=== PATIENT | female | born 1985 | race Caucasian/White ===

== ENCOUNTER 2017-09-14 11:35 | Emergency (ER) | payer MEDICAID ==
--- NOTE | 2017-09-14 12:44 | ER Document Report ---
ED GI/ - General Chief Complaint: Abdominal Pain Stated Complaint: ABDOMINAL PAIN Time Seen by Provider: 09/14/17 12:28 Mode of Arrival: Ambulatory Information source: Patient Notes: 32-year-old female presents to ED for complaint of right pelvic pain underneath of her scar for about the last 8 months. She states she had a C- section 16 months ago in the first 5 months and is still the time in the last 8 months it is hurt every time she had a period for the last 4 months it is hurt nonstop. She states she is also had diarrhea off and on since 2015 when she had her gallbladder out. She states she knows she has an ovarian cyst somewhere but she is not sure where but the pain is been much worse recently and now she could not sleep last night. TRAVEL OUTSIDE OF THE [place] IN LAST 30 DAYS: No - HPI Patient complains to provider of: Diarrhea, Pelvic pain - Right pelvic pain Onset: Other - Chronic Timing/Duration: Intermittent Quality of pain: Sharp Severity at maximum: Severe Severity in ED: Severe Pain Level: 5 Location: Pelvis - Right Vaginal bleeding (Compared to normal period): Similar - 100. Right now LMP: On her period now Associated symptoms: Diarrhea, Other - Right pelvic pain Exacerbated by: Movement Relieved by: Denies Similar symptoms previously: Yes Recently seen / treated by doctor: No - Related Data Allergies/Adverse Reactions: cephalexin monohydrate [From Keflex] Allergy (Severe, Verified 06/05/17 22:41) Anaphylaxis codeine [Codeine] Allergy (Severe, Verified 06/05/17 22:41) Anaphylaxis Penicillins Allergy (Severe, Verified 06/05/17 22:41) Anaphylaxis diphenhydramine HCl [From Benadryl] Adverse Reaction (Verified 06/05/17 22:41) prochlorperazine edisylate [From Compazine] Adverse Reaction (Verified 06/05/17 22:41) prochlorperazine maleate [From Compazine] Adverse Reaction (Verified 06/05/17 22 :41) Past Medical History - General Information source: Patient - Social History Smoking Status: Current Every Day Smoker Cigarette use (# per day): Yes - Pack per day Chew tobacco use (# tins/day): No Smoking Education Provided: Yes - 4 minutes Frequency of alcohol use: None Drug Abuse: None Occupation: None Lives with: Family Family History: DM, Hypertension. denies: Arthritis, CAD, COPD, CVA, Hyperlipidemia, Malignancy, Thyroid Disfunction Patient has suicidal ideation: No Patient has homicidal ideation: No - Past Medical History Cardiac Medical History: Reports: None Pulmonary Medical History: Reports: None EENT Medical History: Reports: None Neurological Medical History: Reports: None Endocrine Medical History: Reports: None Renal/ Medical History: Reports: Hx Ovarian Cysts Malignancy Medical History: Reports: None GI Medical History: Reports: Hx Irritable Bowel Musculoskeltal Medical History: Reports Hx Musculoskeletal Deformity Skin Medical History: Reports None Psychiatric Medical History: Reports: Hx Anxiety, Hx Bipolar Disorder, Hx Post Traumatic Stress Disorder Traumatic Medical History: Reports: None Past Surgical History: Reports: Hx Appendectomy, Hx Section, Hx Cholecystectomy, Hx Myringotomy - Immunizations Immunizations up to date: Yes Hx Diphtheria, Pertussis, Tetanus Vaccination: Yes Review of Systems - Review of Systems Constitutional: No symptoms reported EENT: No symptoms reported Cardiovascular: No symptoms reported Respiratory: No symptoms reported Gastrointestinal: Diarrhea - Chronic since 2016 Genitourinary: No symptoms reported Female Genitourinary: Other - Right pelvic pain Musculoskeletal: No symptoms reported Skin: No symptoms reported Hematologic/Lymphatic: No symptoms reported Neurological/Psychological: No symptoms reported -: Yes All other systems reviewed and negative Physical Exam - Vital signs Vitals: Temp Pulse Resp BP Pulse Ox 98.6 F 79 16 121/78 98 09/14/17 11:48 09/14/17 11:48 09/14/17 11:48 09/14/17 11:48 09/14/17 11:48 Interpretation: Normal - General General appearance: Appears well, Alert - HEENT Head: Normocephalic, Atraumatic Eyes: Normal Pupils: PERRL - Respiratory Respiratory status: No respiratory distress Chest status: Nontender Breath sounds: Normal Chest palpation: Normal - Cardiovascular Rhythm: Regular Heart sounds: Normal auscultation Murmur: No - Abdominal Inspection: Normal Distension: No distension Bowel sounds: Normal Tenderness: Tender - Right pelvic area right above her scar Organomegaly: No organomegaly - Back Back: Normal, Nontender - Extremities General upper extremity: Normal inspection, Nontender, Normal color, Normal ROM , Normal temperature General lower extremity: Normal inspection, Nontender, Normal color, Normal ROM , Normal temperature, Normal weight bearing. No: Geovanni's sign - Neurological Neuro grossly intact: Yes Cognition: Normal Orientation: AAOx4 [place] Coma Scale Eye Opening: Spontaneous Alec Coma Scale Verbal: Oriented Alec Coma Scale Motor: Obeys Commands Alec Coma Scale Total: 15 Speech: Normal Motor strength normal: LUE, RUE, LLE, RLE Sensory: Normal - Psychological Associated symptoms: Normal affect, Normal mood - Skin Skin Temperature: Warm Skin Moisture: Dry Skin Color: Normal Course - Re-evaluation Re-evalutation: 09/14/17 15:19 Discussed positive gonorrhea and ultrasound reports with patient. Radiologist had recommended CT of abdomen due to the questionable mass or loop of bowel. Patient stated she did a CT as long as she did not have to drink anything I spoke with radiology he said that if she was not going to drink the contrast there is no points doing the CT and that he actually had a low suspicion of a mass he really thought it was a loop of bowel. Patient states that then she did not want the CAT scan she would rather just use the doxycycline and follow- up with her primary doctor. Patient instructions were reviewed with patient. 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 - Vital Signs Vital signs: Temp Pulse Resp BP Pulse Ox 97.9 F 103 H 18 127/84 H 100 09/14/17 15:21 09/14/17 15:21 09/14/17 15:21 09/14/17 15:21 09/14/17 15:21 - Laboratory Laboratory results interpreted by me: 09/14/17 09/14/17 12:41 12:41 Urine Protein 30 H Urine Blood LARGE H Ur Leukocyte Esterase SMALL H N.gonorrhoeae DNA (PCR) DETECTED H - Diagnostic Test Radiology reviewed: Image reviewed, Reports reviewed Discharge - Discharge Clinical Impression: Gonorrhea, Pelvic pain, Right ovarian cyst Condition: Stable Disposition: HOME, SELF-CARE Instructions: Family Physicians / Practices, Gastroenterology, [facility]-Map And Chart Mounter Doctors Additional Instructions: Ovarian Cyst Your examination shows the presence of an ovarian cyst. This is a ball of fluid attached to the ovary. Ovarian cysts in women of child-bearing age are usually innocent. However, the cyst may cause pain when it grows or bursts. An innocent ovarian cyst will usually go away by itself. When the cyst becomes painful, you should rest. Pain medication may be required. Some women find a hot water bottle soothing. The pain usually resolves within one or two days. After menopause, an ovarian cyst may mean a tumor, and requires more aggressive evaluation -- usually surgery is recommended to remove or biopsy the cyst. A very large cyst requires evaluation at any age. Most cysts (even the innocent ones) require follow-up examination. Call the doctor or return at any time if the pain increases significantly, if you become faint, or if you experience vaginal bleeding. PELVIC PAIN: There are many causes of pain in the pelvic area. The cause could be the tubes, ovaries, uterus, intestines, appendix, pelvic muscles and connective tissue, or the urinary tract. The cause of your pelvic pain is not clear. However, it seems safe to treat you outside the hospital. If the pain sounds like a temporary problem, we sometimes wait to see if it goes away. Other patients may need additional tests, such as pelvic ultrasound or cultures. Conditions may change. Call us or come back for reexamination if any problems occur, such as: (1) Pain that becomes more severe, steady, or becomes concentrated in one specific area. Also, pain that is more severe with movement or coughing. (2) Vomiting that persists or becomes more frequent. (3) Blood in the vomitus, urine, or bowel movements. Blood in the stool may have a tarry or black appearance. (4) Shaking chills or fever greater than 100 degrees. (5) The abdomen becomes more distended or swollen. (6) Bowel movements cease. (7) Heavy vaginal bleeding. PELVIC INFLAMMATORY DISEASE: You have been diagnosed as having pelvic inflammatory disease (PID). This is an infection of the fallopian tubes and surrounding areas of the pelvis. Symptoms are usually pelvic pain and discharge. The infection can do permanent damage to the tubes and ovaries. It should be taken very seriously. Treatment is antibiotics, which may be given by vein or by injection if the infection seems serious. It's important that you receive all recommended medication. Condoms help prevent spread of this infection to others. Because this infection is spread sexually, it's important that your sexual partner be checked before resuming sexual relations. If a culture shows gonorrhea or chlamydia organisms, the law requires that this be reported to the health department. Call the doctor or return at once if you develop increasing fever, rash, severe pelvic pain, vaginal bleeding (other than your period), or problems with your bladder or bowels. Antinausea Medication You have been given a medication to suppress nausea and vomiting. This type of medication can be given as a shot, pill, or suppository. It will usually last for many hours. Pills and shots usually last six to eight hours, suppositories last about 12 hours. For the typical illness, only one or two doses of the medication may be necessary. Mild lightheadedness may occur. This type of medicine can cause drowsiness. Do not drive or operate dangerous machinery while under its influence. Do not mix with alcohol. See your doctor at once if you have muscle spasms or tightness, or uncontrollable motions (particularly of the neck, mouth, or jaw). Persistent vomiting or severe lightheadedness should also be evaluated by the physician. DOXYCYCLINE: Doxycycline (Vibramycin, Doryx) is an antibiotic of the tetracycline family. This type of drug is useful for infections of the respiratory tract and genital tract, and is sometimes used for intestinal infections. Unlike most tetracyclines, doxycycline can be taken with food. It is longer acting, and (usually) less prone to side effects than regular tetracycline. Tetracycline antibiotics can stain immature teeth and SHOULD NOT BE TAKEN BY CHILDREN, NURSING MOTHERS, OR WOMEN. Tetracyclines can make you more prone to sunburn. Abdominal cramping, nausea, and diarrhea are occasional side effects. Women may experience vaginal yeast infections. Call the doctor at once if you develop hives, itching, shortness of breath , or lightheadedness. FOLLOW-UP CARE: If you have been referred to a physician for follow-up care, call the physician s office for an appointment as you were instructed or within the next two days. If you experience worsening or a significant change in your symptoms, notify the physician immediately or return to the Emergency Department at any time for re-evaluation. Prescriptions: Doxycycline Hyclate 100 mg PO BID #14 tablet Ondansetron [Zofran Odt 4 mg Tablet] 1 tab PO Q6H #15 tab.rapdis Forms: Return to Work
[2017-09-14 13:20] LABS: APPEARANCE,URINE CLOUDY; BILIRUBIN,URINE NEGATIVE (NEGATIVE); COLOR,URINE YELLOW; GLUCOSE, URINE NEGATIVE (NEGATIVE); KETONES,URINE NEGATIVE (NEGATIVE); LEUKOCYTE ESTERASE,URINE SMALL (NEGATIVE); NITRITE,URINE NEGATIVE (NEGATIVE); PROTEIN,URINE 30 mg/dL (NEGATIVE); URINE SPECIFIC GRAVITY 1.024; UROBILINOGEN,URINE NEGATIVE mg/dL (<2.0)
[2017-09-14 14:36] LABS: CHLAM PCR NOT DETECTED (NOT DETECT); GON PCR DETECTED (NOT DETECT)
[2017-09-14] MEDS ORDERED: DOXYCYCLINE HYCLATE 100 MG TABLET PO ONE (14:57)
[2017-09-14] MEDS ORDERED: ONDANSETRON 4 MG TAB.RAPDIS PO ONE (14:58)
--- NOTE | 2017-09-14 14:58 | RADIOLOGY REPORT (SQ) ---
EXAM DESCRIPTION: U/S NON OB PEL TV W/DOPPLER COMPLETED DATE/TIME: 09/14/2017 2:08 pm REASON FOR STUDY: right pelvic pain COMPARISON: None. TECHNIQUE: Dynamic and static grayscale images acquired of the pelvis via transvaginal approach and recorded on PACS. Additional selected color Doppler and spectral images recorded. LIMITATIONS: None. FINDINGS: UTERUS: Contour normal. No mass. ENDOMETRIAL STRIPE: No focal or generalized thickening. No masses. CERVIX: No nabothian cysts. RIGHT OVARY: 1.6 cm simple appearing cyst. 2.6 cm adjacent hyperechoic nonvascular lesion. RIGHT OVARY DOPPLER: Normal arterial vascular flow without evidence for torsion. LEFT OVARY: No abnormal masses. LEFT OVARY DOPPLER: Normal arterial vascular flow without evidence for torsion. FREE FLUID: None noted. OTHER: No other significant finding. MEASUREMENTS: UTERUS: 8.4 x 4.9 x 4.0 cm ENDOMETRIAL STRIPE: 8 mm RIGHT OVARY: 3.3 x 3.0 x 2.4 cm LEFT OVARY: 2.3 x 3.0 x 1.8 cm IMPRESSION: Complex cyst right ovary versus simple cyst with adjacent loop of bowel or less likely s olid mass. Consider followup CT to exclude a mass. TECHNICAL DOCUMENTATION: JOB ID: [id number] [employer]- All Rights Reserved
[2017-09-14 15:24] VITALS: BP 127/84
== END 2017-09-14 15:24 | disposition home or self-care (01) ==
LOC: ER 11:35
DX: N83.201 Unspecified ovarian cyst, right side (principal); A54.9 Gonococcal infection, unspecified; R10.2 Pelvic and perineal pain; R19.7 Diarrhea, unspecified; F17.210 Nicotine dependence, cigarettes, uncomplicated; Z88.0 Allergy status to penicillin; Z88.6 Allergy status to analgesic agent; Z90.49 Acquired absence of other specified parts of digestive tract
CPT/HCPCS: 99406; 99284; 87086; 81025; 81001; 87491; 87591; 76830; 93976; J3490; S0119

== ENCOUNTER 2017-09-16 00:43 | Emergency (ER) | payer MEDICAID ==
--- NOTE | 2017-09-16 02:25 | ER Document Report ---
ED General - General Chief Complaint: Abdominal Pain Stated Complaint: ABDOMINAL PAIN Time Seen by Provider: 09/16/17 01:08 Mode of Arrival: Ambulatory Information source: Patient Notes: 32-year-old female presents with 16 month duration of right lower quadrant abdominal pain patient notes ever since her the area has tian and itches, patient has been seen multiple times for this and states no one can tell her why she itches. Patient is tearful stating that she is tired of no one giving her an answer. Patient denies any fevers or chills admits to nausea every single morning that she wakes up. Patient was seen here 2 days prior noted to have a cyst versus a mass of the right lower quadrant, she googled it and believes she has cancer and now is afraid to sleep at night because she may not wake up in the morning. Patient refused a CT when she was here 2 days prior was noted to have chlamydia which she states does not cause her pain and that her pain started before the chlamydia occurred TRAVEL OUTSIDE OF THE [place] IN LAST 30 DAYS: No - HPI Onset: Other Onset/Duration: Persistent Quality of pain: Burning Severity: Mild Pain Level: 1 Associated symptoms: Nausea, Vomiting Exacerbated by: Denies Relieved by: Denies Similar symptoms previously: Yes Recently seen / treated by doctor: Yes - Related Data Allergies/Adverse Reactions: cephalexin monohydrate [From Keflex] Allergy (Severe, Verified 06/05/17 22:41) Anaphylaxis codeine [Codeine] Allergy (Severe, Verified 06/05/17 22:41) Anaphylaxis Penicillins Allergy (Severe, Verified 06/05/17 22:41) Anaphylaxis diphenhydramine HCl [From Benadryl] Adverse Reaction (Verified 06/05/17 22:41) prochlorperazine edisylate [From Compazine] Adverse Reaction (Verified 06/05/17 22:41) prochlorperazine maleate [From Compazine] Adverse Reaction (Verified 06/05/17 22 :41) Past Medical History - Social History Smoking Status: Never Smoker Cigarette use (# per day): No Chew tobacco use (# tins/day): No Smoking Education Provided: No Family History: DM, Hypertension. denies: Arthritis, CAD, COPD, CVA, Hyperlipidemia, Malignancy, Thyroid Disfunction Renal/ Medical History: Reports: Hx Ovarian Cysts. Denies: Hx Peritoneal Dialysis GI Medical History: Reports: Hx Irritable Bowel Musculoskeltal Medical History: Reports Hx Musculoskeletal Deformity Psychiatric Medical History: Reports: Hx Anxiety, Hx Bipolar Disorder, Hx Post Traumatic Stress Disorder Past Surgical History: Reports: Hx Appendectomy, Hx Section, Hx Cholecystectomy, Hx Myringotomy - Immunizations Immunizations up to date: Yes Hx Diphtheria, Pertussis, Tetanus Vaccination: Yes Review of Systems - Review of Systems Notes: REVIEW OF SYSTEMS: CONSTITUTIONAL : Denies fever, chills, or sweats. Denies recent illness. EENT: Denies eye, ear, throat, or mouth pain or symptoms. Denies nasal or sinus congestion or discharge. Denies throat, tongue, or mouth swelling or difficulty swallowing. CARDIOVASCULAR: Denies chest pain. Denies palpitations or racing or irregular heart beat. Denies ankle edema. RESPIRATORY: Denies cough, cold, or chest congestion. Denies shortness of breath, difficulty breathing, or wheezing. GASTROINTESTINAL: Admits to abdominal pain itching burning GENITOURINARY: Denies difficulty urinating, painful urination, burning, frequency, blood in urine, or discharge. FEMALE GENITOURINARY: Denies vaginal bleeding, heavy or abnormal periods, irregular periods. Denies vaginal discharge or odor. MUSCULOSKELETAL: Denies back or neck pain or stiffness. Denies joint pain or swelling. SKIN: Denies rash, lesions or sores. HEMATOLOGIC : Denies easy bruising or bleeding. LYMPHATIC: Denies swollen, enlarged glands. NEUROLOGICAL: Denies confusion or altered mental status. Denies passing out or loss of consciousness. Denies dizziness or lightheadedness. Denies headache. Denies weakness or paralysis or loss of use of either side. Denies problems with gait or speech. Denies sensory loss, numbness, or tingling. Denies seizures. PSYCHIATRIC: Denies anxiety or stress. Denies depression, suicidal ideation, or homicidal ideation. ALL OTHER SYSTEMS REVIEWED AND NEGATIVE. PHYSICAL EXAMINATION: GENERAL: Well-appearing, well-nourished and in no acute distress. HEAD: Atraumatic, normocephalic. EYES: Pupils equal round and reactive to light, extraocular movements intact, conjunctiva are normal. ENT: Nares patent, oropharynx clear without exudates. Moist mucous membranes. NECK: Normal range of motion, supple without lymphadenopathy LUNGS: Breath sounds clear to auscultation bilaterally and equal. No wheezes rales or rhonchi. HEART: Regular rate and rhythm without murmurs ABDOMEN: Soft, nontender, nondistended abdomen. No guarding, no rebound. No masses appreciated. Female : deferred Musculoskeletal: Normal range of motion, no pitting or edema. No cyanosis. NEUROLOGICAL: Cranial nerves grossly intact. Normal speech, normal gait. Normal sensory, motor exams PSYCH: Tearful anxious SKIN: Warm, Dry, normal turgor, no rashes or lesions noted. Dictation was performed using [employer] recognition software Physical Exam - Vital signs Vitals: Temp Pulse Resp BP Pulse Ox 97.9 F 98 18 134/84 H 97 09/16/17 00:49 09/16/17 00:49 09/16/17 00:49 09/16/17 00:49 09/16/17 00:49 Course - Re-evaluation Re-evalutation: 09/16/17 02:24 Patient's presentation is consistent with nerve injury post , she notes it is numb in the area had burning and itching. Since there was a possible mass I will perform a CT to reassure the patient that it is just a cyst. Either way patient will need follow-up with LICENSED PSYCHOLOGIST MANAGER as I cannot cure this. Patient is very low suspicion for tubo-ovarian abscess as she does not have any fever chills 09/16/17 04:02 CT noted dermoid cyst, patient otherwise has no acute life-threatening issues she is quite anxious, patient will be placed on Vistaril After performing a Medical Screening Examination, I estimate there is LOW risk for ACUTE APPENDICITIS, BOWEL OBSTRUCTION, ACUTE CHOLECYSTITIS, PERFORATED DIVERTICULITIS, INCARCERATED HERNIA, PANCREATITIS, PELVIC INFLAMMATORY DISEASE, PERFORATED ULCER, ECTOPIC , or TUBO-OVARIAN ABSCESS, thus I consider the discharge disposition reasonable. Also, there is no evidence or peritonitis , sepsis, or toxicity. I have reevaluated this patient multiple times and no significant life threatening changes are noted. The patient and I have discussed the diagnosis and risks, and we agree with discharging home with close follow-up with the understanding that symptoms and presentations can change. We also discussed returning to the Emergency Department immediately if new or worsening symptoms occur. We have discussed the symptoms which are most concerning (e.g., bloody stool, fever, changing or worsening pain, vomiting) that necessitate immediate return. - Vital Signs Vital signs: Temp Pulse Resp BP Pulse Ox 97.9 F 98 18 134/84 H 97 09/16/17 00:49 09/16/17 00:49 09/16/17 00:49 09/16/17 00:49 09/16/17 00:49 - Laboratory Result Diagrams: 09/16/17 02:15 09/16/17 02:15 Laboratory results interpreted by me: 09/16/17 09/16/17 02:15 02:15 RDW 14.5 H BUN 6 L Calcium 10.5 H AST 13 L - Diagnostic Test Radiology reviewed: Image reviewed, Reports reviewed Discharge - Discharge Clinical Impression: Dermoid cyst, Anxiety Condition: Stable Disposition: HOME, SELF-CARE Prescriptions: Hydroxyzine Pamoate [Vistaril 50 mg Capsule] 50 mg PO DAILY #30 capsule Referrals: [facility] [Provider Group] - Follow up tomorrow
[2017-09-16 02:29] LABS: ABSOLUTE BASOPHILS # (AUTO) 0.1 10^3/uL (0.0-0.2); ABSOLUTE EOSINOPHILS # (AUTO) 0.2 10^3/uL (0.0-0.6); ABSOLUTE LYMPHOCYTES (AUTO) 2.8 10^3/uL (0.5-4.7); ABSOLUTE MONOCYTES (AUTO) 0.7 10^3/uL (0.1-1.4); ABSOLUTE NEUT (AUTO) 6.8 10^3/uL (1.7-8.2); BASOPHILS % (AUTO) 0.9 % (0-2); EOSINOPHILS % (AUTO) 1.4 % (0-6); HEMATOCRIT 42.2 % (36.0-47.0); HEMOGLOBIN 14.4 g/dL (12.0-15.5); LYMPHOCYTES % (AUTO) 26.5 % (13-45); MEAN CORPUSCULAR HEMOGLOBIN 31.3 pg (27.0-33.4); MEAN CORPUSCULAR HGB CONC 34.2 g/dL (32.0-36.0); MEAN CORPUSCULAR VOLUME 92 fl (80-97); MONOCYTES % (AUTO) 6.5 % (3-13); PLATELET COUNT 284 10^3/uL (150-450); RED BLOOD COUNT 4.61 10^6/uL (3.72-5.28); RED CELL DISTRIBUTION WIDTH 14.5 % (11.5-14.0); SEGMENTED NEUTROPHILS % (AUTO) 64.7 % (42-78); TOTAL CELLS COUNTED % (AUTO) 100 %; WHITE BLOOD COUNT 10.5 10^3/uL (4.0-10.5)
[2017-09-16 02:42] LABS: ALANINE AMINOTRANSFERASE 16 U/L (9-52); ALBUMIN 4.9 g/dL (3.5-5.0); ALKALINE PHOSPHATASE 68 U/L (38-126); ANION GAP 15 (5-19); ASPARTATE AMINO TRANSFERASE 13 U/L (14-36); BILIRUBIN,DIRECT 0.1 mg/dL (0.0-0.4); BILIRUBIN,TOTAL 0.9 mg/dL (0.2-1.3); BLOOD UREA NITROGEN 6 mg/dL (7-20); CALCIUM 10.5 mg/dL (8.4-10.2); CARBON DIOXIDE 24 mmol/L (22-30); CHLORIDE 105 mmol/L (98-107); GLUCOSE 102 mg/dL (75-110); POTASSIUM 3.9 mmol/L (3.6-5.0); SODIUM 143.8 mmol/L (137-145); TOTAL PROTEIN 7.7 g/dL (6.3-8.2)
[2017-09-16] MEDS ORDERED: ONDANSETRON HCL INJ/PF 4 MG/2 ML SDV IV ONE (03:24)
--- NOTE | 2017-09-16 03:44 | RADIOLOGY REPORT (SQ) ---
EXAM DESCRIPTION: CT ABD/PELVIS WITH IV ONLY CLINICAL HISTORY: 32 years Female, RLQ cyst vs mass COMPARISON: None. TECHNIQUE: 82 mL Isovue-370 IV contrast. Coronal and sagittal reformat. This exam was performed according to our departmental dose-optimization program, which includes automated exposure control, adjustment of the mA and/or kV according to patient size and/or use of iterative reconstruction technique. FINDINGS: 2.9 cm right ovarian dermoid with fat, cystic, and small calcific components. 0.4 cm right renal stone and 0.4 cm left renal stone without complication. Cholecystectomy clips. Appendectomy suture. Inferior thorax, liver, pancreas, spleen, adrenals, renal system, gastrointestinal tract, pelvic organs, lymphatics, vasculature, and musculoskeleton appear otherwise unremarkable. IMPRESSION: No acute findings. 2.9 cm right ovarian dermoid. Bilateral 0.4 cm nephrolithiasis.
[2017-09-16 04:28] VITALS: BP 131/96
== END 2017-09-16 04:20 | disposition home or self-care (01) ==
LOC: ER 00:43
DX: D27.0 Benign neoplasm of right ovary (principal); F41.9 Anxiety disorder, unspecified; A74.9 Chlamydial infection, unspecified; R10.31 Right lower quadrant pain; R11.2 Nausea with vomiting, unspecified
CPT/HCPCS: 99284; 96374; 36415; 85025; 80053; 74177; J2405

== ENCOUNTER 2017-12-03 10:40 | Emergency (ER) | payer MEDICAID ==
[2017-12-03] MEDS ORDERED: CLONAZEPAM 1 MG TABLET PO ONE (11:08)
--- NOTE | 2017-12-03 11:14 | ER Document Report ---
ED Psych Disorder / Suicide - General Chief Complaint: Anxiety Stated Complaint: ANXIETY Time Seen by Provider: 12/03/17 10:57 Mode of Arrival: Medic Information source: Patient, Emergency Med Personnel, [facility] Records Notes: This 32-year-old female patient comes emergency room this morning for anxiety/ panic attack problems. She has a long-standing history of bipolar disorder not requiring medication. She has had anxiety and panic attacks for the past 5 years. She recently returned to this area the first part of October. She had been taking clonazepam 0.5 mg and it was controlling her anxiety to the point that she would not need to call 911, but was not completely controlling her symptoms. On her last psych visit 3 days ago her provider changed her from clonazepam 0.5 mg to Valium 5 mg. The Valium has not been helping at all and she is having uncontrolled panic attacks, hyperventilating, sobbing, unable to sleep. TRAVEL OUTSIDE OF THE [place] IN LAST 30 DAYS: No - Related Data Allergies/Adverse Reactions: cephalexin monohydrate [From Keflex] Allergy (Severe, Verified 12/03/17 10:52) Anaphylaxis codeine [Codeine] Allergy (Severe, Verified 12/03/17 10:52) Anaphylaxis Penicillins Allergy (Severe, Verified 12/03/17 10:52) Anaphylaxis diphenhydramine HCl [From Benadryl] Adverse Reaction (Verified 12/03/17 10:52) prochlorperazine edisylate [From Compazine] Adverse Reaction (Verified 12/03/17 10:52) prochlorperazine maleate [From Compazine] Adverse Reaction (Verified 12/03/17 10 :52) Past Medical History - General Information source: Patient, Emergency Med Personnel, [facility] Records - Social History Smoking Status: Current Every Day Smoker Cigarette use (# per day): Yes - 1 PPD Chew tobacco use (# tins/day): No Smoking Education Provided: No Frequency of alcohol use: None Drug Abuse: None Occupation: Unemployed Lives with: Friend Family History: DM, Hypertension Patient has suicidal ideation: No Patient has homicidal ideation: No Renal/ Medical History: Reports: Hx Ovarian Cysts GI Medical History: Reports: Hx Irritable Bowel Musculoskeltal Medical History: Reports Hx Musculoskeletal Deformity Psychiatric Medical History: Reports: Hx Anxiety, Hx Bipolar Disorder, Hx Post Traumatic Stress Disorder, Other - Panic attacks Past Surgical History: Reports: Hx Appendectomy, Hx Section, Hx Cholecystectomy, Hx Myringotomy - Immunizations Immunizations up to date: Yes Hx Diphtheria, Pertussis, Tetanus Vaccination: Yes Review of Systems - Review of Systems Constitutional: No symptoms reported EENT: No symptoms reported Cardiovascular: No symptoms reported Respiratory: No symptoms reported Gastrointestinal: No symptoms reported Genitourinary: No symptoms reported Female Genitourinary: Last menstrual period - Patient has the Nuva Ring contraceptive device Musculoskeletal: No symptoms reported Skin: No symptoms reported Hematologic/Lymphatic: No symptoms reported Neurological/Psychological: Anxiety Physical Exam - Vital signs Vitals: Temp Pulse Resp BP Pulse Ox 98.9 F 115 H 20 137/96 H 97 12/03/17 10:45 12/03/17 10:45 12/03/17 10:45 12/03/17 10:45 12/03/17 10:45 Interpretation: Normal - General General appearance: Alert, Anxious - Extremely anxious, crying, pacing the floor , Other - Hyperventilating - HEENT Head: Normocephalic, Atraumatic Eyes: Normal Pupils: PERRL Neck: Normal - Respiratory Respiratory status: No respiratory distress, Other - Hyperventilating due to anxiety Breath sounds: Normal - Cardiovascular Rhythm: Tachycardia Heart sounds: Normal auscultation Murmur: No - Abdominal Inspection: Normal - Back Back: Normal - Extremities General upper extremity: Normal inspection General lower extremity: Normal inspection - Neurological Neuro grossly intact: Yes - Psychological Associated symptoms: Anxious - Skin Skin Temperature: Warm Skin Moisture: Dry Skin Color: Normal Course - Re-evaluation Re-evalutation: 12/03/17 11:14 At this time we will give the patient clonazepam 1.0 mg and see if that will control her anxiety and panic disorder enough to be discharged home. 12/03/17 12:24 Patient's anxiety is much improved at this time, she is very thankful for medication and being switched back to her Klonopin, she agrees to stop the diazepam and to take the un-used diazepam back to her doctor on Tuesday. - Vital Signs Vital signs: Temp Pulse Resp BP Pulse Ox 98.7 F 87 18 127/88 H 99 12/03/17 12:19 12/03/17 12:19 12/03/17 12:19 12/03/17 12:19 12/03/17 12:19 Discharge - Discharge Clinical Impression: Panic disorder Instructions: Anxiety ([facility]) Additional Instructions: Stop taking the diazepam that was prescribed. Take the clonazepam as prescribed today. Follow-up with your psychiatry provider in the next few days to start back on clonazepam. Take the unused diazepam with you to see your doctor so that another clonazepam prescription can be written. RETURN TO THE EMERGENCY ROOM IF ANY NEW OR WORSENING SYMPTOMS. Prescriptions: Clonazepam 0.5 mg PO Q8 PRN #10 tablet PRN Reason: Anxiety
[2017-12-03 12:21] VITALS: BP 127/88
== END 2017-12-03 12:26 | disposition home or self-care (01) ==
LOC: ER 10:40
DX: F41.0 Panic disorder [episodic paroxysmal anxiety] (principal); F41.9 Anxiety disorder, unspecified; F17.210 Nicotine dependence, cigarettes, uncomplicated; Z79.899 Other long term (current) drug therapy
CPT/HCPCS: 99283; J3490

== ENCOUNTER 2018-01-01 14:35 | Emergency (ER) | payer MEDICAID ==
--- NOTE | 2018-01-01 15:03 | ER Document Report ---
ED Medical Screen (RME) - General Chief Complaint: Anxiety Stated Complaint: ANXIETY Time Seen by Provider: 01/01/18 14:55 Mode of Arrival: Ambulatory Information source: Patient Notes: 32-year-old female history of anxiety panic attacks who is on clonazepam daily and was recently put on Latuda and Zyprexa by her psychiatrist which he refuses to take presents with complaints of panic attack. Patient notes symptoms have been ongoing now for a few days that she is been nauseous and that everything hurts. Patient notes this is similar to previous panic attacks I have greeted and performed a rapid initial assessment of this patient. A comprehensive ED assessment and evaluation of the patient, analysis of test results and completion of the medical decision making process will be conducted by additional ED providers. PHYSICAL EXAMINATION: GENERAL: Well-appearing, well-nourished and in no acute distress. HEAD: Atraumatic, normocephalic. EYES: Pupils equal round extraocular movements intact, conjunctiva are normal. ENT: Nares patent NECK: Normal range of motion LUNGS: No respiratory distress Musculoskeletal: Normal range of motion NEUROLOGICAL: Normal speech, normal gait. PSYCH: Tearful anxious SKIN: Warm, Dry, normal turgor, no rashes or lesions noted. TRAVEL OUTSIDE OF THE [place] IN LAST 30 DAYS: No - Related Data Allergies/Adverse Reactions: cephalexin monohydrate [From Keflex] Allergy (Severe, Verified 12/03/17 10:52) Anaphylaxis codeine [Codeine] Allergy (Severe, Verified 12/03/17 10:52) Anaphylaxis Penicillins Allergy (Severe, Verified 12/03/17 10:52) Anaphylaxis diphenhydramine HCl [From Benadryl] Adverse Reaction (Verified 12/03/17 10:52) prochlorperazine edisylate [From Compazine] Adverse Reaction (Verified 12/03/17 10:52) prochlorperazine maleate [From Compazine] Adverse Reaction (Verified 12/03/17 10 :52) Past Medical History - Social History Chew tobacco use (# tins/day): No Frequency of alcohol use: None Drug Abuse: Marijuana Renal/ Medical History: Reports: Hx Ovarian Cysts. Denies: Hx Peritoneal Dialysis GI Medical History: Reports: Hx Irritable Bowel Musculoskeltal Medical History: Reports Hx Musculoskeletal Deformity Psychiatric Medical History: Reports: Hx Anxiety, Hx Bipolar Disorder, Hx Post Traumatic Stress Disorder Past Surgical History: Reports: Hx Appendectomy, Hx Section, Hx Cholecystectomy, Hx Myringotomy - Immunizations Immunizations up to date: Yes Hx Diphtheria, Pertussis, Tetanus Vaccination: Yes Physical Exam - Vital signs Vitals: Temp Pulse Resp BP Pulse Ox 99.3 F 97 18 142/86 H 99 01/01/18 14:53 01/01/18 14:53 01/01/18 14:53 01/01/18 14:53 01/01/18 14:53 Course - Vital Signs Vital signs: Temp Pulse Resp BP Pulse Ox 99.3 F 97 18 142/86 H 99 01/01/18 14:53 01/01/18 14:53 01/01/18 14:53 01/01/18 14:53 01/01/18 14:53 Doctor's Discharge - Discharge Instructions: Anxiety (OM) Referrals: MADISON VILLAR MD [Primary Care Provider] - Follow up as needed
--- NOTE | 2018-01-01 15:48 | ER Document Report ---
ED Psych Disorder / Suicide - General Mode of Arrival: Ambulatory Information source: Patient TRAVEL OUTSIDE OF THE [place] IN LAST 30 DAYS: No - General Chief Complaint: Anxiety Stated Complaint: ANXIETY Time Seen by Provider: 01/01/18 14:55 Notes: Patient is a 32-year-old female who presents to the emergency department today with complaints of ongoing panic attack for the last 2 days. Patient states that she has been on Klonopin for several years for her panic attacks and she feels like it is slowly beginning to not work for her anymore. Patient states she has been unable to work for several years secondary to her anxiety. Patient states her psychiatrist added Latuda and Zyprexa but she states she "stopped taking it because she is not schizophrenic". Patient denies HI or SI. ( TELMA TONG) - Related Data Allergies/Adverse Reactions: cephalexin monohydrate [From Keflex] Allergy (Severe, Verified 12/03/17 10:52) Anaphylaxis codeine [Codeine] Allergy (Severe, Verified 12/03/17 10:52) Anaphylaxis Penicillins Allergy (Severe, Verified 12/03/17 10:52) Anaphylaxis diphenhydramine HCl [From Benadryl] Adverse Reaction (Verified 12/03/17 10:52) prochlorperazine edisylate [From Compazine] Adverse Reaction (Verified 12/03/17 10:52) prochlorperazine maleate [From Compazine] Adverse Reaction (Verified 12/03/17 10 :52) Past Medical History - General Information source: Patient - Social History Smoking Status: Current Every Day Smoker Cigarette use (# per day): Yes Chew tobacco use (# tins/day): No Frequency of alcohol use: None Drug Abuse: Marijuana Lives with: Family Family History: Reviewed & Not Pertinent, DM, Hypertension Patient has suicidal ideation: No Patient has homicidal ideation: No Renal/ Medical History: Reports: Hx Ovarian Cysts GI Medical History: Reports: Hx Irritable Bowel Musculoskeltal Medical History: Reports Hx Musculoskeletal Deformity Psychiatric Medical History: Reports: Hx Anxiety, Hx Bipolar Disorder, Hx Post Traumatic Stress Disorder Past Surgical History: Reports: Hx Appendectomy, Hx Section, Hx Cholecystectomy, Hx Myringotomy - Immunizations Immunizations up to date: Yes Hx Diphtheria, Pertussis, Tetanus Vaccination: Yes Review of Systems - Review of Systems Constitutional: No symptoms reported EENT: No symptoms reported Cardiovascular: No symptoms reported Respiratory: No symptoms reported Gastrointestinal: No symptoms reported Genitourinary: No symptoms reported Female Genitourinary: No symptoms reported Musculoskeletal: No symptoms reported Skin: No symptoms reported Hematologic/Lymphatic: No symptoms reported Neurological/Psychological: See HPI, Other - panic attacks -: Yes All other systems reviewed and negative Physical Exam - Vital signs Interpretation: Normal - General General appearance: Appears well, Alert - HEENT Head: Normocephalic, Atraumatic Eyes: Normal Pupils: PERRL - Respiratory Respiratory status: No respiratory distress Chest status: Nontender Breath sounds: Normal Chest palpation: Normal - Cardiovascular Rhythm: Regular Heart sounds: Normal auscultation Murmur: No - Abdominal Inspection: Normal Distension: No distension Bowel sounds: Normal Tenderness: Nontender Organomegaly: No organomegaly - Back Back: Normal, Nontender - Extremities General upper extremity: Normal inspection, Nontender. No: Edema General lower extremity: Normal inspection, Nontender. No: Edema - Neurological Neuro grossly intact: Yes Cognition: Normal Orientation: AAOx4 Alec Coma Scale Eye Opening: Spontaneous Franklin Coma Scale Verbal: Oriented Alec Coma Scale Motor: Obeys Commands Franklin Coma Scale Total: 15 Speech: Normal - Psychological Associated symptoms: Normal affect, Normal mood - Skin Skin Temperature: Warm Skin Moisture: Dry Skin Color: Normal - Vital signs Vitals: Temp Pulse Resp BP Pulse Ox 99.3 F 97 18 142/86 H 99 01/01/18 14:53 01/01/18 14:53 01/01/18 14:53 01/01/18 14:53 01/01/18 14:53 Course - Re-evaluation Re-evalutation: 01/01/18 16:52 The patient later reported that she was hypothyroid as a teenager and would like that checked along with a test. 01/01/18 18:37 Patient further reported that her psychiatrist told her on her with the most recent clonazepam TID prescription that she could take an extra dose daily for short while if needed. He did not tell her what to do when this would cause her to run out early. She reports at this time she has 6 pills left, and has 4 days left until she should receive her next monthly prescription. Her last prescription was filled on 12/06/2017 for a 30 day supply which would mean her next prescription should be filled on 01/05/2018. Psych workers spoke with the patient at length about the Latuda and Zyprexa prescription she received that are used for mood stabilizing and anxiety and panic disorders. They are not just for schizophrenia as she had seen when she looked them up online. I will give the patient a prescription for 10 clonazepam 0.5 mg tablets so she does not run out prior to seeing her psychiatrist again. I will again recommend that she does try the lower dose of Zyprexa that was prescribed and the Latuda to see if that along with her previous clonazepam dosing helps control her anxiety and panic disorder a little bit better. (BECKI DENNIS) - Vital Signs Vital signs: Temp Pulse Resp BP Pulse Ox 99.3 F 97 18 142/86 H 99 01/01/18 14:53 01/01/18 14:53 01/01/18 14:53 01/01/18 14:53 01/01/18 14:53 Discharge - Discharge Clinical Impression: Anxiety, Panic disorder Condition: Stable Disposition: HOME, SELF-CARE Instructions: Anxiety ([facility]) Additional Instructions: You should be receiving your next monthly Clonazepam prescription in 4-5 days. You will receive a prescription today for Clonazepam to ensure you do not run out prior to your next scheduled refill date. We do recommend that you take the Zyprexa and Latuda that was prescribed for you to help control your anxiety and panic disorder. Follow-up with your mental health providers to ensure that you get your next Clonazepam prescription on schedule so that you do not run out. RETURN TO THE EMERGENCY ROOM IF ANY NEW OR WORSENING SYMPTOMS. Prescriptions: Clonazepam 0.5 mg PO Q8 #10 tablet Scribe Attestation: 01/01/18 18:47 I personally performed the services described in the documentation, reviewed and edited the documentation which was dictated to the scribe in my presence, and it accurately records my words and actions. (BECKI DENNIS) Scribe Documentation - Scribe Written by Aranza:: Aranza Li, 01/01/2018 1737 acting as scribe for :: Delgado
[2018-01-01] MEDS ORDERED: CLONAZEPAM 1 MG TABLET PO ONE (15:53)
[2018-01-01] MEDS ORDERED: ONDANSETRON 4 MG TAB.RAPDIS PO ONE (17:02)
--- NOTE | 2018-01-01 17:13 | PSYCHOLOGICAL NOTE ---
Psych Note - Psych Note Psych Note: Reason for Consult: anxiety 32-year-old female history of anxiety panic attacks who is on clonazepam daily and was recently put on Latuda and Zyprexa by her psychiatrist which he refuses to take presents with complaints of panic attack. Patient notes symptoms have been ongoing now for a few days that she is been nauseous and that everything hurts. Patient notes this is similar to previous panic attacks Patient disclosed she has suffered from anxiety for the last 5 years. She disclosed that her medication that she takes is the only one that she has found that helps but still doesn't stop her panic attacks. She reports that she can be sitting somewhere with no issues and she can feel a hot wave overcome her and "that's it...it's over...there is not stopping it." She reports that it can happen with no triggers, it last for 2 days and effects her physically (ie vomiting, diarrhea ect.). Patient disclosed she is not happy with her outpatient mental health provider and has already requested a new referral from her primary care. She disclosed anger about her outpatient provider giving her prescriptions for antipsychotics when all she has is anxiety. Clinician attempted to psychoeducated the patient on medications given for multiple reasons and not only for the identified reason found on google. Patient denies having bipolar disclosing she had the diagnosis was a child "but they got rid of it becuase they told me I should never have been diagnosis as young as I was. " Patient was alert and orientated to person, place, time and circumstance. Mood is irritable with congruent affect. Patient denies suicidal and homicidal ideation. Delusions are absent and behaviour is congruent with an intact reality based presentation ie organized and linear thought processes. Eye contact was well maintained. conversational speech was overall within normal rate tone and prosody with noted times of irritability. Intellectual abilities appear to be average range. Attention and concentration are fair. Insight, judgment and impulse control are good. No medication recommendations at this time 296.80 (F31.9) Unspecified Bipolar Disorder 300.00 (F41.9) Unspecified Anxiety Disorder R/O bipolar disorder Impression/Plan: Patient is cleared from acute psychiatric services. Patient denies suicidal and homicidal ideation. Patient does not meet IVC criteria per [place] GS 122C. Patient openly engages with clinician discusses her concerns with her anxiety has increased. Patient states that she is suffered from anxiety for the last 5 years and feels that it is physically debilitating. Clinician conducted psychoeducation on medications however patient states she has refused to take prescriptions provided by her outpatient mental health provider. Patient is reports that she is unhappy with her provider has already requested a new referral from her PCM. Dr. Shah was consulted and the care management this patient; attending physician is in agreement with augmentations and disposition.
[2018-01-01 17:44] LABS: FREE T3 3.1 pg/mL (2.77-5.27); FREE T4 (FREE THYROXINE) 1.18 ng/dL (0.78-2.19)
[2018-01-01 17:57] LABS: THYROID STIMULATING HORMONE 1.28 uIU/mL (0.47-4.68)
[2018-01-01 19:11] VITALS: BP 123/80
== END 2018-01-01 19:12 | disposition home or self-care (01) ==
LOC: ER 14:35
DX: F41.0 Panic disorder [episodic paroxysmal anxiety] (principal); F17.210 Nicotine dependence, cigarettes, uncomplicated; Z88.3 Allergy status to other anti-infective agents; Z88.6 Allergy status to analgesic agent; Z88.0 Allergy status to penicillin; Z90.49 Acquired absence of other specified parts of digestive tract
CPT/HCPCS: 99284; 36415; 84439; 84443; 84703; 84481; J3490; S0119

== ENCOUNTER 2018-02-23 21:49 | Emergency (ER) | payer MEDICAID ==
[2018-02-23 23:28] LABS: ABSOLUTE BASOPHILS # (AUTO) 0.1 10^3/uL (0.0-0.2); ABSOLUTE EOSINOPHILS # (AUTO) 0.1 10^3/uL (0.0-0.6); ABSOLUTE LYMPHOCYTES (AUTO) 2.6 10^3/uL (0.5-4.7); ABSOLUTE MONOCYTES (AUTO) 0.6 10^3/uL (0.1-1.4); ABSOLUTE NEUT (AUTO) 5.4 10^3/uL (1.7-8.2); EOSINOPHILS % (AUTO) 1.3 % (0-6); HEMATOCRIT 44.8 % (36.0-47.0); HEMOGLOBIN 15.5 g/dL (12.0-15.5); LYMPHOCYTES % (AUTO) 29.5 % (13-45); MEAN CORPUSCULAR HEMOGLOBIN 32.1 pg (27.0-33.4); MEAN CORPUSCULAR HGB CONC 34.6 g/dL (32.0-36.0); MEAN CORPUSCULAR VOLUME 93 fl (80-97); MONOCYTES % (AUTO) 6.7 % (3-13); PLATELET COUNT 283 10^3/uL (150-450); RED BLOOD COUNT 4.84 10^6/uL (3.72-5.28); RED CELL DISTRIBUTION WIDTH 13.3 % (11.5-14.0); SEGMENTED NEUTROPHILS % (AUTO) 61.5 % (42-78); TOTAL CELLS COUNTED % (AUTO) 100 %; WHITE BLOOD COUNT 8.7 10^3/uL (4.0-10.5)
[2018-02-23 23:43] LABS: ALANINE AMINOTRANSFERASE 18 U/L (9-52); ALBUMIN 4.8 g/dL (3.5-5.0); ALKALINE PHOSPHATASE 63 U/L (38-126); ANION GAP 13 (5-19); ASPARTATE AMINO TRANSFERASE 27 U/L (14-36); BILIRUBIN,DIRECT 0.3 mg/dL (0.0-0.4); BILIRUBIN,TOTAL 0.9 mg/dL (0.2-1.3); BLOOD UREA NITROGEN 12 mg/dL (7-20); CARBON DIOXIDE 24 mmol/L (22-30); CHLORIDE 106 mmol/L (98-107); GLUCOSE 90 mg/dL (75-110); LIPASE 175.5 U/L (23-300); POTASSIUM 4.3 mmol/L (3.6-5.0); SODIUM 143.2 mmol/L (137-145); TOTAL PROTEIN 8.4 g/dL (6.3-8.2)
--- NOTE | 2018-02-24 00:40 | ER Document Report ---
ED General - General Chief Complaint: Abdominal Pain Stated Complaint: ABDOMINAL PAIN Time Seen by Provider: 02/23/18 23:54 Mode of Arrival: Ambulatory Information source: Patient Notes: Patient is a 32-year-old female who presents with right upper abdominal pain with nausea and vomiting for the last 2 days. Patient reports that the symptoms actually began in 2014 soon after she had her gallbladder removed. Patient reports that she has been seen by a GI specialist, Dr. Osorio 2 days ago who has ordered labs and ultrasound to further evaluate her complaints of chronic abdominal pain. Patient denies any fever, diarrhea or urinary symptoms. Patient describes the pain as a gnawing type of pain in the pit of her stomach. TRAVEL OUTSIDE OF THE [place] IN LAST 30 DAYS: No - Related Data Allergies/Adverse Reactions: cephalexin monohydrate [From Keflex] Allergy (Severe, Verified 02/23/18 21:52) Anaphylaxis codeine [Codeine] Allergy (Severe, Verified 02/23/18 21:52) Anaphylaxis Penicillins Allergy (Severe, Verified 02/23/18 21:52) Anaphylaxis diphenhydramine HCl [From Benadryl] Adverse Reaction (Verified 02/23/18 21:52) prochlorperazine edisylate [From Compazine] Adverse Reaction (Verified 02/23/18 21:52) prochlorperazine maleate [From Compazine] Adverse Reaction (Verified 02/23/18 21 :52) Past Medical History - General Information source: Patient - Social History Smoking Status: Current Every Day Smoker Chew tobacco use (# tins/day): No Frequency of alcohol use: None Drug Abuse: None Family History: Reviewed & Not Pertinent, DM, Hypertension Patient has suicidal ideation: No Patient has homicidal ideation: No Renal/ Medical History: Reports: Hx Ovarian Cysts. Denies: Hx Peritoneal Dialysis GI Medical History: Reports: Hx Irritable Bowel Musculoskeletal Medical History: Reports Hx Musculoskeletal Deformity Psychiatric Medical History: Reports: Hx Anxiety, Hx Bipolar Disorder, Hx Post Traumatic Stress Disorder Past Surgical History: Reports: Hx Appendectomy, Hx Section, Hx Cholecystectomy, Hx Myringotomy - Immunizations Immunizations up to date: Yes Hx Diphtheria, Pertussis, Tetanus Vaccination: Yes Review of Systems - Review of Systems Constitutional: No symptoms reported EENT: No symptoms reported Cardiovascular: No symptoms reported Respiratory: No symptoms reported Gastrointestinal: See HPI Genitourinary: No symptoms reported Female Genitourinary: No symptoms reported Musculoskeletal: No symptoms reported Skin: No symptoms reported Hematologic/Lymphatic: No symptoms reported Neurological/Psychological: No symptoms reported Physical Exam - Vital signs Vitals: Temp Pulse Resp BP Pulse Ox 99.4 F 95 17 119/73 98 02/23/18 21:53 02/23/18 21:53 02/23/18 21:53 02/23/18 21:53 02/23/18 21:53 - Notes Notes: PHYSICAL EXAMINATION: GENERAL: Well-appearing, well-nourished and in no acute distress. HEAD: Atraumatic, normocephalic. EYES: Pupils equal round and reactive to light, extraocular movements intact, conjunctiva are normal. ENT: Nares patent, oropharynx clear without exudates. Moist mucous membranes. NECK: Normal range of motion, supple without lymphadenopathy LUNGS: Breath sounds clear to auscultation bilaterally and equal. No wheezes rales or rhonchi. HEART: Regular rate and rhythm without murmurs ABDOMEN: Soft, nondistended abdomen. No guarding, no rebound. No masses appreciated. Tenderness to palpation to right upper quadrant and epigastric area. Female : deferred Musculoskeletal: Normal range of motion, no pitting or edema. No cyanosis. NEUROLOGICAL: Cranial nerves grossly intact. Normal speech, normal gait. Normal sensory, motor exams PSYCH: Normal mood, normal affect. SKIN: Warm, Dry, normal turgor, no rashes or lesions noted. Course - Re-evaluation Re-evalutation: Patient is an otherwise healthy 32-year-old female who presents today with right upper abdominal pain with nausea and vomiting for the last 2 days. Patient reports this pain has actually been intermittent over the last 3 years. Patient does have some tenderness to palpation to the right upper quadrant and epigastric area otherwise examination is benign, patient does not appear to be in any acute distress, patient sitting up texting on her phone as I entered the room. Initial workup includes a normal CBC, CMP, and lipase. HCG is negative. Patient given Zofran 8 mg ODT and Toradol 15 mg IV as patient reports she does not want any medications that will be sedating. Patient will also be given a 1 L normal saline bolus. Will send patient for right upper quadrant abdominal ultrasound to evaluate for any retained stones in the common bile duct. Right upper quadrant ultrasound is unremarkable. Went into speak with patient who did not seem to be happy with the results. Patient reports that she continues to have pain. Patient now crying continues to ask why she has had to do with this pain for 3 years. Extensive conversation had with patient regarding how important it is for her to continue with her GI follow-up. I did ask patient what works for her for her pain as she reports she has tried everything over the last 3 years. Patient reports that nothing works for her pain. I offered the patient and GI cocktail which patient declined because she reports that she does not want to take any new medications. Patient reports that the Zofran did not help for her nausea. I offered the patient Reglan or Phenergan which patient also declined. Explained discharge instructions to patient and patient had no further questions for me. Upon nurses entry to the room to discharge patient patient now asking to speak with a physician. Dr. Nicholas notified who went in to evaluate the patient. Patient discharged in stable condition, see Dr. Nicholas's note. - Vital Signs Vital signs: Temp Pulse Resp BP Pulse Ox 97.7 F 90 16 127/87 H 99 02/24/18 03:24 02/24/18 03:24 02/24/18 03:24 02/24/18 03:24 02/24/18 03:24 - Laboratory Result Diagrams: 02/23/18 23:02 02/23/18 23:02 Laboratory results interpreted by me: 02/23/18 23:02 Total Protein 8.4 H Discharge - Discharge Clinical Impression: Abdominal pain Qualifiers: Abdominal location: upper abdomen, unspecified Qualified Code(s): R10.10 - Upper abdominal pain, unspecified Condition: Stable Disposition: HOME, SELF-CARE Additional Instructions: Abdominal Pain There are many causes of abdominal pain. Pain can mean a serious problem requiring surgery (such as appendicitis). It can also be an innocent problem that goes away on its own (such as a viral infection). Often, time must pass to determine the cause of pain. The physician does not feel that hospitalization is necessary, at present. Things may change within the next 24 hours. Call the doctor or come back for re- examination if any problems occur, such as: (1) Pain that becomes more severe, steady, or becomes concentrated in one specific area. Also, pain that is more severe with movement or coughing. (2) Vomiting that persists or becomes more frequent. (3) Blood in the vomitus, urine, or bowel movements. Blood in the stool may have a tarry or black appearance. (4) Shaking chills or fever greater than 100 degrees F. (5) The abdomen becomes more distended or swollen. (6) Bowel movements cease. (7) Failure to improve as expected. Your workup today was normal. I have included a copy of your labs and ultrasound report so that you can take it to your patient services manager. Your offered multiple different medications to attempt to alleviate your nausea and pain you have declined these. Dr. Nicholas has come to the bedside to offer you IM Phenergan and IM Dilaudid which you have also declined. Please do not drive as these will sedate you. Referrals: EVELYN MI MD [Primary Care Provider] - Follow up as needed
[2018-02-24] MEDS ORDERED: NORMAL SALINE 1000 ML 1,000 ML IV ONE ×2 (00:43→03:13)
[2018-02-24] MEDS ORDERED: ONDANSETRON 4 MG TAB.RAPDIS PO ONE (00:43)
[2018-02-24] MEDS ORDERED: KETOROLAC TROMETHAMINE INJ/PF 30 MG/1 ML SDV IV ONE (00:44)
--- NOTE | 2018-02-24 02:59 | RADIOLOGY REPORT (SQ) ---
EXAM DESCRIPTION: US ABDOMEN LIMITED COMPLETED DATE/TME: 02/24/2018 00:20 CLINICAL HISTORY: eval ducts, hx of GB removal, RUQ pain COMPARISON: None. TECHNIQUE: Real-time sonographic images of the right upper abdomen were obtained using a curved multihertz transducer. FINDINGS: Pancreas: The visualized portions of the pancreas are unremarkable. Vascular: The visualized portions of the aorta and IVC are unremarkable. Liver: The liver has normal contour and increased echogenicity. Hepatopedal flow in the portal vein confirmed with color and spectral Doppler imaging. The common bile duct measures 0.3 cm. Gallbladder: Cholecystectomy. Right Kidney: The right kidney measures 10.5 cm in length. No hydronephrosis, solid renal mass, or shadowing calculi. IMPRESSION: 1. Normal caliber common bile duct and intrahepatic bile ducts. 2. Prior cholecystectomy. 3. Hepatic steatosis.
[2018-02-24] MEDS ORDERED: PROMETHAZINE HCL INJ 25 MG/1 ML VIAL IM ONE (03:39)
[2018-02-24] MEDS ORDERED: HYDROMORPHONE HCL INJ/PF 2 MG/ML AMPULE IM ONE (03:39)
[2018-02-24 04:15] VITALS: BP 127/87
== END 2018-02-24 04:00 | disposition home or self-care (01) ==
LOC: ER 21:49
DX: R10.10 Upper abdominal pain, unspecified (principal); R10.11 Right upper quadrant pain; R11.2 Nausea with vomiting, unspecified; F17.200 Nicotine dependence, unspecified, uncomplicated; Z88.6 Allergy status to analgesic agent; Z88.0 Allergy status to penicillin; Z90.49 Acquired absence of other specified parts of digestive tract
CPT/HCPCS: 99284; 96361; 96374; 36415; 83690; 84703; 85025; 80053; 76705; S0119; J1885; J7030

== ENCOUNTER 2018-03-30 10:05 | Emergency (ER) | payer MEDICAID ==
[2018-03-30 10:13] VITALS: BP 118/82
[2018-03-30] MEDS: ONDANSETRON 4 MG TAB.RAPDIS PO ONE ×2 (10:58→11:12)
[2018-03-30] MEDS: CLONAZEPAM 1 MG TABLET PO ONE ×2 (10:58→11:12)
--- NOTE | 2018-03-30 11:18 | ER Document Report ---
ED General - General Chief Complaint: Anxiety Stated Complaint: ANXIETY Time Seen by Provider: 03/30/18 10:29 Mode of Arrival: Ambulatory Information source: Patient Notes: 32-year-old female presented to ED for anxiety. She she is alert and oriented respirations regular and unlabored speaking in full sentences. She states that she became very anxious and had a panic attack last night. She was in no distress and was very calm when she first came in. She states that she has an appointment with Dr. Mi tomorrow related to adjust her Klonopin because she states that she several times a month will have a panic attack and has to use extra 1 of Klonopin. She states she runs out of her Klonopin because she uses it for her panic attacks at night. TRAVEL OUTSIDE OF THE [place] IN LAST 30 DAYS: No - HPI Onset: Yesterday Onset/Duration: Intermittent Quality of pain: No pain Severity: None Pain Level: Denies Associated symptoms: Other - Anxiety Exacerbated by: Other - Any agitation Relieved by: Denies Similar symptoms previously: Yes Recently seen / treated by doctor: Yes - Related Data Allergies/Adverse Reactions: cephalexin monohydrate [From Keflex] Allergy (Severe, Verified 02/23/18 21:52) Anaphylaxis codeine [Codeine] Allergy (Severe, Verified 02/23/18 21:52) Anaphylaxis Penicillins Allergy (Severe, Verified 02/23/18 21:52) Anaphylaxis diphenhydramine HCl [From Benadryl] Adverse Reaction (Verified 02/23/18 21:52) prochlorperazine edisylate [From Compazine] Adverse Reaction (Verified 02/23/18 21:52) prochlorperazine maleate [From Compazine] Adverse Reaction (Verified 02/23/18 21 :52) Past Medical History - General Information source: Patient - Social History Smoking Status: Current Every Day Smoker Cigarette use (# per day): Yes - One half pack per day Chew tobacco use (# tins/day): No Smoking Education Provided: Yes - 4 minutes Frequency of alcohol use: None Drug Abuse: None, Marijuana Lives with: Family Family History: Reviewed & Not Pertinent, DM, Hypertension Patient has suicidal ideation: No Patient has homicidal ideation: No - Past Medical History Cardiac Medical History: Reports: None Pulmonary Medical History: Reports: None EENT Medical History: Reports: None Neurological Medical History: Reports: None Endocrine Medical History: Reports: None Renal/ Medical History: Reports: Hx Ovarian Cysts Malignancy Medical History: Reports: None GI Medical History: Reports: Hx Irritable Bowel Musculoskeletal Medical History: Reports Hx Musculoskeletal Deformity Skin Medical History: Reports None Psychiatric Medical History: Reports: Hx Anxiety, Hx Bipolar Disorder, Hx Post Traumatic Stress Disorder Traumatic Medical History: Reports: None Infectious Medical History: Reports: None Past Surgical History: Reports: Hx Appendectomy, Hx Section, Hx Cholecystectomy, Hx Myringotomy - Immunizations Immunizations up to date: Yes Hx Diphtheria, Pertussis, Tetanus Vaccination: Yes Review of Systems - Review of Systems Constitutional: No symptoms reported EENT: No symptoms reported Cardiovascular: No symptoms reported Respiratory: No symptoms reported Gastrointestinal: No symptoms reported Genitourinary: No symptoms reported Female Genitourinary: No symptoms reported Musculoskeletal: No symptoms reported Skin: No symptoms reported Hematologic/Lymphatic: No symptoms reported Neurological/Psychological: Anxiety - She states she had a panic attack last night and the she does not have enough anxiety medicine to cover when she has a panic attack. -: Yes All other systems reviewed and negative Physical Exam - Vital signs Vitals: Temp Pulse Resp BP Pulse Ox 99.9 F 112 H 20 118/82 97 03/30/18 10:11 03/30/18 10:11 03/30/18 10:11 03/30/18 10:11 03/30/18 10:11 Interpretation: Normal - General General appearance: Appears well, Alert - HEENT Head: Normocephalic, Atraumatic Eyes: Normal Pupils: PERRL - Respiratory Respiratory status: No respiratory distress Chest status: Nontender Breath sounds: Normal Chest palpation: Normal - Cardiovascular Rhythm: Regular Heart sounds: Normal auscultation Murmur: No - Abdominal Inspection: Normal Distension: No distension Bowel sounds: Normal Tenderness: Nontender Organomegaly: No organomegaly - Back Back: Normal, Nontender - Extremities General upper extremity: Normal inspection, Nontender, Normal color, Normal ROM , Normal temperature General lower extremity: Normal inspection, Nontender, Normal color, Normal ROM , Normal temperature, Normal weight bearing. No: Geovanni's sign - Neurological Neuro grossly intact: Yes Cognition: Normal Orientation: AAOx4 Monroe Coma Scale Eye Opening: Spontaneous Alec Coma Scale Verbal: Oriented Alec Coma Scale Motor: Obeys Commands Monroe Coma Scale Total: 15 Speech: Normal Motor strength normal: LUE, RUE, LLE, RLE Sensory: Normal - Psychological Associated symptoms: Aggressive, Agitated, Angry, Anxious - Skin Skin Temperature: Warm Skin Moisture: Dry Skin Color: Normal Course - Re-evaluation Re-evalutation: 03/30/18 21:25 Patient became very agitated and angry yelling and cussing the nurse when she did not want to let her take part of her dose home. Patient was given a prescription for 2 mg mg of Klonopin in the emergency room and discharged home with a prescription for 1 mg 1 of Klonopin to use tonight if she has a panic attack. Patient was also given a prescription for Phenergan if she has any more nausea and vomiting. Patient was instructed she needed to follow-up with her primary doctor and get a mental health provider for her anxiety and panic attacks. She was instructed that she could not come to the emergency room and get more Klonopin if she used her doses inappropriately or more than she was prescribed. Patient was instructed that she needed to get a mental health worker she did not take her primary care doctor was treating her anxiety and panic attacks appropriately. - Vital Signs Vital signs: Temp Pulse Resp BP Pulse Ox 98.4 F 112 H 20 118/82 97 03/30/18 10:44 03/30/18 10:11 03/30/18 10:11 03/30/18 10:11 03/30/18 10:11 Discharge - Discharge Clinical Impression: Anxiety Condition: Stable Disposition: HOME, SELF-CARE Instructions: Anxiety ([facility]) Additional Instructions: Anxiety The physician feels that some of your health problems are being caused by anxiety. Anxiety affects your health in many ways. Anxiety alone can cause palpitations, sweats, chest pains, abdominal pains, shortness of breath, and headaches. It contributes to ulcer disease, high blood pressure, irritable bowel syndrome, and has been shown to cause flare-ups of many other diseases. Anxiety is not a simple disorder to treat. If the anxiety is due to recent life stresses, you may simply need time to "work through" the changes. If the anxiety is due to an underlying unhappiness with yourself or due to psychiatric disturbance, professional help will be needed. Your physician can refer you for further help if needed. Anti-anxiety medication is occasionally given if the stress is acute or if you are having trouble sleeping. Chronic or frequent use of these medications is not a good idea because the body becomes reliant on it, preventing you from dealing with life's normal stresses. VOMITING: Vomiting (or nausea without vomiting) can be caused by many other different problems. It can mean that something's wrong with the stomach, such as ulcers or inflammation or the intestinal tract, such as appendicitis. But it can also be a symptom of a problem that has nothing to do with the stomach or intestines. Vomiting is common with severe headaches, earaches, tonsillitis, and kidney infections, etc. We see it with pneumonia or heart attacks. Drugs can cause nausea and vomiting. Many abdominal problems cause vomiting; for example, gallstones, kidney stones, pancreatitis, and intestinal obstruction ( blocked bowels). In most cases, curing the vomiting depends on fixing the problem that caused it. For temporary relief, we may use an anti-nausea medicine. For home use, we can prescribe suppositories, chewable pills, pills that dissolve in the mouth, or liquid anti-nausea drugs. If the vomiting seems to be caused by a problem in the stomach, acid-suppressing drugs may be prescribed as well. It's important to avoid dehydration. Sip small amounts of clear liquids ( soft drinks, tea, broth, etc) . Try to take fluids frequently even if you are vomiting to prevent dehydration. Take increasing amounts of fluid and when liquids are being consumed successfully, advance to small amounts of bland food (toast, soups, mashed potatoes, etc.) until you are able to resume a regular diet. Avoid aspirin, tobacco, and alcohol. If the vomiting worsens, if the problem that's making you vomit worsens, or if there's evidence of bleeding in the stomach (such as black, tarry stool, or bloody or black vomit), you should return immediately. Also, return if abdominal pain worsens or becomes localized to one area or you develop high fever. Call your doctor if you aren't improved in 24 hours. ANTINAUSEA MEDICATION: You have been given a medication to suppress nausea and vomiting. This type of medication can be given as a shot, pill, or suppository. It will usually last for many hours. Pills and shots usually last six to eight hours. For the typical illness, only one or two doses of the medication may be necessary. Mild lightheadedness may occur. This type of medicine can cause drowsiness. Do not drive or operate dangerous machinery while under its influence. Do not mix with alcohol. See your doctor at once if you have muscle spasms or tightness, or uncontrollable motions (particularly of the neck, mouth, or jaw). Persistent vomiting or severe lightheadedness should also be evaluated by the physician. Benzodiazepines You have been given a benzodiazepine medication. Examples of this type of medicine include Valium, Xanax, Librium, Ativan, and Halcion. Benzodiazepines have many uses. Medications of this type are used for insomnia, anxiety, muscle spasms, seizures, and drug and alcohol withdrawal. You may become very drowsy when you first take the medication. You should not drive or operate machinery while under its effects. Do not combine the medication with alcohol, or with any other medication without talking to your doctor. Do not take if without specific instruction from your breaker hand. Some benzodiazepines may have harmful interactions with oral antifungal medicines such as ketoconazole, itraconazole, and nefazodone. If you are taking an antifungal medicine, discuss this with your doctor before taking benzodiazepines. FOLLOW-UP CARE: If you have been referred to a physician for follow-up care, call the physician s office for an appointment as you were instructed or within the next two days. If you experience worsening or a significant change in your symptoms, notify the physician immediately or return to the Emergency Department at any time for re-evaluation. Prescriptions: Clonazepam [Klonopin] 1 mg PO ONCE PRN #1 tablet PRN Reason: Promethazine HCl [Phenergan 25 mg Tablet] 25 mg PO Q6H PRN #7 tablet PRN Reason: Referrals: EVELYN MI MD [Primary Care Provider] - Follow up as needed
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
== END 2018-03-30 11:21 | disposition home or self-care (01) ==
LOC: ER 10:05
DX: F41.9 Anxiety disorder, unspecified (principal); F41.0 Panic disorder [episodic paroxysmal anxiety]; Z79.899 Other long term (current) drug therapy; Z91.14 Patient's other noncompliance with medication regimen; F17.210 Nicotine dependence, cigarettes, uncomplicated; Z71.6 Tobacco abuse counseling; Z87.892 Personal history of anaphylaxis; Z88.1 Allergy status to other antibiotic agents; Z88.0 Allergy status to penicillin; Z88.5 Allergy status to narcotic agent
CPT/HCPCS: 99406; 99283; J3490; S0119

== ENCOUNTER 2018-04-08 15:17 | Emergency (ER) | payer MEDICAID ==
--- NOTE | 2018-04-08 15:40 | ER Document Report ---
ED Medical Screen (RME) - General Chief Complaint: Nausea/Vomiting/Diarrhea Stated Complaint: DIARRHEA, VISION ISSUE Time Seen by Provider: 04/08/18 15:28 Notes: 32-year-old female with anxiety presents with complaint of nausea, diarrhea and intermittent abdominal cramping for 10 days. Initially patient states that she has been vomiting for 10 days and then states that she is just really "gagging on my phlegm". Patient reports 6-7 episodes of quarter size diarrhea that " flow to the top of the toilet. Patient is experiencing intermittent abdominal cramping before having a bowel movement. She denies recent fever, travel, antibiotic use. She has had prior similar symptoms with her anxiety but states that she is not anxious. I have greeted and performed a rapid initial assessment of this patient. A comprehensive ED assessment and evaluation of the patient, analysis of test results and completion of medical decision making process we will be contacted by additional ED providers. General; no acute distress Respiratory; clear to auscultation bilaterally Neuro; a note 4, normal speech TRAVEL OUTSIDE OF THE [place] IN LAST 30 DAYS: No - HPI Onset: Other Onset/Duration: Intermittent Quality of pain: Cramping Severity: Mild Associated Symptoms: Diarrhea, Nausea. denies: Fever Exacerbated by: Denies Relieved by: Denies Similar symptoms previously: Yes Recently seen / treated by doctor: No - Related Data Smoking: Cigarettes Frequency of alcohol use: None Drug Abuse: None Allergies/Adverse Reactions: cephalexin monohydrate [From Keflex] Allergy (Severe, Verified 04/08/18 15:24) Anaphylaxis codeine [Codeine] Allergy (Severe, Verified 04/08/18 15:24) Anaphylaxis Penicillins Allergy (Severe, Verified 04/08/18 15:24) Anaphylaxis diphenhydramine HCl [From Benadryl] Adverse Reaction (Verified 04/08/18 15:24) prochlorperazine edisylate [From Compazine] Adverse Reaction (Verified 04/08/18 15:24) prochlorperazine maleate [From Compazine] Adverse Reaction (Verified 04/08/18 15 :24) Past Medical History - Social History Chew tobacco use (# tins/day): No Frequency of alcohol use: None Drug Abuse: None Renal/ Medical History: Reports: Hx Ovarian Cysts. Denies: Hx Peritoneal Dialysis GI Medical History: Reports: Hx Irritable Bowel Musculoskeltal Medical History: Reports Hx Musculoskeletal Deformity Psychiatric Medical History: Reports: Hx Anxiety, Hx Bipolar Disorder, Hx Post Traumatic Stress Disorder Past Surgical History: Reports: Hx Appendectomy, Hx Section, Hx Cholecystectomy, Hx Myringotomy - Immunizations Immunizations up to date: Yes Hx Diphtheria, Pertussis, Tetanus Vaccination: Yes Doctor's Discharge - Discharge Referrals: EVELYN MI MD [Primary Care Provider] - Follow up as needed
[2018-04-08] MEDS ORDERED: NORMAL SALINE 1000 ML 1,000 ML IV ONE ×2 (16:13→17:36)
--- NOTE | 2018-04-08 16:13 | ER Document Report ---
ED General - General Chief Complaint: Nausea/Vomiting/Diarrhea Stated Complaint: DIARRHEA, VISION ISSUE Time Seen by Provider: 04/08/18 15:28 Notes: Patient is a 32-year-old female that presents to the emergency department for chief complaint of diarrhea, and decreased intake. Patient states that about 10 days ago she had a panic attack and was seen in the emergency department, and at that time was having nausea, and nervousness, but since that time she has been having watery diarrhea, small amounts 6-7 times a day, with decreased oral intake, she states she is really only drank about 3 cans of Pepsi, and denies any solid food intake over the last 10 days. She had mild nausea, but no vomiting, denies headaches, lightheadedness, chest pain, shortness of breath , fevers, chills or night sweats. She denies noting any blood in the stool, dysuria or hematuria. Past Medical History: Anxiety Past Surgical History: , cholecystectomy, appendectomy Social History: Admits to smoking cigarettes daily, denies alcohol or drug use. Family History: Reviewed and noncontributory for presenting illness Allergies: Reviewed, see documented allergy list. REVIEW OF SYSTEMS: Unless otherwise stated in this report the patient's positive and negative responses for review of systems for constitutional, eyes, ENT, cardiovascular, respiratory, gastrointestinal, neurological, genitourinary, musculoskeletal, and integumentary systems and related systems to the presenting problem are either as stated in the HPI or were not pertinent or were negative for the symptoms and/or complaints related to the presenting medical problem. PHYSICAL EXAMINATION: Vital signs reviewed, nursing noted reviewed. GENERAL: Well-appearing, well-nourished and in no acute distress. HEAD: Atraumatic, normocephalic. EYES: Eyes appear normal, extraocular movements intact, sclera anicteric, conjunctiva are normal. ENT: nares patent, oropharynx clear without exudates. Moist mucous membranes. NECK: Normal range of motion, supple without lymphadenopathy LUNGS: Breath sounds clear to auscultation bilaterally and equal. No wheezes rales or rhonchi. HEART: Regular rate and rhythm without murmurs ABDOMEN: Soft, obese, nontender, normoactive bowel sounds. No rebound, guarding , or rigidity. No masses appreciated. EXTREMITIES: Nontender, good range of motion, no pitting or edema. NEUROLOGICAL: No focal neurological deficits. Moves all extremities spontaneously Motor and sensory grossly intact on exam. PSYCH: Normal mood, flat affect SKIN: Warm, Dry, normal turgor, no rashes or lesions noted on exposed skin TRAVEL OUTSIDE OF THE [place] IN LAST 30 DAYS: No - Related Data Allergies/Adverse Reactions: cephalexin monohydrate [From Keflex] Allergy (Severe, Verified 04/08/18 15:24) Anaphylaxis codeine [Codeine] Allergy (Severe, Verified 04/08/18 15:24) Anaphylaxis Penicillins Allergy (Severe, Verified 04/08/18 15:24) Anaphylaxis diphenhydramine HCl [From Benadryl] Adverse Reaction (Verified 04/08/18 15:24) prochlorperazine edisylate [From Compazine] Adverse Reaction (Verified 04/08/18 15:24) prochlorperazine maleate [From Compazine] Adverse Reaction (Verified 04/08/18 15 :24) Past Medical History - Social History Smoking Status: Current Every Day Smoker Chew tobacco use (# tins/day): No Frequency of alcohol use: None Drug Abuse: None Family History: Reviewed & Not Pertinent, DM, Hypertension Patient has suicidal ideation: No Patient has homicidal ideation: No Renal/ Medical History: Reports: Hx Ovarian Cysts. Denies: Hx Peritoneal Dialysis GI Medical History: Reports: Hx Irritable Bowel Musculoskeletal Medical History: Reports Hx Musculoskeletal Deformity Psychiatric Medical History: Reports: Hx Anxiety, Hx Bipolar Disorder, Hx Post Traumatic Stress Disorder Past Surgical History: Reports: Hx Appendectomy, Hx Section, Hx Cholecystectomy, Hx Myringotomy - Immunizations Immunizations up to date: Yes Hx Diphtheria, Pertussis, Tetanus Vaccination: Yes Physical Exam - Vital signs Vitals: Temp Pulse BP Pulse Ox 98.0 F 99 149/81 H 98 04/08/18 15:21 04/08/18 15:21 04/08/18 15:21 04/08/18 15:21 Course - Re-evaluation Re-evalutation: Patient seen and examined vital signs reviewed. Laboratory data and imaging were ordered as appropriate for the patient's presenting symptoms and complaint, with consideration of any critical or life threatening conditions that may be associated with their obtained history and exam as noted above. 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 Results were discussed with the patient at this point, after careful consideration I feel that that patient can be discharged from the emergency department, the patient was educated treatments and reasons to return to the emergency department based on their presumed diagnosis as noted above, they were advised to followup with a primary care physician in 2-3 days. Patient was agreeable to plan of care. *Note is created using voice recognition software and may contain spelling, syntax or grammatical errors. Laboratory 04/08/18 04/08/18 15:58 15:58 Sodium 143.7 Potassium 3.5 L Chloride 107 Carbon Dioxide 22 Anion Gap 15 BUN 6 L Creatinine 0.69 Est GFR ( Amer) > 60 Est GFR (Non-Af Amer) > 60 Glucose 91 Calcium 10.3 H Urine Color YELLOW Urine Appearance CLOUDY Urine pH 6.0 Ur Specific [place] 1.029 Urine Protein 100 H Urine Glucose (UA) NEGATIVE Urine Ketones NEGATIVE Urine Blood NEGATIVE Urine Nitrite NEGATIVE Urine Bilirubin NEGATIVE Urine Urobilinogen 2.0 H Ur Leukocyte Esterase NEGATIVE Urine WBC (Auto) 2 Urine RBC (Auto) 4 Urine Bacteria (Auto) 1+ Squamous Epi Cells Auto 12 Urine Mucus (Auto) MANY Urine Ascorbic Acid NEGATIVE Urine HCG, Qual NEGATIVE - Vital Signs Vital signs: Temp Pulse Resp BP Pulse Ox 98.0 F 99 149/81 H 98 04/08/18 15:21 04/08/18 15:21 04/08/18 15:21 04/08/18 15:21 - Laboratory Result Diagrams: 04/08/18 15:58 Laboratory results interpreted by me: 04/08/18 04/08/18 15:58 15:58 Potassium 3.5 L BUN 6 L Calcium 10.3 H Urine Protein 100 H Urine Urobilinogen 2.0 H Discharge - Discharge Clinical Impression: Diarrhea Qualifiers: Diarrhea type: unspecified type Qualified Code(s): R19.7 - Diarrhea, unspecified Condition: Stable Disposition: HOME, SELF-CARE Instructions: Diarrhea, Nonspecific ([facility]) Additional Instructions: Please return to the emergency department if you have any worsening, or concern of your symptoms. Please return to the emergency department if you develop chest pain, difficulty breathing, severe abdominal pain, or ongoing vomiting. Please follow-up with your primary care physician in 2-3 days and any other recommended physicians. If prescribed, take all medications as directed. If you have any questions or concerns do not hesitate to return the emergency department for evaluation. Prescriptions: Diphenoxylate HCl/Atrop Sulf [Lomotil 2.5 mg Tablet] 1 tab PO Q6H PRN #20 tablet PRN Reason: Diarrhea Referrals: EVELYN MI MD [Primary Care Provider] - Follow up in 3-5 days IGNACIO BOWEN MD [ACTIVE STAFF] - Follow up as needed
[2018-04-08 16:30] LABS: APPEARANCE,URINE CLOUDY; BILIRUBIN,URINE NEGATIVE (NEGATIVE); GLUCOSE, URINE NEGATIVE (NEGATIVE); KETONES,URINE NEGATIVE (NEGATIVE); LEUKOCYTE ESTERASE,URINE NEGATIVE (NEGATIVE); NITRITE,URINE NEGATIVE (NEGATIVE); PROTEIN,URINE 100 mg/dL (NEGATIVE); URINE SPECIFIC GRAVITY 1.029
[2018-04-08 16:31] LABS: COLOR,URINE YELLOW
[2018-04-08 16:45] LABS: ANION GAP 15 (5-19); BLOOD UREA NITROGEN 6 mg/dL (7-20); CALCIUM 10.3 mg/dL (8.4-10.2); CARBON DIOXIDE 22 mmol/L (22-30); CHLORIDE 107 mmol/L (98-107); GLUCOSE 91 mg/dL (75-110); POTASSIUM 3.5 mmol/L (3.6-5.0); SODIUM 143.7 mmol/L (137-145)
[2018-04-08] MEDS ORDERED: POTASSIUM CHLORIDE 10 MEQ CAPSULE.ER PO ONE (16:52)
[2018-04-08 18:33] VITALS: BP 120/68
== END 2018-04-08 18:32 | disposition home or self-care (01) ==
LOC: ER 15:17
DX: R19.7 Diarrhea, unspecified (principal); R11.0 Nausea; E87.5 Hyperkalemia; E83.52 Hypercalcemia; F17.210 Nicotine dependence, cigarettes, uncomplicated; Z87.892 Personal history of anaphylaxis; Z88.1 Allergy status to other antibiotic agents; Z88.5 Allergy status to narcotic agent; Z88.0 Allergy status to penicillin
CPT/HCPCS: 99284; 96360; 96361; 36415; 81025; 80048; 81001; J7030

== ENCOUNTER 2018-04-23 00:59 | Emergency (ER) | payer MEDICAID, OTHER ==
[2018-04-23] MEDS ORDERED: HYDROCODONE/ACETAMINOPHEN 5-325 MG TABLET PO ONE (05:16)
[2018-04-23] MEDS ORDERED: DOXYCYCLINE HYCLATE 100 MG TABLET PO ONE (05:17)
[2018-04-23] MEDS ORDERED: BENZONATATE 100 MG CAPSULE PO ONE (05:17)
--- NOTE | 2018-04-23 05:23 | ER Document Report ---
ED General - General Chief Complaint: Cough Stated Complaint: COUGH Time Seen by Provider: 04/23/18 04:55 Mode of Arrival: Ambulatory Information source: Patient Notes: 32-year-old female with bipolar disorder, PTSD, anxiety presents with complaint of headache, cough, sore throat, ear pain, nasal congestion and chest discomfort. Patient has had a persistent productive cough for 3 days. She was seen by her primary care physician and started on azithromycin. She states that the cough and chest discomfort have progressively worsened and she recently lost her voice. TRAVEL OUTSIDE OF THE [place] IN LAST 30 DAYS: No - HPI Onset: Other Onset/Duration: Gradual, Persistent, Worse Quality of pain: Achy, Burning Severity: Moderate Associated symptoms: Body/muscle aches, Chest pain, Productive cough, Earache, Headache, Sore throat Exacerbated by: Denies Relieved by: Denies Similar symptoms previously: Yes Recently seen / treated by doctor: Yes - Related Data Allergies/Adverse Reactions: cephalexin monohydrate [From Keflex] Allergy (Severe, Verified 04/08/18 15:24) Anaphylaxis codeine [Codeine] Allergy (Severe, Verified 04/08/18 15:24) Anaphylaxis Penicillins Allergy (Severe, Verified 04/08/18 15:24) Anaphylaxis diphenhydramine HCl [From Benadryl] Adverse Reaction (Verified 04/08/18 15:24) prochlorperazine edisylate [From Compazine] Adverse Reaction (Verified 04/08/18 15:24) prochlorperazine maleate [From Compazine] Adverse Reaction (Verified 04/08/18 15 :24) Past Medical History - General Information source: Patient, [facility] Records - Social History Smoking Status: Current Every Day Smoker Frequency of alcohol use: None Drug Abuse: None Lives with: Family Family History: Reviewed & Not Pertinent, DM, Hypertension Patient has suicidal ideation: No Patient has homicidal ideation: No Renal/ Medical History: Reports: Hx Ovarian Cysts. Denies: Hx Peritoneal Dialysis GI Medical History: Reports: Hx Irritable Bowel Musculoskeletal Medical History: Reports Hx Musculoskeletal Deformity Psychiatric Medical History: Reports: Hx Anxiety, Hx Bipolar Disorder, Hx Post Traumatic Stress Disorder Past Surgical History: Reports: Hx Appendectomy, Hx Section, Hx Cholecystectomy, Hx Myringotomy - Immunizations Immunizations up to date: Yes Hx Diphtheria, Pertussis, Tetanus Vaccination: Yes Review of Systems - Review of Systems Notes: REVIEW OF SYSTEMS: CONSTITUTIONAL : Denies fever, chills, or sweats. Denies recent illness. Denies weight loss, recent hospitalizations. EENT: Denies visual changes, eye pain. Denies oral lesions, difficulty swallowing. CARDIOVASCULAR: Denies palpitations. Denies lower extremity edema. RESPIRATORY: Denies shortness of breath GASTROINTESTINAL: Denies abdominal pain or distention. Denies nausea, vomiting , or diarrhea. Denies blood in vomitus, stools, or per rectum. Denies black, tarry stools. Denies constipation. GENITOURINARY: Denies difficulty urinating, painful urination, frequency, blood in urine, or vaginal discharge. MUSCULOSKELETAL: Denies back or neck pain or stiffness. Denies joint pain or swelling. SKIN: Denies rash, lesions or sores. HEMATOLOGIC : Denies easy bruising or bleeding. LYMPHATIC: Denies swollen glands. NEUROLOGICAL: Denies confusion or altered mental status. Denies loss of consciousness. Denies dizziness or lightheadedness. Denies weakness or paralysis. Denies problems difficulty with ambulation, slurred speech. Denies sensory loss, numbness, or tingling. Denies seizures. PSYCHIATRIC: Denies anxiety or stress. Denies depression, suicidal ideation, or homicidal ideation. Denies visual or auditory hallucinations. Physical Exam - Vital signs Vitals: Temp Pulse Resp BP Pulse Ox 99.0 F 82 16 127/77 H 100 04/23/18 01:10 04/23/18 01:10 04/23/18 01:10 04/23/18 01:10 04/23/18 01:10 - Notes Notes: PHYSICAL EXAMINATION: GENERAL: Well-appearing, well-nourished and in no acute distress. HEAD: Atraumatic, normocephalic. EYES: Pupils equal round and reactive to light, extraocular movements intact, conjunctiva are normal. ENT: Nares patent, oropharynx clear without exudates. Moist mucous membranes. NECK: Normal range of motion, supple without lymphadenopathy LUNGS: Coarse breath sounds bilaterally. Diffuse wheezing bilaterally. Harsh persistent cough HEART: Regular rate and rhythm without murmurs ABDOMEN: Soft, nontender, nondistended abdomen. No guarding, no rebound. No masses appreciated. Female : deferred Musculoskeletal: Normal range of motion, no pitting or edema. No cyanosis. NEUROLOGICAL: Cranial nerves grossly intact. Normal speech, normal gait. Normal sensory, motor exams PSYCH: Normal mood, normal affect. SKIN: Warm, Dry, normal turgor, no rashes or lesions noted. Course - Re-evaluation Re-evalutation: 04/23/18 05:24 32-year-old female with bipolar disorder, PTSD, anxiety presents with complaint of headache, cough, sore throat, ear pain, nasal congestion and chest discomfort. Patient has had a persistent productive cough for 3 days. She was seen by her primary care physician and started on azithromycin. She states that the cough and chest discomfort have progressively worsened and she recently lost her voice. Upon arrival vital signs reviewed and within normal limits. Exam is significant for coarse breath sounds, wheezing, harsh cough. Patient was offered breathing treatments, pain medication, steroids, cough medicine the patient and has declined all of them stating that she is very sensitive to medications and that most of them make her very anxious. Patient received 2.5 mg of Vicodin, Tessalon Perles and we have switched her antibiotic to doxycycline. Presentation is most consistent with a viral upper respiratory infection. Patient is overall well appearance, vitals within normal limits, well-hydrated. Patient denies any neck pain, and has no evidence of meningismus on examination. No evidence of respiratory distress. Based on clinical exam and history, I do not suspect meningitis, strep pharyngitis, or an acute encephalitis. No laboratory or imaging testing is indicated at this time. Will discharge patient with return precautions and followup recommendations. They are in agreement this plan have verbalized understanding return precautions. 04/23/18 05:25 - Vital Signs Vital signs: Temp Pulse Resp BP Pulse Ox 99.0 F 82 16 127/77 H 100 04/23/18 01:10 04/23/18 01:10 04/23/18 01:10 04/23/18 01:10 04/23/18 01:10 Discharge - Discharge Clinical Impression: Bronchitis, Wheezing Upper respiratory infection Qualifiers: URI type: unspecified URI Qualified Code(s): J06.9 - Acute upper respiratory infection, unspecified Headache Qualifiers: Headache type: unspecified Headache chronicity pattern: unspecified pattern Intractability: not intractable Qualified Code(s): R51 - Headache Condition: Good Disposition: HOME, SELF-CARE Instructions: Upper Respiratory Illness ([facility]), Bronchitis With Bronchospasm ( Wheezing) ([facility]) Additional Instructions: Your symptoms are most likely due to a viral infection it should resolve over the next 7-14 days. You should take [id number] guanfacine per bottle instructions to help thin the mucus. For nasal congestion: I would recommend that you get [id number] oxymetazoline also known is afrin. Use only per bottle instructions and be sure to never use this for more than 3 days if you can develop severe rebound congestion. You may also use tylenol or ibuprofen as needed for aches and throat discomfort. Please be sure to drink plenty of fluids and get rest. Return to the emergency department he began having difficulty breathing, chest pain, persistent vomiting, or any other symptoms that are concerning to you. Prescriptions: Benzonatate [Tessalon Perles 100 mg Capsule] 100 mg PO Q8HP PRN #20 capsule PRN Reason: Doxycycline Hyclate 100 mg PO BID #14 capsule Hydrocodone/Acetaminophen [Vicodin 5-300 mg Tablet] 0.5 each PO Q6H #8 tablet Referrals: EVELYN MI MD [Primary Care Provider] - Follow up as needed
[2018-04-23 06:37] VITALS: BP 121/78
== END 2018-04-23 05:55 | disposition home or self-care (01) ==
LOC: ER 00:59
DX: J40 Bronchitis, not specified as acute or chronic (principal); J06.9 Acute upper respiratory infection, unspecified; R06.2 Wheezing; R05 Cough; R51 Headache; J02.9 Acute pharyngitis, unspecified; H92.09 Otalgia, unspecified ear; R09.81 Nasal congestion; R09.89 Other specified symptoms and signs involving the circulatory and respiratory systems; M79.1 Myalgia; Z87.892 Personal history of anaphylaxis; Z88.1 Allergy status to other antibiotic agents; Z88.5 Allergy status to narcotic agent; Z88.0 Allergy status to penicillin
CPT/HCPCS: 99283; J3490 ×2

== ENCOUNTER 2018-10-15 02:09 | Emergency (ER) | payer MEDICAID ==
[2018-10-15] MEDS ORDERED: LIDOCAINE 2% VISCOUS SOLN 20 ML UDCUP PO ONE (08:22)
[2018-10-15] MEDS ORDERED: AMOXICILLIN TRIHYDRATE 500 MG CAPSULE PO ONE (08:23)
[2018-10-15] MEDS ORDERED: HYDROCODONE/ACETAMINOPHEN 5-325 MG (6 TAB/ER DISP) PO PRN (08:29)
--- NOTE | 2018-10-15 08:31 | ER Document Report ---
Addendum entered and electronically signed by GEETHA ZHANG PA-C 10/15/18 08:42: Discharge - Discharge Clinical Impression: Broken tooth Qualifiers: Encounter type: initial encounter Fracture type: closed Qualified Code(s): S02.5XXA - Fracture of tooth (traumatic), initial encounter for closed fracture Condition: Good Disposition: HOME, SELF-CARE Instructions: Toothache ([facility]) Additional Instructions: You have been seen for dental pain. It is very important that you follow-up with a dentist for definitive care. Please return if you develop fever greater than 101, swelling in your face, vomiting, difficulty breathing or swallowing, or any other symptoms that are concerning to you. For pain you should take ibup rofen 600 mg every 6 hours as needed. Prescriptions: Benzonatate [Tessalon Perles 100 mg Capsule] 100 mg PO Q8HP PRN #40 capsule PRN Reason: Amoxicillin Trihydrate [Amoxil 500 mg Capsule] 500 mg PO BID 7 Days #14 cap Forms: Return to Work Referrals: [facility] [Provider Group] - Follow up as needed EVELYN MI MD [Primary Care Provider] - Follow up as needed Original Note: HPI - HPI Patient complains to provider of: broken tooth Time Seen by Provider: 10/15/18 08:00 Pain Level: 5 Context: 32 female presents after broken tooth yesterday. She said she was eating and she felt the tooth break. She states she feels something poking into the back of her tooth. She had a large amalgam filling she says that fell out. She complains of excruciating pain that covers the entire side of her right face. It is the #31 tooth. No fevers, chills, nausea, vomiting, occult he breathing, foreign body in the airway. No other complaints. - REPRODUCTIVE Reproductive: DENIES: : Past Medical History - Social History Smoking Status: Current Every Day Smoker Family History: Reviewed & Not Pertinent, DM, Hypertension Patient has suicidal ideation: No Patient has homicidal ideation: No Renal/ Medical History: Reports: Hx Ovarian Cysts. Denies: Hx Peritoneal Dialysis GI Medical History: Reports: Hx Irritable Bowel Musculoskeletal Medical History: Reports Hx Musculoskeletal Deformity Psychiatric Medical History: Reports: Hx Anxiety, Hx Bipolar Disorder, Hx Post Traumatic Stress Disorder Past Surgical History: Reports: Hx Appendectomy, Hx Section, Hx Cholecystectomy, Hx Myringotomy - Immunizations Immunizations up to date: Yes Hx Diphtheria, Pertussis, Tetanus Vaccination: Yes Vertical Provider Document - CONSTITUTIONAL Agree With Documented VS: Yes Exam Limitations: No Limitations General Appearance: Mild Distress - INFECTION CONTROL TRAVEL OUTSIDE OF THE [place] IN LAST 30 DAYS: No - HEENT HEENT: Atraumatic, Normocephalic Mouth Diagram: 1 - Broken amalgam filling, exposed dentin, inflammation around the tooth - NECK Neck: Normal Inspection, Supple Course - Re-evaluation Re-evalutation: 10/15/18 08:34 Generally well-appearing female with broken #31 tooth. Feeling as far as a large amalgam filling states she is in acute pain. There is mild inflammation around the gingiva. We will give patient viscous lidocaine, Tessalon Perles, amoxicillin since she states she cannot take penicillin, and [facility]. Patient is stable for discharge. Of also advised her to go buy some temporary filling [id number]. - Vital Signs Vital signs: Temp Pulse Resp BP Pulse Ox 98.6 F 85 16 123/76 100 10/15/18 06:04 10/15/18 07:48 10/15/18 07:48 10/15/18 07:48 10/15/18 07:48 Discharge - Discharge Clinical Impression: Broken tooth Qualifiers: Encounter type: initial encounter Fracture type: closed Qualified Code(s): S02.5XXA - Fracture of tooth (traumatic), initial encounter for closed fracture Condition: Good Disposition: HOME, SELF-CARE Instructions: Toothache ([facility]) Additional Instructions: You have been seen for dental pain. It is very important that you follow-up with a dentist for definitive care. Please return if you develop fever greater than 101, swelling in your face, vomiting, difficulty breathing or swallowing, or any other symptoms that are concerning to you. For pain you should take ibuprofen 600 mg every 6 hours as needed. Prescriptions: Benzonatate [Tessalon Perles 100 mg Capsule] 100 mg PO Q8HP PRN #40 capsule PRN Reason: Amoxicillin Trihydrate [Amoxil 500 mg Capsule] 500 mg PO BID 7 Days #14 cap Referrals: EVELYN MI MD [Primary Care Provider] - Follow up as needed [facility] [Provider Group] - Follow up as needed
[2018-10-15 08:58] VITALS: BP 110/66
== END 2018-10-15 08:58 | disposition home or self-care (01) ==
LOC: ER 02:09
DX: S02.5XXA Fracture of tooth (traumatic), initial encounter for closed fracture (principal); X58.XXXA Exposure to other specified factors, initial encounter; F17.200 Nicotine dependence, unspecified, uncomplicated
CPT/HCPCS: 99282; J3490

== ENCOUNTER 2018-11-11 04:07 | Emergency (ER) | payer MEDICAID ==
[2018-11-11 04:13] VITALS: BP 135/86
[2018-11-11] MEDS ORDERED: HYDROCODONE/ACETAMINOPHEN 5-325 MG (6 TAB/ER DISP) PO PRN (04:54)
[2018-11-11] MEDS ORDERED: AMOXICILLIN TRIHYDRATE 500 MG CAPSULE PO ONE (04:54)
--- NOTE | 2018-11-11 04:56 | ER Document Report ---
HPI - HPI Time Seen by Provider: 11/11/18 04:29 Pain Level: 5 Context: Patient is a 33-year-old female that comes to the emergency department for chief complaint of dental pain. She states that she has had intermittent trouble with the same tooth in the right lower jaw, she was supposed to get pulled but states she was afraid the lidocaine with epinephrine would cause her anxiety to trigger so they had to abort the extraction procedure at the dental office. - REPRODUCTIVE Reproductive: DENIES: : Past Medical History - General Information source: Patient - Social History Smoking Status: Never Smoker Frequency of alcohol use: None Drug Abuse: None Lives with: Family Family History: Reviewed & Not Pertinent, DM, Hypertension Renal/ Medical History: Reports: Hx Ovarian Cysts. Denies: Hx Peritoneal Dialysis GI Medical History: Reports: Hx Irritable Bowel Musculoskeletal Medical History: Reports Hx Musculoskeletal Deformity Psychiatric Medical History: Reports: Hx Anxiety, Hx Bipolar Disorder, Hx Post Traumatic Stress Disorder Past Surgical History: Reports: Hx Appendectomy, Hx Section, Hx Cholecystectomy, Hx Myringotomy - Immunizations Immunizations up to date: Yes Hx Diphtheria, Pertussis, Tetanus Vaccination: Yes Vertical Provider Document - CONSTITUTIONAL General Appearance: WD/WN, No Apparent Distress - INFECTION CONTROL TRAVEL OUTSIDE OF THE [place] IN LAST 30 DAYS: No - HEENT HEENT: Atraumatic, Normocephalic, PERRLA. negative: Conjuctival Injection, Pharyngeal Exudate, Pharyngeal Tenderness, Tympanic Membrane Red, Tympanic Membrane Bulging Mouth Diagram: 1 - Fractured tooth with some mild surrounding erythema, no noted swelling, no induration or fluctuance. Remaining oropharyngeal exam is unremarkable - NECK Neck: Normal Inspection - RESPIRATORY Respiratory: Breath Sounds Normal, No Respiratory Distress - CARDIOVASCULAR Cardiovascular: Regular Rate, Regular Rhythm - GI/ABDOMEN Gastrointestinal: Abdomen Soft, Abdomen Non-Tender - BACK Back: Normal Inspection - MUSCULOSKELETAL/EXTREMETIES Musculoskeletal/Extremeties: MAEW, FROM, Non-Tender - NEURO Level of Consciousness: Awake, Alert, Appropriate - DERM Integumentary: Warm, Dry, No Rash Course - Re-evaluation Re-evalutation: Patient completed previous antibiotic several weeks ago. Unfortunately did not succeed in getting the tooth extracted and now she has developed pain again over the past 2 3 days which is worse. She will be placed on antibiotics again, I did discuss sedation dentistry versus using the lidocaine with epinephrine that they recommended to, she states that after discussion she feels she would go back to her current dentist and have this performed, she states she is going to call them, she does not want referral. Discussed expectations, discussed return precautions. Patient states understanding and agreement. - Vital Signs Vital signs: Temp Pulse Resp BP Pulse Ox 97.7 F 89 22 H 135/86 H 97 11/11/18 04:11 11/11/18 04:11 11/11/18 04:11 11/11/18 04:11 11/11/18 04:11 Discharge - Discharge Clinical Impression: Pain, dental Condition: Stable Disposition: HOME, SELF-CARE Additional Instructions: You have a dental fracture and your examination is consistent with a dental infection. Take antibiotics as prescribed, take provided pain medication especially to sleep, otherwise take Tylenol and ibuprofen for pain. Follow-up with the dentist to have this extracted or this will continue to happen. Return if you worsen including swelling of the face. Prescriptions: Amoxicillin Trihydrate [Amoxil 500 mg Capsule] 500 mg PO BID #20 capsule Referrals: EVELYN MI MD [Primary Care Provider] - Follow up as needed
== END 2018-11-11 05:06 | disposition home or self-care (01) ==
LOC: ER 04:07
DX: K08.89 Other specified disorders of teeth and supporting structures (principal)
CPT/HCPCS: 99282

== ENCOUNTER 2018-12-26 00:18 | Emergency (ER) | payer MEDICAID ==
[2018-12-26] MEDS ORDERED: DICYCLOMINE HCL INJ 20 MG/2 ML AMPULE IM ONE (02:04)
[2018-12-26] MEDS ORDERED: ONDANSETRON HCL INJ/PF 4 MG/2 ML SDV IV ONE (02:04)
[2018-12-26] MEDS ORDERED: NORMAL SALINE 1000 ML 1,000 ML IV ONE (02:04)
--- NOTE | 2018-12-26 02:10 | ER Document Report ---
ED General - General Chief Complaint: Abdominal Pain Stated Complaint: STOMACH CRAMPS Time Seen by Provider: 12/26/18 01:58 Primary Care Provider: EVELYN MI MD [Primary Care Provider] - 12/27/18 Notes: Patient is a pleasant 33-year-old female presents with complaint of abdominal cramping and diarrhea and some nausea. Symptoms been ongoing for 1 day. No fevers. Some vomiting. No blood in her stool. No blood in her emesis. She did use antibiotics 2 weeks ago. She took penicillin for tooth. No other antibiotic use. She does have a cat at home but the cat has not been sick. She has not been outside the country. She does not drink untreated or unfiltered water. TRAVEL OUTSIDE OF THE [place] IN LAST 30 DAYS: No - Related Data Allergies/Adverse Reactions: cephalexin monohydrate [From Keflex] Allergy (Severe, Verified 11/11/18 05:05) Anaphylaxis codeine [Codeine] Allergy (Severe, Verified 11/11/18 05:05) Anaphylaxis Penicillins Allergy (Severe, Verified 11/11/18 05:05) Anaphylaxis diphenhydramine HCl [From Benadryl] Adverse Reaction (Verified 11/11/18 05:05) prochlorperazine edisylate [From Compazine] Adverse Reaction (Verified 11/11/18 05:05) prochlorperazine maleate [From Compazine] Adverse Reaction (Verified 11/11/18 05:05) Past Medical History - Social History Smoking Status: Unknown if Ever Smoked Frequency of alcohol use: None Drug Abuse: None Family History: Reviewed & Not Pertinent, DM, Hypertension Renal/ Medical History: Reports: Hx Ovarian Cysts. Denies: Hx Peritoneal Dialysis GI Medical History: Reports: Hx Irritable Bowel Musculoskeletal Medical History: Reports Hx Musculoskeletal Deformity Psychiatric Medical History: Reports: Hx Anxiety, Hx Bipolar Disorder, Hx Post Traumatic Stress Disorder Past Surgical History: Reports: Hx Appendectomy, Hx Section, Hx Cholecystectomy, Hx Myringotomy - Immunizations Immunizations up to date: Yes Hx Diphtheria, Pertussis, Tetanus Vaccination: Yes Review of Systems - Review of Systems Notes: My Normal Review Basic REVIEW OF SYSTEMS: CONSTITUTIONAL : Denies fever, chills, or sweats. Denies recent illness. EENT: Denies eye, ear, throat, or mouth pain or symptoms. Denies nasal or sinus congestion. RESPIRATORY: Denies cough, cold, or chest congestion. Denies shortness of breath, difficulty breathing, or wheezing. GASTROINTESTINAL: Diffuse crampy abdominal pain. Some vomiting. Diarrhea. GENITOURINARY: Denies difficulty urinating, painful urination, burning, frequency, or blood in urine. FEMALE GENITOURINARY: Denies vaginal bleeding, abnormal or irregular periods. LMP: MUSCULOSKELETAL: Denies neck or back pain or joint pain or swelling. SKIN: Denies rash or skin lesions. NEUROLOGICAL: Denies altered mental status or loss of consciousness. Denies headache. Denies weakness or paralysis or loss of use of either side. Denies problems with gait or speech. Denies sensory or motor loss. ALL OTHER SYSTEMS REVIEWED AND NEGATIVE. Physical Exam - Vital signs Vitals: Temp Pulse Resp BP Pulse Ox 98.6 F 113 H 16 128/84 H 96 12/26/18 00:35 12/26/18 00:35 12/26/18 00:35 12/26/18 00:35 12/26/18 00:35 - Notes Notes: General Appearance: Well nourished, alert, cooperative, no acute distress, mild obvious discomfort. Well-appearing. Vitals: reviewed, See vital signs table. Head: no swelling or tenderness to the head Eyes: PERRL, EOMI, Conjuctiva clear Mouth: No decreasd moisture Lungs: No wheezing, No rales, No rhonci, No accessory muscle use, good air exchange bilaterally. Heart: Normal rate, Regular rythm, No murmur, no rub Abdomen: Normal BS, soft, No rigidity, mild diffuse abdominal tenderness to palpation, No guarding, no rebound, no abdominal masses, no organomegaly Extremities: good pulses in all extremities, no edema. Skin: warm, dry, appropriate color, no rash Neuro: speech clear, oriented x 3, normal affect, responds appropriately to questions. Course - Re-evaluation Re-evalutation: 12/26/18 05:59 Patient's laboratory evaluation is unremarkable. I discussed with her during the x-ray. She did mention that her friend was concerned that she could have a bowel obstruction based on her recent vomiting diarrhea. I told her this is less likely based on her abdominal exam and her abdomen is not all distended notes very soft; work, she has not had a normal bowel movement for some time now and therefore I informed her that given abdominal x-ray would be appropriate. Patient initially agreed to this but then she told the nurse that she does not want x-ray and wants to be discharged home. I went back and spoke with patient again she is understanding that we cannot rule out any form of obstruction without x-ray and I informed her just to have a very low threshold to return to ER if she has worsening of her symptoms of any encouraged her return to ER immediately if she has fevers, severe abdominal pain, continued vomiting and diarrhea despite treatment, or if she has any further concerns. Patient still has been sent for culture. Dictation of this chart was performed using voice recognition software; therefore, there may be some unintended grammatical errors. - Vital Signs Vital signs: Temp Pulse Resp BP Pulse Ox 98.3 F 93 16 106/65 97 12/26/18 04:33 12/26/18 04:33 12/26/18 00:35 12/26/18 04:33 12/26/18 04:33 - Laboratory Result Diagrams: 12/26/18 02:40 12/26/18 02:40 Laboratory results interpreted by me: 12/26/18 12/26/18 02:40 02:40 Hgb 16.2 H Hct 47.5 H Lymphocytes % 12.4 L Carbon Dioxide 19 L Total Protein 8.8 H Discharge - Discharge Clinical Impression: Vomiting and diarrhea Abdominal pain Qualifiers: Abdominal location: generalized Qualified Code(s): R10.84 - Generalized abdominal pain Condition: Good Disposition: HOME, SELF-CARE Additional Instructions: Your blood work did not show any concerning findings. Your stool was negative for C. difficile. I understand you do not want the x-ray at this time. X-ray is to rule out any form of obstruction. I think obstruction is less likely at this time; however, you should still have a low threshold to return to ER if you have recurrent vomiting, fevers, worsening pain, or any blood in your stool. Prescriptions: Dicyclomine HCl [Bentyl 20 mg Tablet] 20 mg PO QID PRN #20 tablet PRN Reason: Ondansetron [Zofran Odt 4 mg Tablet] 1 tab PO Q4H PRN #15 tab.rapdis PRN Reason: For Nausea/Vomiting Referrals: EVELYN MI MD [Primary Care Provider] - 12/27/18
[2018-12-26] MEDS ORDERED: IBUPROFEN 600 MG TABLET PO ONE (02:52)
[2018-12-26 03:02] LABS: ABSOLUTE EOSINOPHILS # (AUTO) 0.1 10^3/uL (0.0-0.6); ABSOLUTE MONOCYTES (AUTO) 0.7 10^3/uL (0.1-1.4); ABSOLUTE NEUT (AUTO) 6.1 10^3/uL (1.7-8.2); BASOPHILS % (AUTO) 0.5 % (0-2); EOSINOPHILS % (AUTO) 1.1 % (0-6); HEMATOCRIT 47.5 % (36.0-47.0); HEMOGLOBIN 16.2 g/dL (12.0-15.5); LYMPHOCYTES % (AUTO) 12.4 % (13-45); MEAN CORPUSCULAR HEMOGLOBIN 31.8 pg (27.0-33.4); MEAN CORPUSCULAR HGB CONC 34.1 g/dL (32.0-36.0); MEAN CORPUSCULAR VOLUME 93 fl (80-97); MONOCYTES % (AUTO) 8.8 % (3-13); PLATELET COUNT 254 10^3/uL (150-450); RED CELL DISTRIBUTION WIDTH 12.8 % (11.5-14.0); SEGMENTED NEUTROPHILS % (AUTO) 77.2 % (42-78); TOTAL CELLS COUNTED % (AUTO) 100 %; WHITE BLOOD COUNT 7.9 10^3/uL (4.0-10.5)
[2018-12-26 03:08] LABS: ALANINE AMINOTRANSFERASE 25 U/L (9-52); ALKALINE PHOSPHATASE 89 U/L (38-126); ANION GAP 17 (5-19); ASPARTATE AMINO TRANSFERASE 25 U/L (14-36); BILIRUBIN,DIRECT 0.3 mg/dL (0.0-0.4); BILIRUBIN,TOTAL 0.8 mg/dL (0.2-1.3); BLOOD UREA NITROGEN 10 mg/dL (7-20); CARBON DIOXIDE 19 mmol/L (22-30); CHLORIDE 106 mmol/L (98-107); GLUCOSE 91 mg/dL (75-110); POTASSIUM 4.5 mmol/L (3.6-5.0); SODIUM 141.8 mmol/L (137-145); TOTAL PROTEIN 8.8 g/dL (6.3-8.2)
[2018-12-26] MEDS ORDERED: ONDANSETRON ODT 4 MG TAB (6 TAB/ER DISP) PO PRN (04:15)
[2018-12-26 04:38] VITALS: BP 106/65
== END 2018-12-26 04:45 | disposition home or self-care (01) ==
LOC: ER 00:18
DX: R11.2 Nausea with vomiting, unspecified (principal); R19.7 Diarrhea, unspecified; R10.84 Generalized abdominal pain; Z88.6 Allergy status to analgesic agent; Z88.0 Allergy status to penicillin; Z90.49 Acquired absence of other specified parts of digestive tract
CPT/HCPCS: 99284; 96361; 96374; 36415; 87045; 87205; 85025; 80053; 87493; J3490; J2405; J7030

== ENCOUNTER 2019-01-15 18:38 | Emergency (ER) | payer MEDICAID ==
[2019-01-15] MEDS ORDERED: ONDANSETRON 4 MG TAB.RAPDIS PO ONE (20:08)
[2019-01-15] MEDS ORDERED: OXYCODONE-ACETAMINOPHEN 5-325 MG TABLET PO ONE (20:08)
--- NOTE | 2019-01-15 20:10 | ER Document Report ---
ED Medical Screen (RME) - General Stated Complaint: VAGINAL PAIN Time Seen by Provider: 01/15/19 20:06 Primary Care Provider: EVELYN MI MD [Primary Care Provider] - Follow up as needed Mode of Arrival: Ambulatory Information source: Patient Notes: Patient presents emergency department with lower abdominal pain vaginal bleeding that started today. Patient is unable to tell me how heavy her bleeding is. She is moaning and groaning in pain wanting to lay on the floor. I have greeted and performed a rapid initial assessment of this patient. A comprehensive ED assessment and evaluation of the patient, analysis of test results and completion of the medical decision making process will be conducted by additional ED providers. Dictation of this chart was performed using voice recognition software; therefore, there may be some unintended grammatical errors. TRAVEL OUTSIDE OF THE [place] IN LAST 30 DAYS: No - Related Data Allergies/Adverse Reactions: cephalexin monohydrate [From Keflex] Allergy (Severe, Verified 11/11/18 05:05) Anaphylaxis codeine [Codeine] Allergy (Severe, Verified 11/11/18 05:05) Anaphylaxis Penicillins Allergy (Severe, Verified 11/11/18 05:05) Anaphylaxis diphenhydramine HCl [From Benadryl] Adverse Reaction (Verified 11/11/18 05:05) prochlorperazine edisylate [From Compazine] Adverse Reaction (Verified 11/11/18 05:05) prochlorperazine maleate [From Compazine] Adverse Reaction (Verified 11/11/18 05:05) Past Medical History Renal/ Medical History: Reports: Hx Ovarian Cysts. Denies: Hx Peritoneal Dialysis GI Medical History: Reports: Hx Irritable Bowel Musculoskeltal Medical History: Reports Hx Musculoskeletal Deformity Psychiatric Medical History: Reports: Hx Anxiety, Hx Bipolar Disorder, Hx Post Traumatic Stress Disorder Past Surgical History: Reports: Hx Appendectomy, Hx Section, Hx Cholecystectomy, Hx Myringotomy - Immunizations Immunizations up to date: Yes Hx Diphtheria, Pertussis, Tetanus Vaccination: Yes Physical Exam - Vital signs Vitals: Temp Pulse Resp BP Pulse Ox 98.2 F 90 20 135/113 H 99 01/15/19 20:05 01/15/19 20:05 01/15/19 20:05 01/15/19 20:05 01/15/19 20:05 Course - Vital Signs Vital signs: Temp Pulse Resp BP Pulse Ox 98.2 F 90 20 135/113 H 99 01/15/19 20:05 01/15/19 20:05 01/15/19 20:05 01/15/19 20:05 01/15/19 20:05 Doctor's Discharge - Discharge Referrals: EVELYN MI MD [Primary Care Provider] - Follow up as needed
[2019-01-16] MEDS ORDERED: MORPHINE SULFATE 10 MG/ML INJ IV ONE (02:24)
[2019-01-16] MEDS ORDERED: NORMAL SALINE 1000 ML 1,000 ML IV ONE (02:25)
[2019-01-16 02:39] LABS: APPEARANCE,URINE TURBID; BILIRUBIN,URINE NEGATIVE (NEGATIVE); COLOR,URINE RED; GLUCOSE, URINE NEGATIVE (NEGATIVE); KETONES,URINE NEGATIVE (NEGATIVE); LEUKOCYTE ESTERASE,URINE NEGATIVE (NEGATIVE); NITRITE,URINE NEGATIVE (NEGATIVE); PROTEIN,URINE 100 mg/dL (NEGATIVE); URINE SPECIFIC GRAVITY 1.026; UROBILINOGEN,URINE NEGATIVE mg/dL (<2.0)
[2019-01-16] MEDS ORDERED: FENTANYL CITRATE INJ/PF 100 MCG/2 ML AMPUL IV ONE (02:44)
[2019-01-16 02:55] LABS: ABSOLUTE BASOPHILS # (AUTO) 0.1 10^3/uL (0.0-0.2); ABSOLUTE LYMPHOCYTES (AUTO) 2.5 10^3/uL (0.5-4.7); ABSOLUTE MONOCYTES (AUTO) 0.8 10^3/uL (0.1-1.4); ABSOLUTE NEUT (AUTO) 8.2 10^3/uL (1.7-8.2); EOSINOPHILS % (AUTO) 0.2 % (0-6); HEMATOCRIT 39.4 % (36.0-47.0); HEMOGLOBIN 13.6 g/dL (12.0-15.5); LYMPHOCYTES % (AUTO) 21.4 % (13-45); MEAN CORPUSCULAR HEMOGLOBIN 31.6 pg (27.0-33.4); MEAN CORPUSCULAR HGB CONC 34.6 g/dL (32.0-36.0); MEAN CORPUSCULAR VOLUME 91 fl (80-97); MONOCYTES % (AUTO) 6.9 % (3-13); PLATELET COUNT 268 10^3/uL (150-450); RED BLOOD COUNT 4.32 10^6/uL (3.72-5.28); RED CELL DISTRIBUTION WIDTH 13.2 % (11.5-14.0); SEGMENTED NEUTROPHILS % (AUTO) 70.5 % (42-78); TOTAL CELLS COUNTED % (AUTO) 100 %; WHITE BLOOD COUNT 11.6 10^3/uL (4.0-10.5)
[2019-01-16 03:14] LABS: ALANINE AMINOTRANSFERASE 16 U/L (9-52); ALBUMIN 4.5 g/dL (3.5-5.0); ALKALINE PHOSPHATASE 60 U/L (38-126); ANION GAP 13 (5-19); ASPARTATE AMINO TRANSFERASE 22 U/L (14-36); BILIRUBIN,DIRECT 0.3 mg/dL (0.0-0.4); BILIRUBIN,TOTAL 0.6 mg/dL (0.2-1.3); BLOOD UREA NITROGEN 10 mg/dL (7-20); CALCIUM 10.3 mg/dL (8.4-10.2); CARBON DIOXIDE 20 mmol/L (22-30); CHLORIDE 106 mmol/L (98-107); GLUCOSE 94 mg/dL (75-110); POTASSIUM 4.6 mmol/L (3.6-5.0); SODIUM 138.7 mmol/L (137-145); TOTAL PROTEIN 7.8 g/dL (6.3-8.2)
--- NOTE | 2019-01-16 04:36 | RADIOLOGY REPORT (SQ) ---
EXAM DESCRIPTION: US PELVIS TRANSVAGINAL COMPLETED DATE/TME: 01/16/2019 03:35 CLINICAL HISTORY: 33 years, Female, pelvic pain; vaginal bleeding COMPARISON: None. TECHNIQUE: Transvaginal pelvic ultrasound with grayscale and color images. LIMITATIONS: None. FINDINGS: The uterus is anteverted and measures 8.8 x 5.4 x 3.8 cm. The endometrium is normal in thickness measuring up to 6 mm. Cervix measures 3 cm in length. Both ovaries are normal in size, shape and echotexture. Both ovaries demonstrate normal flow. No abnormal adnexal mass. The right ovary measures 2.9 x 2.0 x 2.5 cm. The left ovary measures 2.9 x 1.8 x 1.8 cm. No significant free fluid. IMPRESSION: Unremarkable pelvic ultrasound copyright 2010 [employer] All Rights Reserved
[2019-01-16] MEDS ORDERED: KETOROLAC TROMETHAMINE INJ/PF 30 MG/1 ML SDV IV ONE (04:47)
--- NOTE | 2019-01-16 06:01 | ER Document Report ---
ED General - General Chief Complaint: Pelvic Pain Stated Complaint: VAGINAL PAIN Time Seen by Provider: 01/15/19 20:06 Primary Care Provider: [facility] [Provider Group] - Follow up in 3-5 days EVELYN MI MD [Primary Care Provider] - Follow up in 1 week Mode of Arrival: Ambulatory Notes: Patient is a 33-year-old female presents the department with a chief complaint o f left lower abdominal pain. She states it started suddenly in the afternoon. Describes her pain like feeling like labor pains. She also states that she has had some vaginal bleeding and pain, but states that the vaginal bleeding is very minimal. She is also had some irregular bleeding. She is currently on the NuvaRing. She also does have long fingernails that are acrylic nails. States she reaches in her vagina to get the NuvaRing out. Denies any large amount of vaginal bleeding. She does state that she does have some hepatic area. Denies any fever. TRAVEL OUTSIDE OF THE [place] IN LAST 30 DAYS: No - Related Data Allergies/Adverse Reactions: cephalexin monohydrate [From Keflex] Allergy (Severe, Verified 11/11/18 05:05) Anaphylaxis codeine [Codeine] Allergy (Severe, Verified 11/11/18 05:05) Anaphylaxis Penicillins Allergy (Severe, Verified 11/11/18 05:05) Anaphylaxis diphenhydramine HCl [From Benadryl] Adverse Reaction (Verified 11/11/18 05:05) prochlorperazine edisylate [From Compazine] Adverse Reaction (Verified 11/11/18 05:05) prochlorperazine maleate [From Compazine] Adverse Reaction (Verified 11/11/18 05:05) Past Medical History - General Information source: Patient - Social History Smoking Status: Current Every Day Smoker Chew tobacco use (# tins/day): Yes Drug Abuse: None Family History: Reviewed & Not Pertinent, DM, Hypertension Patient has suicidal ideation: No Patient has homicidal ideation: No Renal/ Medical History: Reports: Hx Ovarian Cysts. Denies: Hx Peritoneal Dialysis GI Medical History: Reports: Hx Irritable Bowel Musculoskeletal Medical History: Reports Hx Musculoskeletal Deformity Psychiatric Medical History: Reports: Hx Anxiety, Hx Bipolar Disorder, Hx Post Traumatic Stress Disorder Past Surgical History: Reports: Hx Appendectomy, Hx Section, Hx Cholecystectomy, Hx Myringotomy - Immunizations Immunizations up to date: Yes Hx Diphtheria, Pertussis, Tetanus Vaccination: Yes Review of Systems - Review of Systems Notes: REVIEW OF SYSTEMS: CONSTITUTIONAL : Denies recent illness. Denies recent unintentional weight loss. Denies fever, chills, or sweats. EENT: Denies eye, ear, throat, or mouth pain, discharge, or symptoms. Denies nasal or sinus congestion. CARDIOVASCULAR: Denies chest pain. RESPIRATORY: Denies shortness of breath, cough, congestion, difficulty breathing, or wheezing. GASTROINTESTINAL: See HPI. Denies constipation. Last BM: Today GENITOURINARY: Denies difficulty urinating, burning, blood in urine, urgency or frequency. FEMALE GENITOURINARY: See HPI MUSCULOSKELETAL: Denies neck and back pain. Denies joint pain or swelling. SKIN: Denies rash, itchiness, or lesions HEMATOLOGIC : Denies easy bruising or bleeding. LYMPHATIC: Denies swollen, painful, enlarged glands. NEUROLOGICAL: Denies no numbness or tingling denies weakness. Denies headache. Denies altered mental status. Denies alteration in speech. PSYCHIATRIC: Denies stress, anxiety, alteration in sleep patterns, or depression. All other systems reviewed and negative. Physical Exam - Vital signs Vitals: Temp Pulse Resp BP Pulse Ox 98.2 F 90 20 135/113 H 99 01/15/19 20:05 01/15/19 20:05 01/15/19 20:05 01/15/19 20:05 01/15/19 20:05 - Notes Notes: PHYSICAL EXAMINATION: GENERAL: Appears well, healthy, well-nourished, no acute distress. HEAD: Normocephalic, atraumatic. EYES: PERRL, conjunctiva normal, all extraocular movements intact, sclera nonicteric ENT: Moist mucous membranes. NECK: Supple, no noticeable swelling, redness, rash. Normal range of motion. LUNGS: Equal breath sounds bilaterally and clear to auscultation. No wheezes rales or rhonchi. CARDIOVASCULAR: S1-S2, regular rate, regular rhythm. Radial pulses 2+, normal. ABDOMEN: Normoactive bowel sounds. Soft, tender left lower abdomen, no guarding, no rebound tenderness, and no masses palpated. EXTREMITIES: Normal strength and range of motion, no pitting or edema. No cyanosis. NEUROLOGICAL: Moves all extremities upon command. Strength 5/5 in all extremities. PSYCH: Normal mood, normal affect. SKIN: Warm, dry. No rash, lesions, ulcerations noted. Normal skin turgor. DELIVERY ARCHITECT: Very minimal discharge noted. No cervical motion tenderness noted. Course - Re-evaluation Re-evalutation: 01/16/19 02:35 Patient is standing up and unable to get comfortable. She states that her pain is in her left lower quadrant. I am uncertain as to whether or not the patient could be possibly having an ovarian torsion or ectopic , therefore she will be sent for a transvaginal ultrasound. She will receive a dose of fentanyl. She was refusing her morphine that I had ordered earlier and she stated she could only have Dilaudid. I told her I will not give her Dilaudid. 01/16/19 06:31 Transvaginal ultrasound was unremarkable. Patient's wet mount has 4+ bacteria and 3+ epithelial cells. She will be treated for gonorrhea, chlamydia, and bacterial vaginosis. She is refusing any shots at this time, therefore I will place her on doxycycline to treat for possible gonorrhea. She will also receive Flagyl for bacterial vaginosis. She will be given azithromycin to cover chlamydia. Her urine will be sent for culture. If she does have a urinary tract infection, the doxycycline will cover the infection. She does have a large amount of blood in her urine. I suspect due to her history being an abrupt onset and feeling like labor pains, she most likely has a kidney stone. She will be given Flomax and Toradol for home. She states that she had better relief with the Toradol, which further validates my suspicion for a kidney stone. I do not suspect infected kidney stone. I have instructed her to increase her fluid intake. She received a liter of fluids here in the emergency department. She does not have a lot of blood noted on pelvic exam done with PCT at bedside. There is no cervical motion noted. Have a very low suspicion for pelvic inflammatory disease. Her vital signs are stable. She will follow-up with her primary care provider. Follow-up precautions were given. Verbal discharge instructions were given to the patient. They verbalized understanding. They are stable for discharge. Documentation was completed using voice recognition software, therefore there may be some unintended grammatical or punctual errors. 01/16/19 19:53 I reviewed the patient's chart and noticed that she had budding yeast in her urine. I called her to let her know that I will call in a dose of fluconazole for her also. I will call the [facility] in [place] to have her medication filled. 01/17/19 08:21 A prescription was called in to [facility] in [place]. Message was sent. - Vital Signs Vital signs: Temp Pulse Resp BP Pulse Ox 97.2 F 68 16 146/78 H 99 01/16/19 06:57 01/16/19 06:57 01/16/19 06:57 01/16/19 06:57 01/15/19 20:05 - Laboratory Result Diagrams: 01/16/19 02:42 01/16/19 02:42 Laboratory results interpreted by me: 01/15/19 01/16/19 01/16/19 20:50 02:42 02:42 WBC 11.6 H Carbon Dioxide 20 L Calcium 10.3 H Urine Protein 100 H Urine Blood LARGE H Discharge - Discharge Clinical Impression: Kidney stone, Pelvic pain Condition: Stable Disposition: HOME, SELF-CARE Instructions: Azithromycin ([facility]), Doxycycline ([facility]), Pelvic Pain ([facility]) Additional Instructions: You were seen today in the emergency department for left-sided pelvic pain. You have a bacterial infection in your pelvic area. Please take your antibiotics as prescribed. He also have a kidney stone. You could take Toradol and Flomax for this. Please follow-up with urology in regards to this visit. Prescriptions: Ketorolac Tromethamine [Toradol 10 mg Tablet] 10 mg PO Q6HP PRN #20 tablet PRN Reason: Doxycycline Hyclate 100 mg PO BID #14 capsule Metronidazole [Flagyl 500 mg Tablet] 500 mg PO Q6H #28 tablet Tamsulosin HCl [Flomax 0.4 mg Cap.sr] 0.4 mg PO DAILY #7 cap.sr.24h Referrals: EVELYN MI MD [Primary Care Provider] - Follow up in 1 week [facility] [Provider Group] - Follow up in 3-5 days
[2019-01-16 06:13] LABS: BACTERIA (WET MOUNT) 4+ BACTERIA SEEN; EPITHELIALS (WET MOUNT) 3+ EPITHELIALS SEEN; RBCS (WET MOUNT) RARE RBCS SEEN; T.VAGINALIS (WET MOUNT) NO TRICHOMONAS SEEN; WBCS (WET MOUNT) 2+ WBCS SEEN; YEAST (WET MOUNT) NO YEAST SEEN
[2019-01-16] MEDS ORDERED: AZITHROMYCIN 1 GM SUSP PACKET PO ONE (06:28)
[2019-01-16] MEDS ORDERED: DOXYCYCLINE HYCLATE 100 MG TABLET PO ONE (06:28)
[2019-01-16] MEDS ORDERED: METRONIDAZOLE 500 MG TABLET PO ONE (06:29)
[2019-01-16] MEDS ORDERED: ONDANSETRON ODT 4 MG TAB (6 TAB/ER DISP) PO PRN (06:29)
[2019-01-16] MEDS ORDERED: HYDROCODONE/ACETAMINOPHEN 5-325 MG (6 TAB/ER DISP) PO PRN (06:29)
[2019-01-16] MEDS ORDERED: TAMSULOSIN HCL 0.4 MG CAP.SR.24H PO ONE (06:30)
[2019-01-16 06:58] VITALS: BP 146/78
[2019-01-16 08:34] LABS: CHLAM PCR NOT DETECTED (NOT DETECT)
== END 2019-01-16 06:56 | disposition home or self-care (01) ==
LOC: ER 18:38
DX: N20.0 Calculus of kidney (principal); N76.0 Acute vaginitis; B96.89 Other specified bacterial agents as the cause of diseases classified elsewhere; R31.9 Hematuria, unspecified; R10.2 Pelvic and perineal pain; R10.32 Left lower quadrant pain; N93.9 Abnormal uterine and vaginal bleeding, unspecified; F17.200 Nicotine dependence, unspecified, uncomplicated; Z87.892 Personal history of anaphylaxis; Z88.1 Allergy status to other antibiotic agents; Z88.5 Allergy status to narcotic agent; Z88.0 Allergy status to penicillin; Z87.42 Personal history of other diseases of the female genital tract; Z90.49 Acquired absence of other specified parts of digestive tract
CPT/HCPCS: 99284; 96361; 96374; 96375; 36415; 87086; 87210; 85025; 81025; 87088; 80053; 81001; 87491; 87591; 76830; 93976; S0119; J3010; J1885; J7030

== ENCOUNTER 2019-01-19 20:02 | Emergency (ER) | payer MEDICAID ==
[2019-01-19] MEDS ORDERED: KETOROLAC TROMETHAMINE INJ/PF 30 MG/1 ML SDV IV ONE (20:37)
[2019-01-19] MEDS ORDERED: ONDANSETRON HCL INJ/PF 4 MG/2 ML SDV IV ONE (20:37)
--- NOTE | 2019-01-19 20:40 | ER Document Report ---
ED Medical Screen (RME) - General Chief Complaint: Flank Pain Stated Complaint: ABDOMINAL PAIN Time Seen by Provider: 01/19/19 20:34 Primary Care Provider: EVELYN MI MD [Primary Care Provider] - Follow up as needed Mode of Arrival: Ambulatory Information source: Patient Notes: Patient presents complaining of left lower pelvic pain for the past 5 days. Pat ient states she has had increasing pain today despite taking pain medication. Patient also reports nausea and vomiting x2 episodes. Patient denies any diarrhea. Patient reports having vaginal bleeding that started today but attributes this to taking out her NuvaRing control. Patient reports urinary frequency. Patient denies any fever. I have greeted and performed a rapid initial assessment of this patient. A comprehensive ED assessment and evaluation of the patient, analysis of test results and completion of the medical decision making process will be conducted by additional ED providers. TRAVEL OUTSIDE OF THE [place] IN LAST 30 DAYS: No - Related Data Allergies/Adverse Reactions: cephalexin monohydrate [From Keflex] Allergy (Severe, Verified 11/11/18 05:05) Anaphylaxis codeine [Codeine] Allergy (Severe, Verified 11/11/18 05:05) Anaphylaxis Penicillins Allergy (Severe, Verified 11/11/18 05:05) Anaphylaxis diphenhydramine HCl [From Benadryl] Adverse Reaction (Verified 11/11/18 05:05) prochlorperazine edisylate [From Compazine] Adverse Reaction (Verified 11/11/18 05:05) prochlorperazine maleate [From Compazine] Adverse Reaction (Verified 11/11/18 05:05) Past Medical History - Social History Chew tobacco use (# tins/day): No Frequency of alcohol use: None Drug Abuse: None Renal/ Medical History: Reports: Hx Ovarian Cysts. Denies: Hx Peritoneal Dial ysis GI Medical History: Reports: Hx Irritable Bowel Musculoskeltal Medical History: Reports Hx Musculoskeletal Deformity Psychiatric Medical History: Reports: Hx Anxiety, Hx Bipolar Disorder, Hx Post Traumatic Stress Disorder Past Surgical History: Reports: Hx Appendectomy, Hx Section, Hx Cholecystectomy, Hx Myringotomy - Immunizations Immunizations up to date: Yes Hx Diphtheria, Pertussis, Tetanus Vaccination: Yes Physical Exam - Vital signs Vitals: Temp Pulse Resp BP Pulse Ox 98.2 F 95 22 H 121/81 97 01/19/19 20:25 01/19/19 20:25 01/19/19 20:25 01/19/19 20:25 01/19/19 20:25 - Abdominal Inspection: Normal Tenderness: Tender - Left lower pelvic Course - Vital Signs Vital signs: Temp Pulse Resp BP Pulse Ox 98.2 F 95 22 H 121/81 97 01/19/19 20:25 01/19/19 20:25 01/19/19 20:25 01/19/19 20:25 01/19/19 20:25 Doctor's Discharge - Discharge Referrals: EVELYN MI MD [Primary Care Provider] - Follow up as needed
[2019-01-19 20:59] LABS: APPEARANCE,URINE CLOUDY; BILIRUBIN,URINE NEGATIVE (NEGATIVE); COLOR,URINE YELLOW; GLUCOSE, URINE NEGATIVE (NEGATIVE); KETONES,URINE NEGATIVE (NEGATIVE); LEUKOCYTE ESTERASE,URINE SMALL (NEGATIVE); NITRITE,URINE NEGATIVE (NEGATIVE); PROTEIN,URINE NEGATIVE (NEGATIVE); UROBILINOGEN,URINE NEGATIVE mg/dL (<2.0)
[2019-01-19] MEDS ORDERED: ONDANSETRON 4 MG TAB.RAPDIS PO ONE (23:02)
[2019-01-19] MEDS ORDERED: OXYCODONE-ACETAMINOPHEN 5-325 MG TABLET PO ONE (23:02)
--- NOTE | 2019-01-20 00:05 | ER Document Report ---
ED General - General Chief Complaint: Flank Pain Stated Complaint: ABDOMINAL PAIN Time Seen by Provider: 01/19/19 20:34 Primary Care Provider: CONNOR VALLES MD [NO LOCAL MD] - 01/22/19 Mode of Arrival: Ambulatory Notes: Patient is a 33-year-old female presents with complaint of ongoing left sided abdominal pain pain is mostly noted left lower pelvic region. She says it is radiating a little bit into the left flank. Patient says she was seen here a few days ago. She was prescribed medications for possible PID as well as spectral vaginosis. She says she did not take antibiotics as her brother was got C. difficile after being antibiotics so she did not want to take them. Says pain went away for approximately day and then has come back. Pain is been continuous and therefore she is come to ER. Some nausea. No diarrhea. No abnormal vaginal discharge or bleeding. No fevers. No history of kidney stones. She recently had a NuvaRing but had it removed. Blood work from pre vious visit did not show any concerning findings and her test was negative. Patient's urine culture from that visit grew out Gardnerella vaginosis. patient denies any other complaints at this time. TRAVEL OUTSIDE OF THE [place] IN LAST 30 DAYS: No - Related Data Allergies/Adverse Reactions: cephalexin monohydrate [From Keflex] Allergy (Severe, Verified 11/11/18 05:05) Anaphylaxis codeine [Codeine] Allergy (Severe, Verified 11/11/18 05:05) Anaphylaxis Penicillins Allergy (Severe, Verified 11/11/18 05:05) Anaphylaxis diphenhydramine HCl [From Benadryl] Adverse Reaction (Verified 11/11/18 05:05) prochlorperazine edisylate [From Compazine] Adverse Reaction (Verified 11/11/18 05:05) prochlorperazine maleate [From Compazine] Adverse Reaction (Verified 11/11/18 05:05) Past Medical History - General Information source: Patient - Social History Smoking Status: Current Every Day Smoker Chew tobacco use (# tins/day): No Frequency of alcohol use: None Drug Abuse: None Family History: Reviewed & Not Pertinent, DM, Hypertension Patient has suicidal ideation: No Patient has homicidal ideation: No Renal/ Medical History: Reports: Hx Ovarian Cysts. Denies: Hx Peritoneal Dialysis GI Medical History: Reports: Hx Irritable Bowel Musculoskeletal Medical History: Reports Hx Musculoskeletal Deformity Psychiatric Medical History: Reports: Hx Anxiety, Hx Bipolar Disorder, Hx Post Traumatic Stress Disorder Past Surgical History: Reports: Hx Appendectomy, Hx Section, Hx Cholecystectomy, Hx Myringotomy - Immunizations Immunizations up to date: Yes Hx Diphtheria, Pertussis, Tetanus Vaccination: Yes Review of Systems - Review of Systems Notes: My Normal Review Basic REVIEW OF SYSTEMS: CONSTITUTIONAL : Denies fever, chills, or sweats. Denies recent illness. RESPIRATORY: Denies cough, cold, or chest congestion. Denies shortness of breath, difficulty breathing, or wheezing. GASTROINTESTINAL: Some left lower abdominal pain that seems to be more in the left pelvic region. Denies nausea, vomiting, or diarrhea. GENITOURINARY: Denies difficulty urinating, painful urination, burning, frequency, or blood in urine. MUSCULOSKELETAL: Denies neck or back pain or joint pain or swelling. SKIN: Denies rash or skin lesions. NEUROLOGICAL: Denies altered mental status or loss of consciousness. Denies headache. Denies weakness or paralysis or loss of use of either side. Denies problems with gait or speech. Denies sensory or motor loss. ALL OTHER SYSTEMS REVIEWED AND NEGATIVE. Physical Exam - Vital signs Vitals: Temp Pulse Resp BP Pulse Ox 98.2 F 95 22 H 121/81 97 01/19/19 20:25 01/19/19 20:25 01/19/19 20:25 01/19/19 20:25 01/19/19 20:25 - Notes Notes: General Appearance: Well nourished, alert, cooperative, no acute distress, moderate obvious discomfort. Vitals: reviewed, See vital signs table. Head: no swelling or tenderness to the head Eyes: PERRL, EOMI, Conjuctiva clear Lungs: No wheezing, No rales, No rhonci, No accessory muscle use, good air exchange bilaterally. Heart: Normal rate, Regular rythm, No murmur, no rub Abdomen: Normal BS, soft, No rigidity, palpation of the abdomen does not cause any increase in pain., No guarding, no rebound, no abdominal masses, no organomegaly Extremities: strength 5/5 in all extremities, good pulses in all extremities, no swelling or tenderness in the extremities, no edema. Skin: warm, dry, appropriate color, no rash Neuro: speech clear, oriented x 3, normal affect, responds appropriately to questions. Course - Re-evaluation Re-evalutation: 01/20/19 05:47 Patient's ultrasound does show hydronephrosis pain. That she is had the pain now for almost a week and did go for the CT scan she may likely need referral to urologist and I want a scan performed. CT scan does show a 4 mm stone at the distal left ureter. This coincides with her pain. Currently she has no signs of infection other than the bacterial vaginosis that grew out on her culture from her last visit. I encouraged her to take the metronidazole as prescribed. I will place her on Percocet for pain. I encouraged her follow-up closely with the urologist. I encouraged her return to ER if she has intractable pain, intractable vomiting, fevers, or any signs of infection. Patient agrees with plan will be discharged home. Dictation of this chart was performed using voice recognition software; therefore, there may be some unintended grammatical errors. - Vital Signs Vital signs: Temp Pulse Resp BP Pulse Ox 97.8 F 79 15 113/92 H 100 01/20/19 01:56 01/20/19 01:56 01/20/19 01:56 01/20/19 01:56 01/20/19 01:56 - Laboratory Laboratory results interpreted by me: 01/19/19 20:30 Urine Blood LARGE H Ur Leukocyte Esterase SMALL H - EKG Interpretation by Me Additional EKG results interpreted by me: 01/20/19 01:32 EKG shows sinus tachycardia with a rate of [address] segment elevation or depression. No ischemic T wave inversions. OH interval, QRS duration, QT intervals are within normal range. No old EKG available for comparison. Discharge - Discharge Clinical Impression: Kidney stone on left side, Bacterial vaginosis Condition: Good Disposition: HOME, SELF-CARE Additional Instructions: KIDNEY STONE: You are passing or have passed a kidney stone. These stones are usually due to increased calcium or uric acid concentrations in your urine. Stones within the kidney itself are not painful. The pain occurs as the stone leaves the kidney to pass down the long tube, called the ureter, leading to the bladder. If the stone is small, it will usually pass by itself. Most patients can pass the stone at home. You will usually receive medications for pain, nausea or vomiting, and sometimes a medication to assist in passing the kidney stone. However, if the pain is very severe or if vomiting prevents you from taking oral pain medications, you may need to return for further treatment. Drink three or four quarts of fluids per day. You will be given pain medication (if needed) and urine strainers. Strain all your urine to see if the stone passes. If your doctor has asked you to bring the stone in for analysis, return with the stone once it has passed. Return if pain or vomiting become severe, if you develop a high fever, if you are unable to pass your urine, or if other unusual symptoms occur. ANTINAUSEA MEDICATION: You have been given a medication to suppress nausea and vomiting. This type of medication can be given as a shot, pill, or suppository. It will usually last for many hours. Pills and shots usually last six to eight hours, suppositories last about 12 hours. For the typical illness, only one or two doses of the medication may be necessary. Mild lightheadedness may occur. This type of medicine can cause drowsiness. Do not drive or operate dangerous machinery while under its influence. Do not mix with alcohol. See your doctor at once if you have muscle spasms or tightness, or uncontrollable motions (particularly of the neck, mouth, or jaw). Persistent vomiting or severe lightheadedness should also be evaluated by the physician. ORAL NARCOTIC MEDICATION: You have been given a prescription for pain control. This medication is a narcotic. It's best taken with food, as nausea can result if taken on an empty stomach. Don't operate machinery or drive within six hours of taking this medication. Do not combine this medicine with alcohol, or with any medication which can cause sedation (such as cold tablets or sleeping pills) unless you get permission from the physician. Narcotics tend to cause constipation. If possible, drink plenty of fluids and eat a diet high in fiber and fruits. Please be aware that prescription narcotics also have the potential for abuse. People become addicted to these medications because of the general sense of wellbeing that they induce. This feeling along with a significant reduction in tension, anxiety, and aggression provides a stimulating seductive quality to these drugs. Once your pain is under control, we encourage you to discard your unused narcotics. FLOMAX (tamsulosin): Flomax is a medicine that shrinks the prostate gland. It helps relieve symptoms of benign prostatic hypertrophy, such as frequent urination, weak stream, and inadequate emptying. It has been shown to dilate the ureter (tube leading from the kidney to the bladder) and help in passing kidney stones Flomax usually causes no side effects. You may notice slight tiredness and dizziness for a few days. Some patients develop nasal congestion. Rarely, impotence can occur. If the symptoms are bothersome and don't improve with continued use, call your doctor. Contact your doctor or return if you have fainting spells, severe weakness or dizziness, shortness of breath, or rash. FOLLOW-UP CARE: If you have been referred to a physician for follow-up care, call the physicians office for an appointment as you were instructed or within the next two days. If you experience worsening or a significant change in your symptoms, notify the physician immediately or return to the Emergency Department at any time for re-evaluation. You do have a 4 mm kidney stone on the left side. This is why you are having the recurrent pain on your left side. Your culture the last time did show that you do have the bacterial vaginosis. Please take the Flagyl (Metronidazole) as it was prescribed to you. I have written a prescription for Percocet. Please take these for severe pain from a kidney stone. If you are still having pain on Tuesday then you should call the urologist, Dr. Valles, to make a follow-up appointment. He does have an office in [place]. When you call the number you can ask to be seen at his [place] office. Currently do not have signs of infection. Signs of infection would be worsening pain, intractable vomiting, fevers, or just feeling very weak. You must return to the ER immediately if you have any of these signs or symptoms. Prescriptions: Ondansetron [Zofran Odt 4 mg Tablet] 1 tab PO Q4H PRN #15 tab.rapdis PRN Reason: For Nausea/Vomiting Oxycodone HCl/Acetaminophen [Percocet 5-325 mg Tablet] 1 tab PO Q4H PRN #15 tablet PRN Reason: Referrals: CONNOR VALLES MD [NO LOCAL MD] - 01/22/19
--- NOTE | 2019-01-20 00:30 | RADIOLOGY REPORT (SQ) ---
EXAM DESCRIPTION: US RETROPERITONEUM COMPLETED DATE/TME: 01/19/2019 23:02 CLINICAL HISTORY: 33 years, Female, left flank pain COMPARISON: Prior CT from 09/16/2017 TECHNIQUE: 2-D grayscale images of the retroperitoneum were performed. Doppler was utilized. LIMITATIONS: None. FINDINGS: Visualized portions of the abdominal aorta appear normal with measurements as follows: Proximal abdominal aorta: 1.6 cm Mid abdominal aorta: 1.4 cm Distal abdominal aorta: 1.3 cm Right kidney measures 11.0 x 4.3 x 5.3 cm in size. Left kidney measures 12.2 x 6.0 x 5.3 cm in size. There is mild left hydronephrosis. Bilateral ureteral jets were identified. Post void bladder residual measures 1 mL. Additionally, left hydronephrosis persists after voiding. IMPRESSION: Mild left hydronephrosis which persists on the post void images. Normal sonographic appearance of the right kidney. copyright 2010 [employer]- All Rights Reserved
--- NOTE | 2019-01-20 01:18 | RADIOLOGY REPORT (SQ) ---
EXAM DESCRIPTION: [facility]Lex: CT ABDOMEN PELVIS WITHOUT IV CONTRAST CLINICAL HISTORY: 33 years Female; left flank pain with hydro on US TECHNIQUE: CT of the abdomen and pelvis without contrast. All CT scans at this facility use dose modulation, iterative reconstruction, and/or weight based dosing when appropriate to reduce radiation dose to as low as reasonably achievable. COMPARISON: None. FINDINGS: Abdomen: Liver:No focal lesions. No intrahepatic ductal distention. Gallbladder: Absent Pancreas:Within normal limits Spleen:Within normal limits Right kidney: No hydronephrosis. 7 mm lower pole calculus, similar to prior exam. Left kidney: Mild hydronephrosis. A calculus previously seen in the upper pole is no longer present. Left ureter is mildly distended. There is a 4 mm calculus in the distal left ureter less than 2 to 3 cm above the vesicoureteral junction. Adrenal glands:Within normal limits Vascular structures:Within normal limits (although limited evaluation on noncontrast exam). Pelvis: Small bowel:No significant distention. Appendix: Not identified. No regional edema. Colon:No distention or acute pericolonic edema. No free intraperitoneal fluid or air. Bones: No acute bone findings. Bladder: Nondistended. No calculi. No pelvic mass or adenopathy. Note that evaluation of the bowel and solid organs is somewhat limited due to lack of intravenous and oral contrast. IMPRESSION: 1. 4 mm distal left ureteral calculus with mild left hydronephrosis 2. Right renal calculus, without hydronephrosis
[2019-01-20 02:03] VITALS: BP 113/92
== END 2019-01-20 02:03 | disposition home or self-care (01) ==
LOC: ER 20:02
DX: N13.2 Hydronephrosis with renal and ureteral calculous obstruction (principal); N76.0 Acute vaginitis; B96.89 Other specified bacterial agents as the cause of diseases classified elsewhere; R10.2 Pelvic and perineal pain; R11.0 Nausea; R00.0 Tachycardia, unspecified; F17.200 Nicotine dependence, unspecified, uncomplicated; Z98.890 Other specified postprocedural states; Z87.892 Personal history of anaphylaxis; Z88.0 Allergy status to penicillin; Z88.5 Allergy status to narcotic agent; Z88.1 Allergy status to other antibiotic agents; Z87.42 Personal history of other diseases of the female genital tract; Z90.49 Acquired absence of other specified parts of digestive tract
CPT/HCPCS: 99284; 36415; 81001; 76770; 74176; S0119

== ENCOUNTER 2019-01-21 00:48 | Emergency (ER) | payer MEDICAID ==
[2019-01-21] MEDS ORDERED: HYDROMORPHONE HCL INJ/PF 2 MG/ML AMPULE IV ONE (00:50)
[2019-01-21] MEDS ORDERED: NORMAL SALINE 1000 ML 1,000 ML IV ONE (00:50)
--- NOTE | 2019-01-21 00:54 | ER Document Report ---
ED Medical Screen (RME) - General Chief Complaint: Possible Kidney Stone Stated Complaint: POSS KIDNEY STONES Time Seen by Provider: 01/21/19 00:49 Primary Care Provider: EVELYN MI MD [Primary Care Provider] - Follow up as needed Notes: Patient is a 33-year-old female presents to the emergency department with generalized back pain. Patient states she was seen at this facility 24 hours ago diagnosed with 4 mm kidney stone. States she was given Toradol and Percocet. States she is been taking them as prescribed and has bottles with her in the emergency room. Patient states the pain is severe which is why she presents to the emergency room ABDOMEN: Soft, non-tender. Non-distended. Bowel sounds present in all 4 quadrants. I have greeted and performed a rapid initial assessment of this patient. A comprehensive ED assessment and evaluation of the patient, analysis of test results and completion of the medical decision making process will be conducted by additional ED providers. I have specifically instructed the patient or family members with the patient to immediately return to any nursing staff should anything change in the patient's condition or with their chief complaint. This medical record was dictated with voice recognizing software. There may be grammatical, syntax errors that are unintended. TRAVEL OUTSIDE OF THE [place] IN LAST 30 DAYS: No - Related Data Allergies/Adverse Reactions: cephalexin monohydrate [From Keflex] Allergy (Severe, Verified 11/11/18 05:05) Anaphylaxis codeine [Codeine] Allergy (Severe, Verified 11/11/18 05:05) Anaphylaxis Penicillins Allergy (Severe, Verified 11/11/18 05:05) Anaphylaxis diphenhydramine HCl [From Benadryl] Adverse Reaction (Verified 11/11/18 05:05) prochlorperazine edisylate [From Compazine] Adverse Reaction (Verified 11/11/18 05:05) prochlorperazine maleate [From Compazine] Adverse Reaction (Verified 11/11/18 05:05) Past Medical History Renal/ Medical History: Reports: Hx Ovarian Cysts. Denies: Hx Peritoneal Dialysis GI Medical History: Reports: Hx Irritable Bowel Musculoskeltal Medical History: Reports Hx Musculoskeletal Deformity Psychiatric Medical History: Reports: Hx Anxiety, Hx Bipolar Disorder, Hx Post Traumatic Stress Disorder Past Surgical History: Reports: Hx Appendectomy, Hx Section, Hx Cholecystectomy, Hx Myringotomy - Immunizations Immunizations up to date: Yes Hx Diphtheria, Pertussis, Tetanus Vaccination: Yes Doctor's Discharge - Discharge Referrals: EVELYN MI MD [Primary Care Provider] - Follow up as needed
[2019-01-21 01:47] LABS: APPEARANCE,URINE SLIGHTLY-CLOUDY; BILIRUBIN,URINE NEGATIVE (NEGATIVE); COLOR,URINE YELLOW; GLUCOSE, URINE NEGATIVE (NEGATIVE); KETONES,URINE NEGATIVE (NEGATIVE); LEUKOCYTE ESTERASE,URINE MODERATE (NEGATIVE); NITRITE,URINE NEGATIVE (NEGATIVE); PROTEIN,URINE NEGATIVE (NEGATIVE); URINE SPECIFIC GRAVITY 1.026; UROBILINOGEN,URINE NEGATIVE mg/dL (<2.0)
[2019-01-21 01:55] LABS: ABSOLUTE BASOPHILS # (AUTO) 0.1 10^3/uL (0.0-0.2); ABSOLUTE EOSINOPHILS # (AUTO) 0.2 10^3/uL (0.0-0.6); ABSOLUTE LYMPHOCYTES (AUTO) 2.5 10^3/uL (0.5-4.7); ABSOLUTE MONOCYTES (AUTO) 0.7 10^3/uL (0.1-1.4); ABSOLUTE NEUT (AUTO) 5.9 10^3/uL (1.7-8.2); BASOPHILS % (AUTO) 0.8 % (0-2); EOSINOPHILS % (AUTO) 2.6 % (0-6); HEMATOCRIT 41.2 % (36.0-47.0); HEMOGLOBIN 14.1 g/dL (12.0-15.5); LYMPHOCYTES % (AUTO) 26.3 % (13-45); MEAN CORPUSCULAR HEMOGLOBIN 31.7 pg (27.0-33.4); MEAN CORPUSCULAR HGB CONC 34.4 g/dL (32.0-36.0); MEAN CORPUSCULAR VOLUME 92 fl (80-97); MONOCYTES % (AUTO) 7.3 % (3-13); PLATELET COUNT 263 10^3/uL (150-450); RED BLOOD COUNT 4.46 10^6/uL (3.72-5.28); RED CELL DISTRIBUTION WIDTH 12.8 % (11.5-14.0); TOTAL CELLS COUNTED % (AUTO) 100 %; WHITE BLOOD COUNT 9.4 10^3/uL (4.0-10.5)
[2019-01-21] MEDS ORDERED: KETOROLAC TROMETHAMINE INJ/PF 30 MG/1 ML SDV IV ONE (02:08)
[2019-01-21] MEDS ORDERED: MORPHINE SULFATE 10 MG/ML INJ IV PRN (02:09)
[2019-01-21 02:14] LABS: ANION GAP 10 (5-19); BLOOD UREA NITROGEN 17 mg/dL (7-20); CALCIUM 9.9 mg/dL (8.4-10.2); CARBON DIOXIDE 27 mmol/L (22-30); CHLORIDE 106 mmol/L (98-107); GLUCOSE 82 mg/dL (75-110); POTASSIUM 4.4 mmol/L (3.6-5.0); SODIUM 143.2 mmol/L (137-145)
[2019-01-21] MEDS ORDERED: ONDANSETRON HCL INJ/PF 4 MG/2 ML SDV IV ONE (02:22)
[2019-01-21] MEDS ORDERED: HYDROMORPHONE HCL INJ/PF 2 MG/ML AMPULE IV PRN (03:13)
--- NOTE | 2019-01-21 03:27 | ER Document Report ---
ED General - General Chief Complaint: Possible Kidney Stone Stated Complaint: POSS KIDNEY STONES Time Seen by Provider: 01/21/19 00:49 Primary Care Provider: EVELYN MI MD [Primary Care Provider] - Follow up as needed Notes: Patient is a 33-year-old female presents to the emergency department with left flank pain. Pain is described as being a severe, throbbing, constant pain to the left flank pain that intimately worsens. Pain radiates from the left flank down into the lower abdomen. Patient states she was seen at this facility 24 hours ago diagnosed with 4 mm kidney stone. States she was given Toradol and Percocet. States she is been taking them as prescribed and has bottles with her in the emergency room. She states initially the pain was controlled by his medications but has not been tonight which is what prompted her to come to the emergency department. She has been nauseated but has not been vomiting. No fever or constitutional symptoms. TRAVEL OUTSIDE OF THE [place] IN LAST 30 DAYS: No - Related Data Allergies/Adverse Reactions: cephalexin monohydrate [From Keflex] Allergy (Severe, Verified 11/11/18 05:05) Anaphylaxis codeine [Codeine] Allergy (Severe, Verified 11/11/18 05:05) Anaphylaxis Penicillins Allergy (Severe, Verified 11/11/18 05:05) Anaphylaxis diphenhydramine HCl [From Benadryl] Adverse Reaction (Verified 11/11/18 05:05) prochlorperazine edisylate [From Compazine] Adverse Reaction (Verified 11/11/18 05:05) prochlorperazine maleate [From Compazine] Adverse Reaction (Verified 11/11/18 05:05) Past Medical History - General Information source: Patient - Social History Smoking Status: Never Smoker Frequency of alcohol use: None Drug Abuse: None Lives with: Family Family History: Reviewed & Not Pertinent, DM, Hypertension Renal/ Medical History: Reports: Hx Ovarian Cysts. Denies: Hx Peritoneal Dialysis GI Medical History: Reports: Hx Irritable Bowel Musculoskeletal Medical History: Reports Hx Musculoskeletal Deformity Psychiatric Medical History: Reports: Hx Anxiety, Hx Bipolar Disorder, Hx Post Traumatic Stress Disorder Past Surgical History: Reports: Hx Appendectomy, Hx Section, Hx Cholecystectomy, Hx Myringotomy - Immunizations Immunizations up to date: Yes Hx Diphtheria, Pertussis, Tetanus Vaccination: Yes Review of Systems - Review of Systems Notes: Constitutional: Negative for fever. HENT: Negative for sore throat. Eyes: Negative for visual changes. Cardiovascular: Negative for chest pain. Respiratory: Negative for shortness of breath. Gastrointestinal: Positive for left flank pain, nausea Genitourinary: Negative for dysuria. Musculoskeletal: Negative for back pain. Skin: Negative for rash. Neurological: Negative for headaches, weakness or numbness. 10 point ROS negative except as marked above and in HPI. Physical Exam - Vital signs Vitals: Temp Pulse Resp BP Pulse Ox 98.2 F 91 18 129/90 H 99 01/21/19 01:29 01/21/19 01:29 01/21/19 01:29 01/21/19 01:01/21/19 01:29 Interpretation: Normal Notes: PHYSICAL EXAMINATION: GENERAL: Appears moderately uncomfortable but in no acute distress HEAD: Atraumatic, normocephalic. EYES: Pupils equal round and reactive to light, extraocular movements intact, sclera anicteric, conjunctiva are normal. ENT: nares patent, oropharynx clear without exudates. Moist mucous membranes. NECK: Normal range of motion, supple without lymphadenopathy LUNGS: Breath sounds clear to auscultation bilaterally and equal. No wheezes rales or rhonchi. HEART: Regular rate and rhythm without murmurs ABDOMEN: Soft, right CVA tenderness, abdomen is otherwise nontender, normoactive bowel sounds. No guarding, no rebound. No masses appreciated. EXTREMITIES: Normal range of motion, no pitting or edema. No cyanosis. NEUROLOGICAL: No focal neurological deficits. Moves all extremities spontaneously and on command. PSYCH: Normal mood, normal affect. SKIN: Warm, Dry, normal turgor, no rashes or lesions noted. Course - Re-evaluation Re-evalutation: 01/21/19 03:28 Presents with findings consistent with acute nephrolithiasis. Was diagnosed with a 4 mm stone on the left yesterday with associated hydronephrosis. Laboratory otherwise unremarkable. Pain was able to be controlled here in the emergency department. Patient is tolerating oral intake. Clinical history is not consistent with an acute abdominal aneurysm or dissection, MD, or pulmonary embolus. Urinalysis does not show findings consistent with an infected stone. Vitals have remained within normal limits. At this time will discharge with return precautions and follow-up recommendations. Verbal discharge instructions given a the bedside and opportunity for questions given. Medication warnings reviewed. Patient is in agreement with this plan and has verbalized understanding of return precautions and the need for primary care follow-up in the next 24-72 hours. - Vital Signs Vital signs: Temp Pulse Resp BP Pulse Ox 98.2 F 91 18 129/90 H 99 01/21/19 01:29 01/21/19 01:29 01/21/19 01:29 01/21/19 01:29 01/21/19 01:29 - Laboratory Result Diagrams: 01/21/19 01:35 01/21/19 01:35 Laboratory results interpreted by me: 01/21/19 01:28 Urine Blood MODERATE H Ur Leukocyte Esterase MODERATE H Discharge - Discharge Clinical Impression: Left flank pain, Kidney stone on left side Condition: Good Disposition: HOME, SELF-CARE Additional Instructions: Your symptoms should improve over the course of the next one week. If you continue to have pain for greater than one week or your pain is not controlled with the pain medications that you have been sent home with you need to return to the emergency department. Please also return if you develop fever, persistent vomiting, or any other symptoms that are concerning to you. Continue taking the pain medications as prescribed by Dr. Lei yesterday. You are also been sent home with a medication called Flomax to help pass the stone. Please follow-up with urology in the next 2-3 days. Prescriptions: Tamsulosin HCl [Flomax 0.4 mg Cap.sr] 0.4 mg PO DAILY #7 cap.sr.24h Referrals: EVELYN MI MD [Primary Care Provider] - Follow up as needed
[2019-01-21] MEDS ORDERED: TAMSULOSIN HCL 0.4 MG CAP.SR.24H PO ONE (03:41)
[2019-01-21 05:23] VITALS: BP 108/58
== END 2019-01-21 05:22 | disposition home or self-care (01) ==
LOC: ER 00:48
DX: N20.0 Calculus of kidney (principal); R10.9 Unspecified abdominal pain; R10.30 Lower abdominal pain, unspecified; R11.0 Nausea; Z88.6 Allergy status to analgesic agent; Z88.0 Allergy status to penicillin; Z90.49 Acquired absence of other specified parts of digestive tract
CPT/HCPCS: 99284; 96361; 96374; 96375; 36415; 85025; 80048; 81001; J1885; J1170; J3490; J2405; J7030

== ENCOUNTER 2019-06-20 09:07 | Emergency (ER) | payer MEDICAID ==
[2019-06-20] MEDS ORDERED: NORMAL SALINE 1000 ML 1,000 ML IV ONE (09:20)
[2019-06-20] MEDS ORDERED: KETOROLAC TROMETHAMINE INJ/PF 30 MG/1 ML SDV IV ONE (09:20)
--- NOTE | 2019-06-20 09:22 | ER Document Report ---
ED Medical Screen (RME) - General Chief Complaint: Vaginal Bleeding Stated Complaint: VAGINAL BLEEDING/RECTAL BLEEDING Time Seen by Provider: 06/20/19 09:12 Primary Care Provider: EVELYN MI MD [Primary Care Provider] - Follow up as needed Notes: Patient is a 34-year-old female who presents to the emergency department with a chief complaint of bilateral flank pain and dysuria. Patient states that she also had some blood in the toilet this morning. Patient is currently on the NuvaRing. She thought maybe it was vaginal bleeding, but there is no blood noted when she took her NuvaRing out. Patient has history of infected kidney stones in the past. Exam: Bilateral flank tenderness. I have greeted and performed a rapid initial assessment of this patient. A comprehensive ED assessment and evaluation of the patient, analysis of test results and completion of medical decision making process will be conducted by an additional ED providers. TRAVEL OUTSIDE OF THE [place] IN LAST 30 DAYS: No - Related Data Allergies/Adverse Reactions: cephalexin monohydrate [From Keflex] Allergy (Severe, Verified 11/11/18 05:05) Anaphylaxis codeine [Codeine] Allergy (Severe, Verified 11/11/18 05:05) Anaphylaxis Penicillins Allergy (Severe, Verified 11/11/18 05:05) Anaphylaxis diphenhydramine HCl [From Benadryl] Adverse Reaction (Verified 11/11/18 05:05) morphine Adverse Reaction (Verified 01/21/19 04:05) prochlorperazine edisylate [From Compazine] Adverse Reaction (Verified 11/11/18 05:05) prochlorperazine maleate [From Compazine] Adverse Reaction (Verified 11/11/18 05:05) Past Medical History Renal/ Medical History: Reports: Hx Ovarian Cysts. Denies: Hx Peritoneal Dialysis GI Medical History: Reports: Hx Irritable Bowel Musculoskeltal Medical History: Reports Hx Musculoskeletal Deformity Psychiatric Medical History: Reports: Hx Anxiety, Hx Bipolar Disorder, Hx Depression - ANXIETY, Hx Post Traumatic Stress Disorder Past Surgical History: Reports: Hx Appendectomy, Hx Section, Hx Cholecystectomy, Hx Myringotomy - Immunizations Immunizations up to date: Yes Hx Diphtheria, Pertussis, Tetanus Vaccination: Yes Physical Exam - Vital signs Vitals: Temp Pulse Resp BP Pulse Ox 97.6 F 91 18 128/64 H 98 06/20/19 09:12 06/20/19 09:12 06/20/19 09:12 06/20/19 09:12 06/20/19 09:12 Course - Vital Signs Vital signs: Temp Pulse Resp BP Pulse Ox 97.6 F 91 18 128/64 H 98 06/20/19 09:12 06/20/19 09:12 06/20/19 09:12 06/20/19 09:12 06/20/19 09:12 Doctor's Discharge - Discharge Referrals: EVELYN MI MD [Primary Care Provider] - Follow up as needed
[2019-06-20] MEDS ORDERED: KETOROLAC TROMETHAMINE 60 MG/2 ML SDV IM ONE (09:39)
[2019-06-20 09:46] LABS: APPEARANCE,URINE CLEAR; BILIRUBIN,URINE NEGATIVE (NEGATIVE); COLOR,URINE YELLOW; GLUCOSE, URINE NEGATIVE (NEGATIVE); KETONES,URINE NEGATIVE (NEGATIVE); PROTEIN,URINE NEGATIVE (NEGATIVE); URINE SPECIFIC GRAVITY 1.023; UROBILINOGEN,URINE NEGATIVE mg/dL (<2.0)
--- NOTE | 2019-06-20 09:52 | ER Document Report ---
ED General - General Chief Complaint: Urinary Problem Stated Complaint: VAGINAL BLEEDING/RECTAL BLEEDING Time Seen by Provider: 06/20/19 09:12 Primary Care Provider: EVELYN MI MD [Primary Care Provider] - Follow up as needed ALEXA BROWN MD [NO LOCAL MD] - Follow up as needed Notes: 34-year-old female presents with bilateral flank pain, hematuria, frequency, urgency that started this morning. Patient states she has a history of UTIs and kidney stones. Patient states she originally thought she was having breakthrough bleeding from her NuvaRing when she noticed blood in toilet this morning however when she wiped she noticed no blood on tissue paper. When patient wiped her rectum she noticed a little bit of blood on tissue paper. Patient states she just went to bathroom to give urine sample here in ER and noticed no blood at this time. Patient is concerned about colon cancer. States she "googled rectal bleeding" and [employer] told her that she had colon cancer. Patient states her paternal grandfather had colon cancer however states her father is adopted. Patient states she has been having intermittent diarrhea for 4 years status post cholecystectomy. Denies any nausea, vomiting, fever, abdominal pain. TRAVEL OUTSIDE OF THE [place] IN LAST 30 DAYS: No - Related Data Allergies/Adverse Reactions: cephalexin monohydrate [From Keflex] Allergy (Severe, Verified 11/11/18 05:05) Anaphylaxis codeine [Codeine] Allergy (Severe, Verified 11/11/18 05:05) Anaphylaxis Penicillins Allergy (Severe, Verified 11/11/18 05:05) Anaphylaxis diphenhydramine HCl [From Benadryl] Adverse Reaction (Verified 11/11/18 05:05) morphine Adverse Reaction (Verified 01/21/19 04:05) prochlorperazine edisylate [From Compazine] Adverse Reaction (Verified 11/11/18 05:05) prochlorperazine maleate [From Compazine] Adverse Reaction (Verified 11/11/18 05:05) Past Medical History - Social History Smoking Status: Current Every Day Smoker Frequency of alcohol use: None Drug Abuse: None Family History: Reviewed & Not Pertinent, DM, Hypertension Patient has suicidal ideation: No Patient has homicidal ideation: No Renal/ Medical History: Reports: Hx Ovarian Cysts. Denies: Hx Peritoneal Dialysis GI Medical History: Reports: Hx Irritable Bowel Musculoskeletal Medical History: Reports Hx Musculoskeletal Deformity Psychiatric Medical History: Reports: Hx Anxiety, Hx Bipolar Disorder, Hx Depression - ANXIETY, Hx Post Traumatic Stress Disorder Past Surgical History: Reports: Hx Appendectomy, Hx Section, Hx Cho lecystectomy, Hx Myringotomy - Immunizations Immunizations up to date: Yes Hx Diphtheria, Pertussis, Tetanus Vaccination: Yes Review of Systems - Review of Systems Notes: Constitutional: Negative for fever. HENT: Negative for sore throat. Eyes: Negative for visual changes. Cardiovascular: Negative for chest pain. Respiratory: Negative for shortness of breath. Gastrointestinal: Negative for abdominal pain, vomiting or diarrhea. Genitourinary: Positive for flank pain, urgency, frequency. Positive for possible rectal bleeding. Negative for dysuria. Musculoskeletal: Negative for back pain. Skin: Negative for rash. Neurological: Negative for headaches, weakness or numbness. 10 point ROS negative except as marked above and in HPI. Physical Exam - Vital signs Vitals: Temp Pulse Resp BP Pulse Ox 97.6 F 91 18 128/64 H 98 06/20/19 09:12 06/20/19 09:12 06/20/19 09:12 06/20/19 09:12 06/20/19 09:12 - Notes Notes: GENERAL: Well-appearing, well-nourished and in no acute distress. HEAD: Atraumatic, normocephalic. EYES: Extraocular movements intact, sclera anicteric, conjunctiva are normal. NECK: Normal range of motion, supple without lymphadenopathy or JVD. LUNGS: Breath sounds clear to auscultation bilaterally and equal. No wheezes rales or rhonchi. HEART: Regular rate and rhythm without murmurs, rubs or gallops. ABDOMEN: Soft, nontender. No guarding, no rebound. No masses appreciated. Bilateral CVA tenderness. EXTREMITIES: Normal range of motion, no pitting or edema. No clubbing or cyanosis. NEUROLOGICAL: Cranial nerves II through XII grossly intact. Normal speech, normal gait. PSYCH: Normal mood, normal affect. SKIN: Warm, Dry, normal turgor, no rashes or lesions noted. Course - Re-evaluation Re-evalutation: 06/20/19 Patient is an afebrile, well-hydrated, 34-year-old female who presents to the ED with an acute UTI. Vitals are acceptable without any significant tachycardia, tachypnea, or hypoxia. PE is otherwise unremarkable. Patient's abdomen is soft and nontender. Bilateral CVA tenderness. UA shows large amounts of RBC. Given flank pain and hematuria, CT abdomen/pelvis ordered. 06/20/19 10:26 H&H WNL. No leukocytosis. 06/20/19 11:58 Discussed results with pt. Reviewed pt with attending, Dr. Ovalles, who agrees with plan of care. Low suspicion/risk for acute appendicitis, bowel obstruction, acute cholecystitis, acute cholangitis, perforated diverticulitis, incarcerated hernia, pancreatitis, perforated ulcer, peritonitis, sepsis, pelvic inflammatory disease, ectopic , tubo- ovarian abscess, ovarian torsion, or other systemic emergent condition at this time. Patient is aware that her condition can change from initial presentation and she needs to monitor symptoms closely and seek medical attention if any acute changes. Prescription for toradol PO, Percocet, Flomax, and Zofran given. Recheck with your PCM in 3-5 days. Referral to urologist given. Return to the ED with any worsening/concerning symptoms otherwise as reviewed in discharge. Patient is in agreement. - Vital Signs Vital signs: Temp Pulse Resp BP Pulse Ox 97.6 F 91 18 128/64 H 98 06/20/19 09:12 06/20/19 09:12 06/20/19 09:12 06/20/19 09:12 06/20/19 09:12 - Laboratory Result Diagrams: 06/20/19 10:00 06/20/19 10:00 Laboratory results interpreted by me: 06/20/19 09:25 Urine Blood LARGE H Leukocyte Esterase Rfl SMALL H Discharge - Discharge Clinical Impression: Right ureteral stone Condition: Stable Disposition: HOME, SELF-CARE Instructions: Kidney Stone ([facility]) Additional Instructions: Your CT showed a 4 mm stone on right side. Please take medication as prescribed. Do not drink/drive while taking Percocet as it will make you sleepy. Return to ER for any worsening symptoms, including inability to urinate, wo rsening pain, vomiting not controlled by medication, fever, or any other concerning symptoms. Prescriptions: Ondansetron [Zofran Odt 4 mg Tablet] 1 - 2 tab PO Q4HP PRN #10 tab.rapdis PRN Reason: Ketorolac Tromethamine [Toradol 10 mg Tablet] 10 mg PO Q6HP PRN #20 tablet PRN Reason: Tamsulosin HCl [Flomax 0.4 mg Cap.sr] 0.4 mg PO DAILY #7 cap.sr.24h Oxycodone HCl/Acetaminophen [Percocet 5-325 mg Tablet] 1 - 2 tab PO Q4H PRN #15 tablet PRN Reason: Oxycodone HCl/Acetaminophen [Percocet 5-325 mg Tablet] 1 - 2 tab PO Q4H PRN #15 tablet PRN Reason: Referrals: EVELYN MI MD [Primary Care Provider] - Follow up as needed ALEXA BROWN MD [NO LOCAL MD] - Follow up as needed
[2019-06-20 10:22] LABS: ABSOLUTE EOSINOPHILS # (AUTO) 0.2 10^3/uL (0.0-0.6); ABSOLUTE LYMPHOCYTES (AUTO) 2.4 10^3/uL (0.5-4.7); ABSOLUTE MONOCYTES (AUTO) 0.5 10^3/uL (0.1-1.4); ABSOLUTE NEUT (AUTO) 4.5 10^3/uL (1.7-8.2); BASOPHILS % (AUTO) 0.6 % (0-2); EOSINOPHILS % (AUTO) 2.1 % (0-6); HEMATOCRIT 40.3 % (36.0-47.0); HEMOGLOBIN 13.5 g/dL (12.0-15.5); LYMPHOCYTES % (AUTO) 31.6 % (13-45); MEAN CORPUSCULAR HEMOGLOBIN 31.1 pg (27.0-33.4); MEAN CORPUSCULAR HGB CONC 33.7 g/dL (32.0-36.0); MEAN CORPUSCULAR VOLUME 93 fl (80-97); MONOCYTES % (AUTO) 6.5 % (3-13); PLATELET COUNT 237 10^3/uL (150-450); RED BLOOD COUNT 4.35 10^6/uL (3.72-5.28); RED CELL DISTRIBUTION WIDTH 13.5 % (11.5-14.0); SEGMENTED NEUTROPHILS % (AUTO) 59.2 % (42-78); TOTAL CELLS COUNTED % (AUTO) 100 %; WHITE BLOOD COUNT 7.6 10^3/uL (4.0-10.5)
[2019-06-20 10:42] LABS: ALBUMIN 3.9 g/dL (3.5-5.0); ALKALINE PHOSPHATASE 58 U/L (38-126); ANION GAP 8 (5-19); ASPARTATE AMINO TRANSFERASE 21 U/L (14-36); BILIRUBIN,TOTAL 0.6 mg/dL (0.2-1.3); BLOOD UREA NITROGEN 10 mg/dL (7-20); CALCIUM 9.6 mg/dL (8.4-10.2); CARBON DIOXIDE 25 mmol/L (22-30); CHLORIDE 107 mmol/L (98-107); GLUCOSE 100 mg/dL (75-110); POTASSIUM 4.4 mmol/L (3.6-5.0); TOTAL PROTEIN 7.2 g/dL (6.3-8.2)
--- NOTE | 2019-06-20 11:41 | RADIOLOGY REPORT (SQ) ---
EXAM DESCRIPTION: CT ABD/PELVIS NO ORAL OR IV COMPLETED DATE/TIME: 06/20/2019 11:22 am REASON FOR STUDY: hematuria, bilateral flank pain, CVA tenderness COMPARISON: CT of the abdomen and pelvis without contrast from 01/20/2019. TECHNIQUE: CT scan of the abdomen and pelvis performed without intravenous or oral contrast. Images reviewed with lung, soft tissue, and bone windows. Reconstructed coronal and sagittal MPR images revi ewed. All images stored on PACS. All CT scanners at this facility use dose modulation, iterative reconstruction, and/or weight based d osing when appropriate to reduce radiation dose to as low as reasonably achievable (ALARA). [facility]: Dose Right [facility]: CareDose [facility]: Dose Right [facility]: Teradose 4D [facility]: [employer] RADIATION DOSE: CT Rad equipment meets quality standard of care and radiation dose reduction techniq ues were employed. CTDIvol: 13.8 mGy. DLP: 851 mGy-cm.mGy. LIMITATIONS: None. FINDINGS: LOWER CHEST: No acute findings. NON-CONTRASTED LIVER, SPLEEN, ADRENALS: Evaluation is limited due to the absence of intravenous contr ast. The low attenuation of hepatic parenchyma is suggestive of hepatic steatosis. The 1.5 cm hypod ense lesion in the left hepatic lobe (image 22 of series 3) is stable. The spleen is normal in size. There is no abnormality of the adrenal glands. PANCREAS: No gross acute abnormality. GALLBLADDER: The gallbladder is surgically absent. RIGHT KIDNEY AND URETER: Evaluation is limited due to the absence of intravenous contrast. There is a 5 x 4 mm calculus within the distal left ureter (image 85 of series 3) without associated hydroneph rosis or hydroureter. In addition, there are 2 mm calculi within upper and lower pole calyces (image 38 of series 3). LEFT KIDNEY AND URETER: Evaluation is limited due to the absence of intravenous contrast. There is n o hydronephrosis, nephrolithiasis, hydroureter or ureterolithiasis. AORTA AND RETROPERITONEUM: No aneurysm of the abdominal aorta. No retroperitoneal hemorrhage, adenop athy or mass. BOWEL AND PERITONEAL CAVITY: No bowel obstruction, bowel wall thickening, or pericolonic/ perienteric inflammation. No free intraperitoneal fluid, mesenteric adenopathy, or mesenteric/ peritoneal mass. APPENDIX: Unable to identify the appendix. PELVIS, BLADDER, AND ABDOMINAL WALL:There is a dermoid cyst in the right adnexum that measures approx imately 2.1 x 1.9 cm. There is no abnormality of the uterus and left adnexum that is apparent on CT. The urinary bladder is partially distended. There is no urinary bladder calculus. BONES: No acute findings. OTHER: No other findings. IMPRESSION: 1. 5 x 4 mm calculus within the distal right the ureter (image 49 of series 601) without considerable associated hydronephrosis or hydroureter. 2. Other secondary findings as detailed above. COMMENT: Quality ID # [id number]: Final reports with documentation of one or more dose reduction techniques (e.g., Automated exposure control, adjustment of the mA and/or kV according to patient size, use of iterative reconstruction technique) TECHNICAL DOCUMENTATION: JOB ID: [id number] [employer]- All Rights Reserved Reading location - IP/workstation name: [email or web address]
[2019-06-20 12:30] VITALS: BP 121/78
== END 2019-06-20 12:30 | disposition home or self-care (01) ==
LOC: ER 09:07
DX: N13.2 Hydronephrosis with renal and ureteral calculous obstruction (principal); N39.0 Urinary tract infection, site not specified; R31.9 Hematuria, unspecified; R19.7 Diarrhea, unspecified; F17.200 Nicotine dependence, unspecified, uncomplicated; Z90.49 Acquired absence of other specified parts of digestive tract; Z97.5 Presence of (intrauterine) contraceptive device; Z87.892 Personal history of anaphylaxis; Z88.1 Allergy status to other antibiotic agents; Z88.5 Allergy status to narcotic agent; Z88.0 Allergy status to penicillin
CPT/HCPCS: 36415; 74176; 80053; 81001; 84703; 85025; 87086; 99284

== ENCOUNTER 2019-06-28 13:40 | Emergency (ER) | payer MEDICAID ==
[2019-06-28] MEDS ORDERED: ONDANSETRON HCL INJ/PF 4 MG/2 ML SDV IV ONE (13:47)
[2019-06-28] MEDS ORDERED: HYDROMORPHONE HCL 2 MG TABLET PO ONE (13:47)
--- NOTE | 2019-06-28 13:47 | ER Document Report ---
ED Medical Screen (RME) - General Chief Complaint: Flank Pain Stated Complaint: RIGHT FLANK PAIN Time Seen by Provider: 06/28/19 13:44 Primary Care Provider: EVELYN MI MD [Primary Care Provider] - Follow up as needed Mode of Arrival: Ambulatory Information source: Patient Notes: 34-year-old female presented to ED for right lower quadrant/pelvic pain for got much worse today. She states she was seen here on the and diagnosed with a right distal ureter stone there was 4 x 5 mm stone at the right UVJ. She states she urinates little drops but is not really urinating a lot and. She states she is getting nauseated due to the pain. I have greeted and performed a rapid initial assessment of this patient. A comprehensive ED assessment and evaluation of the patient, analysis of test results and completion of medical decision making process will be conducted by an additional ED providers. TRAVEL OUTSIDE OF THE [place] IN LAST 30 DAYS: No - Related Data Allergies/Adverse Reactions: cephalexin monohydrate [From Keflex] Allergy (Severe, Verified 11/11/18 05:05) Anaphylaxis codeine [Codeine] Allergy (Severe, Verified 11/11/18 05:05) Anaphylaxis Penicillins Allergy (Severe, Verified 11/11/18 05:05) Anaphylaxis diphenhydramine HCl [From Benadryl] Adverse Reaction (Verified 11/11/18 05:05) morphine Adverse Reaction (Verified 01/21/19 04:05) prochlorperazine edisylate [From Compazine] Adverse Reaction (Verified 11/11/18 05:05) prochlorperazine maleate [From Compazine] Adverse Reaction (Verified 11/11/18 05:05) Past Medical History Renal/ Medical History: Reports: Hx Ovarian Cysts. Denies: Hx Peritoneal Dialysis GI Medical History: Reports: Hx Irritable Bowel Musculoskeltal Medical History: Reports Hx Musculoskeletal Deformity Psychiatric Medical History: Reports: Hx Anxiety, Hx Bipolar Disorder, Hx Depression - ANXIETY, Hx Post Traumatic Stress Disorder Past Surgical History: Reports: Hx Appendectomy, Hx Section, Hx Cholecystectomy, Hx Myringotomy - Immunizations Immunizations up to date: Yes Hx Diphtheria, Pertussis, Tetanus Vaccination: Yes Physical Exam - Vital signs Vitals: Temp Pulse BP Pulse Ox 98.7 F 125 H 146/87 H 100 06/28/19 13:42 06/28/19 13:42 06/28/19 13:42 06/28/19 13:42 Course - Vital Signs Vital signs: Temp Pulse Resp BP Pulse Ox 98.7 F 125 H 146/87 H 100 06/28/19 13:42 06/28/19 13:42 06/28/19 13:42 06/28/19 13:42 Doctor's Discharge - Discharge Referrals: EVELYN MI MD [Primary Care Provider] - Follow up as needed
[2019-06-28] MEDS ORDERED: NORMAL SALINE 250 ML IV ONE (13:48)
[2019-06-28 14:02] LABS: ABSOLUTE BASOPHILS # (AUTO) 0.1 10^3/uL (0.0-0.2); ABSOLUTE EOSINOPHILS # (AUTO) 0.1 10^3/uL (0.0-0.6); ABSOLUTE LYMPHOCYTES (AUTO) 3.2 10^3/uL (0.5-4.7); ABSOLUTE MONOCYTES (AUTO) 0.6 10^3/uL (0.1-1.4); ABSOLUTE NEUT (AUTO) 6.2 10^3/uL (1.7-8.2); BASOPHILS % (AUTO) 1.1 % (0-2); EOSINOPHILS % (AUTO) 1.4 % (0-6); HEMOGLOBIN 14.7 g/dL (12.0-15.5); LYMPHOCYTES % (AUTO) 31.2 % (13-45); MEAN CORPUSCULAR HEMOGLOBIN 31.2 pg (27.0-33.4); MEAN CORPUSCULAR HGB CONC 34.2 g/dL (32.0-36.0); MEAN CORPUSCULAR VOLUME 91 fl (80-97); MONOCYTES % (AUTO) 6.1 % (3-13); PLATELET COUNT 292 10^3/uL (150-450); RED BLOOD COUNT 4.71 10^6/uL (3.72-5.28); RED CELL DISTRIBUTION WIDTH 13.1 % (11.5-14.0); SEGMENTED NEUTROPHILS % (AUTO) 60.2 % (42-78); TOTAL CELLS COUNTED % (AUTO) 100 %; WHITE BLOOD COUNT 10.3 10^3/uL (4.0-10.5)
[2019-06-28] MEDS ORDERED: HYDROMORPHONE HCL INJ/PF 2 MG/ML AMPULE IV ONE ×2 (14:03→15:31)
[2019-06-28] MEDS ORDERED: NORMAL SALINE 1000 ML 1,000 ML IV ONE (14:06)
[2019-06-28 14:20] LABS: ALBUMIN 4.8 g/dL (3.5-5.0); ALKALINE PHOSPHATASE 64 U/L (38-126); ANION GAP 11 (5-19); ASPARTATE AMINO TRANSFERASE 33 U/L (14-36); BILIRUBIN,DIRECT 0.3 mg/dL (0.0-0.4); BILIRUBIN,TOTAL 0.7 mg/dL (0.2-1.3); BLOOD UREA NITROGEN 8 mg/dL (7-20); CARBON DIOXIDE 23 mmol/L (22-30); CHLORIDE 106 mmol/L (98-107); GLUCOSE 88 mg/dL (75-110); POTASSIUM 4.9 mmol/L (3.6-5.0); TOTAL PROTEIN 8.6 g/dL (6.3-8.2)
[2019-06-28 15:00] LABS: APPEARANCE,URINE CLOUDY; BILIRUBIN,URINE NEGATIVE (NEGATIVE); COLOR,URINE YELLOW; GLUCOSE, URINE NEGATIVE (NEGATIVE); KETONES,URINE NEGATIVE (NEGATIVE); PROTEIN,URINE 100 mg/dL (NEGATIVE); URINE SPECIFIC GRAVITY 1.023; UROBILINOGEN,URINE NEGATIVE mg/dL (<2.0)
[2019-06-28] MEDS ORDERED: TAMSULOSIN HCL 0.4 MG CAP.SR.24H PO ONE (15:31)
[2019-06-28] MEDS ORDERED: FENTANYL CITRATE INJ/PF 100 MCG/2 ML AMPUL IV PRN (15:40)
[2019-06-28] MEDS ORDERED: KETOROLAC TROMETHAMINE INJ/PF 30 MG/1 ML SDV IV ONE (15:40)
--- NOTE | 2019-06-28 16:17 | ER Document Report ---
ED General - General Chief Complaint: Possible Kidney Stone Stated Complaint: RIGHT FLANK PAIN Time Seen by Provider: 06/28/19 13:44 Primary Care Provider: EVELYN MI MD [Primary Care Provider] - Follow up as needed Mode of Arrival: Ambulatory TRAVEL OUTSIDE OF THE [place] IN LAST 30 DAYS: No - HPI Notes: Ms. Pratt is a 34-year-old female with a chief complaint of severe right flank pain. This patient was seen here 8 days ago with apparent renal colic and had a CT noncontrast abdomen pelvis which demonstrated a 4.0 x 1.1 cm obstructing ston e at the right UVJ. Outpatient pain management has failed. She states that she is in severe pain. She had been seen initially by the triage nurse and given titrated doses of 0.5 mg of Dilaudid to a total dose of 2 mg prior to my evaluation. She was still crying in severe pain. She says she is nauseated has vomited several times at home. She denies fever chills. Patient says she has had no past history of renal stones up until recently. She is never had any type of a procedure for renal stones in the past. Patient has had a prior appendectomy and cholecystectomy. Patient has an IUD. - Related Data Allergies/Adverse Reactions: cephalexin monohydrate [From Keflex] Allergy (Severe, Verified 06/28/19 13:44) Anaphylaxis codeine [Codeine] Allergy (Severe, Verified 06/28/19 13:44) Anaphylaxis Penicillins Allergy (Severe, Verified 06/28/19 13:44) Anaphylaxis diphenhydramine HCl [From Benadryl] Adverse Reaction (Verified 06/28/19 13:44) morphine Adverse Reaction (Verified 06/28/19 13:44) prochlorperazine edisylate [From Compazine] Adverse Reaction (Verified 06/28/19 13:44) prochlorperazine maleate [From Compazine] Adverse Reaction (Verified 06/28/19 13:44) Past Medical History - General Information source: Patient - Social History Smoking Status: Current Every Day Smoker Chew tobacco use (# tins/day): No Frequency of alcohol use: None Drug Abuse: None Family History: Reviewed & Not Pertinent, DM, Hypertension Patient has suicidal ideation: No Patient has homicidal ideation: No Renal/ Medical History: Reports: Hx Ovarian Cysts. Denies: Hx Peritoneal Dialysis GI Medical History: Reports: Hx Irritable Bowel Musculoskeletal Medical History: Reports Hx Musculoskeletal Deformity Psychiatric Medical History: Reports: Hx Anxiety, Hx Bipolar Disorder, Hx Depression - ANXIETY, Hx Post Traumatic Stress Disorder Past Surgical History: Reports: Hx Appendectomy, Hx Section, Hx Cholecystectomy, Hx Myringotomy - Immunizations Immunizations up to date: Yes Hx Diphtheria, Pertussis, Tetanus Vaccination: Yes Review of Systems - Review of Systems Notes: Constitutional: Negative for fever. HENT: Negative for sore throat. Eyes: Negative for visual changes. Cardiovascular: Negative for chest pain. Respiratory: Negative for shortness of breath. Gastrointestinal: As per HPI. Genitourinary: As per HPI.. Musculoskeletal: Flank pain as noted. Skin: Negative for rash. Neurological: Negative for headaches, weakness or numbness. Psychiatric: Patient has a history of panic attacks and takes Klonopin for generalized anxiety disorder. 10 point ROS negative except as marked above and in HPI. Physical Exam - Vital signs Vitals: Temp Pulse BP Pulse Ox 98.7 F 125 H 146/87 H 100 06/28/19 13:42 06/28/19 13:42 06/28/19 13:42 06/28/19 13:42 - Notes Notes: GENERAL: Female patient of approximately stated age who appears very uncomfortable crying and screaming intermittently and holding right flank area.. SKIN: Somewhat flushed. Good turgor. HEAD: Normocephalic atraumatic. EYES: PERRLA. Conjunctivae and sclerae clear. EARS: CANALS AND TMS CLEAR. NOSE: CLEAR. MOUTH: Moist mucosa. Good dentition. No stridor or edema. No drooling. Throat: Clear. NECK: Supple. No masses or thyromegaly. No adenopathy. Carotids 2+ without bruits. No JVD. BACK: Symmetrical without tenderness. CHEST: Respirations unlabored. Breath sounds clear and symmetrical. HEART: Regular rhythm. No murmur gallop or rub. ABDOMEN: Soft nontender without masses, organomegaly or rebound. Bowel sounds normally active. No bruits. GENITALIA: Deferred. EXTREMITIES: No edema. No calf tenderness. Cap refill less than 1.5 seconds. Dorsalis pedis and posterior tibial pulses 3+ and symmetrical. NEUROLOGICAL: GCS 15. Alert and oriented x3. Normal gait. Fluent speech. Cranial nerves II through XII intact. Sensorimotor and cerebellar normal. Normal tone. Psychiatric: Very anxious. Course - Re-evaluation Re-evalutation: 06/28/19 16:[address] from prior visit. I am going to repeat a noncontrast CT abdomen and pelvis. I will give the patient some IV Toradol and some additional IV normal saline as well as a small dose of IV fentanyl. After I reviewed the CT I will consult with on-call urology. 06/28/19 18:06 Patient received IV fentanyl and Toradol here with good relief of her pain. CT scan shows persistent 5 mm stone which is descended slightly near the right UVJ. She still has hydronephrosis. I outlined the option of "watchful waiting" and symptomatic treatment versus stenting. She says she prefers not to be admitted for stenting unless absolutely necessary. I am going to give her a prescription for some Vicodin to try at home. She is been instructed to return here imme diately if she develops uncontrolled pain, high fever, chills or vomiting with inability to keep medication down. She is encouraged to stay up on her feet as much as possible and to push p.o. fluids. I will refer her to on-call urologist for elective follow-up in the office in 3 to 5 days. The patient understands she may return here if outpatient management fails and that we would immediately contact urology to arrange referral for stenting under such circumstances. - Vital Signs Vital signs: Temp Pulse Resp BP Pulse Ox 97.9 F 90 112/71 99 06/28/19 17:47 06/28/19 17:47 06/28/19 17:47 06/28/19 17:47 - Laboratory Result Diagrams: 06/28/19 13:53 06/28/19 13:53 Laboratory results interpreted by me: 06/28/19 06/28/19 13:53 14:30 Total Protein 8.6 H Urine Protein 100 H Urine Blood LARGE H Leukocyte Esterase Rfl TRACE H Discharge - Discharge Clinical Impression: Ureterolithiasis Condition: Stable Disposition: HOME, SELF-CARE Additional Instructions: Kidney Stone You are passing or have passed a kidney stone. These stones are usually due to increased calcium or uric acid concentrations in your urine. Stones within the kidney itself are not painful. The pain occurs as the stone leaves the kidney to pass down the long tube, called the ureter, leading to the bladder. If the stone is small, it will usually pass by itself. Most patients can pass the stone at home. You will usually receive medications for pain, nausea or vomiting, and sometimes a medication to assist in passing the kidney stone. However, if the pain is very severe or if vomiting prevents you from taking oral pain medications, you may need to return for further treatment. Drink three or four quarts of fluids per day. You will be given pain medication (if needed) and urine strainers. Strain all your urine to see if the stone passes. If your doctor has asked you to bring the stone in for analysis, return with the stone once it has passed. Return if pain or vomiting become severe, if you develop a high fever, if you are unable to pass your urine, or if other unusual symptoms occur. Return here as needed for new or worsening symptoms: Uncontrolled pain, high fever/chills, uncontrolled vomiting. Increase oral fluids. Stay up on your feet is much as possible. Prescriptions: Hydrocodone/Acetaminophen [Vicodin 5-300 mg Tablet] 2 each PO Q6 PRN #20 tablet PRN Reason: Referrals: EVELYN MI MD [Primary Care Provider] - Follow up as needed [facility] [Provider Group] - Follow up as needed
--- NOTE | 2019-06-28 16:37 | RADIOLOGY REPORT (SQ) ---
EXAM DESCRIPTION: CT ABD/PELVIS NO ORAL OR IV COMPLETED DATE/TIME: 06/28/2019 4:17 pm REASON FOR STUDY: Renal Stone COMPARISON: 06/20/2019 TECHNIQUE: CT scan of the abdomen and pelvis performed without intravenous or oral contrast. Images reviewed with lung, soft tissue, and bone windows. Reconstructed coronal and sagittal MPR images revi ewed. All images stored on PACS. All CT scanners at this facility use dose modulation, iterative reconstruction, and/or weight based d osing when appropriate to reduce radiation dose to as low as reasonably achievable (ALARA). [facility]: Dose Right [facility]: CareDose [facility]: Dose Right [facility]: Teradose 4D [facility]: Smart Da[employer] RADIATION DOSE: CT Rad equipment meets quality standard of care and radiation dose reduction techniq ues were employed. CTDIvol: 12.8 mGy. DLP: 698 mGy-cm.mGy. LIMITATIONS: None. FINDINGS: LOWER CHEST: No significant findings. No nodules or infiltrates. NON-CONTRASTED LIVER, SPLEEN, ADRENALS: There is a 15 mm low-density lesion in the left lobe of the l iver on image 18. This is stable. PANCREAS: No masses. No peripancreatic inflammatory changes. GALLBLADDER: No identified stones by CT criteria. No inflammatory changes to suggest cholecystitis. RIGHT KIDNEY AND URETER: There is right hydronephrosis/ hydroureter secondary to the 5 mm calcificati on in the distal ureter seen on image 80 series 3. This has changed position since the prior study. LEFT KIDNEY AND URETER: No suspicious masses. Assessment limited by lack of IV contrast. No signifi cant calcifications. No hydronephrosis or hydroureter. AORTA AND RETROPERITONEUM: No aneurysm. No retroperitoneal masses or adenopathy. BOWEL AND PERITONEAL CAVITY: No obvious masses or inflammatory changes. No free fluid. APPENDIX: Normal. PELVIS, BLADDER, AND ABDOMINAL WALL:2 cm dermoid cyst in the right adnexum. Stable. BONES: No significant findings. OTHER: No other significant finding. IMPRESSION: 1. Right hydronephrosis/ hydroureter secondary to a 5 mm calculus in the distal ureter. This has moved since the prior study. 2. Stable 15 mm low-density lesion in the liver. 3. Stable 2 cm dermoid in the right adnexa. COMMENT: Quality ID # [id number]: Final reports with documentation of one or more dose reduction techniques (e.g., Automated exposure control, adjustment of the mA and/or kV according to patient size, use of iterative reconstruction technique) TECHNICAL DOCUMENTATION: JOB ID: [id number] [employer]- All Rights Reserved Reading location - IP/workstation name: [email or web address]
--- NOTE | 2019-06-28 16:40 | RADIOLOGY REPORT (SQ) ---
EXAM DESCRIPTION: U/S RETROPERITON (RENAL/AORTA) COMPLETED DATE/TIME: 06/28/2019 4:26 pm REASON FOR STUDY: flank pain hx of Jamie on 06/20/19 COMPARISON: 01/19/2019 TECHNIQUE: Dynamic and static grayscale images acquired of the kidneys and bladder and recorded on P ACS. Additional selected color Doppler and spectral images recorded. LIMITATIONS: None. FINDINGS: RIGHT KIDNEY: Normal size 11.2 cm cm. Normal echogenicity. No solid or suspicious masses. Mild hydronephrosis. No calcifications. LEFT KIDNEY: Normal size, 10.8 cm. Normal echogenicity. No solid or suspicious masses. No hydronephr osis. No calcifications. BLADDER: Bilateral ureteral jets are seen. OTHER FINDINGS: No other significant finding. IMPRESSION: Mild right hydronephrosis. See report for CT of the abdomen or pelvis. TECHNICAL DOCUMENTATION: JOB ID: [id number] [employer]- All Rights Reserved Reading location - IP/workstation name: [email or web address]
[2019-06-28 17:56] VITALS: BP 112/71
== END 2019-06-28 18:25 | disposition home or self-care (01) ==
LOC: ER 13:40
DX: N20.1 Calculus of ureter (principal); R10.9 Unspecified abdominal pain; R11.2 Nausea with vomiting, unspecified
CPT/HCPCS: 96376; 99284; 96361; 96374; 96375; 36415; 84703; 85025; 80053; 81001; 76770; 74176; J1885; J1170; J3490; J2405; J7030

== ENCOUNTER 2019-07-01 11:43 | Emergency (ER) | payer MEDICAID ==
[2019-07-01] MEDS ORDERED: HYDROMORPHONE HCL INJ/PF 2 MG/ML AMPULE IV ONE ×2 (11:52→14:38)
--- NOTE | 2019-07-01 11:55 | ER Document Report ---
ED Medical Screen (RME) - General Chief Complaint: Flank Pain Stated Complaint: FLANK PAIN/POSSIBLE KIDNEY STONE Time Seen by Provider: 07/01/19 11:48 Primary Care Provider: EVELYN MI MD [Primary Care Provider] - Follow up as needed Mode of Arrival: Ambulatory Information source: Patient Notes: Patient presents complaining of right flank and right right lower quadrant pain. Patient states pain is been off and on over the past week. Patient reports pain returned today. Patient with nausea vomiting and difficulty urinating. Patient denies any fever. I have greeted and performed a rapid initial assessment of this patient. A comprehensive ED assessment and evaluation of the patient, analysis of test results and completion of the medical decision making process will be conducted by additional ED providers. TRAVEL OUTSIDE OF THE [place] IN LAST 30 DAYS: No - Related Data Allergies/Adverse Reactions: cephalexin monohydrate [From Keflex] Allergy (Severe, Verified 06/28/19 13:44) Anaphylaxis codeine [Codeine] Allergy (Severe, Verified 06/28/19 13:44) Anaphylaxis Penicillins Allergy (Severe, Verified 06/28/19 13:44) Anaphylaxis diphenhydramine HCl [From Benadryl] Adverse Reaction (Verified 06/28/19 13:44) morphine Adverse Reaction (Verified 06/28/19 13:44) prochlorperazine edisylate [From Compazine] Adverse Reaction (Verified 06/28/19 13:44) prochlorperazine maleate [From Compazine] Adverse Reaction (Verified 06/28/19 13:44) Past Medical History Renal/ Medical History: Reports: Hx Ovarian Cysts. Denies: Hx Peritoneal Dialysis GI Medical History: Reports: Hx Irritable Bowel Musculoskeltal Medical History: Reports Hx Musculoskeletal Deformity Psychiatric Medical History: Reports: Hx Anxiety, Hx Bipolar Disorder, Hx Depression - ANXIETY, Hx Post Traumatic Stress Disorder Past Surgical History: Reports: Hx Appendectomy, Hx Section, Hx Cholecystectomy, Hx Myringotomy - Immunizations Immunizations up to date: Yes Hx Diphtheria, Pertussis, Tetanus Vaccination: Yes Physical Exam - Vital signs Vitals: Temp Pulse Resp BP Pulse Ox 98.1 F 112 H 32 H 150/94 H 100 07/01/19 11:46 07/01/19 11:46 07/01/19 11:46 07/01/19 11:46 07/01/19 11:46 - General General appearance: Alert, Anxious Notes: Right flank, right lower quadrant pain Course - Vital Signs Vital signs: Temp Pulse Resp BP Pulse Ox 98.1 F 112 H 32 H 150/94 H 100 07/01/19 11:46 07/01/19 11:46 07/01/19 11:46 07/01/19 11:46 07/01/19 11:46 Doctor's Discharge - Discharge Referrals: EVELYN MI MD [Primary Care Provider] - Follow up as needed
[2019-07-01] MEDS ORDERED: KETOROLAC TROMETHAMINE INJ/PF 30 MG/1 ML SDV IV ONE (12:06)
[2019-07-01] MEDS ORDERED: NORMAL SALINE 1000 ML 1,000 ML IV ONE (12:07)
--- NOTE | 2019-07-01 12:37 | ER Document Report ---
ED General - General Chief Complaint: Possible Kidney Stone Stated Complaint: FLANK PAIN/POSSIBLE KIDNEY STONE Time Seen by Provider: 07/01/19 11:48 Primary Care Provider: EVELYN MI MD [Primary Care Provider] - Follow up as needed Mode of Arrival: Ambulatory TRAVEL OUTSIDE OF THE [place] IN LAST 30 DAYS: No - HPI Notes: Patient is a 34-year-old female with known right ureteral 5 mm stone first found 11 days ago who presents complaining of continued right flank pain, nausea/vomiting, dysuria. She was seen 3 days ago and was found to have a c ontinued 5 mm right distal ureteral stone, with some movement from previous. Patient states that she was told that she had continued pain to this level that she needed to come back and we would consider transferring for possible stent placement. She has been taking her medicines regularly. She is able to eat and drink, but does have decreased p.o. intake. She is having normal bowel movements. No other vaginal bleeding, odor, or discharge. Denies any headache, fever, neck pain, URI, sore throat, chest pain, palpitations, syncope, cough, shortness of breath, wheeze, dyspnea, diarrhea, loss of control of bowel or bladder, numbness/tingling, saddle anesthesia, muscle paralysis/weakness, or rash. - Related Data Allergies/Adverse Reactions: cephalexin monohydrate [From Keflex] Allergy (Severe, Verified 07/01/19 11:59) Anaphylaxis codeine [Codeine] Allergy (Severe, Verified 07/01/19 11:59) Anaphylaxis Penicillins Allergy (Severe, Verified 07/01/19 11:59) Anaphylaxis diphenhydramine HCl [From Benadryl] Adverse Reaction (Verified 07/01/19 11:59) morphine Adverse Reaction (Verified 07/01/19 11:59) prochlorperazine edisylate [From Compazine] Adverse Reaction (Verified 07/01/19 11:59) prochlorperazine maleate [From Compazine] Adverse Reaction (Verified 07/01/19 11:59) Past Medical History - General Information source: Patient - Social History Smoking Status: Current Every Day Smoker Chew tobacco use (# tins/day): No Frequency of alcohol use: None Drug Abuse: None Family History: Reviewed & Not Pertinent, DM, Hypertension Patient has suicidal ideation: No Patient has homicidal ideation: No Renal/ Medical History: Reports: Hx Ovarian Cysts. Denies: Hx Peritoneal Dialysis GI Medical History: Reports: Hx Irritable Bowel Musculoskeletal Medical History: Reports Hx Musculoskeletal Deformity Psychiatric Medical History: Reports: Hx Anxiety, Hx Bipolar Disorder, Hx De pression - ANXIETY, Hx Post Traumatic Stress Disorder Past Surgical History: Reports: Hx Appendectomy, Hx Section, Hx Cholecystectomy, Hx Myringotomy - Immunizations Immunizations up to date: Yes Hx Diphtheria, Pertussis, Tetanus Vaccination: Yes Review of Systems - Review of Systems -: Yes All other systems reviewed and negative Physical Exam - Vital signs Vitals: Temp Pulse Resp BP Pulse Ox 98.1 F 112 H 32 H 150/94 H 100 07/01/19 11:46 07/01/19 11:46 07/01/19 11:46 07/01/19 11:46 07/01/19 11:46 - Notes Notes: PHYSICAL EXAMINATION: GENERAL: Well-appearing, well-nourished and in no acute resp distress. Pt leaning on table, tearful, and appears in discomfort. HEAD: Atraumatic, normocephalic. EYES: Pupils equal round and reactive to light, extraocular movements intact, sclera anicteric, conjunctiva are normal. ENT: Nares patent and without discharge. oropharynx clear without exudates. No tonsilar hypertrophy or erythema. Moist mucous membranes. No sinus tenderness. NECK: Normal range of motion, supple without lymphadenopathy LUNGS: Breath sounds clear to auscultation bilaterally and equal. No wheezes rales or rhonchi. HEART: Regular rate and rhythm without murmurs, rubs, gallops. ABDOMEN: Soft, nontender, nondistended abdomen. No guarding, no rebound. Normal bowel sounds present. + right CVA tenderness. Musculoskeletal: FROM to passive/active. Strength 5+/5. Extremities: No cyanosis, clubbing, or edema b/l. Peripheral pulses 2+. Capillary refill less than 3 seconds. NEUROLOGICAL: Cranial nerves grossly intact. Normal speech, normal gait. PSYCH: Normal mood, normal affect. SKIN: Warm, Dry, normal turgor, no rashes or lesions noted. Course - Re-evaluation Re-evalutation: 07/01/19 12:[address] Goldman. We will have to get another CT scan to further evaluate location as we will be considering transfer/consult with Urology. 07/01/19 14:21 CT shows 5mm stone that has not been moving with continued moderate hydronephrosis/hydroureter. Call placed to [facility] for Urology consult for possible stenting an am waiting for a call back from Dr. Ocampo, Uro. 07/01/19 14:[address] Ocampo who would like her to be seen in their office here in [place] tomorrow and to double her flomax. He believes she will be set up for a surgical procedure at that time. No need to transfer. Patient is an afebrile, well-hydrated, 34-year-old male who presents to the ED with a 5mm ureteral stone to the rt side with moderate hydroureter/nephrosis that is not currently moving for about 11 days. Vitals are acceptable without any significant tachycardia, tachypnea, or hypoxia. PE is otherwise unremarkable. CBC, CMP, lipase unremarkable for acute pathology. See UA results, no signs of infection. Pt given meds/fluids here. No other labs or imaging warranted at this time based on H&P. Patient is tolerating p.o. without difficulties and is nontoxic-appearing. Low suspicion/risk for urosepsis, acute appendicitis, bowel obstruction, acute cholecystitis, perforated diverticulitis, incarcerated hernia, pancreatitis, perforated ulcer, peritonitis, sepsis, testi cular torsion, or other systemic emergent condition at this time. Patient is aware that his condition can change from initial presentation and he needs to monitor symptoms closely and seek medical attention if any acute changes. Conservative measures otherwise for symptoms. Recheck with PCM in 2-3 days. Return to the ED with any worsening/concerning symptoms otherwise as reviewed in discharge. Patient is in agreement. - Vital Signs Vital signs: Temp Pulse Resp BP Pulse Ox 98.1 F 112 H 32 H 150/94 H 100 07/01/19 11:46 07/01/19 11:46 07/01/19 11:46 07/01/19 11:46 07/01/19 11:46 - Laboratory Result Diagrams: 07/01/19 12:32 07/01/19 12:32 Laboratory results interpreted by me: 07/01/19 07/01/19 12:32 12:32 Chloride 109 H Carbon Dioxide 20 L Urine Blood MODERATE H Ur Leukocyte Esterase SMALL H Discharge - Discharge Clinical Impression: Right ureteral stone Condition: Stable Disposition: HOME, SELF-CARE Additional Instructions: You are to call the [facility] urology clinic here in [place] tomorrow morning for consult/appointment as you may need set up for a surgical procedure for your stone per Dr. Ocampo. He won't be there tomorrow (someone else will be), but he will be on Tuesday otherwise. Push fluids (i.e. water, cranberry juice) Proper hygenic technique Keep the skin clean Tylenol/ibuprofen as needed Take medications as directed F/u with your PCM in 2-3 days for a recheck Return to the ED with any worsening symptoms and/or development of fever, headache, chest pain, palpitations, syncope, shortness of breath, trouble breathing, abdominal pain, n/v/d, blood in stool/urine, loss of control of bowel/bladder, urinary retention, or other worsening symptoms that are concerning to you. Prescriptions: Tamsulosin HCl [Flomax] 0.8 mg PO DAILY #20 cap.er.24h Oxycodone HCl/Acetaminophen [Percocet 5-325 mg Tablet] 1 tab PO TID #12 tab Ondansetron [Zofran Odt 4 mg Tablet] 1 - 2 tab PO Q4H PRN #15 tab.rapdis PRN Reason: For Nausea/Vomiting Forms: Elevated Blood Pressure Referrals: EVELYN MI MD [Primary Care Provider] - Follow up as needed ANNEL OCAMPO MD [NO LOCAL MD] - Follow up as needed [facility] [Provider Group] - Follow up tomorrow
[2019-07-01 12:43] LABS: ABSOLUTE EOSINOPHILS # (AUTO) 0.2 10^3/uL (0.0-0.6); ABSOLUTE LYMPHOCYTES (AUTO) 2.3 10^3/uL (0.5-4.7); ABSOLUTE MONOCYTES (AUTO) 0.4 10^3/uL (0.1-1.4); ABSOLUTE NEUT (AUTO) 4.6 10^3/uL (1.7-8.2); BASOPHILS % (AUTO) 0.6 % (0-2); EOSINOPHILS % (AUTO) 3.2 % (0-6); HEMATOCRIT 39.9 % (36.0-47.0); HEMOGLOBIN 13.5 g/dL (12.0-15.5); LYMPHOCYTES % (AUTO) 30.6 % (13-45); MEAN CORPUSCULAR HEMOGLOBIN 31.1 pg (27.0-33.4); MEAN CORPUSCULAR HGB CONC 33.9 g/dL (32.0-36.0); MEAN CORPUSCULAR VOLUME 92 fl (80-97); MONOCYTES % (AUTO) 5.5 % (3-13); PLATELET COUNT 233 10^3/uL (150-450); RED BLOOD COUNT 4.35 10^6/uL (3.72-5.28); RED CELL DISTRIBUTION WIDTH 13.2 % (11.5-14.0); SEGMENTED NEUTROPHILS % (AUTO) 60.1 % (42-78); TOTAL CELLS COUNTED % (AUTO) 100 %; WHITE BLOOD COUNT 7.6 10^3/uL (4.0-10.5)
[2019-07-01 12:50] LABS: APPEARANCE,URINE SLIGHTLY-CLOUDY; BILIRUBIN,URINE NEGATIVE (NEGATIVE); COLOR,URINE YELLOW; GLUCOSE, URINE NEGATIVE (NEGATIVE); KETONES,URINE NEGATIVE (NEGATIVE); LEUKOCYTE ESTERASE,URINE SMALL (NEGATIVE); NITRITE,URINE NEGATIVE (NEGATIVE); PROTEIN,URINE NEGATIVE (NEGATIVE); UROBILINOGEN,URINE NEGATIVE mg/dL (<2.0)
[2019-07-01 13:04] LABS: ALKALINE PHOSPHATASE 63 U/L (38-126); ANION GAP 10 (5-19); ASPARTATE AMINO TRANSFERASE 18 U/L (14-36); BILIRUBIN,DIRECT 0.1 mg/dL (0.0-0.4); BILIRUBIN,TOTAL 0.4 mg/dL (0.2-1.3); BLOOD UREA NITROGEN 12 mg/dL (7-20); CALCIUM 9.5 mg/dL (8.4-10.2); CARBON DIOXIDE 20 mmol/L (22-30); CHLORIDE 109 mmol/L (98-107); GLUCOSE 94 mg/dL (75-110); POTASSIUM 4.4 mmol/L (3.6-5.0); TOTAL PROTEIN 7.2 g/dL (6.3-8.2)
[2019-07-01] MEDS ORDERED: ONDANSETRON HCL INJ/PF 4 MG/2 ML SDV IV ONE (13:21)
--- NOTE | 2019-07-01 14:16 | RADIOLOGY REPORT (SQ) ---
EXAM DESCRIPTION: CT ABD/PELVIS NO ORAL OR IV COMPLETED DATE/TIME: 07/01/2019 2:01 pm REASON FOR STUDY: eval location rt flank/stone COMPARISON: 06/28/2019 and 06/20/2019. TECHNIQUE: CT scan of the abdomen and pelvis performed without intravenous or oral contrast. Images reviewed with lung, soft tissue, and bone windows. Reconstructed coronal and sagittal MPR images revi ewed. All images stored on PACS. All CT scanners at this facility use dose modulation, iterative reconstruction, and/or weight based d osing when appropriate to reduce radiation dose to as low as reasonably achievable (ALARA). [facility]: Dose Right [facility]: CareDose [facility]: Dose Right [facility]: Teradose 4D [facility]: [employer] RADIATION DOSE: CT Rad equipment meets quality standard of care and radiation dose reduction techniq ues were employed. CTDIvol: 14.1 mGy. DLP: 764 mGy-cm.mGy. LIMITATIONS: None. FINDINGS: LOWER CHEST: No significant findings. No nodules or infiltrates. NON-CONTRASTED LIVER, SPLEEN, ADRENALS: Evaluation limited by lack of IV contrast. No identified sign ificant masses. PANCREAS: No masses. No peripancreatic inflammatory changes. GALLBLADDER: Surgically absent. RIGHT KIDNEY AND URETER: No suspicious masses. Assessment limited by lack of IV contrast. 5 mm calc ulus in the distal ureter near the ureteral vesicular junction. Moderate hydronephrosis and hydroure ter. No hydronephrosis or hydroureter. LEFT KIDNEY AND URETER: No suspicious masses. Assessment limited by lack of IV contrast. No signifi cant calcifications. No hydronephrosis or hydroureter. AORTA AND RETROPERITONEUM: No aneurysm. No retroperitoneal masses or adenopathy. BOWEL AND PERITONEAL CAVITY: No obvious masses or inflammatory changes. No free fluid. APPENDIX: Surgically absent. PELVIS, BLADDER, AND ABDOMINAL WALL:Again seen is a 2 cm fatty mass in the right adnexa with focal ca lcification. No free fluid. Bladder normal. BONES: No significant findings. OTHER: No other significant finding. IMPRESSION: 1. 5 MM CALCULUS IN THE DISTAL RIGHT URETER NEAR THE URETERAL VESICULAR JUNCTION. CONTINUED MODERATE HYDRONEPHROSIS AND HYDROURETER. NO SIGNIFICANT CHANGE SINCE THE PREVIOUS STUDY. 2. SMALL FATTY LESION IN THE RIGHT ADNEXA CONSISTENT WITH A DERMOID. 3. NO OTHER SIGNIFICANT OR ACUTE PROCESS IN THE ABDOMEN OR PELVIS. COMMENT: Quality ID # [id number]: Final reports with documentation of one or more dose reduction techniques (e.g., Automated exposure control, adjustment of the mA and/or kV according to patient size, use of iterative reconstruction technique) TECHNICAL DOCUMENTATION: JOB ID: [id number] [employer]- All Rights Reserved Reading location - IP/workstation name: [email or web address]
[2019-07-01] MEDS ORDERED: FENTANYL CITRATE INJ/PF 100 MCG/2 ML AMPUL IV ONE (15:36)
[2019-07-01 16:31] VITALS: BP 134/73
== END 2019-07-01 16:30 | disposition home or self-care (01) ==
LOC: ER 11:43
DX: N13.2 Hydronephrosis with renal and ureteral calculous obstruction (principal); R10.9 Unspecified abdominal pain; R11.2 Nausea with vomiting, unspecified; R30.0 Dysuria; F17.200 Nicotine dependence, unspecified, uncomplicated; Z87.892 Personal history of anaphylaxis; Z88.1 Allergy status to other antibiotic agents; Z88.5 Allergy status to narcotic agent; Z88.6 Allergy status to analgesic agent; Z88.0 Allergy status to penicillin
CPT/HCPCS: 96376; 99284; 96361; 96374; 96375; 36415; 83690; 85025; 81025; 80053; 81001; 74176; J3010; J1885; J1170; J2405; J7030

== ENCOUNTER 2019-07-01 18:07 | Emergency (ER) | payer MEDICAID ==
[2019-07-01 18:41] VITALS: BP 124/75
--- NOTE | 2019-07-01 18:57 | ER Document Report ---
ED General - General Chief Complaint: Flank Pain Stated Complaint: FLANK PAIN Time Seen by Provider: 07/01/19 18:36 Primary Care Provider: EVELYN MI MD [Primary Care Provider] - Follow up as needed TRAVEL OUTSIDE OF THE [place] IN LAST 30 DAYS: No - HPI Notes: Patient is a 34-year-old female who presents emergency department for evaluation of right flank pain. The patient has been seen a few times here in the emergency department. She was actually seen here earlier today. She has a known 5 mm right distal UVJ stone. She was seen here at about 11:00 this morning and discharged. She is been in the waiting room. She states she did not have a ride. She states she still in severe pain. At her visit earlier today urology was consulted, they will happily see her tomorrow, but did not see any reason for emergent transfer. Patient denies any fevers. She is nauseated, but states that she believes this is from "all the pain medicine I have been given." She has been given prescription for pain medication, nausea medication, Flomax. She is still urinating. - Related Data Allergies/Adverse Reactions: cephalexin monohydrate [From Keflex] Allergy (Severe, Verified 07/01/19 11:59) Anaphylaxis codeine [Codeine] Allergy (Severe, Verified 07/01/19 11:59) Anaphylaxis Penicillins Allergy (Severe, Verified 07/01/19 11:59) Anaphylaxis diphenhydramine HCl [From Benadryl] Adverse Reaction (Verified 07/01/19 11:59) morphine Adverse Reaction (Verified 07/01/19 11:59) prochlorperazine edisylate [From Compazine] Adverse Reaction (Verified 07/01/19 11:59) prochlorperazine maleate [From Compazine] Adverse Reaction (Verified 07/01/19 11:59) Home Medications: List reviewed Past Medical History - General Information source: Patient - As a creepy thing to see if we could go to the written [employer] was 1 - Social History Smoking Status: Current Every Day Smoker Family History: Reviewed & Not Pertinent, DM, Hypertension Patient has suicidal ideation: No Patient has homicidal ideation: No Renal/ Medical History: Reports: Hx Kidney Stones, Hx Ovarian Cysts. Denies: Hx Peritoneal Dialysis GI Medical History: Reports: Hx Irritable Bowel Musculoskeletal Medical History: Reports Hx Musculoskeletal Deformity Psychiatric Medical History: Reports: Hx Anxiety, Hx Bipolar Disorder, Hx Depression - ANXIETY, Hx Post Traumatic Stress Disorder Past Surgical History: Reports: Hx Appendectomy, Hx Section, Hx Cholecystectomy, Hx Myringotomy - Immunizations Immunizations up to date: Yes Hx Diphtheria, Pertussis, Tetanus Vaccination: Yes Review of Systems - Review of Systems Constitutional: No symptoms reported EENT: No symptoms reported Cardiovascular: No symptoms reported Respiratory: No symptoms reported Gastrointestinal: See HPI Genitourinary: See HPI Female Genitourinary: No symptoms reported Musculoskeletal: No symptoms reported Skin: No symptoms reported Neurological/Psychological: No symptoms reported - He had some patellar DrRicha atkins again this year shortly Physical Exam - Vital signs Vitals: Temp Pulse BP Pulse Ox 98.2 F 105 H 124/75 100 07/01/19 18:41 12 18:41 07/01/19 18:41 07/01/19 18:41 - Notes Notes: This is a 34-year-old female who appears her stated age. She is verbally abusive with staff, actually yelling in the hallway as I walk into the room. She is using multiple swear words. Head is normocephalic and atraumatic, oral mucosa is moist. Heart is regular rate and rhythm, lungs are clear station bilaterally. Abdomen is obese, soft, essentially nontender. She does have some mild right CVA tenderness, as well as reproducible tenderness around the SI joint. Extremities without cyanosis or clubbing. Skin is warm and dry. Course - Re-evaluation Re-evalutation: 07/01/19 19:03 Patient presents to the emergency department for evaluation of right flank pain. She has a known kidney stone. Urology is [place] been consulted. She has a follow-up appointment tomorrow. She already has pain medication prescriptions. She was offered Percocet, Toradol, Zofran here. She became even more verbally abusive. She continued to swear at me. She repeatedly questioned me as to whether or not I was actually a physician. I explained to her that I was, that I was happy to try and medicate her for her symptoms with the above-mentioned medications. The patient again started yelling at both myself as well as nursing present in the room. She states that "those things will not help me. I got Dilaudid last time." I explained to her that I believe the medications being offered were appropriate. She continued to be verbally abusive, I told her that the medications I had offered seemed appropriate, but she was certainly not required to take them. The patient stated she wanted to leave so discharge papers written up. She is again encouraged to follow-up closely with urology. - Vital Signs Vital signs: Temp Pulse Resp BP Pulse Ox 98.2 F 105 H 124/75 100 07/01/19 18:41 07/01/19 18:41 07/01/19 18:41 07/01/19 18:41 Discharge - Discharge Clinical Impression: Right ureteral stone, Ureterolithiasis Condition: Stable Disposition: HOME, SELF-CARE Instructions: Kidney Stone ([facility]) Additional Instructions: Please follow-up as scheduled with urology tomorrow. If you develop fevers, intractable vomiting, or any other new or concerning symptoms, please return immediately to the emergency department for reevaluation. Referrals: EVELYN MI MD [Primary Care Provider] - Follow up as needed
== END 2019-07-01 19:00 | disposition home or self-care (01) ==
LOC: ER 18:07
DX: N20.1 Calculus of ureter (principal); R10.9 Unspecified abdominal pain; R11.0 Nausea; F17.200 Nicotine dependence, unspecified, uncomplicated; Z87.892 Personal history of anaphylaxis; Z88.1 Allergy status to other antibiotic agents; Z88.6 Allergy status to analgesic agent; Z88.5 Allergy status to narcotic agent; Z88.0 Allergy status to penicillin
CPT/HCPCS: 99283

== ENCOUNTER 2019-07-01 19:06 | Emergency (ER) | payer MEDICAID ==
[2019-07-01] MEDS ORDERED: KETOROLAC TROMETHAMINE 10 MG TABLET PO ONE (19:53)
--- NOTE | 2019-07-01 20:00 | ER Document Report ---
ED General - General Chief Complaint: Possible Kidney Stone Stated Complaint: FLANK PAIN Time Seen by Provider: 07/01/19 19:41 Primary Care Provider: EVELYN MI MD [Primary Care Provider] - Follow up as needed TRAVEL OUTSIDE OF THE U.S. IN LAST 30 DAYS: No - HPI Notes: Patient is a 34-year-old female who comes for the second time in an hour for evaluation of her right flank pain and kidney stone. She has a known 5 mm UVJ stone on the right. She has follow-up arranged with urology tomorrow here in [place]. The patient states she still having pain. She has Vicodin and Percocet at home. She had absolutely no emesis but states she feels somewhat nauseated. She comes back again, complaining of continued pain. She feels as if she has to urinate frequently. - Related Data Allergies/Adverse Reactions: cephalexin monohydrate [From Keflex] Allergy (Severe, Verified 07/01/19 11:59) Anaphylaxis codeine [Codeine] Allergy (Severe, Verified 07/01/19 11:59) Anaphylaxis Penicillins Allergy (Severe, Verified 07/01/19 11:59) Anaphylaxis diphenhydramine HCl [From Benadryl] Adverse Reaction (Verified 07/01/19 11:59) morphine Adverse Reaction (Verified 07/01/19 11:59) prochlorperazine edisylate [From Compazine] Adverse Reaction (Verified 07/01/19 11:59) prochlorperazine maleate [From Compazine] Adverse Reaction (Verified 07/01/19 11:59) Past Medical History - General Information source: Patient - Social History Smoking Status: Current Every Day Smoker Family History: Reviewed & Not Pertinent, DM, Hypertension Renal/ Medical History: Reports: Hx Kidney Stones, Hx Ovarian Cysts. Denies: Hx Peritoneal Dialysis GI Medical History: Reports: Hx Irritable Bowel Musculoskeletal Medical History: Reports Hx Musculoskeletal Deformity Psychiatric Medical History: Reports: Hx Anxiety, Hx Bipolar Disorder, Hx Depression - ANXIETY, Hx Post Traumatic Stress Disorder Past Surgical History: Reports: Hx Appendectomy, Hx Section, Hx Cholecystectomy, Hx Myringotomy - Immunizations Immunizations up to date: Yes Hx Diphtheria, Pertussis, Tetanus Vaccination: Yes Review of Systems - Review of Systems Constitutional: No symptoms reported EENT: No symptoms reported Cardiovascular: No symptoms reported Respiratory: See HPI Gastrointestinal: See HPI Genitourinary: See HPI Female Genitourinary: No symptoms reported Musculoskeletal: See HPI Skin: No symptoms reported Neurological/Psychological: No symptoms reported Physical Exam - Notes Notes: Is a 34-year-old female appears stated age no acute distress. She is much more calm on this visit, is not swearing, makes good eye contact. Physical exam is limited to the area of chief complaint. Patient has no abdominal tenderness with normoactive bowel sounds. She does have some minimal tenderness to palpation of the SI joints on the right, as well as mild CVA tenderness on the right. Skin is warm and dry. Course - Re-evaluation Re-evalutation: 07/01/19 19:58 Patient presents emergency department for evaluation. Again I did review all of her work-up previously, she has no infection in her urine, normal white count, normal creatinine. Her CT scan again shows a stone near the UVJ, but no other concerning findings. On presentation, the patient states to me that she has Percocet at home. She has Zofran at home. She has [place] at home. She was given a new prescription for pain medicine that she has not yet dropped off. I was unaware of the fact that she had driven herself here at the time of my first evaluation. I did not feel comfortable administering any further narcotics, particularly knowing that she has narcotics already at home. She was offered IM Toradol, she requests that she be given oral Toradol. This was ordered. All right of the patient's discharge. Again she is strongly encouraged to follow-up with urology, she is given the phone number to call first thing in the morning to arrange to be seen tomorrow. 07/01/19 20:00 Discharge - Discharge Clinical Impression: Right ureteral calculus Condition: Stable Disposition: HOME, SELF-CARE Instructions: Kidney Stone ([facility]) Additional Instructions: Follow-up with urology tomorrow. Take your medications at home as previously prescribed. Watch for dizziness, drowsiness, constipation with the narcotic medications. Return to the ED with worsening or new concerning symptoms of any sort. Referrals: EVELYN MI MD [Primary Care Provider] - Follow up as needed
== END 2019-07-01 19:58 | disposition home or self-care (01) ==
LOC: ER 19:06
DX: N20.1 Calculus of ureter (principal); R10.9 Unspecified abdominal pain; R11.0 Nausea; F17.200 Nicotine dependence, unspecified, uncomplicated; Z87.892 Personal history of anaphylaxis; Z88.1 Allergy status to other antibiotic agents; Z88.5 Allergy status to narcotic agent; Z88.6 Allergy status to analgesic agent; Z88.0 Allergy status to penicillin
CPT/HCPCS: 99283

== ENCOUNTER → 2019-07-11 | Outpatient (CLI) | payer MEDICAID ==
--- NOTE | 2019-07-11 16:27 | RADIOLOGY REPORT (SQ) ---
EXAM DESCRIPTION: KUB/ABDOMEN (SINGLE VIEW) COMPLETED DATE/TIME: 07/11/2019 4:12 pm REASON FOR STUDY: N20.0 CALCULUS OF KIDNEY N20.0 CALCULUS OF KIDNEY COMPARISON: CT of the abdomen and pelvis without contrast from 07/01/2019. NUMBER OF VIEWS: One view. TECHNIQUE: Supine radiographic image of the abdomen acquired. LIMITATIONS: None. FINDINGS: BOWEL GAS PATTERN: Nonobstructive bowel gas pattern. CALCIFICATIONS: On correlation with the CT of the abdomen without contrast from 07/01/2019, at the pos ition of the 5 mm calculus in the distal right ureter (proximal to the ureterovesicular junction) is unchanged. SOFT TISSUES: No abnormality. HARDWARE: None in the abdomen. BONES: No acute findings. OTHER: No other finding. IMPRESSION: On correlation with the CT of the abdomen without contrast from 07/01/2019 the position o f the 5 mm calculus in the distal right ureter (proximal to the ureterovesicular junction) is unchang ed. TECHNICAL DOCUMENTATION: JOB ID: [id number] [employer]- All Rights Reserved Reading location - IP/workstation name: [email or web address]
== END ==
LOC: RAD 15:58
PROVIDERS: ATTEND Urology
DX: N20.0 Calculus of kidney (principal)
CPT/HCPCS: 74018

== ENCOUNTER 2019-07-19 23:01 | Emergency (ER) | payer MEDICAID ==
[2019-07-20 01:10] LABS: APPEARANCE,URINE CLOUDY; BILIRUBIN,URINE NEGATIVE (NEGATIVE); COLOR,URINE YELLOW; GLUCOSE, URINE NEGATIVE (NEGATIVE); KETONES,URINE NEGATIVE (NEGATIVE); LEUKOCYTE ESTERASE,URINE MODERATE (NEGATIVE); NITRITE,URINE NEGATIVE (NEGATIVE); PROTEIN,URINE 30 mg/dL (NEGATIVE); URINE SPECIFIC GRAVITY 1.027
[2019-07-20 01:16] LABS: ABSOLUTE BASOPHILS # (AUTO) 0.1 10^3/uL (0.0-0.2); ABSOLUTE EOSINOPHILS # (AUTO) 0.2 10^3/uL (0.0-0.6); ABSOLUTE MONOCYTES (AUTO) 0.5 10^3/uL (0.1-1.4); ABSOLUTE NEUT (AUTO) 4.9 10^3/uL (1.7-8.2); BASOPHILS % (AUTO) 0.8 % (0-2); EOSINOPHILS % (AUTO) 2.1 % (0-6); HEMATOCRIT 38.2 % (36.0-47.0); HEMOGLOBIN 13.2 g/dL (12.0-15.5); LYMPHOCYTES % (AUTO) 34.2 % (13-45); MEAN CORPUSCULAR HEMOGLOBIN 31.6 pg (27.0-33.4); MEAN CORPUSCULAR HGB CONC 34.7 g/dL (32.0-36.0); MEAN CORPUSCULAR VOLUME 91 fl (80-97); MONOCYTES % (AUTO) 5.6 % (3-13); PLATELET COUNT 253 10^3/uL (150-450); RED BLOOD COUNT 4.19 10^6/uL (3.72-5.28); RED CELL DISTRIBUTION WIDTH 13.3 % (11.5-14.0); SEGMENTED NEUTROPHILS % (AUTO) 57.3 % (42-78); TOTAL CELLS COUNTED % (AUTO) 100 %; WHITE BLOOD COUNT 8.6 10^3/uL (4.0-10.5)
[2019-07-20 01:28] LABS: ALBUMIN 4.1 g/dL (3.5-5.0); ALKALINE PHOSPHATASE 62 U/L (38-126); ANION GAP 11 (5-19); ASPARTATE AMINO TRANSFERASE 17 U/L (14-36); BILIRUBIN,DIRECT 0.2 mg/dL (0.0-0.4); BILIRUBIN,TOTAL 0.4 mg/dL (0.2-1.3); BLOOD UREA NITROGEN 8 mg/dL (7-20); CALCIUM 9.5 mg/dL (8.4-10.2); CARBON DIOXIDE 23 mmol/L (22-30); CHLORIDE 109 mmol/L (98-107); GLUCOSE 122 mg/dL (75-110); POTASSIUM 4.1 mmol/L (3.6-5.0); TOTAL PROTEIN 7.6 g/dL (6.3-8.2)
[2019-07-20] MEDS ORDERED: HYDROMORPHONE HCL INJ/PF 2 MG/ML AMPULE IV ONE (04:43)
[2019-07-20] MEDS ORDERED: NORMAL SALINE 1000 ML 1,000 ML IV ONE (04:43)
[2019-07-20] MEDS ORDERED: PHENAZOPYRIDINE HCL 200 MG TABLET PO ONE (04:46)
--- NOTE | 2019-07-20 04:52 | ER Document Report ---
ED General - General Chief Complaint: Possible Kidney Stone Stated Complaint: FLANK PAIN/DIAGNOSED KIDNEY STONE Time Seen by Provider: 07/20/19 04:09 Primary Care Provider: EVELYN MI MD [Primary Care Provider] - Follow up as needed Notes: 34 year old female presents to the ED complaining of sudden worsening of RLQ pain at 7 p.m. this evening. Patient states that it does not change with her Toradol, Tylenol or oxycodone. States that her urinary frequency and urgency restarted and she feels like there is an ice pick in her bladder. States that it feels identical to her prior kidney stone pain. States she has surgery scheduled for 07/27 to have it removed. States that her urologist has told her in the past to go to [facility] if she has pain like this again because they have urology at [facility] and they do not have urology here at [place]. Patient states she does not go there when this pain comes back because she does not have a ride to be able to get to [facility] but also because she does not feel like she can stay up in pain for an hour in order to make it to [facility]. Patient states that she had a temperature 3 days ago of 101.9. Did not tell her urologist about this. Denies any fever currently. TRAVEL OUTSIDE OF THE U[place]S. IN LAST 30 DAYS: No - Related Data Allergies/Adverse Reactions: cephalexin monohydrate [From Keflex] Allergy (Severe, Verified 07/01/19 11:59) Anaphylaxis codeine [Codeine] Allergy (Severe, Verified 07/01/19 11:59) Anaphylaxis Penicillins Allergy (Severe, Verified 07/01/19 11:59) Anaphylaxis diphenhydramine HCl [From Benadryl] Adverse Reaction (Verified 07/01/19 11:59) morphine Adverse Reaction (Verified 07/01/19 11:59) prochlorperazine edisylate [From Compazine] Adverse Reaction (Verified 07/01/19 11:59) prochlorperazine maleate [From Compazine] Adverse Reaction (Verified 07/01/19 11:59) Home Medications: Klonopin Past Medical History - General Information source: Patient - Social History Smoking Status: Current Every Day Smoker Frequency of alcohol use: None Drug Abuse: None Family History: Reviewed & Not Pertinent, DM, Hypertension Patient has suicidal ideation: No Patient has homicidal ideation: No Renal/ Medical History: Reports: Hx Kidney Stones, Hx Ovarian Cysts. Denies: Hx Peritoneal Dialysis GI Medical History: Reports: Hx Irritable Bowel Musculoskeletal Medical History: Reports Hx Musculoskeletal Deformity Psychiatric Medical History: Reports: Hx Anxiety, Hx Bipolar Disorder, Hx Depression - ANXIETY, Hx Post Traumatic Stress Disorder Past Surgical History: Reports: Hx Appendectomy, Hx Section, Hx Cholecystectomy, Hx Myringotomy - Immunizations Immunizations up to date: Yes Hx Diphtheria, Pertussis, Tetanus Vaccination: Yes Review of Systems - Review of Systems Constitutional: See HPI, Diaphoresis - States she is in so much pain she is sweating., Fever - 3 days ago. EENT: No symptoms reported Gastrointestinal: See HPI Genitourinary: See HPI -: Yes All other systems reviewed and negative Physical Exam - Vital signs Vitals: Temp Pulse Resp BP Pulse Ox 98.3 F 107 H 20 121/68 98 07/19/19 23:09 07/19/19 23:09 07/19/19 23:09 07/19/19 23:09 07/19/19 23:09 Interpretation: Tachycardic - Notes Notes: GENERAL: Initially laying facedown on the bed with her knees curled below her chest, walking back and forth and moaning. During the exam stands up and clutches her right lower quadrant and paces about the room. HEAD: Normocephalic, atraumatic EYES: Pupils equal, round and reactive to light, extraocular movements intact. ENT: Oral mucosa moist, tongue midline. NECK: Full range of motion, supple, trachea midline. LUNGS: Clear to auscultation bilaterally, no wheezes, rales or rhonchi, no respiratory distress. HEART: Regular rate and rhythm, no murmurs, gallops, rubs. ABDOMEN: Soft, moans during the entire examination however moans louder when I palpate her lower abdomen. When I stated that it appeared her pain worsened when I pushed on her lower abdomen patient stated that laying flat on the bed is what made her more uncomfortable and that there is absolutely no change in her pain when I push on her abdomen. There is no guarding. Nondistended, bowel sounds present in all 4 quadrants. EXTREMITIES: Moves all 4 extremities spontaneously, no edema, radial and dorsalis pedis pulses 2/4 bilaterally. No cyanosis. NEUROLOGICAL: Alert and oriented x3, normal speech. PSYCH: Angry, appears annoyed. Is able to be calmed. Intermittently tearful. SKIN: Warm, Dry, normal turgor, no rashes or lesions noted. Course - Re-evaluation Re-evalutation: 07/20/19 06:40 CBC unremarkable, CMP grossly unremarkable, lipase normal, test negative, urinalysis shows that it somewhat concentrated with specific gravity 1.027, there is moderate leukocyte esterase however suspect this is contaminated as there are 15 squamous epithelial cells, and is sent for culture just in case. 21 WBCs, 10 RBCs. This is promising as the RBCs are steadily decreasing. KUB per radiology does not show the stone however when I compare to the old x-ray it shows a calcification at the exact same location. Renal ultrasound does not show any hydronephrosis. There is no evidence of infected and obstructing stone. There is no indication for transfer to urology at this point for acute intervention. Patient will be discharged home, encouraged to follow-up with urology as an outpatient. Asked to call urology immediately if she develops another fever. Discharged to home. - Vital Signs Vital signs: Temp Pulse Resp BP Pulse Ox 98.3 F 107 H 20 121/68 98 07/20/19 00:34 07/20/19 00:34 07/20/19 00:34 07/20/19 00:34 07/20/19 00:34 - Laboratory Result Diagrams: 07/20/19 01:00 07/20/19 01:00 Laboratory results interpreted by me: 07/20/19 07/20/19 00:47 01:00 Chloride 109 H Glucose 122 H Urine Protein 30 H Urine Urobilinogen 2.0 H Ur Leukocyte Esterase MODERATE H Discharge - Discharge Clinical Impression: Ureteral calculus, right, Right lower quadrant abdominal pain Condition: Stable Disposition: HOME, SELF-CARE Additional Instructions: Today when I looked at the x-ray the stone was in the exact same location as it was previously. There is no sign of hydronephrosis (urine backing up behind the stone) in your kidneys. There is no reason that she would have to have surgery to date. I want you to call your urologist as soon as you get home today and let them know that you are having pain again. I want you to please make sure that if you develop another fever (temperature of 100.4 or greater) that you called him immediately. You should also take Pyridium, this is the same thing as Azo which is available [id number], it will help to numb your kidneys, ureters and bladder to decrease the pain as the stone moves. Please return to the emergency department for worsening pain, temperature of 100.4 greater or any new or concerning symptoms. Prescriptions: Oxycodone HCl/Acetaminophen [Percocet 5-325 mg Tablet] 1 tab PO Q6HP PRN #4 tablet PRN Reason: For Breakthrough Pain Referrals: EVELYN MI MD [Primary Care Provider] - Follow up as needed
[2019-07-20] MEDS ORDERED: ONDANSETRON HCL INJ/PF 4 MG/2 ML SDV IV ONE (04:59)
--- NOTE | 2019-07-20 05:49 | RADIOLOGY REPORT (SQ) ---
EXAM DESCRIPTION: XR ABDOMEN 1 VIEW (KUB) COMPLETED DATE/TME: 07/20/2019 04:43 CLINICAL HISTORY: 34 years Female, kidney stone, RLQ pain COMPARISON: CT, July 01, 2019 NUMBER OF VIEWS/TECHNIQUE: 1 FINDINGS: Intestinal gas pattern is within normal limits. Paucity of bowel gas. Colonic stool retention. No suspicious calcification. Grossly intact skeletal structures. Right upper abdominal clips. IMPRESSION: No acute findings.
--- NOTE | 2019-07-20 06:34 | RADIOLOGY REPORT (SQ) ---
EXAM DESCRIPTION: US RETROPERITONEUM LIMITED COMPLETED DATE/TME: 07/20/2019 04:43 CLINICAL HISTORY: 34 years Female, kidney stone, RLQ pain, look for hydronephrosis Comparison: 06/28/19 LIMITATIONS: Body habitus. FINDINGS: 10.9-cm right kidney, 10.6-cm left kidney, urinary bladder, and visualized vasculature appear otherwise of normal size, shape, echotexture, and vascularity. IMPRESSION: No acute findings. Limitation.
[2019-07-20 07:01] VITALS: BP 112/68
== END 2019-07-20 07:05 | disposition home or self-care (01) ==
LOC: ER 23:01
DX: N20.1 Calculus of ureter (principal); R10.31 Right lower quadrant pain; F17.200 Nicotine dependence, unspecified, uncomplicated; Z88.6 Allergy status to analgesic agent; Z88.0 Allergy status to penicillin; Z87.442 Personal history of urinary calculi; Z90.49 Acquired absence of other specified parts of digestive tract
CPT/HCPCS: 99284; 96361; 96374; 96375; 36415; 87086; 83690; 84703; 85025; 80053; 81001; 74018; 76775; J1170; J3490; J2405; J7030

== ENCOUNTER 2019-07-20 11:14 | Emergency (ER) | payer MEDICAID ==
[2019-07-20] MEDS ORDERED: NORMAL SALINE 1000 ML 1,000 ML IV ONE (11:48)
--- NOTE | 2019-07-20 11:48 | ER Document Report ---
ED Medical Screen (RME) - General Chief Complaint: Flank Pain Stated Complaint: FLANK PAIN Time Seen by Provider: 07/20/19 11:44 Primary Care Provider: EVELYN MI MD [Primary Care Provider] - Follow up as needed Mode of Arrival: Ambulatory Information source: Patient Notes: 34-year-old female presented to ED for complaint of right flank pain. She states she has a 5 mm stone that is stuck on the right side. She states she does have a surgery scheduled for next Tuesday for the stone. She states she is in so much pain she cannot lay she cannot sleep she cannot do anything. She states she was seen and discharged this morning around 7:00. She states she just cannot tolerate the pain at home. Patient is alert and oriented respirations regular nonlabored at this time. Nausea and vomiting she states having times today x2 since she has been home today. She states she ran out of her prescription of Flomax and she has a new prescription to go berry picker but she has not picked it up yet. She states they gave her a prescription for Percocet when she left here but she was trying to go to sleep from the Dilaudid she was given and did not go and pick them up but now the pain is severe again. She states she came by ambulance this time because she cannot drive due to the pain. I have greeted and performed a rapid initial assessment of this patient. A comprehensive ED assessment and evaluation of the patient, analysis of test results and completion of medical decision making process will be conducted by an additional ED providers. TRAVEL OUTSIDE OF THE [place] IN LAST 30 DAYS: No - Related Data Allergies/Adverse Reactions: cephalexin monohydrate [From Keflex] Allergy (Severe, Verified 07/01/19 11:59) Anaphylaxis codeine [Codeine] Allergy (Severe, Verified 07/01/19 11:59) Anaphylaxis Penicillins Allergy (Severe, Verified 07/01/19 11:59) Anaphylaxis diphenhydramine HCl [From Benadryl] Adverse Reaction (Verified 07/01/19 11:59) morphine Adverse Reaction (Verified 07/01/19 11:59) prochlorperazine edisylate [From Compazine] Adverse Reaction (Verified 07/01/19 11:59) prochlorperazine maleate [From Compazine] Adverse Reaction (Verified 07/01/19 11:59) Past Medical History Renal/ Medical History: Reports: Hx Kidney Stones, Hx Ovarian Cysts. Denies: Hx Peritoneal Dialysis GI Medical History: Reports: Hx Irritable Bowel Musculoskeltal Medical History: Reports Hx Musculoskeletal Deformity Psychiatric Medical History: Reports: Hx Anxiety, Hx Bipolar Disorder, Hx Depression - ANXIETY, Hx Post Traumatic Stress Disorder Past Surgical History: Reports: Hx Appendectomy, Hx Section, Hx Cholecystectomy, Hx Myringotomy - Immunizations Immunizations up to date: Yes Hx Diphtheria, Pertussis, Tetanus Vaccination: Yes Physical Exam - Vital signs Vitals: Temp Pulse Resp BP Pulse Ox 97.5 F 102 H 18 127/83 H 98 07/20/19 11:32 07/20/19 11:32 07/20/19 11:32 07/20/19 11:32 07/20/19 11:32 Course - Vital Signs Vital signs: Temp Pulse Resp BP Pulse Ox 97.5 F 102 H 18 127/83 H 98 07/20/19 11:32 07/20/19 11:32 07/20/19 11:32 07/20/19 11:32 07/20/19 11:32 Doctor's Discharge - Discharge Referrals: EVELYN MI MD [Primary Care Provider] - Follow up as needed
[2019-07-20] MEDS ORDERED: HYDROMORPHONE HCL INJ/PF 2 MG/ML AMPULE IV ONE ×2 (11:49→14:21)
[2019-07-20] MEDS ORDERED: ONDANSETRON HCL INJ/PF 4 MG/2 ML SDV IV ONE (12:15)
--- NOTE | 2019-07-20 12:15 | ER Document Report ---
ED General - General Chief Complaint: Flank Pain Stated Complaint: FLANK PAIN Time Seen by Provider: 07/20/19 11:44 Primary Care Provider: EVELYN MI MD [Primary Care Provider] - Follow up in 3-5 days ALEXA BROWN MD [NO LOCAL MD] - Follow up in 3-5 days Mode of Arrival: Ambulatory TRAVEL OUTSIDE OF THE [place] IN LAST 30 DAYS: No - HPI Notes: 34-year-old female to the emergency department with complaints of right flank pain that radiates down to her right lower quadrant that has been getting worse for the past week. Apparently she has a known 5 mm stone and has a plan for removal for next Tuesday with Dr. Osmani farias at [facility] urology. She has been taking Toradol, Flomax, Percocet outpatient but she ran out yesterday of her Flomax and her pain medicine and has not done well since. Apparently she is also been experiencing fevers upwards of 101 as her T-max. Patient states that the last fever she saw was 2 days ago. She was in our emergency department last night and treated for her pain and discharged this morning about 7 AM. She was written for more Percocet but she was not able to fill it. She states that the pain is so severe that she is not able to drive or go get her medicines. She has been vomiting this morning. She is vomited twice. She has been told by her urologist that if she had pain to come to [facility] but she states that she cannot drive to get there and so she called the ambulance this afternoon to bring her here. She denies any chest pain, shortness of breath, diarrhea, burning with urination. This morning she has a KUB that suggested she had a stone at the Right UVJ and a renal US that did not illustrate any hydronephrosis. - Related Data Allergies/Adverse Reactions: cephalexin monohydrate [From Keflex] Allergy (Severe, Verified 07/01/19 11:59) Anaphylaxis codeine [Codeine] Allergy (Severe, Verified 07/01/19 11:59) Anaphylaxis Penicillins Allergy (Severe, Verified 07/01/19 11:59) Anaphylaxis diphenhydramine HCl [From Benadryl] Adverse Reaction (Verified 07/01/19 11:59) morphine Adverse Reaction (Verified 07/01/19 11:59) prochlorperazine edisylate [From Compazine] Adverse Reaction (Verified 07/01/19 11:59) prochlorperazine maleate [From Compazine] Adverse Reaction (Verified 07/01/19 11:59) Past Medical History - General Information source: Patient - Social History Smoking Status: Current Every Day Smoker Family History: Reviewed & Not Pertinent, DM, Hypertension Patient has suicidal ideation: No Patient has homicidal ideation: No Renal/ Medical History: Reports: Hx Kidney Stones, Hx Ovarian Cysts. Denies: Hx Peritoneal Dialysis GI Medical History: Reports: Hx Irritable Bowel Musculoskeletal Medical History: Reports Hx Musculoskeletal Deformity Psychiatric Medical History: Reports: Hx Anxiety, Hx Bipolar Disorder, Hx Depression - ANXIETY, Hx Post Traumatic Stress Disorder Past Surgical History: Reports: Hx Appendectomy, Hx Section, Hx Cholecystectomy, Hx Myringotomy - Immunizations Immunizations up to date: Yes Hx Diphtheria, Pertussis, Tetanus Vaccination: Yes Review of Systems - Review of Systems Constitutional: Fever. denies: Chills EENT: No symptoms reported Cardiovascular: denies: Chest pain, Dyspnea, Syncope, Dizziness Respiratory: denies: Cough, Short of breath Gastrointestinal: See HPI, Abdominal pain, Nausea, Vomiting. denies: Diarrhea Genitourinary: See HPI, Frequency, Flank pain, Hematuria Female Genitourinary: No symptoms reported Musculoskeletal: No symptoms reported Skin: No symptoms reported Hematologic/Lymphatic: No symptoms reported -: Yes All other systems reviewed and negative Physical Exam - Vital signs Vitals: Temp Pulse Resp BP Pulse Ox 97.5 F 102 H 18 127/83 H 98 07/20/19 11:15 07/20/19 11:15 07/20/19 11:15 07/20/19 11:15 07/20/19 11:15 Interpretation: Tachycardic - General General appearance: Alert, Anxious In distress: Moderate Notes: patient in moderate patient distress. Laying on her stomach on the bed crying. - HEENT Head: Normocephalic, Atraumatic Eyes: Normal Pupils: PERRL - Respiratory Respiratory status: No respiratory distress Chest status: Nontender Breath sounds: Normal. No: Rales, Rhonchi, Stridor, Wheezing Chest palpation: Normal - Cardiovascular Rhythm: Regular Heart sounds: Normal auscultation Murmur: No - Abdominal Inspection: Normal Distension: No distension Bowel sounds: Normal Tenderness: Tender - there is TTP over the right CVA region and into the right lower quadrant. patient does have some guarding. no rebound. negative Abraham's sign. Organomegaly: No organomegaly - Back Back: CVA tenderness - + right CVA tenderness - Neurological Neuro grossly intact: Yes Cognition: Normal Orientation: AAOx4 Alec Coma Scale Eye Opening: Spontaneous Alec Coma Scale Verbal: Oriented Alec Coma Scale Motor: Obeys Commands Alec Coma Scale Total: 15 Speech: Normal Cranial nerves: Normal Cerebellar coordination: Normal Motor strength normal: LUE, RUE, LLE, RLE Additional motor exam normals: Equal confidential investigator. No: Pronator drift Sensory: Normal - Psychological Associated symptoms: Normal affect, Normal mood - Skin Skin Temperature: Warm Skin Moisture: Dry Skin Color: Normal Course - Re-evaluation Re-evalutation: 07/20/[address] Morrissey, ER Attending. He agrees with plan to call Urology at [facility]. Spoke with Dr. Arriola at [facility], ceramic tile installation helper. We discussed patient, her two visits in the past 24 hours -- how she has not had Oxycodone for pain control at home, how she is scheduled for stone removal next week. Since she has not had the oxycodone and did not get the prescription filled that was given to her last night -- Dr. Arriola does not believe that she qualifies for intractable pain. She does not have a leukocytosis and no fever. He would like for her to use oxycodone at home for pain control -- have her restart flomax. He does not think she needs transfer and emergent urological intervention. He does ask that patient come to [facility] if her pain persists. Updated Dr. Morrissey about discussion with Dr. Arriola. He agrees with plan. Had a lengthy conversation with patient about conversation with Dr. Arriola. She voices understanding. Will extend her Percocet prescription and restart on Flomax. She agrees with the plan -- is asking for food and water currently -- mild pain, will redose with Dilaudid prior to discharge. She had good control with 0.5 mg initially. Impression: Right flank and right groin pain, kidney stone. Did not repeat imaging studies today as she just has them this morning. Trending blood work is reassuring. She is afebrile. Will discharge home. She is follow up with [facility] Urology without fail on Tuesday. - Vital Signs Vital signs: Temp Pulse Resp BP Pulse Ox 97.5 F 102 H 18 127/83 H 98 07/20/19 11:32 07/20/19 11:32 07/20/19 11:32 07/20/19 11:32 07/20/19 11:32 - Laboratory Result Diagrams: 07/20/19 13:30 07/20/19 13:30 Laboratory results interpreted by me: 07/20/19 13:48 Urine Protein 30 H Urine Glucose (UA) 50 H Urine Blood SMALL H Urine Nitrite (Reflex) POSITIVE H Urine Urobilinogen 4.0 H Discharge - Discharge Clinical Impression: Right flank pain, Kidney stone Condition: Stable Disposition: HOME, SELF-CARE Instructions: Kidney Stone ([facility]) Additional Instructions: TAKE MEDICINES PRESCRIBED. BE SURE TO TAKE PERCOCET FOR PAIN. USE FLOMAX. RETURN IF WORSENING OR INTRACTABLE PAIN/VOMITING. CALL YOUR UROLOGIST ON TUESDAY WITHOUT FAIL. Prescriptions: Tamsulosin HCl [Flomax 0.4 mg Cap.sr] 0.4 mg PO DAILY #7 cap.sr.24h Oxycodone HCl/Acetaminophen [Percocet 5-325 mg Tablet] 1 tab PO Q4H PRN #15 tab PRN Reason: Referrals: EVELYN MI MD [Primary Care Provider] - Follow up in 3-5 days ALEXA BROWN MD [NO LOCAL MD] - Follow up in 3-5 days
[2019-07-20 13:59] LABS: ABSOLUTE BASOPHILS # (AUTO) 0.1 10^3/uL (0.0-0.2); ABSOLUTE EOSINOPHILS # (AUTO) 0.2 10^3/uL (0.0-0.6); ABSOLUTE LYMPHOCYTES (AUTO) 2.1 10^3/uL (0.5-4.7); ABSOLUTE MONOCYTES (AUTO) 0.5 10^3/uL (0.1-1.4); BASOPHILS % (AUTO) 1.3 % (0-2); HEMATOCRIT 37.4 % (36.0-47.0); LYMPHOCYTES % (AUTO) 26.6 % (13-45); MEAN CORPUSCULAR HEMOGLOBIN 31.7 pg (27.0-33.4); MEAN CORPUSCULAR HGB CONC 34.6 g/dL (32.0-36.0); MEAN CORPUSCULAR VOLUME 92 fl (80-97); MONOCYTES % (AUTO) 6.3 % (3-13); PLATELET COUNT 235 10^3/uL (150-450); RED BLOOD COUNT 4.09 10^6/uL (3.72-5.28); RED CELL DISTRIBUTION WIDTH 13.7 % (11.5-14.0); SEGMENTED NEUTROPHILS % (AUTO) 63.8 % (42-78); TOTAL CELLS COUNTED % (AUTO) 100 %; WHITE BLOOD COUNT 7.9 10^3/uL (4.0-10.5)
[2019-07-20 14:18] LABS: ALBUMIN 4.2 g/dL (3.5-5.0); ALKALINE PHOSPHATASE 68 U/L (38-126); ANION GAP 12 (5-19); ASPARTATE AMINO TRANSFERASE 20 U/L (14-36); BILIRUBIN,TOTAL 0.5 mg/dL (0.2-1.3); BLOOD UREA NITROGEN 7 mg/dL (7-20); CALCIUM 9.5 mg/dL (8.4-10.2); CARBON DIOXIDE 22 mmol/L (22-30); CHLORIDE 105 mmol/L (98-107); GLUCOSE 79 mg/dL (75-110); POTASSIUM 4.1 mmol/L (3.6-5.0); TOTAL PROTEIN 7.6 g/dL (6.3-8.2)
[2019-07-20 14:34] LABS: APPEARANCE,URINE SLIGHTLY-CLOUDY; BILIRUBIN,URINE NEGATIVE (NEGATIVE); GLUCOSE, URINE 50 mg/dL (NEGATIVE); KETONES,URINE NEGATIVE (NEGATIVE); PROTEIN,URINE 30 mg/dL (NEGATIVE)
[2019-07-20 14:35] LABS: COLOR,URINE ORANGE
[2019-07-20 15:20] VITALS: BP 118/83
== END 2019-07-20 15:16 | disposition home or self-care (01) ==
LOC: ER 11:14
DX: N20.0 Calculus of kidney (principal); R10.9 Unspecified abdominal pain; R10.31 Right lower quadrant pain; T40.2X6A Underdosing of other opioids, initial encounter; Z91.128 Patient's intentional underdosing of medication regimen for other reason; Z91.14 Patient's other noncompliance with medication regimen; R11.2 Nausea with vomiting, unspecified; R35.0 Frequency of micturition; R31.9 Hematuria, unspecified; F17.200 Nicotine dependence, unspecified, uncomplicated; Z87.892 Personal history of anaphylaxis; Z88.1 Allergy status to other antibiotic agents; Z88.6 Allergy status to analgesic agent; Z88.5 Allergy status to narcotic agent; Z88.0 Allergy status to penicillin
CPT/HCPCS: 96376; 99284; 96361; 96374; 96375; 36415; 87070; 81001; J1170; J2405; J7030

== ENCOUNTER 2019-07-20 16:35 | Emergency (ER) | payer MEDICAID ==
[2019-07-20] MEDS ORDERED: KETOROLAC TROMETHAMINE 60 MG/2 ML SDV IM ONE (16:49)
[2019-07-20] MEDS ORDERED: OXYCODONE-ACETAMINOPHEN 5-325 MG TABLET PO ONE (16:49)
--- NOTE | 2019-07-20 16:50 | ER Document Report ---
ED General - General Chief Complaint: Flank Pain Stated Complaint: FLANK PAIN Time Seen by Provider: 07/20/19 16:44 Primary Care Provider: EVELYN MI MD [Primary Care Provider] - Follow up as needed ALEXA BROWN MD [NO LOCAL MD] - Follow up in 3-5 days TRAVEL OUTSIDE OF THE [place] IN LAST 30 DAYS: No - HPI Notes: 34-year-old female to the emergency department with complaints of right flank and lower abdominal pain. She has a known kidney stone that is 5 mm and stuck at the UVJ. She was seen by myself just prior to her checking back in. She had good pain control with 1 mg of Dilaudid and was given a cab voucher. She was waiting for the cab for about an hour in the waiting room and just as the cab arrived she stated that her pain got worse. She states that it started from approximately about 15 minutes ago. She admits to some nausea but denies any vomiting. She is requesting pain control. - Related Data Allergies/Adverse Reactions: cephalexin monohydrate [From Keflex] Allergy (Severe, Verified 07/01/19 11:59) Anaphylaxis codeine [Codeine] Allergy (Severe, Verified 07/01/19 11:59) Anaphylaxis Penicillins Allergy (Severe, Verified 07/01/19 11:59) Anaphylaxis diphenhydramine HCl [From Benadryl] Adverse Reaction (Verified 07/01/19 11:59) morphine Adverse Reaction (Verified 07/01/19 11:59) prochlorperazine edisylate [From Compazine] Adverse Reaction (Verified 07/01/19 11:59) prochlorperazine maleate [From Compazine] Adverse Reaction (Verified 07/01/19 11:59) Past Medical History - General Information source: Patient - Social History Smoking Status: Current Every Day Smoker Chew tobacco use (# tins/day): No Drug Abuse: None Family History: Reviewed & Not Pertinent, DM, Hypertension Patient has suicidal ideation: No Patient has homicidal ideation: No Renal/ Medical History: Reports: Hx Kidney Stones, Hx Ovarian Cysts. Denies: Hx Peritoneal Dialysis GI Medical History: Reports: Hx Irritable Bowel Musculoskeletal Medical History: Reports Hx Musculoskeletal Deformity Psychiatric Medical History: Reports: Hx Anxiety, Hx Bipolar Disorder, Hx Depression - ANXIETY, Hx Post Traumatic Stress Disorder Past Surgical History: Reports: Hx Appendectomy, Hx Section, Hx Cholecystectomy, Hx Myringotomy - Immunizations Immunizations up to date: Yes Hx Diphtheria, Pertussis, Tetanus Vaccination: Yes Review of Systems - Review of Systems Constitutional: denies: Chills, Fever EENT: No symptoms reported Cardiovascular: denies: Chest pain, Palpitations, Heart racing, Orthopnea, Dyspnea, Syncope Respiratory: denies: Cough, Short of breath Gastrointestinal: Abdominal pain, Nausea. denies: Diarrhea, Vomiting Genitourinary: See HPI, Flank pain Skin: No symptoms reported Hematologic/Lymphatic: No symptoms reported Neurological/Psychological: No symptoms reported -: Yes All other systems reviewed and negative Physical Exam - Vital signs Vitals: Temp Pulse Resp BP Pulse Ox 98.0 F 114 H 18 139/79 H 98 07/20/19 16:40 07/20/19 16:40 07/20/19 16:40 07/20/19 16:40 07/20/19 16:40 Interpretation: Normal - General General appearance: Alert In distress: Moderate Notes: moderate pain distress, very tearful - HEENT Head: Normocephalic, Atraumatic Eyes: Normal Pupils: PERRL - Respiratory Respiratory status: No respiratory distress Chest status: Nontender Breath sounds: Normal Chest palpation: Normal - Cardiovascular Rhythm: Regular Heart sounds: Normal auscultation Murmur: No - Abdominal Inspection: Obese Distension: No distension Bowel sounds: Normal Tenderness: Tender - + TTP over the right lower quadrant and to the right CVA region Organomegaly: No organomegaly - Back Back: Normal, CVA tenderness - + right CVAT - Neurological Neuro grossly intact: Yes Cognition: Normal Orientation: AAOx4 [place] Coma Scale Eye Opening: Spontaneous [place] Coma Scale Verbal: Oriented [place] Coma Scale Motor: Obeys Commands Alec Coma Scale Total: 15 Speech: Normal Cranial nerves: Normal Cerebellar coordination: Normal Motor strength normal: LUE, RUE, LLE, RLE Additional motor exam normals: Equal network specialist Sensory: Normal - Psychological Associated symptoms: Anxious, Labile - Skin Skin Temperature: Warm Skin Moisture: Dry Skin Color: Normal Course - Re-evaluation Re-evalutation: 07/21/19 Discussed the patient with Dr. Alex, my current ER attending. I requested that he go round on her since this is her second visit with me today. He did go see her and he would like for me to give her a shot of Dilaudid. And he would like for me to obtain another CT of the abdomen to evaluate further in case there has been any changes of the ultrasound and KUB did not shrimp picker this morning. I discussed this plan with the patient and she agrees Noted CT reading with similar 5 mm right-sided kidney stone at the UVJ with moderate hydronephrosis and hydroureter. I did not repeat any lab work since her most recent ones were just from a couple hours ago. She has good pain control right now after 60 mg of Toradol, 2 Percocet and a half a milligram of Dilaudid. She has also not been vomiting but she did ask for 4 mg of ODT Zofran. She would like for me to call Dr. Arriola again whom I spoke to earlier this morning. Spoke with Dr. Arriola and we went over the patient's continued presentation. He still agrees that the patient has not attempted outpatient medications so she technically is not having intractable pain from the kidney stone. Especially since her pain is currently controlled. He would like for her to follow-up and he states at this time and is okay if she is takes Toradol. I rounded back with patient and explained the conversation with with Dr. Arriola. She does request Dilaudid for home use. Dr. Alex and I agree that patient will not get a prescription for Dilaudid. She is currently ordering [employer] for dinner because now she has enough appetite to eat. Do think that the patient can be discharged home safely. I have encouraged her to follow-up with urology on Tuesday without fail. She agrees with the plan - Vital Signs Vital signs: Temp Pulse Resp BP Pulse Ox 98.5 F 88 16 122/69 98 07/20/19 20:54 07/20/19 20:54 07/20/19 20:54 07/20/19 20:54 07/20/19 20:54 Discharge - Discharge Clinical Impression: Flank pain, Kidney stone Condition: Stable Disposition: HOME, SELF-CARE Instructions: Kidney Stone ([facility]) Additional Instructions: FOLLOW UP WITH UROLOGY ON TUESDAY. TAKE MEDICINES PRESCRIBED. RETURN IF WORSENING. Prescriptions: Ketorolac Tromethamine [Toradol 10 mg Tablet] 10 mg PO Q8HP PRN #15 tablet PRN Reason: Ondansetron [Zofran Odt 4 mg Tablet] 1 - 2 tab PO Q4H PRN #15 tab.rapdis PRN Reason: For Nausea/Vomiting Referrals: EVELYN MI MD [Primary Care Provider] - Follow up as needed ALEXA BROWN MD [NO LOCAL MD] - Follow up in 3-5 days
[2019-07-20] MEDS ORDERED: HYDROMORPHONE HCL INJ/PF 2 MG/ML AMPULE IM ONE ×2 (17:49→20:40)
--- NOTE | 2019-07-20 19:09 | RADIOLOGY REPORT (SQ) ---
EXAM DESCRIPTION: CT ABD/PELVIS NO ORAL OR IV COMPLETED DATE/TIME: 07/20/2019 6:50 pm REASON FOR STUDY: flank pain, kidney stone COMPARISON: 07/01/2019. TECHNIQUE: CT scan of the abdomen and pelvis performed without intravenous or oral contrast. Images reviewed with lung, soft tissue, and bone windows. Reconstructed coronal and sagittal MPR images revi ewed. All images stored on PACS. All CT scanners at this facility use dose modulation, iterative reconstruction, and/or weight based d osing when appropriate to reduce radiation dose to as low as reasonably achievable (ALARA). [facility]: Dose Right [facility]: CareDose [facility]: Dose Right [facility]: Teradose 4D [facility]: Smart [employer] RADIATION DOSE: CT Rad equipment meets quality standard of care and radiation dose reduction techniq ues were employed. CTDIvol: 15.0 mGy. DLP: 881 mGy-cm.mGy. LIMITATIONS: None. FINDINGS: LOWER CHEST: No significant findings. No nodules or infiltrates. NON-CONTRASTED LIVER, SPLEEN, ADRENALS: Evaluation limited by lack of IV contrast. No identified sign ificant masses. PANCREAS: No masses. No peripancreatic inflammatory changes. GALLBLADDER: No identified stones by CT criteria. No inflammatory changes to suggest cholecystitis. RIGHT KIDNEY AND URETER: No suspicious masses. Assessment limited by lack of IV contrast. 5 mm calc ulus at the right ureteral vesicular junction. Moderate hydronephrosis and hydroureter. LEFT KIDNEY AND URETER: No suspicious masses. Assessment limited by lack of IV contrast. No signifi cant calcifications. No hydronephrosis or hydroureter. AORTA AND RETROPERITONEUM: No aneurysm. No retroperitoneal masses or adenopathy. BOWEL AND PERITONEAL CAVITY: No obvious masses or inflammatory changes. No free fluid. APPENDIX: Normal. PELVIS, BLADDER, AND ABDOMINAL WALL:2 cm right adnexal mass with fatty density and focal calcificatio n. No free fluid. Bladder normal. BONES: No significant findings. OTHER: No other significant finding. IMPRESSION: 1. 5 MM CALCULUS IN THE DISTAL RIGHT URETER AT THE URETERAL VESICULAR JUNCTION. MODERATE HYDRONEPHRO SIS AND HYDROURETER. NO CHANGE. 2. SMALL DERMOID IN THE RIGHT ADNEXA. NO OTHER SIGNIFICANT OR ACUTE PROCESS IN THE ABDOMEN OR PELVIS . COMMENT: Quality ID # [id number]: Final reports with documentation of one or more dose reduction techniques (e.g., Automated exposure control, adjustment of the mA and/or kV according to patient size, use of iterative reconstruction technique) TECHNICAL DOCUMENTATION: JOB ID: [id number] [employer]- All Rights Reserved Reading location - IP/workstation name: [email or web address]
[2019-07-20] MEDS ORDERED: ONDANSETRON 4 MG TAB.RAPDIS PO ONE (20:09)
[2019-07-20 20:54] VITALS: BP 122/69
== END 2019-07-20 21:05 | disposition home or self-care (01) ==
LOC: ER 16:35
DX: N13.2 Hydronephrosis with renal and ureteral calculous obstruction (principal); R11.0 Nausea; F17.200 Nicotine dependence, unspecified, uncomplicated; Z87.892 Personal history of anaphylaxis; Z88.1 Allergy status to other antibiotic agents; Z88.6 Allergy status to analgesic agent; Z88.5 Allergy status to narcotic agent; Z88.0 Allergy status to penicillin
CPT/HCPCS: 99284; 96372; 74176; J1885; S0119; J1170

== ENCOUNTER 2019-07-27 23:09 | Emergency (ER) | payer MEDICAID ==
[2019-07-27 23:26] VITALS: BP 125/69
== END 2019-07-28 00:45 | disposition left against medical advice (07) ==
LOC: ER 23:09
DX: Z53.21 Procedure and treatment not carried out due to patient leaving prior to being seen by health care provider (principal)

== ENCOUNTER 2019-08-01 17:30 | Inpatient (IN) | payer MEDICAID ==
[2019-08-01] MEDS ORDERED: KETOROLAC TROMETHAMINE INJ/PF 30 MG/1 ML SDV IV ONE (18:05)
--- NOTE | 2019-08-01 18:07 | ER Document Report ---
ED Medical Screen (RME) - General Chief Complaint: Abdominal Pain Stated Complaint: ABDOMINAL PAIN Time Seen by Provider: 08/01/19 18:00 Primary Care Provider: EVELYN MI MD [Primary Care Provider] - Follow up as needed Notes: 34-year-old female with recent right ureteral stent placement this past Tuesday presents to the emergency department with 2 chief complaints: The first 1 is cramping, constant epigastric pain that radiates to her back; the second is a significant burning sensation where her stents are in place. Patient denies fevers or chills, denies nausea or vomiting, denies urinary symptoms. Exam: Nontoxic-appearing, lungs are clear to auscultation all smith, regular cardiac rate and rhythm, abdominal exam deferred in triage I have greeted and performed a rapid initial assessment of this patient. A comprehensive ED assessment and evaluation of the patient, analysis of test results and completion of medical decision making process will be conducted by an additional ED providers. TRAVEL OUTSIDE OF THE [place] IN LAST 30 DAYS: No - Related Data Allergies/Adverse Reactions: cephalexin monohydrate [From Keflex] Allergy (Severe, Verified 08/01/19 18:00) Anaphylaxis codeine [Codeine] Allergy (Severe, Verified 08/01/19 18:00) Anaphylaxis Penicillins Allergy (Severe, Verified 08/01/19 18:00) Anaphylaxis diphenhydramine HCl [From Benadryl] Adverse Reaction (Verified 08/01/19 18:00) morphine Adverse Reaction (Verified 08/01/19 18:00) prochlorperazine edisylate [From Compazine] Adverse Reaction (Verified 08/01/19 18:00) prochlorperazine maleate [From Compazine] Adverse Reaction (Verified 08/01/19 18:00) Past Medical History - Social History Frequency of alcohol use: None Drug Abuse: None Renal/ Medical History: Reports: Hx Kidney Stones, Hx Ovarian Cysts. Denies: Hx Peritoneal Dialysis GI Medical History: Reports: Hx Irritable Bowel Musculoskeltal Medical History: Reports Hx Musculoskeletal Deformity Psychiatric Medical History: Reports: Hx Anxiety, Hx Bipolar Disorder, Hx Depression - ANXIETY, Hx Post Traumatic Stress Disorder Past Surgical History: Reports: Hx Appendectomy, Hx Section, Hx Cholecystectomy, Hx Myringotomy - Immunizations Immunizations up to date: Yes Hx Diphtheria, Pertussis, Tetanus Vaccination: Yes Physical Exam - Vital signs Vitals: Temp Pulse Resp BP Pulse Ox 97.8 F 99 17 123/79 99 08/01/19 17:34 08/01/19 17:34 08/01/19 17:34 08/01/19 17:34 08/01/19 17:34 Course - Vital Signs Vital signs: Temp Pulse Resp BP Pulse Ox 97.8 F 99 17 123/79 99 08/01/19 17:34 08/01/19 17:34 08/01/19 17:34 08/01/19 17:34 08/01/19 17:34 Doctor's Discharge - Discharge Referrals: EVELYN MI MD [Primary Care Provider] - Follow up as needed
[2019-08-01] MEDS ORDERED: DICYCLOMINE HCL 20 MG TABLET PO ONE (18:13)
[2019-08-01 18:41] LABS: HEMATOCRIT 42.6 % (36.0-47.0); MEAN CORPUSCULAR VOLUME 91 fl (80-97); PLATELET COUNT 266 10^3/uL (150-450); RED BLOOD COUNT 4.67 10^6/uL (3.72-5.28); RED CELL DISTRIBUTION WIDTH 13.7 % (11.5-14.0); WHITE BLOOD COUNT 10.1 10^3/uL (4.0-10.5)
[2019-08-01 18:44] LABS: APPEARANCE,URINE CLOUDY; BILIRUBIN,URINE NEGATIVE (NEGATIVE); COLOR,URINE YELLOW; GLUCOSE, URINE NEGATIVE (NEGATIVE); KETONES,URINE 20 mg/dL (NEGATIVE); LEUKOCYTE ESTERASE,URINE SMALL (NEGATIVE); NITRITE,URINE NEGATIVE (NEGATIVE); PROTEIN,URINE NEGATIVE (NEGATIVE); URINE SPECIFIC GRAVITY 1.014; UROBILINOGEN,URINE NEGATIVE mg/dL (<2.0)
[2019-08-01 19:01] LABS: HEMOGLOBIN 14.3 g/dL (12.0-15.5); MEAN CORPUSCULAR HEMOGLOBIN 30.6 pg (27.0-33.4)
[2019-08-01 19:02] LABS: MEAN CORPUSCULAR HGB CONC 33.6 g/dL (32.0-36.0)
[2019-08-01 19:18] LABS: ABSOLUTE LYMPHOCYTES# (MANUAL) 2.1 10^3/uL (0.5-4.7); ABSOLUTE MONOCYTES # (MANUAL) 0.2 10^3/uL (0.1-1.4); BASOPHILS % (MANUAL) 0 % (0-2); EOSINOPHILS % (MANUAL) 3 % (0-6); LYMPHOCYTES % (MANUAL) 21 % (13-45); MONOCYTES % (MANUAL) 2 % (3-13); PLATELET COMMENT ADEQUATE; RBC MORPHOLOGY COMMENT NORMO-CYTIC/CHROMIC; SEGMENTED NEUTROPHILS % (MAN) 74 % (42-78); TOTAL CELLS COUNTED 100
[2019-08-01 21:30] LABS: CALCIUM 9.6 mg/dL (8.4-10.2); GLUCOSE 80 mg/dL (75-110)
[2019-08-01 21:31] LABS: ALBUMIN 4.2 g/dL (3.5-5.0); ALKALINE PHOSPHATASE 77 U/L (38-126); ANION GAP 13 (5-19); ASPARTATE AMINO TRANSFERASE 31 U/L (14-36); BLOOD UREA NITROGEN 9 mg/dL (7-20); CARBON DIOXIDE 22 mmol/L (22-30); CHLORIDE 101 mmol/L (98-107); POTASSIUM 5.2 mmol/L (3.6-5.0)
[2019-08-01 21:32] LABS: BILIRUBIN,DIRECT 0.5 mg/dL (0.0-0.4); TOTAL PROTEIN 8.4 g/dL (6.3-8.2)
[2019-08-01 21:36] LABS: URINE AMPHETAMINES SCREEN NEGATIVE; URINE BARBITURATES SCREEN NEGATIVE; URINE BENZODIAZEPINES SCREEN NEGATIVE; URINE COCAINE SCREEN NEGATIVE; URINE MARIJUANA (THC) SCREEN NEGATIVE; URINE METHADONE SCREEN NEGATIVE; URINE PHENCYCLIDINE SCREEN NEGATIVE
[2019-08-01] MEDS ORDERED: NORMAL SALINE 1000 ML 1,000 ML IV ONE (21:44)
[2019-08-01] MEDS ORDERED: HYDROMORPHONE HCL INJ/PF 2 MG/ML AMPULE IV PRN (21:45)
--- NOTE | 2019-08-01 21:52 | ER Document Report ---
ED General - General Chief Complaint: Abdominal Pain Stated Complaint: ABDOMINAL PAIN Time Seen by Provider: 08/01/19 18:00 Primary Care Provider: EVELYN MI MD [Primary Care Provider] - Follow up as needed TRAVEL OUTSIDE OF THE [place] IN LAST 30 DAYS: No - HPI Notes: Patient is a 34-year-old female well-known to me from prior ER visits with a chief complaint of upper mid abdominal pain extending into the left upper quadrant. Patient has a history of chronic/recurrent urinary stones and recently had a right-sided stent placed by [facility] in [facility]. She is been taking Percocet at home. She says she is run out of Percocet and is still hurting. She also reports constipation is taking laxatives at home with no relief. No fever. No dysuria. No nausea or vomiting. - Related Data Allergies/Adverse Reactions: cephalexin monohydrate [From Keflex] Allergy (Severe, Verified 08/01/19 18:00) Anaphylaxis codeine [Codeine] Allergy (Severe, Verified 08/01/19 18:00) Anaphylaxis Penicillins Allergy (Severe, Verified 08/01/19 18:00) Anaphylaxis diphenhydramine HCl [From Benadryl] Adverse Reaction (Verified 08/01/19 18:00) morphine Adverse Reaction (Verified 08/01/19 18:00) prochlorperazine edisylate [From Compazine] Adverse Reaction (Verified 08/01/19 18:00) prochlorperazine maleate [From Compazine] Adverse Reaction (Verified 08/01/19 18:00) Past Medical History - General Information source: Patient - Social History Smoking Status: Current Every Day Smoker Frequency of alcohol use: None Drug Abuse: None Family History: Reviewed & Not Pertinent, DM, Hypertension Patient has suicidal ideation: No Patient has homicidal ideation: No Renal/ Medical History: Reports: Hx Kidney Stones, Hx Ovarian Cysts. Denies: Hx Peritoneal Dialysis GI Medical History: Reports: Hx Irritable Bowel Musculoskeletal Medical History: Reports Hx Musculoskeletal Deformity Psychiatric Medical History: Reports: Hx Anxiety, Hx Bipolar Disorder, Hx Depression - ANXIETY, Hx Post Traumatic Stress Disorder Past Surgical History: Reports: Hx Appendectomy, Hx Section, Hx Cholecystectomy, Hx Myringotomy - Immunizations Immunizations up to date: Yes Hx Diphtheria, Pertussis, Tetanus Vaccination: Yes Review of Systems - Review of Systems Notes: Constitutional: Negative for fever. HENT: Negative for sore throat. Eyes: Negative for visual changes. Cardiovascular: Negative for chest pain. Respiratory: Negative for shortness of breath. Gastrointestinal: As per HPI. Genitourinary: As per HPI. Musculoskeletal: Negative for back pain. Skin: Negative for rash. Neurological: Negative for headaches, weakness or numbness. 10 point ROS negative except as marked above and in HPI. Physical Exam - Vital signs Vitals: Temp Pulse Resp BP Pulse Ox 97.8 F 99 17 123/79 99 08/01/19 17:34 08/01/19 17:34 08/01/19 17:34 08/01/19 17:34 08/01/19 17:34 - Notes Notes: GENERAL: Well-developed well-nourished appearing restless and pacing holding upper mid abdomen area. SKIN: Good turgor no rashes. HEAD: Normocephalic atraumatic. EYES: PERRLA. EOMI. Conjunctivae and sclerae clear. EARS: CANALS AND TMS CLEAR. NOSE: CLEAR. MOUTH: Moist mucosa. Good dentition. No stridor or edema. No drooling. NECK: Supple. No masses or thyromegaly. No adenopathy. Carotids 2+ without bruits. No JVD. BACK: Symmetrical without tenderness. CHEST: Respirations unlabored. Breath sounds clear and symmetrical. HEART: Regular rhythm. No murmur gallop or rub. ABDOMEN: Obese. Mildly distended. Tender over course of transverse and descending colon. Soft with palpable stool in the colon. No organomegaly or rebound. Bowel sounds normally active. No bruits. GENITALIA: Deferred. EXTREMITIES: No edema. No calf tenderness. Cap refill less than 1.5 seconds. Dorsalis pedis and posterior tibial pulses 3+ and symmetrical. NEUROLOGICAL: GCS 15. Alert and oriented x3. Normal gait. Fluent speech. Cranial nerves II through XII intact. Sensorimotor and cerebellar normal. Normal tone. PSYCHIATRIC: Anxious with flat affect. Course - Re-evaluation Re-evalutation: 08/02/19 03:19 Initial impression was that this lady was possibly constipated from the narcotic that she had been taking. We obtained a plain film of the abdomen and this showed a lot of retained stool and presence of surgical clips in the right upper quadrant from previous cholecystectomy. She also had ureteral stent in situ on the right side. Enemas were ordered. Patient's CBC was unremarkable. Comprehensive metabolic profile looked fine but the patient had a markedly elevated lipase of around 1800. We subsequently gave her some IV normal saline and also some IV Zofran and IV Dilaudid. She had a CT scan which showed findings consistent with acute pancreatitis. Findings have been discussed with surgical stone call Dr. Reid who will evaluate for admission. 08/02/19 04:05 Dr. Reid declined admission to the surgical service. Patient has been accepted for admission to the hospitalist service by Dr. Agapito Davidson. - Vital Signs Vital signs: Temp Pulse Resp BP Pulse Ox 97.4 F 104 H 20 131/76 H 95 08/01/19 22:11 08/01/19 22:11 08/01/19 22:11 08/01/19 22:11 08/01/19 22:11 - Laboratory Result Diagrams: 08/01/19 18:11 08/01/19 20:16 Laboratory results interpreted by me: 08/01/19 08/01/19 08/01/19 18:11 18:11 20:16 Monocytes % (Manual) 2 L Sodium 136.2 L Potassium 5.2 H Direct Bilirubin 0.5 H Total Protein 8.4 H Lipase 1818.0 H Urine Ketones 20 H Urine Blood MODERATE H Ur Leukocyte Esterase SMALL H - Diagnostic Test Radiology results interpreted by me: 08/01/19 22:31 Acute abdominal series reviewed by me shows large amount of retained stool in the colon and postsurgical changes from prior cholecystectomy right upper quadrant. She also has a stent present in the right ureter. 08/01/19 22:32 Discharge - Discharge Clinical Impression: Acute pancreatitis Qualifiers: Pancreatitis type: unspecified pancreatitis type Acute pancreatitis complication: no infection or necrosis Qualified Code(s): K85.90 - Acute pancreatitis without necrosis or infection, unspecified Condition: Stable Disposition: ADMITTED INPATIENT Admitting Provider: Stuart (Hospitalist) Unit Admitted: Medical Floor Referrals: EVELYN MI MD [Primary Care Provider] - Follow up as needed
[2019-08-01] MEDS ORDERED: MINERAL OIL 30 ML UDCUP PR ONE (22:30)
--- NOTE | 2019-08-01 22:46 | RADIOLOGY REPORT (SQ) ---
EXAM DESCRIPTION: XR ABDOMEN SUPINE AND ERECT WITH CHEST (ABD ACUTE SERIES) COMPLETED DATE/TME: 08/01/2019 21:45 CLINICAL HISTORY: 34 years Female, Abdominal pain Comparison:Jul 20 2019, CT NUMBER OF VIEWS/TECHNIQUE: 3 LIMITATIONS: None. FINDINGS: Proximal end of a right ureteral stent is at the expected proximal right ureter, L2 level.Right upper abdominal clips. Intestinal gas pattern is within normal limits. Paucity of bowel gas. No suspicious calcification. Grossly intact skeletal structures. No acute cardiopulmonary findings. IMPRESSION: Proximal end of a right ureteral stent is at the expected proximal right ureter, L2 level.
[2019-08-01] MEDS ORDERED: ONDANSETRON HCL INJ/PF 4 MG/2 ML SDV IV ONE (23:48)
[2019-08-02] MEDS: HYDROMORPHONE HCL INJ/PF 2 MG/ML AMPULE IV PRN ×6 (01:49→22:33)
--- NOTE | 2019-08-02 02:45 | RADIOLOGY REPORT (SQ) ---
CT abdomen and pelvis with contrast on 08/02/2019 at 2:06 AM CLINICAL INDICATION: Acute pancreatitis, upper abdominal pain TECHNIQUE: Multiple axial images are obtained throughout the abdomen and pelvis following the administration of IV contrast, 96 mL of Omnipaque 350 contrast was administered intravenously without complication. This exam was performed according to our departmental dose-optimization program, which includes automated exposure control, adjustment of the mA and/or kV according to patient size and/or use of iterative reconstruction technique. Total DLP is 1577.96 mGy*cm. COMPARISON: 07/20/2019 FINDINGS: Abdomen: The lung bases are clear. There is moderate peripancreatic fluid and stranding consistent with changes of acute pancreatitis. No evidence of pancreatic necrosis or other definite complication of pancreatitis is noted at this time. The patient is status post cholecystectomy. Small right renal cyst is noted. New right renal stent extends from the proximal right right ureter into the left anterior bladder. The proximal aspect has likely slipped inferiorly from its initial placement . There is no right hydronephrosis and the previously noted right UVJ stone is no longer present. The solid abdominal organs are otherwise unremarkable. There is no abdominal adenopathy. There is no free air in the abdomen. The abdominal portion of the GI tract is unremarkable. Pelvis: The patient is status post appendectomy. There is a small 2.0 x 1.9 x 2.3 cm right ovarian dermoid containing fat and calcium and soft tissue density. Recommend follow-up pelvic MRI with contrast and if this is not surgically removed would recommend ultrasound follow-up yearly. Pelvic organs otherwise appear unremarkable by CT. There is no pelvic adenopathy. The pelvic portion of the GI tract is unremarkable. There is no free fluid in the pelvis. No acute bony abnormality is noted. IMPRESSION: 1. Findings consistent with acute pancreatitis without definite complication of pancreatitis noted at this time. 2. Some likely distal slippage of the right ureteral stent with no right hydronephrosis or residual ureteral stone noted. 3. 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 Would recommend follow-up pelvic MRI with contrast and if this is not surgically removed would recommend ultrasound follow-up yearly.
[2019-08-02] MEDS ORDERED: NORMAL SALINE 1000 ML 1,000 ML IV ONE (03:18)
[2019-08-02] MEDS ORDERED: MAG HYDROX/AL HYDROX/SIMETH SUSP 30 ML UDCUP PO PRN (04:06)
[2019-08-02] MEDS ORDERED: IPRATROPIUM/ALBUTEROL 0.5-2.5 MG/3 ML AMPUL NEB PRN (04:06)
[2019-08-02] MEDS ORDERED: ACETAMINOPHEN 650 MG SUPP.RECT PR PRN (04:06)
[2019-08-02] MEDS ORDERED: METOCLOPRAMIDE HCL INJ/PF 10 MG/2 ML SDV IV ONE (04:10)
[2019-08-02] MEDS ORDERED: NORMAL SALINE 1000 ML 1,000 ML IV PRN (04:15)
[2019-08-02] MEDS ORDERED: KETOROLAC TROMETHAMINE INJ/PF 30 MG/1 ML SDV IV PRN (04:16)
--- NOTE | 2019-08-02 04:16 | PDOC CONSULTATION ---
Consultation Consult Date: 08/02/19 Provider Consulted: MANJINDER BEDOYA Consult reason:: Pancreatitis History of Present Illness Admission Date/PCP: EVELYN MI MD History of Present Illness: NAHID MENDOZA is a 34 year old female post cholecystectomy and right ureteral stent placement and history of bipolar on medications complain of epigastric pains radiating to the back around 2 PM yesterday. This was associated with nausea but denies fever nor chills. She had a CT scan of the abdomen which showed acute pancreatitis and ovarian cyst. She denies alcohol intake. Past Medical History Psychiatric Medical History: Reports: Bipolar Disorder, Depression - ANXIETY, Post Traumatic Stress Disorder Past Surgical History Past Surgical History: Reports: Appendectomy, Section, Cholecystectomy Social History Smoking Status: Current Every Day Smoker Frequency of Alcohol Use: None Family History Family History: Reviewed & Not Pertinent, DM, Hypertension Parental Family History Reviewed: Yes Children Family History Reviewed: No Sibling(s) Family History Reviewed.: No Medication/Allergy Home Medications: Clonazepam 2 mg PO DAILY 04/08/18 Diphenoxylate HCl/Atrop Sulf [Lomotil 2.5 mg Tablet] 1 tab PO Q6H PRN #20 tablet 04/08/18 Benzonatate [Tessalon Perles 100 mg Capsule] 100 mg PO Q8HP PRN #20 capsule 04/23/18 Doxycycline Hyclate 100 mg PO BID #14 capsule 04/23/18 Amoxicillin Trihydrate [Amoxil 500 mg Capsule] 500 mg PO BID 7 Days #14 cap 10/15/18 Benzonatate [Tessalon Perles 100 mg Capsule] 100 mg PO Q8HP PRN #40 capsule 10/15/18 Amoxicillin Trihydrate [Amoxil 500 mg Capsule] 500 mg PO BID #20 capsule 11/11/18 Dicyclomine HCl [Bentyl 20 mg Tablet] 20 mg PO QID PRN #20 tablet 12/26/18 Ondansetron [Zofran Odt 4 mg Tablet] 1 tab PO Q4H PRN #15 tab.rapdis 12/26/18 Doxycycline Hyclate 100 mg PO BID #14 capsule 01/16/19 Ketorolac Tromethamine [Toradol 10 mg Tablet] 10 mg PO Q6HP PRN #20 tablet 01/16/19 Metronidazole [Flagyl 500 mg Tablet] 500 mg PO Q6H #28 tablet 01/16/19 Ondansetron [Zofran Odt 4 mg Tablet] 1 tab PO Q4H PRN #15 tab.rapdis 01/20/19 Ketorolac Tromethamine [Toradol 10 mg Tablet] 10 mg PO Q6HP PRN #20 tablet 06/20/19 Ondansetron [Zofran Odt 4 mg Tablet] 1 - 2 tab PO Q4HP PRN #10 tab.rapdis 06/20/19 Ketorolac Tromethamine [Toradol 10 mg Tablet] 10 mg PO Q8 4 Days #12 tablet 06/28/19 Ondansetron [Zofran Odt 4 mg Tablet] 1 - 2 tab PO Q4H PRN #15 tab.rapdis 07/01/19 Ketorolac Tromethamine [Toradol 10 mg Tablet] 10 mg PO Q8HP PRN #15 tablet 07/20/19 Ondansetron [Zofran Odt 4 mg Tablet] 1 - 2 tab PO Q4H PRN #15 tab.rapdis Oxycodone HCl/Acetaminophen [Percocet 5-325 mg Tablet] 1 tab PO Q4H PRN #15 tab 07/20/19 Tamsulosin HCl [Flomax 0.4 mg Cap.sr] 0.4 mg PO DAILY #7 cap.sr.24h 07/20/19 Allergies/Adverse Reactions: cephalexin monohydrate [From Keflex] Allergy (Severe, Verified 08/01/19 18:00) Anaphylaxis codeine [Codeine] Allergy (Severe, Verified 08/01/19 18:00) Anaphylaxis Penicillins Allergy (Severe, Verified 08/01/19 18:00) Anaphylaxis diphenhydramine HCl [From Benadryl] Adverse Reaction (Verified 08/01/19 18:00) morphine Adverse Reaction (Verified 08/01/19 18:00) prochlorperazine edisylate [From Compazine] Adverse Reaction (Verified 08/01/19 18:00) prochlorperazine maleate [From Compazine] Adverse Reaction (Verified 08/01/19 18:00) Review of Systems Constitutional: PRESENT: as per HPI Gastrointestinal: PRESENT: abdominal pain, constipation, nausea Physical Exam Vital Signs: Temp Pulse Resp BP Pulse Ox 97.4 F 104 H 20 131/76 H 95 08/01/19 22:11 08/01/19 22:11 08/01/19 22:11 08/01/19 22:11 08/01/19 22:11 Intake & Output 07/31/19 08/01/19 08/02/19 06:59 06:59 06:59 Intake Total 1000 Balance 1000 Weight 84.4 kg General appearance: PRESENT: severe distress Head exam: PRESENT: atraumatic Eye exam: PRESENT: conjunctiva pink Mouth exam: PRESENT: moist Neck exam: PRESENT: full ROM Respiratory exam: PRESENT: clear to auscultation jemima Cardiovascular exam: PRESENT: RRR Pulses: PRESENT: normal radial pulses Vascular exam: PRESENT: normal capillary refill GI/Abdominal exam: PRESENT: soft, tenderness - Epigastric areas Rectal exam: PRESENT: deferred Neurological exam: PRESENT: alert, oriented to person, oriented to place, oriented to time, oriented to situation Psychiatric exam: PRESENT: anxious Skin exam: PRESENT: normal color, warm Results Laboratory Results: 08/01/19 18:11 08/01/19 20:16 08/01/19 08/01/19 08/01/19 18:11 18:11 18:11 WBC 10.1 RBC 4.67 Hgb 14.3 Hct 42.6 MCV 91 MCH 30.6 MCHC 33.6 RDW 13.7 Plt Count 266 Seg Neutrophils % Not Reportable Sodium Cancelled Potassium Cancelled Chloride Cancelled Carbon Dioxide Cancelled Anion Gap Cancelled BUN Cancelled Creatinine Cancelled Est GFR ( Amer) Cancelled Est GFR (Non-Af Amer) Cancelled Glucose Cancelled Calcium Cancelled Total Bilirubin Cancelled AST Cancelled Alkaline Phosphatase Cancelled Total Protein Cancelled Albumin Cancelled Lipase Cancelled Urine Color YELLOW Urine Appearance CLOUDY Urine pH 6.0 Ur Specific [place] 1.014 Urine Protein NEGATIVE Urine Glucose (UA) NEGATIVE Urine Ketones 20 H Urine Blood MODERATE H Urine Nitrite NEGATIVE Ur Leukocyte Esterase SMALL H Urine WBC (Auto) 9 Urine RBC (Auto) 58 08/01/19 20:16 WBC RBC Hgb Hct MCV MCH MCHC RDW Plt Count Seg Neutrophils % Sodium 136.2 L Potassium 5.2 H Chloride 101 Carbon Dioxide 22 Anion Gap 13 BUN 9 Creatinine 0.53 Est GFR ( Amer) > 60 Est GFR (Non-Af Amer) Glucose 80 Calcium 9.6 Total Bilirubin 1.0 AST 31 Alkaline Phosphatase 77 Total Protein 8.4 H Albumin 4.2 Lipase 1818.0 H Urine Color Urine Appearance Urine pH Ur Specific [place] Urine Protein Urine Glucose (UA) Urine Ketones Urine Blood Urine Nitrite Ur Leukocyte Esterase Urine WBC (Auto) Urine RBC (Auto) Impressions: Acute Abdomen Series 08/01/19 21:45 IMPRESSION: Proximal end of a right ureteral stent is at the expected proximal right ureter, L2 level. Abdomen/Pelvis CT 08/02/19 01:08 IMPRESSION: 1. Findings consistent with acute pancreatitis without definite complication of pancreatitis noted at this time. 2. Some likely distal slippage of the right ureteral stent with no right hydronephrosis or residual ureteral stone noted. 3. 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 Would recommend follow-up pelvic MRI with contrast and if this is not surgically removed would recommend ultrasound follow-up yearly. Assessment & Plan - Diagnosis (1) Pancreatitis, acute Is this a current diagnosis for this admission?: Yes - Time Time Spent: 30 to 50 Minutes - Plan Summary Plan Summary: 34-year-old female post right ureteral stent placement about a week ago, post cholecystectomy, history of bipolar on medications, denies alcohol use, complained of epigastric pains radiating to the back with nausea at 2 PM [address] CAT scan of the abdomen confirmed acute pancreatitis. Lipase is elevated. Her abdomen is soft with tenderness in the epigastric areas. Impression is acute pancreatitis with unknown cause. There is no evidence of gallstones as a cause since she had previous cholecystectomy and she denies alcohol use. Plans: She needs medical work-up for the cause of her pancreatitis though I suspect this may be due to her chronic use of pain medication. Continue medical therapy for her pancreatitis. We will follow as needed
[2019-08-02] MEDS ORDERED: LACTULOSE SYRUP 20 GM/30 ML UDCUP PO ONE (04:30)
[2019-08-02] MEDS: NA PHOS,M-B/NA PHOS,DI-BA (ADULT) 133 ML ENEMA PR SCH ×2 (04:30→09:24)
--- NOTE | 2019-08-02 05:46 | PDOC H&P ---
History of Present Illness Admission Date/PCP: 08/02/19 04:44 EVELYN MI MD Patient complains of: Nausea and abdominal pain History of Present Illness: NAHID MENDOZA is a 34 year old female with a past medical history of nephrolithiasis and bipolar complicated by frequent emergency room visits who presents with upper abdominal pain, nausea, vomiting and constipation not relieved by [id number] laxatives. In the emergency room she has hyperkalemia, abdominal pain and pancreatitis by lipase of [address] complicated by fecal impaction. She receives IV Dilaudid and referred to the hospitalist for admission. She refuses therapy. Past Medical History Cardiac Medical History: Reports: None Pulmonary Medical History: Reports: None EENT Medical History: Reports: None Neurological Medical History: Reports: None Renal/ Medical History: Reports: Nephrolithiasis Malignancy Medical History: Reports: None GI Medical History: Reports: None Musculoskeltal Medical History: Reports: None Psychiatric Medical History: Reports: Bipolar Disorder, Depression - ANXIETY, Post Traumatic Stress Disorder Hematology: Reports: None Infectious Medical History: Reports: None Past Surgical History Past Surgical History: Reports: Appendectomy, Section, Cholecystectomy Social History Information Source: Patient, [facility] / [facility] Records Smoking Status: Current Every Day Smoker Frequency of Alcohol Use: None Drugs: None - Advance Directive Resuscitation Status: Full Code Family History Family History: DM, Hypertension Parental Family History Reviewed: Yes Children Family History Reviewed: Yes Sibling(s) Family History Reviewed.: Yes Medication/Allergy Home Medications: Clonazepam 2 mg PO DAILY 04/08/18 Diphenoxylate HCl/Atrop Sulf [Lomotil 2.5 mg Tablet] 1 tab PO Q6H PRN #20 tablet 04/08/18 Benzonatate [Tessalon Perles 100 mg Capsule] 100 mg PO Q8HP PRN #20 capsule 04/23/18 Doxycycline Hyclate 100 mg PO BID #14 capsule 04/23/18 Amoxicillin Trihydrate [Amoxil 500 mg Capsule] 500 mg PO BID 7 Days #14 cap 10/15/18 Benzonatate [Tessalon Perles 100 mg Capsule] 100 mg PO Q8HP PRN #40 capsule 10/15/18 Amoxicillin Trihydrate [Amoxil 500 mg Capsule] 500 mg PO BID #20 capsule 11/11/18 Dicyclomine HCl [Bentyl 20 mg Tablet] 20 mg PO QID PRN #20 tablet 12/26/18 Ondansetron [Zofran Odt 4 mg Tablet] 1 tab PO Q4H PRN #15 tab.rapdis 12/26/18 Doxycycline Hyclate 100 mg PO BID #14 capsule 01/16/19 Ketorolac Tromethamine [Toradol 10 mg Tablet] 10 mg PO Q6HP PRN #20 tablet 01/16/19 Metronidazole [Flagyl 500 mg Tablet] 500 mg PO Q6H #28 tablet 01/16/19 Ondansetron [Zofran Odt 4 mg Tablet] 1 tab PO Q4H PRN #15 tab.rapdis 01/20/19 Ketorolac Tromethamine [Toradol 10 mg Tablet] 10 mg PO Q6HP PRN #20 tablet 06/20/19 Ondansetron [Zofran Odt 4 mg Tablet] 1 - 2 tab PO Q4HP PRN #10 tab.rapdis 06/20/19 Ketorolac Tromethamine [Toradol 10 mg Tablet] 10 mg PO Q8 4 Days #12 tablet 06/28/19 Ondansetron [Zofran Odt 4 mg Tablet] 1 - 2 tab PO Q4H PRN #15 tab.rapdis 07/01/19 Ketorolac Tromethamine [Toradol 10 mg Tablet] 10 mg PO Q8HP PRN #15 tablet 07/20/19 Ondansetron [Zofran Odt 4 mg Tablet] 1 - 2 tab PO Q4H PRN #15 tab.rapdis 07/20/19 Oxycodone HCl/Acetaminophen [Percocet 5-325 mg Tablet] 1 tab PO Q4H PRN #15 tab 07/20/19 Tamsulosin HCl [Flomax 0.4 mg Cap.sr] 0.4 mg PO DAILY #7 cap.sr.24h 07/20/19 Allergies/Adverse Reactions: cephalexin monohydrate [From Keflex] Allergy (Severe, Verified 08/01/19 18:00) Anaphylaxis codeine [Codeine] Allergy (Severe, Verified 08/01/19 18:00) Anaphylaxis Penicillins Allergy (Severe, Verified 08/01/19 18:00) Anaphylaxis diphenhydramine HCl [From Benadryl] Adverse Reaction (Verified 08/01/19 18:00) morphine Adverse Reaction (Verified 08/01/19 18:00) prochlorperazine edisylate [From Compazine] Adverse Reaction (Verified 08/01/19 18:00) prochlorperazine maleate [From Compazine] Adverse Reaction (Verified 08/01/19 18:00) Review of Systems Constitutional: ABSENT: chills, fever(s), headache(s), weight gain, weight loss Eyes: ABSENT: visual disturbances Ears: ABSENT: hearing changes Cardiovascular: ABSENT: chest pain, dyspnea on exertion, edema, orthropnea, palpitations Respiratory: ABSENT: cough, hemoptysis Gastrointestinal: PRESENT: constipation. ABSENT: abdominal pain, diarrhea, hematemesis, hematochezia, nausea, vomiting Genitourinary: ABSENT: dysuria, hematuria Musculoskeletal: ABSENT: joint swelling Integumentary: ABSENT: rash, wounds Neurological: ABSENT: abnormal gait, abnormal speech, confusion, dizziness, focal weakness, syncope Psychiatric: ABSENT: anxiety, depression, homidical ideation, suicidal ideation Endocrine: ABSENT: cold intolerance, heat intolerance, polydipsia, polyuria Hematologic/Lymphatic: ABSENT: easy bleeding, easy bruising Physical Exam Vital Signs: Temp Pulse Resp BP Pulse Ox 97.4 F 104 H 20 131/76 H 95 08/01/19 22:11 08/01/19 22:11 08/01/19 22:11 08/01/19 22:11 08/01/19 22:11 Intake & Output 07/31/19 08/01/19 08/02/19 11:59 11:59 11:59 Intake Total 1000 Balance 1000 Weight 84.4 kg General appearance: PRESENT: disheveled, mild distress, morbidly obese, well- developed, well-nourished. ABSENT: cooperative Head exam: PRESENT: atraumatic, normocephalic Eye exam: PRESENT: conjunctiva pink, EOMI, PERRLA. ABSENT: scleral icterus Ear exam: PRESENT: normal external ear exam Mouth exam: PRESENT: moist, tongue midline Neck exam: ABSENT: carotid bruit, JVD, lymphadenopathy, thyromegaly Respiratory exam: PRESENT: clear to auscultation jemima. ABSENT: rales, rhonchi, wheezes Cardiovascular exam: PRESENT: RRR. ABSENT: diastolic murmur, rubs, systolic murmur Pulses: PRESENT: normal dorsalis pedis pul Vascular exam: PRESENT: normal capillary refill GI/Abdominal exam: PRESENT: diminished bowel sounds, distended, hypoactive bowel sounds, tenderness. ABSENT: ascites, firm, guarding Rectal exam: PRESENT: deferred Extremities exam: PRESENT: full ROM. ABSENT: calf tenderness, clubbing, pedal edema Neurological exam: PRESENT: alert, awake, oriented to person, oriented to place, oriented to time, oriented to situation, CN II-XII grossly intact. ABSENT: motor sensory deficit Psychiatric exam: PRESENT: flat affect, unusual affect. ABSENT: normal mood Skin exam: PRESENT: dry, intact, warm. ABSENT: cyanosis, rash Results Laboratory Results: 08/01/19 18:11 08/01/19 20:16 08/01/19 08/01/19 08/01/19 18:11 18:11 18:11 WBC 10.1 RBC 4.67 Hgb 14.3 Hct 42.6 MCV 91 MCH 30.6 MCHC 33.6 RDW 13.7 Plt Count 266 Seg Neutrophils % Not Reportable Sodium Cancelled Potassium Cancelled Chloride Cancelled Carbon Dioxide Cancelled Anion Gap Cancelled BUN Cancelled Creatinine Cancelled Est GFR ( Amer) Cancelled Est GFR (Non-Af Amer) Cancelled Glucose Cancelled Calcium Cancelled Total Bilirubin Cancelled AST Cancelled Alkaline Phosphatase Cancelled Total Protein Cancelled Albumin Cancelled Lipase Cancelled Urine Color YELLOW Urine Appearance CLOUDY Urine pH 6.0 Ur Specific [place] 1.014 Urine Protein NEGATIVE Urine Glucose (UA) NEGATIVE Urine Ketones 20 H Urine Blood MODERATE H Urine Nitrite NEGATIVE Ur Leukocyte Esterase SMALL H Urine WBC (Auto) 9 Urine RBC (Auto) 58 08/01/19 20:16 WBC RBC Hgb Hct MCV MCH MCHC RDW Plt Count Seg Neutrophils % Sodium 136.2 L Potassium 5.2 H Chloride 101 Carbon Dioxide 22 Anion Gap 13 BUN 9 Creatinine 0.53 Est GFR ( Amer) > 60 Est GFR (Non-Af Amer) Glucose 80 Calcium 9.6 Total Bilirubin 1.0 AST 31 Alkaline Phosphatase 77 Total Protein 8.4 H Albumin 4.2 Lipase 1818.0 H Urine Color Urine Appearance Urine pH Ur Specific [place] Urine Protein Urine Glucose (UA) Urine Ketones Urine Blood Urine Nitrite Ur Leukocyte Esterase Urine WBC (Auto) Urine RBC (Auto) Impressions: Acute Abdomen Series 08/01/19 21:45 IMPRESSION: Proximal end of a right ureteral stent is at the expected proximal right ureter, L2 level. Abdomen/Pelvis CT 08/02/19 01:08 IMPRESSION: 1. Findings consistent with acute pancreatitis without definite complication of pancreatitis noted at this time. 2. Some likely distal slippage of the right ureteral stent with no right hydronephrosis or residual ureteral stone noted. 3. 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 Would recommend follow-up pelvic MRI with contrast and if this is not surgically removed would recommend ultrasound follow-up yearly. Assessment and Plan - Diagnosis (1) Pancreatitis, acute Is this a current diagnosis for this admission?: Yes Plan: Likely secondary to fecal impaction, denies new medications, alcohol, viral illness, status post cholecystectomy, unremarkable LFTs, follow-up triglycerides. Bowel rest, symptomatic management, avoid narcotics secondary to fecal impaction. (2) Fecal impaction Is this a current diagnosis for this admission?: Yes Plan: Lactulose enema, lactulose p.o. as tolerated (3) Hyperkalemia Is this a current diagnosis for this admission?: Yes Plan: Secondary to constipation, lactulose enema, follow-up chemistry (4) Bipolar 1 disorder Is this a current diagnosis for this admission?: Yes Plan: Continue outpatient Klonopin add Abilify or Zyprexa PRN - Time Time Spent with patient: 25-34 minutes - Inpatient Certification Medical Necessity: Need Close Monitoring Due to Risk of Patient Decompensation
[2019-08-02] MEDS: HEPARIN SOD (PORCINE) 5,000 UNIT/ML 1 ML VIAL SUBCUT SCH ×3 (06:15→21:09)
[2019-08-02] MEDS ORDERED: PROMETHAZINE HCL INJ 25 MG/1 ML VIAL IV PRN (10:33)
[2019-08-02] MEDS ORDERED: MORPHINE SULFATE 10 MG/ML INJ IV ONE (11:15)
[2019-08-02] MEDS ORDERED: MORPHINE SULFATE 10 MG/ML INJ IV PRN (12:02)
[2019-08-02] MEDS: ONDANSETRON HCL INJ/PF 4 MG/2 ML SDV IV PRN ×2 (12:19→18:29)
[2019-08-02] MEDS: KETOROLAC TROMETHAMINE INJ/PF 30 MG/1 ML SDV IV PRN ×2 (13:12→19:27)
[2019-08-02] MEDS ORDERED: HYDROMORPHONE HCL INJ/PF 2 MG/ML AMPULE IV PRN (13:18)
[2019-08-02] MEDS ORDERED: DEXTROSE 50%-WATER 25 GM/50 ML DISP.SYRIN IV PRN ×2 (14:02)
[2019-08-02] MEDS ORDERED: DEXTROSE 40% GEL 15 GM TUBE PO PRN ×2 (14:02)
[2019-08-02] MEDS ORDERED: GLUCAGON,HUMAN RECOMB 1 MG INJ IM PRN (14:02)
--- NOTE | 2019-08-02 14:04 | PDOC PROGRESS REPORT ---
Subjective Progress Note for:: 08/02/19 Subjective:: NAHID MENDOZA is a 34 year old female with a past medical history of nephrolithiasis and bipolar who was admitted 08/02/2019 for acute pancreatitis. Patient was seen on morning rounds. She was found sitting up in the bed on room air. She reports continued left flank abdominal discomfort and right shoulder discomfort. She reports continued nausea but without emesis. She is noted to be rocking back and forth and crying; states that pain medication has not yet been effective. She does report that she has had multiple enemas without relief of constipation. She denies fever, chills, chest pain, palpitations, dyspnea, orthopnea, cough. She has no other questions or concerns at this time. No concerns per nursing. Reason For Visit: ACUTE PANCREATITIS,CONSTIPATION,BIPOLAR Physical Exam Vital Signs: Temp Pulse Resp BP Pulse Ox 99.2 F 112 H 18 112/64 98 08/02/19 08:40 08/02/19 08:40 08/02/19 08:40 08/02/19 08:40 08/02/19 08:40 Intake & Output 08/01/19 08/02/19 08/03/19 06:59 06:59 06:59 Intake Total 1000 Balance 1000 Weight 84.4 kg General appearance: PRESENT: no acute distress, obese, well-developed, well- nourished Head exam: PRESENT: atraumatic, normocephalic Eye exam: PRESENT: conjunctiva pink, EOMI, PERRLA. ABSENT: scleral icterus Ear exam: PRESENT: normal external ear exam Mouth exam: PRESENT: moist, tongue midline Respiratory exam: PRESENT: clear to auscultation ejmima, symmetrical, unlabored. ABSENT: rales, rhonchi, wheezes Cardiovascular exam: PRESENT: RRR, +S1, +S2. ABSENT: diastolic murmur, rubs, systolic murmur Pulses: PRESENT: normal dorsalis pedis pul Vascular exam: PRESENT: normal capillary refill GI/Abdominal exam: PRESENT: distended, hypoactive bowel sounds, normal bowel sounds, soft, tenderness. ABSENT: guarding, mass, organolmegaly, rebound Rectal exam: PRESENT: deferred Extremities exam: PRESENT: full ROM. ABSENT: calf tenderness, clubbing, pedal edema Neurological exam: PRESENT: alert, awake, oriented to person, oriented to place, oriented to time, oriented to situation, CN II-XII grossly intact. ABSENT: motor sensory deficit Psychiatric exam: PRESENT: appropriate affect, normal mood, unusual affect. ABSENT: homicidal ideation, suicidal ideation Skin exam: PRESENT: dry, intact, warm. ABSENT: cyanosis, rash Results Laboratory Results: 08/01/19 18:11 08/01/19 20:16 08/01/19 08/01/19 08/01/19 18:11 18:11 18:11 WBC 10.1 RBC 4.67 Hgb 14.3 Hct 42.6 MCV 91 MCH 30.6 MCHC 33.6 RDW 13.7 Plt Count 266 Seg Neutrophils % Not Reportable Sodium Cancelled Potassium Cancelled Chloride Cancelled Carbon Dioxide Cancelled Anion Gap Cancelled BUN Cancelled Creatinine Cancelled Est GFR ( Amer) Cancelled Est GFR (Non-Af Amer) Cancelled Glucose Cancelled Calcium Cancelled Total Bilirubin Cancelled AST Cancelled Alkaline Phosphatase Cancelled Total Protein Cancelled Albumin Cancelled Lipase Cancelled Urine Color YELLOW Urine Appearance CLOUDY Urine pH 6.0 Ur Specific [place] 1.014 Urine Protein NEGATIVE Urine Glucose (UA) NEGATIVE Urine Ketones 20 H Urine Blood MODERATE H Urine Nitrite NEGATIVE Ur Leukocyte Esterase SMALL H Urine WBC (Auto) 9 Urine RBC (Auto) 58 08/01/19 20:16 WBC RBC Hgb Hct MCV MCH MCHC RDW Plt Count Seg Neutrophils % Sodium 136.2 L Potassium 5.2 H Chloride 101 Carbon Dioxide 22 Anion Gap 13 BUN 9 Creatinine 0.53 Est GFR ( Amer) > 60 Est GFR (Non-Af Amer) Glucose 80 Calcium 9.6 Total Bilirubin 1.0 AST 31 Alkaline Phosphatase 77 Total Protein 8.4 H Albumin 4.2 Lipase 1818.0 H Urine Color Urine Appearance Urine pH Ur Specific [place] Urine Protein Urine Glucose (UA) Urine Ketones Urine Blood Urine Nitrite Ur Leukocyte Esterase Urine WBC (Auto) Urine RBC (Auto) Impressions: Acute Abdomen Series 08/01/19 21:45 IMPRESSION: Proximal end of a right ureteral stent is at the expected proximal right ureter, L2 level. Abdomen/Pelvis CT 08/02/19 01:08 IMPRESSION: 1. Findings consistent with acute pancreatitis without definite complication of pancreatitis noted at this time. 2. Some likely distal slippage of the right ureteral stent with no right hydronephrosis or residual ureteral stone noted. 3. 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 Would recommend follow-up pelvic MRI with contrast and if this is not surgically removed would recommend ultrasound follow-up yearly. Assessment and Plan - Diagnosis (1) Pancreatitis, acute Qualifiers: Pancreatitis type: unspecified pancreatitis type Is this a current diagnosis for this admission?: Yes Plan: Unclear etiology; possibly secondary to fecal impaction, denies new medications, alcohol, viral illness, status post cholecystectomy, unremarkable LFTs Check lipid panel and A1c with a.m. lab work. Patient is admitted to the medical floor. Continue generous IV fluids. Currently n.p.o. with ice chips as needed. Analgesics and antiemetics as needed. (2) Bipolar 1 disorder Is this a current diagnosis for this admission?: Yes Plan: Continue outpatient Syed Will obtain mental health consultation for medication recommendations. (3) Fecal impaction Is this a current diagnosis for this admission?: Yes Plan: Resolved with enemas. Review of CT imaging shows that her fecal material is rather high in the colon; do not believe that fleets enemas will be effective. We will try twice daily Colace, MiraLAX daily. Continue IV fluids. Encourage ambulation. Judicious use of narcotics. (4) Hyperkalemia Is this a current diagnosis for this admission?: Yes Plan: Management of constipation as above. Continue IV fluids. Follow-up chemistry. - Time Time Spent with patient: 15-24 minutes Medications reviewed and adjusted accordingly: Yes Anticipated discharge: Home Within: within 72 hours
[2019-08-02] MEDS: DOCUSATE SODIUM 100 MG CAPSULE PO SCH (17:37)
[2019-08-02] MEDS: NORMAL SALINE 1000 ML 1,000 ML IV PRN (19:29)
[2019-08-03] MEDS: KETOROLAC TROMETHAMINE INJ/PF 30 MG/1 ML SDV IV PRN ×3 (01:24→13:34)
[2019-08-03] MEDS: CLONAZEPAM 1 MG TABLET PO PRN ×2 (01:25→21:30)
[2019-08-03] MEDS: HYDROMORPHONE HCL INJ/PF 2 MG/ML AMPULE IV PRN ×6 (02:38→23:01)
[2019-08-03] MEDS: NORMAL SALINE 1000 ML 1,000 ML IV PRN ×3 (02:41→23:06)
[2019-08-03 05:41] LABS: ABSOLUTE EOSINOPHILS # (AUTO) 0.1 10^3/uL (0.0-0.6); ABSOLUTE LYMPHOCYTES (AUTO) 1.2 10^3/uL (0.5-4.7); ABSOLUTE MONOCYTES (AUTO) 0.6 10^3/uL (0.1-1.4); ABSOLUTE NEUT (AUTO) 6.6 10^3/uL (1.7-8.2); BASOPHILS % (AUTO) 0.4 % (0-2); EOSINOPHILS % (AUTO) 0.7 % (0-6); HEMOGLOBIN 12.8 g/dL (12.0-15.5); LYMPHOCYTES % (AUTO) 13.8 % (13-45); MEAN CORPUSCULAR HEMOGLOBIN 31.8 pg (27.0-33.4); MEAN CORPUSCULAR HGB CONC 34.5 g/dL (32.0-36.0); MEAN CORPUSCULAR VOLUME 92 fl (80-97); MONOCYTES % (AUTO) 6.9 % (3-13); PLATELET COUNT 191 10^3/uL (150-450); RED BLOOD COUNT 4.02 10^6/uL (3.72-5.28); RED CELL DISTRIBUTION WIDTH 13.8 % (11.5-14.0); SEGMENTED NEUTROPHILS % (AUTO) 78.2 % (42-78); TOTAL CELLS COUNTED % (AUTO) 100 %; WHITE BLOOD COUNT 8.5 10^3/uL (4.0-10.5)
[2019-08-03 05:51] LABS: ALBUMIN 2.9 g/dL (3.5-5.0); ALKALINE PHOSPHATASE 58 U/L (38-126); ANION GAP 10 (5-19); ASPARTATE AMINO TRANSFERASE 17 U/L (14-36); BILIRUBIN,DIRECT 0.2 mg/dL (0.0-0.4); BLOOD UREA NITROGEN 7 mg/dL (7-20); CARBON DIOXIDE 19 mmol/L (22-30); CHLORIDE 106 mmol/L (98-107); GLUCOSE 103 mg/dL (75-110); POTASSIUM 4.1 mmol/L (3.6-5.0); TOTAL PROTEIN 5.7 g/dL (6.3-8.2)
[2019-08-03 06:02] LABS: DIRECT LDL 51 mg/dL (<100)
[2019-08-03 06:14] LABS: TRIGLYCERIDES 650 mg/dL (<150)
[2019-08-03 06:15] LABS: CHOLESTEROL 297.54 mg/dL (0-200)
[2019-08-03 06:17] LABS: CALCIUM 6.7 mg/dL (8.4-10.2)
[2019-08-03] MEDS: HEPARIN SOD (PORCINE) 5,000 UNIT/ML 1 ML VIAL SUBCUT SCH ×3 (06:19→22:53)
[2019-08-03] MEDS: ONDANSETRON HCL INJ/PF 4 MG/2 ML SDV IV PRN (07:29)
[2019-08-03] MEDS: DOCUSATE SODIUM 100 MG CAPSULE PO SCH ×2 (09:14→17:59)
[2019-08-03] MEDS: TAMSULOSIN HCL 0.4 MG CAP.SR.24H PO SCH (09:14)
[2019-08-03] MEDS: CALCIUM CARBONATE 250 MG/VITAMIN D3 125 UNIT TABLET PO SCH (09:14)
[2019-08-03] MEDS: FENOFIBRATE NANOCRYSTALLIZED 145 MG TABLET PO SCH (09:15)
[2019-08-03] MEDS ORDERED: HYDROMORPHONE HCL INJ/PF 2 MG/ML AMPULE IV PRN (13:48)
[2019-08-03] MEDS: MAGNESIUM HYDROXIDE SUSP 30 ML UDCUP PO PRN (14:44)
--- NOTE | 2019-08-03 15:04 | PSYCHOLOGICAL NOTE ---
Psych Note - Psych Note Date seen by psych provider: 08/03/19 Time seen by psych provider: 14:20 Psych Note: Clinician conducted introductions and explained reason for visit. Patient responded, "them folks crazy as hell." Patient refused medication recommendation and stated she did not ask for consult for medications.
--- NOTE | 2019-08-03 16:56 | PDOC PROGRESS REPORT ---
Subjective Progress Note for:: 08/03/19 Subjective:: NAHID MENDOZA is a 34 year old female with a past medical history of nephrolithiasis and bipolar who was admitted 08/02/2019 for acute pancreatitis. Patient was seen on morning rounds. She was found sitting up in the bed on room air. She reports continued left flank abdominal discomfort and right shoulder discomfort. She reports continued nausea but without emesis. She reports her pain is worse today; asking to increase frequency of Dilaudid. She denies fever, chills, chest pain, palpitations, dyspnea, orthopnea, cough. She has no other questions or concerns at this time. No concerns per nursing. Reason For Visit: ACUTE PANCREATITIS,CONSTIPATION,BIPOLAR Physical Exam Vital Signs: Temp Pulse Resp BP Pulse Ox 98.4 F 104 H 16 103/55 L 95 08/03/19 11:00 08/03/19 11:00 08/03/19 11:00 08/03/19 11:00 08/03/19 11:00 Intake & Output 08/02/19 08/03/19 08/04/19 06:59 06:59 06:59 Intake Total 1000 2230 1000 Output Total 100 Balance 1000 2230 900 Weight 84.4 kg 73.9 kg General appearance: PRESENT: no acute distress, obese, well-developed, well- nourished Head exam: PRESENT: atraumatic, normocephalic Eye exam: PRESENT: conjunctiva pink, EOMI, PERRLA. ABSENT: scleral icterus Ear exam: PRESENT: normal external ear exam Mouth exam: PRESENT: moist, tongue midline Respiratory exam: PRESENT: clear to auscultation jemima, symmetrical, unlabored. ABSENT: rales, rhonchi, wheezes Cardiovascular exam: PRESENT: RRR, +S1, +S2. ABSENT: diastolic murmur, rubs, systolic murmur Pulses: PRESENT: normal dorsalis pedis pul Vascular exam: PRESENT: normal capillary refill GI/Abdominal exam: PRESENT: normal bowel sounds, soft, tenderness. ABSENT: distended, guarding, mass, organolmegaly, rebound Rectal exam: PRESENT: deferred Extremities exam: PRESENT: full ROM. ABSENT: calf tenderness, clubbing, pedal edema Musculoskeletal exam: PRESENT: ambulatory Neurological exam: PRESENT: alert, awake, oriented to person, oriented to place, oriented to time, oriented to situation, CN II-XII grossly intact. ABSENT: motor sensory deficit Psychiatric exam: PRESENT: normal mood, unusual affect. ABSENT: homicidal ideation, suicidal ideation Skin exam: PRESENT: dry, intact, warm. ABSENT: cyanosis, rash Results Laboratory Results: 08/03/19 04:10 08/03/19 04:10 08/03/19 08/03/19 08/03/19 04:10 04:10 04:10 WBC 8.5 RBC 4.02 Hgb 12.8 Hct 37.0 MCV 92 MCH 31.8 MCHC 34.5 RDW 13.8 Plt Count 191 Seg Neutrophils % 78.2 H Sodium 135.2 L Potassium 4.1 Chloride 106 Carbon Dioxide 19 L Anion Gap 10 BUN 7 Creatinine 0.52 Est GFR ( Amer) > 60 Glucose 103 Calcium 6.7 L* Total Bilirubin 1.0 AST 17 Alkaline Phosphatase 58 Total Protein 5.7 L Albumin 2.9 L Triglycerides 650 H Cholesterol 297.54 H LDL Cholesterol Direct 51 HDL Cholesterol 37 L Lipase 2135.8 H Impressions: Acute Abdomen Series 08/01/19 21:45 IMPRESSION: Proximal end of a right ureteral stent is at the expected proximal right ureter, L2 level. Abdomen/Pelvis CT 08/02/19 01:08 IMPRESSION: 1. Findings consistent with acute pancreatitis without definite complication of pancreatitis noted at this time. 2. Some likely distal slippage of the right ureteral stent with no right hydronephrosis or residual ureteral stone noted. 3. 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 Would recommend follow-up pelvic MRI with contrast and if this is not surgically removed would recommend ultrasound follow-up yearly. Assessment and Plan - Diagnosis (1) Pancreatitis, acute Qualifiers: Pancreatitis type: unspecified pancreatitis type Is this a current diagnosis for this admission?: Yes Plan: Likely secondary to triglyceridemia. Lipase trending up to 1999. Patient is admitted to the medical floor. Continue generous IV fluids. Currently n.p.o. with sips of water and ice chips as needed. Analgesics and antiemetics as needed. Start fenofibrate when tolerating p.o. (2) Bipolar 1 disorder Is this a current diagnosis for this admission?: Yes Plan: Continue outpatient Klonopin Requested mental health consultation; unfortunately, patient declined to speak with provider. (3) Fecal impaction Is this a current diagnosis for this admission?: Yes Plan: Resolved with enemas. Review of CT imaging shows that her fecal material is rather high in the colon; do not believe that fleets enemas will be effective. We will try twice daily Colace, MiraLAX daily. Continue IV fluids. Encourage ambulation. Judicious use of narcotics. (4) Hyperkalemia Is this a current diagnosis for this admission?: Yes Plan: Resolved. Management of constipation as above. Continue IV fluids. Follow-up chemistry. (5) High triglycerides Is this a current diagnosis for this admission?: Yes Plan: Lifestyle modification dietary discretion advised. Cardiac diet appropriate. Fenofibrate and tolerating p.o. - Time Time Spent with patient: 25-34 minutes Medications reviewed and adjusted accordingly: Yes Anticipated discharge: Home Within: within 72 hours
[2019-08-03] MEDS ORDERED: HALOPERIDOL LACTATE INJ 5 MG/1 ML VIAL IV ONE (23:45)
[2019-08-04] MEDS: HYDROMORPHONE HCL INJ/PF 2 MG/ML AMPULE IV PRN ×4 (01:14→07:37)
[2019-08-04] MEDS: HEPARIN SOD (PORCINE) 5,000 UNIT/ML 1 ML VIAL SUBCUT SCH ×3 (05:06→21:45)
[2019-08-04] MEDS: NORMAL SALINE 1000 ML 1,000 ML IV PRN ×2 (05:12→10:13)
[2019-08-04 06:34] LABS: HEMATOCRIT 31.3 % (36.0-47.0); HEMOGLOBIN 10.8 g/dL (12.0-15.5); MEAN CORPUSCULAR HEMOGLOBIN 31.7 pg (27.0-33.4); MEAN CORPUSCULAR HGB CONC 34.4 g/dL (32.0-36.0); MEAN CORPUSCULAR VOLUME 92 fl (80-97); PLATELET COUNT 171 10^3/uL (150-450); RED BLOOD COUNT 3.39 10^6/uL (3.72-5.28); RED CELL DISTRIBUTION WIDTH 13.9 % (11.5-14.0); WHITE BLOOD COUNT 8.6 10^3/uL (4.0-10.5)
[2019-08-04 06:55] LABS: ANION GAP 9 (5-19); BLOOD UREA NITROGEN 4 mg/dL (7-20); CALCIUM 7.4 mg/dL (8.4-10.2); CARBON DIOXIDE 20 mmol/L (22-30); CHLORIDE 107 mmol/L (98-107); GLUCOSE 98 mg/dL (75-110); POTASSIUM 3.7 mmol/L (3.6-5.0)
[2019-08-04] MEDS: KETOROLAC TROMETHAMINE INJ/PF 30 MG/1 ML SDV IV PRN (07:42)
[2019-08-04] MEDS: MAGNESIUM HYDROXIDE SUSP 30 ML UDCUP PO PRN (07:42)
[2019-08-04] MEDS ORDERED: HYDROMORPHONE HCL INJ/PF 2 MG/ML AMPULE IV PRN (08:04)
[2019-08-04] MEDS ORDERED: LACTULOSE SYRUP 20 GM/30 ML UDCUP PO ONE (08:30)
[2019-08-04] MEDS ORDERED: BISACODYL 10 MG SUPP.RECT PR ONE (09:00)
[2019-08-04] MEDS: HYDROCODONE/ACETAMINOPHEN 5-325 MG TABLET PO PRN ×4 (10:08→23:35)
[2019-08-04] MEDS: CALCIUM CARBONATE 250 MG/VITAMIN D3 125 UNIT TABLET PO SCH (10:08)
[2019-08-04] MEDS: DOCUSATE SODIUM 100 MG CAPSULE PO SCH ×3 (10:09→18:22)
[2019-08-04] MEDS: FENOFIBRATE NANOCRYSTALLIZED 145 MG TABLET PO SCH (10:09)
[2019-08-04] MEDS: TAMSULOSIN HCL 0.4 MG CAP.SR.24H PO SCH (10:18)
[2019-08-04] MEDS ORDERED: NORMAL SALINE 1000 ML 1,000 ML IV PRN (11:38)
[2019-08-04] MEDS ORDERED: MAGNESIUM CITRATE 296 ML BOTTLE PO ONE (12:30)
[2019-08-04] MEDS ORDERED: DICYCLOMINE HCL 20 MG TABLET PO PRN (14:40)
--- NOTE | 2019-08-04 14:42 | RADIOLOGY REPORT (SQ) ---
EXAM DESCRIPTION: U/S RETROPERITON (RENAL/AORTA) COMPLETED DATE/TIME: 08/04/2019 12:13 am REASON FOR STUDY: Hydronephrosis COMPARISON: CT abdomen pelvis 08/02/2019 Bilateral renal ultrasound 07/20/2019 TECHNIQUE: Dynamic and static grayscale images acquired of the kidneys and bladder and recorded on P ACS. Additional selected color Doppler and spectral images recorded. LIMITATIONS: None. FINDINGS: RIGHT KIDNEY: Normal size, 11.4 cm in length. Normal echogenicity. No solid or suspicious masses. No hydronephrosis. No calcifications. Proximal right renal stent is difficult to visualize LEFT KIDNEY: Normal size. , 11.2 cm in length Normal echogenicity. No solid or suspicious masses. N o hydronephrosis. No calcifications. BLADDER: No masses. A distal right ureteral stent is seen in the urinary bladder OTHER FINDINGS: No other significant finding. IMPRESSION: No hydronephrosis Distal aspect of the right double-J stent is seen in the bladder. TECHNICAL DOCUMENTATION: JOB ID: [id number] [employer]- All Rights Reserved Reading location - IP/workstation name: [email or web address]
[2019-08-04] MEDS: IBUPROFEN 600 MG TABLET PO PRN (15:01)
--- NOTE | 2019-08-04 16:12 | PDOC PROGRESS REPORT ---
Subjective Progress Note for:: 08/04/19 Subjective:: NAHID MENDOZA is a 34 year old female with a past medical history of nephrolithiasis and bipolar who was admitted 08/02/2019 for acute pancreatitis. Patient was seen on morning rounds with her parents present. She was found sitting up in the bed on room air. She reports continued left flank pain and generalized abdominal discomfort described as "cramping." She reports constipation; requesting additional enemas for relief. She also reports concern that she can no longer feel the strings to her ureter stent. She also reports increased appetite and requests to advance diet today. She denies fever, chills, chest pain, palpitations, dyspnea, orthopnea, cough, n ausea, vomiting, and dysuria. She has no other questions or concerns at this time. No concerns per nursing. Reason For Visit: ACUTE PANCREATITIS,CONSTIPATION,BIPOLAR Physical Exam Vital Signs: Temp Pulse Resp BP Pulse Ox 97.8 F 105 H 16 114/65 94 08/04/19 11:27 08/04/19 11:27 08/04/19 11:27 08/04/19 11:27 08/04/19 11:27 Intake & Output 08/03/19 08/04/19 08/05/19 06:59 06:59 06:59 Intake Total 2230 2580 1000 Output Total 400 Balance 2230 2180 1000 Weight 73.9 kg 77.5 kg General appearance: PRESENT: no acute distress, cooperative, obese, well- developed, well-nourished Head exam: PRESENT: atraumatic, normocephalic Eye exam: PRESENT: conjunctiva pink, EOMI, PERRLA. ABSENT: scleral icterus Ear exam: PRESENT: normal external ear exam Mouth exam: PRESENT: moist, tongue midline Respiratory exam: PRESENT: clear to auscultation jemima, symmetrical, unlabored. ABSENT: rales, rhonchi, wheezes Cardiovascular exam: PRESENT: RRR, +S1, +S2. ABSENT: diastolic murmur, rubs, systolic murmur Pulses: PRESENT: normal dorsalis pedis pul Vascular exam: PRESENT: normal capillary refill GI/Abdominal exam: PRESENT: normal bowel sounds, soft, tenderness, other - Rotund. ABSENT: distended, guarding, mass, organolmegaly, rebound Rectal exam: PRESENT: deferred Extremities exam: PRESENT: full ROM. ABSENT: calf tenderness, clubbing, pedal edema Neurological exam: PRESENT: alert, awake, oriented to person, oriented to place, oriented to time, oriented to situation, CN II-XII grossly intact. ABSENT: motor sensory deficit Psychiatric exam: PRESENT: agitated, unusual affect. ABSENT: homicidal ideation, suicidal ideation Skin exam: PRESENT: dry, intact, warm. ABSENT: cyanosis, rash Results Laboratory Results: 08/04/19 05:56 08/04/19 05:56 08/04/19 08/04/19 05:56 05:56 WBC 8.6 RBC 3.39 L Hgb 10.8 L Hct 31.3 L MCV 92 MCH 31.7 MCHC 34.4 RDW 13.9 Plt Count 171 Sodium 135.6 L Potassium 3.7 Chloride 107 Carbon Dioxide 20 L Anion Gap 9 BUN 4 L Creatinine 0.45 L Est GFR ( Amer) > 60 Glucose 98 Calcium 7.4 L Lipase 793.6 H Impressions: Acute Abdomen Series 08/01/19 21:45 IMPRESSION: Proximal end of a right ureteral stent is at the expected proximal right ureter, L2 level. Abdomen/Pelvis CT 08/02/19 01:08 IMPRESSION: 1. Findings consistent with acute pancreatitis without definite complication of pancreatitis noted at this time. 2. Some likely distal slippage of the right ureteral stent with no right hydronephrosis or residual ureteral stone noted. 3. 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 Would recommend follow-up pelvic MRI with contrast and if this is not surgically removed would recommend ultrasound follow-up yearly. Renal Ultrasound 08/03/19 00:00 IMPRESSION: No hydronephrosis Distal aspect of the right double-J stent is seen in the bladder. Assessment and Plan - Diagnosis (1) Pancreatitis, acute Qualifiers: Pancreatitis type: unspecified pancreatitis type Is this a current diagnosis for this admission?: Yes Plan: Improved. Likely secondary to triglyceridemia. Lipase 2000-> 700 Patient is admitted to the medical floor. Continue generous IV fluids. Advance to soft, low residue diet. Analgesics and antiemetics as needed. Start fenofibrate when tolerating p.o. (2) Bipolar 1 disorder Is this a current diagnosis for this admission?: Yes Plan: Continue outpatient Sy[facility] Requested mental health consultation; unfortunately, patient declined to speak with provider. (3) Fecal impaction Is this a current diagnosis for this admission?: Yes Plan: Resolved Review of CT imaging shows that her fecal material is rather high in the colon; do not believe that fleets enemas will be effective. (4) Hyperkalemia Is this a current diagnosis for this admission?: Yes Plan: Resolved. Management of constipation as above. Continue IV fluids. Follow-up chemistry. (5) High triglycerides Is this a current diagnosis for this admission?: Yes Plan: Lifestyle modification dietary discretion advised. Cardiac diet appropriate. Fenofibrate and tolerating p.o. (6) Ureteral stent displacement Qualifiers: Encounter type: initial encounter Qualified Code(s): T83.122A - Displacement of indwelling ureteral stent, initial encounter Is this a current diagnosis for this admission?: Yes Plan: Patient is concerned that she can no longer fill her ureter stent strings. Initial CT showed possible dislodgment of right ureter stent. Renal ultrasound obtained last night was negative for hydronephrosis, shows the distal stent in the urinary bladder, but is unable to verify location of the proximal stent. Discussed with Dr. Smiley; we will obtain CT of the abdomen to definitively verify placement. - Time Time Spent with patient: 25-34 minutes Medications reviewed and adjusted accordingly: Yes Anticipated discharge: Home Within: within 24 hours
[2019-08-04] MEDS ORDERED: HALOPERIDOL LACTATE INJ 5 MG/1 ML VIAL IV ONE (18:00)
[2019-08-04] MEDS: CLONAZEPAM 1 MG TABLET PO PRN (18:22)
--- NOTE | 2019-08-04 20:29 | RADIOLOGY REPORT (SQ) ---
EXAM DESCRIPTION: CT ABDOMEN PELVIS WITHOUT IV CONTRAST COMPLETED DATE/TME: 08/04/2019 00:00 CLINICAL HISTORY: 34 years, Female, verify ureter stent placement COMPARISON: Prior CT from 08/02/2018 TECHNIQUE: Noncontrast CT of the abdomen/pelvis was performed. Coronal and sagittal reformations were created. Images stored on PACS. All CT scanners at this facility use dose modulation, iterative reconstruction, and/or weight based dosing when appropriate to reduce radiation dose to as low as reasonably achievable (ALARA). [facility]: Dose Right [facility]: CareDose [facility]: Dose Right [facility]: Teradose 4D [facility]: High Fidelity LIMITATIONS: None. FINDINGS: Limited evaluation of the lower chest reveals small bilateral pleural effusions with patchy groundglass opacity as well as multifocal bandlike opacities about both lower lobes. This is new from the previous exam dated 08/02/2019. Evaluation of the liver parenchyma reveals a low-density lesion located within the left hepatic lobe on image 26 of series 2 measuring 1.5 x 1.4 cm in size. This is unchanged from the previous exam dated 07/20/2019, and most likely corresponds to a benign lesion such as a hemangioma or focal nodular hyperplasia given its appearance on the previous contrast-enhanced exam dated 08/02/2018. Remainder of the liver appears normal in its noncontrast appearance. Spleen and both adrenal glands appear normal. The pancreas is diffusely edematous, demonstrating significant peripancreatic inflammatory stranding. Fluid extends inferiorly along the bilateral anterior pararenal spaces. There has been interval placement of an internal nephroureteral stent on the right. The proximal pigtail of the stent is located within the proximal right ureter as opposed to the renal pelvis. Left kidney appears normal in its noncontrast appearance. No significant hydroureter. The urinary bladder is partially collapsed. Uterus shows no suspicious abnormality. Neither ovary is well visualized though there is a fat density lesion located in the region of the right adnexa on image 77 of series 2 measuring 1.8 x 1.9 and size, unchanged from the previous exams. Small and large bowel are normal in caliber. No evidence of bowel obstruction. Appendix is not visualized. Vascular structures are normal in their noncontrast appearance. No suspicious lymphadenopathy is appreciated. A small amount of free fluid layers dependently within the pelvis. There is diffuse anasarca. Bone windows show no destructive osseous lesions. IMPRESSION: Findings are consistent with acute pancreatitis. Right-sided nephroureteral stent in position. The proximal pigtail of the stent is located within the proximal right ureter, however. This is unchanged from 08/02/2019. Stable appearance of right adnexal dermoid. Recommend pelvic MRI w/IV contrast. If not surgically resected, pelvic US follow-up annually. Reference: J Am William Radiol 2013;10:675-681 Small amount of diffuse free fluid throughout the abdomen/pelvis. Small bilateral pleural effusions with associated bibasilar bandlike consolidative opacity, most likely indicating atelectasis. Superimposed groundglass opacity could indicate an underlying infectious/inflammatory process. TECHNICAL DOCUMENTATION: Quality ID # [id number]: Final reports with documentation of one or more dose reduction techniques (e.g., Automated exposure control, adjustment of the mA and/or kV according to patient size, use of iterative reconstruction technique) copyright 2011 [employer]- All Rights Reserved
[2019-08-04] MEDS: HYDROMORPHONE HCL INJ/PF 2 MG/ML AMPULE IM PRN (21:43)
[2019-08-05 01:03] VITALS: BP 114/67
[2019-08-05] MEDS: HYDROMORPHONE HCL INJ/PF 2 MG/ML AMPULE IM PRN (01:50)
[2019-08-05] MEDS: IBUPROFEN 600 MG TABLET PO PRN (02:04)
[2019-08-05 03:26] LABS: HEMATOCRIT 30.7 % (36.0-47.0); HEMOGLOBIN 10.5 g/dL (12.0-15.5); MEAN CORPUSCULAR HEMOGLOBIN 31.3 pg (27.0-33.4); MEAN CORPUSCULAR HGB CONC 34.3 g/dL (32.0-36.0); MEAN CORPUSCULAR VOLUME 91 fl (80-97); PLATELET COUNT 200 10^3/uL (150-450); RED BLOOD COUNT 3.37 10^6/uL (3.72-5.28); WHITE BLOOD COUNT 10.7 10^3/uL (4.0-10.5)
[2019-08-05] MEDS: HYDROCODONE/ACETAMINOPHEN 5-325 MG TABLET PO PRN (03:40)
[2019-08-05] MEDS: CLONAZEPAM 1 MG TABLET PO PRN (03:40)
[2019-08-05 03:47] LABS: ANION GAP 8 (5-19); BLOOD UREA NITROGEN 3 mg/dL (7-20); CALCIUM 8.1 mg/dL (8.4-10.2); CARBON DIOXIDE 22 mmol/L (22-30); CHLORIDE 106 mmol/L (98-107); GLUCOSE 102 mg/dL (75-110); POTASSIUM 3.5 mmol/L (3.6-5.0)
--- NOTE | 2019-08-05 07:49 | Left Against Medical Advice ---
Against Medical Advice Admission Date/Time: 08/02/19 04:44 Primary Care Provider: EVELYN MI MD Date of Patient Emigration: 08/05/19 - Diagnosis: (1) Pancreatitis, acute Is this a current diagnosis for this admission?: Yes (2) Bipolar 1 disorder Is this a current diagnosis for this admission?: Yes (3) Fecal impaction Is this a current diagnosis for this admission?: Yes (4) Hyperkalemia Is this a current diagnosis for this admission?: Yes (5) High triglycerides Is this a current diagnosis for this admission?: Yes (6) Ureteral stent displacement Is this a current diagnosis for this admission?: Yes - Summary: Summary: Please see Admission and Progress Notes as well. NAHID MENDOZA is a 34 F, who LEFT AGAINST MEDICAL ADVICE. The Patient was admitted on 08/02/19 04:44. The patient was admitted for abdominal discomfort secondary to acute pancreatitis and constipation. She was provided standard protocol of n.p.o. status, generous IV fluids, antiemetics and analgesics as needed. She was treated with an aggressive bowel regiment resulting in resolution of her constipation. Lipase trended down and diet was slowly advanced. Patient continued to have reports of severe abdominal discomfort. Therefore, follow-up CT imaging was obtained. CT of the abdomen demonstrated acute pancreatitis but without pseudocyst or necrosis. No other acute findings. She was educated on importance of dietary compliance; however, she continued to be noncompliant with family members bringing food from outside. The patient left AGAINST MEDICAL ADVICE on 08/05/2019.
== END 2019-08-05 04:44 | disposition left against medical advice (07) | DRG 439 ==
LOC: ER 17:30 → EH 08-02 04:44 → 4W 08-02 09:54
PROVIDERS: ADMIT Internal Medicine; ATTEND Internal Medicine
DX: K85.90 Acute pancreatitis without necrosis or infection, unspecified (principal); T83.122A Displacement of indwelling ureteral stent, initial encounter; F31.9 Bipolar disorder, unspecified; K56.41 Fecal impaction; E87.5 Hyperkalemia; E78.1 Pure hyperglyceridemia; F41.9 Anxiety disorder, unspecified; F43.10 Post-traumatic stress disorder, unspecified; E66.9 Obesity, unspecified; K58.9 Irritable bowel syndrome, unspecified; F17.200 Nicotine dependence, unspecified, uncomplicated; Z53.29 Procedure and treatment not carried out because of patient's decision for other reasons; Z68.29 Body mass index [BMI] 29.0-29.9, adult; Z88.6 Allergy status to analgesic agent; Z88.1 Allergy status to other antibiotic agents; Z88.0 Allergy status to penicillin; Z88.8 Allergy status to other drugs, medicaments and biological substances
CPT/HCPCS: 36415; 74022; 74176; 74177; 76770; 80048; 80053; 80061; 80307; 81001; 81025; 82962; 83036; 83690; 85025; 85027; 87070; 96361; 96374; 96375; 99285; J1170; J1885; J2405; J2765; J3490; J7030

== ENCOUNTER 2019-08-05 17:03 | Emergency (ER) | payer MEDICAID ==
[2019-08-05] MEDS ORDERED: HYDROCODONE/ACETAMINOPHEN 10-325 MG TABLET PO ONE (17:55)
[2019-08-05] MEDS ORDERED: NORMAL SALINE 1000 ML 1,000 ML IV ONE ×2 (17:57→22:46)
[2019-08-05 18:26] LABS: ABSOLUTE BASOPHILS # (AUTO) 0.1 10^3/uL (0.0-0.2); ABSOLUTE EOSINOPHILS # (AUTO) 0.2 10^3/uL (0.0-0.6); ABSOLUTE LYMPHOCYTES (AUTO) 0.9 10^3/uL (0.5-4.7); ABSOLUTE MONOCYTES (AUTO) 1.5 10^3/uL (0.1-1.4); ABSOLUTE NEUT (AUTO) 10.5 10^3/uL (1.7-8.2); BASOPHILS % (AUTO) 0.4 % (0-2); EOSINOPHILS % (AUTO) 1.2 % (0-6); HEMATOCRIT 31.3 % (36.0-47.0); HEMOGLOBIN 10.6 g/dL (12.0-15.5); LYMPHOCYTES % (AUTO) 7.2 % (13-45); MEAN CORPUSCULAR HEMOGLOBIN 30.8 pg (27.0-33.4); MEAN CORPUSCULAR HGB CONC 33.7 g/dL (32.0-36.0); MEAN CORPUSCULAR VOLUME 91 fl (80-97); MONOCYTES % (AUTO) 11.5 % (3-13); PLATELET COUNT 236 10^3/uL (150-450); RED BLOOD COUNT 3.43 10^6/uL (3.72-5.28); RED CELL DISTRIBUTION WIDTH 14.2 % (11.5-14.0); SEGMENTED NEUTROPHILS % (AUTO) 79.7 % (42-78); TOTAL CELLS COUNTED % (AUTO) 100 %; WHITE BLOOD COUNT 13.2 10^3/uL (4.0-10.5)
[2019-08-05] MEDS ORDERED: METOCLOPRAMIDE HCL INJ/PF 10 MG/2 ML SDV IV ONE ×2 (18:26→21:30)
--- NOTE | 2019-08-05 18:27 | ER Document Report ---
ED Medical Screen (RME) - General Chief Complaint: Abdominal Pain Stated Complaint: PAIN Time Seen by Provider: 08/05/19 17:50 Primary Care Provider: EVELYN MI MD [Primary Care Provider] - Follow up as needed Notes: Is a 34-year-old female who presents to the emergency department with a chief complaint of upper abdominal pain. She was diagnosed and admitted for pancreatitis, but she ended up leaving AGAINST MEDICAL ADVICE this morning. She states that they were not controlling her pain and that is why she left AMA. She also has had a stent placed in her ureter this past week. She had this done outpatient. Patient states that she cannot feel the strings from her ureteral stent. Exam: Very tender abdomen. Bloated. She will receive [place] since there is no room available at this time. I have greeted and performed a rapid initial assessment of this patient. A comprehensive ED assessment and evaluation of the patient, analysis of test results and completion of medical decision making process will be conducted by an additional ED providers. TRAVEL OUTSIDE OF THE [place] IN LAST 30 DAYS: No - Related Data Allergies/Adverse Reactions: cephalexin monohydrate [From Keflex] Allergy (Severe, Verified 08/05/19 17:37) Anaphylaxis codeine [Codeine] Allergy (Severe, Verified 08/05/19 17:37) Anaphylaxis Penicillins Allergy (Severe, Verified 08/05/19 17:37) Anaphylaxis diphenhydramine HCl [From Benadryl] Adverse Reaction (Verified 08/05/19 17:37) morphine Adverse Reaction (Verified 08/05/19 17:37) prochlorperazine maleate [From Compazine] Adverse Reaction (Verified 08/05/19 17:37) Past Medical History - Social History Chew tobacco use (# tins/day): No Frequency of alcohol use: None Drug Abuse: None Renal/ Medical History: Reports: Hx Kidney Stones, Hx Ovarian Cysts. Denies: Hx Peritoneal Dialysis GI Medical History: Reports: Hx Irritable Bowel Musculoskeltal Medical History: Reports Hx Musculoskeletal Deformity Psychiatric Medical History: Reports: Hx Anxiety, Hx Bipolar Disorder, Hx D epression - ANXIETY, Hx Post Traumatic Stress Disorder Past Surgical History: Reports: Hx Appendectomy, Hx Section, Hx Cholecystectomy, Hx Myringotomy - Immunizations Immunizations up to date: Yes Hx Diphtheria, Pertussis, Tetanus Vaccination: Yes Physical Exam - Vital signs Vitals: Temp Pulse Resp BP Pulse Ox 98.5 F 119 H 16 114/66 97 08/05/19 17:09 08/05/19 17:09 08/05/19 17:09 08/05/19 17:09 08/05/19 17:09 Course - Vital Signs Vital signs: Temp Pulse Resp BP Pulse Ox 98.5 F 119 H 16 114/66 97 08/05/19 17:09 08/05/19 17:09 08/05/19 17:09 08/05/19 17:09 08/05/19 17:09 - Laboratory Result Diagrams: 08/05/19 18:05 08/05/19 18:05 Doctor's Discharge - Discharge Referrals: EVELYN MI MD [Primary Care Provider] - Follow up as needed
[2019-08-05 18:44] LABS: ALKALINE PHOSPHATASE 72 U/L (38-126); ANION GAP 9 (5-19); ASPARTATE AMINO TRANSFERASE 17 U/L (14-36); BILIRUBIN,DIRECT 0.2 mg/dL (0.0-0.4); BILIRUBIN,TOTAL 0.8 mg/dL (0.2-1.3); BLOOD UREA NITROGEN 3 mg/dL (7-20); CALCIUM 8.7 mg/dL (8.4-10.2); CARBON DIOXIDE 24 mmol/L (22-30); CHLORIDE 103 mmol/L (98-107); GLUCOSE 97 mg/dL (75-110); POTASSIUM 3.3 mmol/L (3.6-5.0); TOTAL PROTEIN 5.8 g/dL (6.3-8.2)
[2019-08-05] MEDS ORDERED: HYDROMORPHONE HCL INJ/PF 2 MG/ML AMPULE IV ONE (21:08)
--- NOTE | 2019-08-05 21:08 | ER Document Report ---
ED GI/ - General Chief Complaint: Abdominal Pain Stated Complaint: PAIN Time Seen by Provider: 08/05/19 17:50 Primary Care Provider: EVELYN MI MD [Primary Care Provider] - Follow up as needed Notes: Patient is a 34-year-old female that comes emergency department for chief complaint of abdominal pain and abdominal swelling. Patient had been hospitalized here for pancreatitis on 08/02/2019, she states that this morning instead of being discharged she ripped out her IV and left this morning because she was getting shots of Dilaudid instead of IV and she was upset about her food/diet. Patient states that she was also cat scanned yesterday and she did not get the results and now she is worried that her ureteral stent might have shifted, there might be something concerning the wrong with her pancreas that had progressed, or there could be another abnormality. Patient had initially been admitted for pancreatitis, fecal impaction, lipase was trended down, she was treated for the fecal impaction with lactulose. Patient states she had a bowel movement today. Patient states that after she went home she was able to eat and she has not vomited but she does state that her swelling in the abdomen and her pain are persistent. She follows with [facility] urology. She denies fever/chills, denies any other complaints at this time. Past medical history includes appendectomy, cholecystectomy, bipolar, PTSD along with kidney stones. TRAVEL OUTSIDE OF THE [place] IN LAST 30 DAYS: No - Related Data Allergies/Adverse Reactions: cephalexin monohydrate [From Keflex] Allergy (Severe, Verified 08/05/19 17:37) Anaphylaxis codeine [Codeine] Allergy (Severe, Verified 08/05/19 17:37) Anaphylaxis Penicillins Allergy (Severe, Verified 08/05/19 17:37) Anaphylaxis diphenhydramine HCl [From Benadryl] Adverse Reaction (Verified 08/05/19 17:37) morphine Adverse Reaction (Verified 08/05/19 17:37) prochlorperazine maleate [From Compazine] Adverse Reaction (Verified 08/05/19 17:37) Past Medical History - General Information source: Patient - Social History Smoking Status: Current Every Day Smoker Chew tobacco use (# tins/day): No Frequency of alcohol use: None Drug Abuse: None Lives with: Family Family History: DM, Hypertension Patient has suicidal ideation: No Patient has homicidal ideation: No Renal/ Medical History: Reports: Hx Kidney Stones, Hx Ovarian Cysts. Denies: Hx Peritoneal Dialysis GI Medical History: Reports: Hx Irritable Bowel Musculoskeletal Medical History: Reports Hx Musculoskeletal Deformity Psychiatric Medical History: Reports: Hx Anxiety, Hx Bipolar Disorder, Hx Depression - ANXIETY, Hx Post Traumatic Stress Disorder Past Surgical History: Reports: Hx Appendectomy, Hx Section, Hx Cholecystectomy, Hx Myringotomy - Immunizations Immunizations up to date: Yes Hx Diphtheria, Pertussis, Tetanus Vaccination: Yes Review of Systems - Review of Systems Constitutional: No symptoms reported EENT: No symptoms reported Cardiovascular: No symptoms reported Respiratory: No symptoms reported Gastrointestinal: See HPI Genitourinary: See HPI Female Genitourinary: No symptoms reported Musculoskeletal: No symptoms reported Skin: No symptoms reported Hematologic/Lymphatic: No symptoms reported Neurological/Psychological: No symptoms reported Physical Exam - Vital signs Vitals: Temp Pulse Resp BP Pulse Ox 98.5 F 119 H 16 114/66 97 08/05/19 17:09 08/05/19 17:09 08/05/19 17:09 08/05/19 17:09 08/05/19 17:09 - Notes Notes: GENERAL: Alert, interacts well. No acute distress. Extremely talkative HEAD: Normocephalic, atraumatic. EYES: Pupils equal, round, and reactive to light. Extraocular movements intact. ENT: Oral mucosa moist, tongue midline. Oropharynx unremarkable. Airway patent. NECK: Full range of motion. Supple. Trachea midline. LUNGS: Clear to auscultation bilaterally, no wheezes, rales, or rhonchi. No respiratory distress. HEART: Borderline tachycardic, normal rhythm, no murmur ABDOMEN: Soft and nontender without guarding or rigidity. Questionable minimal distention. Bowel sounds present throughout. GENITOURINARY: Deferred EXTREMITIES: Moves all 4 extremities spontaneously. No edema, normal radial and dorsalis pedis pulses bilaterally. No cyanosis. BACK: no cervical, thoracic, lumbar midline tenderness. No saddle anesthesia, normal distal neurovascular exam. Moves all extremities in full range of motion. NEUROLOGICAL: Alert and oriented x3. Normal speech. Cranial nerves II through XII grossly intact. PSYCH: Normal affect, normal mood. Persistently talking SKIN: Warm, dry, normal turgor. No rashes or lesions noted. Course - Re-evaluation Re-evalutation: Patient's abdomen does seem bloated but it is actually soft, there is no wincing, it is actually benign. Bowel sounds present. Patient talkative, animated, well-appearing. She was initially tachycardic. CBC does show leukocytosis at 13 with elevation of neutrophils but no bandemia. Chemistry nonspecific, lipase is not concerning with lipase level of only 308 (previously 1800 on previous admission). CAT scan from yesterday reviewed, ureteral stent still in place, acute pancreatitis was noted but no complication, dermoid noted, atelectasis noted. Patient with clear lungs, no cough, no fever, no shortness of breath. X-ray from today unremarkable without bowel obstruction, on my review does show some retained stool, lungs unremarkable. Urinalysis borderline especially with a stent in place, culture was placed, patient has no urinary symptoms. On re- evaluation patient walking around the room, well-appearing. I discussed with Dr. Wynn, he recommends patient be treated for pancreatitis with oral pain medication and nausea medication, follow closely with urology, follow-up with [facility] SCIENCE [facility]ESS[facility], and return for worsening symptoms which were discussed at length with patient. Patient does state satisfaction and agreement with this plan, she has been able to tolerate p.o. without any difficulty. She states that hydrocodone actually seems to help the most, she was provided with this at home. - Vital Signs Vital signs: Temp Pulse Resp BP Pulse Ox 98.4 F 108 H 18 100/60 98 08/05/19 23:30 08/05/19 23:30 08/05/19 23:30 08/05/19 23:30 08/05/19 23:30 - Laboratory Result Diagrams: 08/05/19 18:05 08/05/19 18:05 Laboratory results interpreted by me: 08/05/19 08/05/19 08/05/19 18:05 18:05 18:05 WBC 13.2 H RBC 3.43 L Hgb 10.6 L Hct 31.3 L RDW 14.2 H Lymph % (Auto) 7.2 L Absolute Neuts (auto) 10.5 H Absolute Monos (auto) 1.5 H Seg Neutrophils % 79.7 H Sodium 136.1 L Potassium 3.3 L BUN 3 L Creatinine 0.39 L Lactic Acid 0.6 L Total Protein 5.8 L Albumin 3.0 L Lipase 308.2 H Urine Protein Urine Ketones Urine Blood 08/05/19 22:00 WBC RBC Hgb Hct RDW Lymph % (Auto) Absolute Neuts (auto) Absolute Monos (auto) Seg Neutrophils % Sodium Potassium BUN Creatinine Lactic Acid Total Protein Albumin Lipase Urine Protein 30 H Urine Ketones 80 H Urine Blood MODERATE H Discharge - Discharge Clinical Impression: Abdominal pain Qualifiers: Abdominal location: generalized Qualified Code(s): R10.84 - Generalized abdominal pain Condition: Stable Disposition: HOME, SELF-CARE Additional Instructions: Your work-up indicates dehydration, some retained stool, the stent appears to be in the location it is supposed to be. Please follow-up closely with urology for additional management. The pancreatitis was present on the CAT scan but your lipase is significantly improved, this appears to be resolving. Take pain medication if needed, start with clear fluids and bland diet, avoid fatty foods or greasy foods. Symptoms should gradually resolve. I recommend that you take the stool softener as provided as well because of the constipation noted. Take nausea medication if needed. Your imaging on CAT scan also showed a dermoid on the right ovary which is abnormal tissue. It is very important that this is followed and possibly even removed by [facility] SCIENCE PROFESSOR, please follow-up with the WOOD SCIENCE PROFESSOR referral listed below. Failure to do so could result in growth and or even development of cancer tissue. Return if you worsen including vomiting, fever, or any other concerning or worsening symptoms. Prescriptions: Polyethylene Glycol 3350 [Miralax Powder 17 gm/Packet] 1 packet PO DAILY #1 pkg Hydrocodone/Acetaminophen [Ventress 5-325 mg Tablet] 1 - 2 tab PO ASDIR PRN #15 tablet PRN Reason: Ondansetron [Zofran Odt 4 mg Tablet] 1 - 2 tab PO Q4H PRN #15 tab.rapdis PRN Reason: For Nausea/Vomiting Referrals: EVELYN MI MD [Primary Care Provider] - Follow up as needed
--- NOTE | 2019-08-05 21:56 | RADIOLOGY REPORT (SQ) ---
EXAM DESCRIPTION: XR ABDOMEN SUPINE AND ERECT WITH CHEST (ABD ACUTE SERIES) COMPLETED DATE/TME: 08/05/2019 21:07 CLINICAL HISTORY: 34 years, Female, abdominal swelling and pain COMPARISON: None. NUMBER OF VIEWS: TECHNIQUE: LIMITATIONS: None. FINDINGS: No evidence of bowel obstruction. No free air. There is a right-sided ureteral stent. There is mild bibasilar atelectasis. IMPRESSION: No acute finding. copyright 2010 [employer]- All Rights Reserved
[2019-08-05 22:44] LABS: APPEARANCE,URINE SLIGHTLY-CLOUDY; BILIRUBIN,URINE NEGATIVE (NEGATIVE); COLOR,URINE YELLOW; GLUCOSE, URINE NEGATIVE (NEGATIVE); KETONES,URINE 80 mg/dL (NEGATIVE); PROTEIN,URINE 30 mg/dL (NEGATIVE); URINE SPECIFIC GRAVITY 1.016; UROBILINOGEN,URINE NEGATIVE mg/dL (<2.0)
[2019-08-05] MEDS ORDERED: HYDROCODONE/ACETAMINOPHEN 5-325 MG (6 TAB/ER DISP) PO PRN (22:56)
[2019-08-05 23:32] VITALS: BP 100/60
== END 2019-08-05 23:30 | disposition home or self-care (01) ==
LOC: ER 17:03
DX: R10.84 Generalized abdominal pain (principal); R19.00 Intra-abdominal and pelvic swelling, mass and lump, unspecified site; F17.200 Nicotine dependence, unspecified, uncomplicated; Z88.6 Allergy status to analgesic agent; Z88.0 Allergy status to penicillin; Z90.49 Acquired absence of other specified parts of digestive tract; Z87.442 Personal history of urinary calculi
CPT/HCPCS: 99284; 96361; 96374; 96375; 36415; 87086; 83605; 83690; 84703; 87070; 81001; 74022; J2765; J1170; J7030

== ENCOUNTER 2019-08-06 17:26 | Emergency (ER) | payer MEDICAID ==
[2019-08-06 18:06] VITALS: BP 119/63
[2019-08-06] MEDS ORDERED: MAG HYDROX/AL HYDROX/SIMETH SUSP 30 ML UDCUP PO ONE (18:41)
[2019-08-06] MEDS ORDERED: LIDOCAINE 2% VISCOUS SOLN 20 ML UDCUP PO ONE (18:41)
--- NOTE | 2019-08-06 18:46 | ER Document Report ---
ED Medical Screen (RME) - General Chief Complaint: Abdominal Pain Stated Complaint: ABDOMINAL PAIN,NAUSEA,VOMITING Time Seen by Provider: 08/06/19 18:33 Primary Care Provider: EVELYN MI MD [Primary Care Provider] - Follow up as needed Notes: Patient is a 34-year-old female with a history of pancreatitis who presents to the emergency department with a chief complaint of worsening upper abdominal pain. Patient reports she was seen here last night and given a prescription for Percocet. Patient reports within the past hour she has had three 5 mg percocets without relief. Patient reports she was admitted here at the hospital last Tuesday for pancreatitis and left AGAINST MEDICAL ADVICE because her pain was not controlled. Patient reports since then she has been seen at [facility] and here last night. Patient reports she has vomited 3 times today. Patient reports she feels very bloated. Patient reports she has been having diarrhea and passing stool. Patient reports she has had a minerva, appy, and c- section. TRAVEL OUTSIDE OF THE [place] IN LAST 30 DAYS: No - Related Data Allergies/Adverse Reactions: cephalexin monohydrate [From Keflex] Allergy (Severe, Verified 08/06/19 18:30) Anaphylaxis codeine [Codeine] Allergy (Severe, Verified 08/06/19 18:30) Anaphylaxis Penicillins Allergy (Severe, Verified 08/06/19 18:30) Anaphylaxis metoclopramide [From Reglan] Allergy (Verified 08/06/19 18:30) diphenhydramine HCl [From Benadryl] Adverse Reaction (Verified 08/06/19 18:30) morphine Adverse Reaction (Verified 08/06/19 18:30) prochlorperazine maleate [From Compazine] Adverse Reaction (Verified 08/06/19 18:30) Home Medications: Klonipine Past Medical History - Social History Frequency of alcohol use: None Drug Abuse: None Renal/ Medical History: Reports: Hx Kidney Stones, Hx Ovarian Cysts. Denies: Hx Peritoneal Dialysis GI Medical History: Reports: Hx Irritable Bowel Musculoskeltal Medical History: Reports Hx Musculoskeletal Deformity Psychiatric Medical History: Reports: Hx Anxiety, Hx Bipolar Disorder, Hx Depression - ANXIETY, Hx Post Traumatic Stress Disorder Past Surgical History: Reports: Hx Appendectomy, Hx Section, Hx Cholecystectomy, Hx Kidney (Renal Surgery) - kidney stent, Hx Myringotomy - Immunizations Immunizations up to date: Yes Hx Diphtheria, Pertussis, Tetanus Vaccination: Yes Physical Exam - Vital signs Vitals: Temp Pulse Resp BP Pulse Ox 98.9 F 110 H 18 119/63 97 08/06/19 18:05 08/06/19 18:05 08/06/19 18:05 08/06/19 18:05 08/06/19 18:05 Course - Re-evaluation Re-evalutation: 08/06/19 18:46 I have greeted and performed a rapid initial assessment of this patient. A comprehensive ED assessment and evaluation of the patient, analysis of test results and completion of the medical decision making process will be conducted by additional ED providers. - Vital Signs Vital signs: Temp Pulse Resp BP Pulse Ox 98.9 F 110 H 18 119/63 97 08/06/19 18:05 08/06/19 18:05 08/06/19 18:05 08/06/19 18:05 08/06/19 18:05 Doctor's Discharge - Discharge Referrals: EVELYN MI MD [Primary Care Provider] - Follow up as needed
[2019-08-06 19:35] LABS: ABSOLUTE BASOPHILS # (AUTO) 0.2 10^3/uL (0.0-0.2); ABSOLUTE EOSINOPHILS # (AUTO) 0.1 10^3/uL (0.0-0.6); ABSOLUTE LYMPHOCYTES (AUTO) 1.3 10^3/uL (0.5-4.7); ABSOLUTE MONOCYTES (AUTO) 1.9 10^3/uL (0.1-1.4); ABSOLUTE NEUT (AUTO) 11.4 10^3/uL (1.7-8.2); BASOPHILS % (AUTO) 1.4 % (0-2); EOSINOPHILS % (AUTO) 0.5 % (0-6); HEMATOCRIT 29.6 % (36.0-47.0); LYMPHOCYTES % (AUTO) 9.1 % (13-45); MEAN CORPUSCULAR HEMOGLOBIN 30.9 pg (27.0-33.4); MEAN CORPUSCULAR HGB CONC 33.9 g/dL (32.0-36.0); MEAN CORPUSCULAR VOLUME 91 fl (80-97); MONOCYTES % (AUTO) 12.5 % (3-13); PLATELET COUNT 265 10^3/uL (150-450); RED BLOOD COUNT 3.24 10^6/uL (3.72-5.28); RED CELL DISTRIBUTION WIDTH 13.9 % (11.5-14.0); SEGMENTED NEUTROPHILS % (AUTO) 76.5 % (42-78); TOTAL CELLS COUNTED % (AUTO) 100 %; WHITE BLOOD COUNT 14.8 10^3/uL (4.0-10.5)
[2019-08-06 20:15] LABS: ALBUMIN 2.9 g/dL (3.5-5.0); ALKALINE PHOSPHATASE 77 U/L (38-126); ANION GAP 12 (5-19); ASPARTATE AMINO TRANSFERASE 16 U/L (14-36); BILIRUBIN,DIRECT 0.3 mg/dL (0.0-0.4); BILIRUBIN,TOTAL 0.6 mg/dL (0.2-1.3); BLOOD UREA NITROGEN 3 mg/dL (7-20); CALCIUM 8.8 mg/dL (8.4-10.2); CARBON DIOXIDE 26 mmol/L (22-30); CHLORIDE 98 mmol/L (98-107); GLUCOSE 94 mg/dL (75-110); TOTAL PROTEIN 5.7 g/dL (6.3-8.2)
[2019-08-06 20:25] LABS: POTASSIUM 2.9 mmol/L (3.6-5.0)
[2019-08-06 20:26] LABS: APPEARANCE,URINE CLEAR; BILIRUBIN,URINE NEGATIVE (NEGATIVE); COLOR,URINE YELLOW; GLUCOSE, URINE NEGATIVE (NEGATIVE); KETONES,URINE 80 mg/dL (NEGATIVE); LEUKOCYTE ESTERASE,URINE NEGATIVE (NEGATIVE); NITRITE,URINE NEGATIVE (NEGATIVE); PROTEIN,URINE NEGATIVE (NEGATIVE); URINE SPECIFIC GRAVITY 1.013; UROBILINOGEN,URINE NEGATIVE mg/dL (<2.0)
[2019-08-06] MEDS ORDERED: POTASSIUM CHLORIDE 10 MEQ TABLET.ER PO ONE (20:29)
--- NOTE | 2019-08-06 20:36 | RADIOLOGY REPORT (SQ) ---
EXAM DESCRIPTION: XR ABDOMEN 1 VIEW (KUB) COMPLETED DATE/TME: 08/06/2019 19:16 CLINICAL HISTORY: 34 years Female ,abdominal pain COMPARISON: 08/04/2019, 08/05/2019. TECHNIQUE: Single view of the abdomen was provided.. FINDINGS:Upper abdomen incompletely included on the image. No dilated loops of bowel to suggest obstruction. Clips in the gallbladder fossa. Double-J nephroureteral stent in place on the right. Probable phleboliths in the pelvis on the left. IMPRESSION: No acute plain film abnormality is identified. Double-J stent on the right
--- NOTE | 2019-08-06 21:39 | ER Document Report ---
ED General - General Chief Complaint: Abdominal Pain Stated Complaint: ABDOMINAL PAIN,NAUSEA,VOMITING Time Seen by Provider: 08/06/19 18:33 Primary Care Provider: EVELYN MI MD [Primary Care Provider] - Follow up as needed TRAVEL OUTSIDE OF THE [place] IN LAST 30 DAYS: No - HPI Notes: Patient is a 34-year-old female who presents emergency department for evaluation of abdominal pain. Is been present intermittently for about a week. She was admitted to the hospital earlier this week with a diagnosis of pancreatitis. She left AGAINST MEDICAL ADVICE, because she stated that the "pain shots were not helping." She left and was seen at another facility, where it was found that her lipase had normalized. She was seen here again, sent home with Percocet. She states that the Percocet is not helping. She describes her pain as a band around her upper abdomen. She has had nausea with 2-3 episodes of nonbloody, nonbilious emesis. Normal bowel movements. She states she had a fever of 101 yesterday. She denies any urinary symptoms. She states her abdomen feels bloated. - Related Data Allergies/Adverse Reactions: cephalexin monohydrate [From Keflex] Allergy (Severe, Verified 08/06/19 18:30) Anaphylaxis codeine [Codeine] Allergy (Severe, Verified 08/06/19 18:30) Anaphylaxis Penicillins Allergy (Severe, Verified 08/06/19 18:30) Anaphylaxis metoclopramide [From Reglan] Allergy (Verified 08/06/19 18:30) diphenhydramine HCl [From Benadryl] Adverse Reaction (Verified 08/06/19 18:30) morphine Adverse Reaction (Verified 08/06/19 18:30) prochlorperazine maleate [From Compazine] Adverse Reaction (Verified 08/06/19 18:30) Home Medications: Klonipine, Percocet Past Medical History - General Information source: Patient - Social History Smoking Status: Current Every Day Smoker Frequency of alcohol use: None Drug Abuse: None Family History: DM, Hypertension Patient has suicidal ideation: No Patient has homicidal ideation: No Renal/ Medical History: Reports: Hx Kidney Stones, Hx Ovarian Cysts. Denies: Hx Peritoneal Dialysis GI Medical History: Reports: Hx Irritable Bowel, Hx Pancreatitis Musculoskeletal Medical History: Reports Hx Musculoskeletal Deformity Psychiatric Medical History: Reports: Hx Anxiety, Hx Bipolar Disorder, Hx Depression - ANXIETY, Hx Post Traumatic Stress Disorder Past Surgical History: Reports: Hx Appendectomy, Hx Section, Hx Cholecystectomy, Hx Kidney (Renal Surgery) - kidney stent, Hx Myringotomy - Immunizations Immunizations up to date: Yes Hx Diphtheria, Pertussis, Tetanus Vaccination: Yes Review of Systems - Review of Systems Constitutional: See HPI EENT: No symptoms reported Cardiovascular: No symptoms reported Respiratory: No symptoms reported Gastrointestinal: See HPI Genitourinary: No symptoms reported Musculoskeletal: No symptoms reported Skin: No symptoms reported Neurological/Psychological: No symptoms reported Physical Exam - Vital signs Vitals: Temp Pulse Resp BP Pulse Ox 98.9 F 110 H 18 119/63 97 08/06/19 18:05 08/06/19 18:05 08/06/19 18:05 08/06/19 18:05 08/06/19 18:05 - Notes Notes: This is a 34-year-old female who appears her stated age in no acute distress. She is intermittently tearful and yelling, but stands up off of the bed without any apparent difficulty. She rubs her abdomen occasionally. Vital signs reviewed, please refer to chart. Head is normocephalic, atraumatic. Pupils equal round, reactive to light. Neck is supple without meningismus. Heart is regular rate and rhythm. Lungs are clear to auscultation bilaterally. Abdomen is obese but soft, globally tender, normoactive bowel sounds throughout. Extremities without cyanosis, clubbing. Posterior calves are nontender. Peripheral pulses are equal. Skin is warm and dry. Patient is awake, alert, neurological exam is nonfocal. Course - Re-evaluation Re-evalutation: 08/06/19 21:35 Patient presents emergency department for evaluation. She laboratory investigations as ordered through triage. This patient has had multiple visits over the last month. She certainly has had some ongoing pain issues, but I do not see anything acute as an etiology for this pain at this time. Her potassium was found to be low, this was orally replaced. Her magnesium was found to be normal. At this point, I will send her home with a prescription for potassium. I explained to the patient that her became needs to be further evaluated, but I did not see any emergent situation at this time. She has had multiple studies and evaluations for this, and I suggest referral on to gastroenterology. Patient was unhappy with this disposition. I explained her I would be happy to treat her with any other medications, but I did not feel that any further narc otics were warranted. Certainly, in light of the fact that 15 mg of oxycodone were not helpful, and IM Dilaudid were not helpful, I do not believe that this is appropriate treatment. Patient became very frustrated and wanted to speak to the charge nurse. I did facilitate this conversation. Otherwise, her abdominal exam is tender but nonsurgical. Her vitals are unremarkable at this time. Her laboratory investigation showed only the hypokalemia which was addressed. I will send her home with Conrad, referral on to gastroenterology. She is to return to the ED with worsening. - Vital Signs Vital signs: Temp Pulse Resp BP Pulse Ox 98.9 F 110 H 18 119/63 97 08/06/19 18:05 08/06/19 18:05 08/06/19 18:05 08/06/19 18:05 08/06/19 18:05 - Laboratory Result Diagrams: 08/06/19 19:13 08/06/19 19:13 Laboratory results interpreted by me: 08/06/19 08/06/19 08/06/19 19:13 19:13 20:08 WBC 14.8 H RBC 3.24 L Hgb 10.0 L Hct 29.6 L Lymph % (Auto) 9.1 L Absolute Neuts (auto) 11.4 H Absolute Monos (auto) 1.9 H Sodium 135.5 L Potassium 2.9 L* BUN 3 L Creatinine 0.41 L Total Protein 5.7 L Albumin 2.9 L Urine Ketones 80 H Urine Blood MODERATE H - Diagnostic Test Radiology reviewed: Image reviewed, Reports reviewed Radiology results interpreted by me: 08/06/19 21:37 KUB X-Ray 08/06/19 19:16 IMPRESSION: No acute plain film abnormality is identified. Double-J stent on the right Discharge - Discharge Clinical Impression: Hypokalemia Abdominal pain Qualifiers: Abdominal location: upper abdomen, unspecified Qualified Code(s): R10.10 - Upper abdominal pain, unspecified Nausea and vomiting Qualifiers: Vomiting type: unspecified Vomiting Intractability: non-intractable Qualified Code(s): R11.2 - Nausea with vomiting, unspecified Condition: Stable Disposition: HOME, SELF-CARE Instructions: Abdominal Pain ([facility]), Vomiting ([facility]) Additional Instructions: No clear emergent cause was found for your symptoms today. Stay hydrated with small, frequent sips of fluids. Zofran as needed for nausea. Follow-up with your primary care provider as well as gastroenterology. Return to the ED with worsening or new concerning symptoms of any sort. Prescriptions: Ondansetron [Zofran Odt 4 mg Tablet] 1 - 2 tab PO Q4H PRN #15 tab.rapdis PRN Reason: For Nausea/Vomiting Referrals: EVELYN MI MD [Primary Care Provider] - Follow up as needed
== END 2019-08-06 22:00 | disposition home or self-care (01) ==
LOC: ER 17:26
DX: R10.10 Upper abdominal pain, unspecified (principal); R11.2 Nausea with vomiting, unspecified; R10.817 Generalized abdominal tenderness; E87.6 Hypokalemia; F41.9 Anxiety disorder, unspecified; Z79.899 Other long term (current) drug therapy; F17.200 Nicotine dependence, unspecified, uncomplicated; Z87.442 Personal history of urinary calculi; Z96.0 Presence of urogenital implants; Z90.49 Acquired absence of other specified parts of digestive tract; Z87.19 Personal history of other diseases of the digestive system; Z87.892 Personal history of anaphylaxis; Z88.1 Allergy status to other antibiotic agents; Z88.6 Allergy status to analgesic agent; Z88.5 Allergy status to narcotic agent; Z88.0 Allergy status to penicillin; Z88.8 Allergy status to other drugs, medicaments and biological substances
CPT/HCPCS: 99284; 36415; 83690; 83735; 84703; 85025; 80053; 81001; 74018; J3490 ×2

== ENCOUNTER 2019-08-16 13:05 | Emergency (ER) | payer MEDICAID ==
[2019-08-16 13:12] VITALS: BP 132/80
--- NOTE | 2019-08-16 14:33 | ER Document Report ---
ED Medical Screen (RME) - General Chief Complaint: Abdominal Pain Stated Complaint: ABDOMINAL PAIN Time Seen by Provider: 08/16/19 13:50 Primary Care Provider: EVELYN MI MD [Primary Care Provider] - Follow up as needed TRAVEL OUTSIDE OF THE [place] IN LAST 30 DAYS: No - HPI Notes: 08/16/19 14:19 34-year-old female with a history of pancreatitis and hypokalemia presents emergency room for complaints of worsening abdominal pain. Patient states that she was admitted on August 01 to August 05 which she left AGAINST MEDICAL ADVICE due to stating that the pain shots were not helping, she was seen in the emergency room on the in which she was given Zofran, the provider at that time did not feel that she needed narcotics because her lipase was normal, patient was advised to follow-up with gastroenterology for further evaluation, patient states that she went to [facility] in [place] and states that she was admitted there and discharged today even though she was still having abdominal pain because she states that the doctor told her she was "too emotional". Patient feels like she should have been discharged with some pain medication. Patient states that she has an appointment with her primary care provider on Tuesday. Patient states she is frustrated because nobody will give her pain control medication and that is which she came here for. Patient has had multiple CT abdomen pelvis is for her pancreatitis, patient only had multiple tests done at [facility] which she does have the results on her phone for review I have greeted and performed a rapid initial assessment of this patient. A comprehensive ED assessment and evaluation of the patient, analysis of test results and completion of the medical decision making process will be conducted by additional ED providers. PHYSICAL EXAMINATION: GENERAL: Well-appearing, well-nourished and in no acute distress. HEAD: Atraumatic, normocephalic. EYES: Pupils equal round extraocular movements intact, conjunctiva are normal. NECK: Normal range of motion CV: s1, s2 regular LUNGS: No respiratory distress abd: Generalized abdominal pain Musculoskeletal: Normal range of motion NEUROLOGICAL: Normal speech, normal gait. SKIN: Warm, Dry, normal turgor, no rashes or lesions noted. 08/16/19 14:35 - Related Data Allergies/Adverse Reactions: cephalexin monohydrate [From Keflex] Allergy (Severe, Verified 08/06/19 18:30) Anaphylaxis codeine [Codeine] Allergy (Severe, Verified 08/06/19 18:30) Anaphylaxis Penicillins Allergy (Severe, Verified 08/06/19 18:30) Anaphylaxis metoclopramide [From Reglan] Allergy (Verified 08/06/19 18:30) diphenhydramine HCl [From Benadryl] Adverse Reaction (Verified 08/06/19 18:30) morphine Adverse Reaction (Verified 08/06/19 18:30) prochlorperazine maleate [From Compazine] Adverse Reaction (Verified 08/06/19 18:30) Past Medical History - Social History Frequency of alcohol use: None Drug Abuse: None Renal/ Medical History: Reports: Hx Kidney Stones, Hx Ovarian Cysts. Denies: Hx Peritoneal Dialysis GI Medical History: Reports: Hx Irritable Bowel, Hx Pancreatitis Musculoskeltal Medical History: Reports Hx Musculoskeletal Deformity Psychiatric Medical History: Reports: Hx Anxiety, Hx Bipolar Disorder, Hx Depression - ANXIETY, Hx Post Traumatic Stress Disorder Past Surgical History: Reports: Hx Appendectomy, Hx Section, Hx Cholecystectomy, Hx Kidney (Renal Surgery) - kidney stent, Hx Myringotomy - Immunizations Immunizations up to date: Yes Hx Diphtheria, Pertussis, Tetanus Vaccination: Yes Physical Exam - Vital signs Vitals: Temp Pulse Resp BP Pulse Ox 97.9 F 97 16 132/80 H 97 08/16/19 13:09 08/16/19 13:09 08/16/19 13:08/16/19 13:08/16/19 13:09 Course - Vital Signs Vital signs: Temp Pulse Resp BP Pulse Ox 97.9 F 97 16 132/80 H 97 08/16/19 13:09 08/16/19 13:09 08/16/19 13:08/16/19 13:08/16/19 13:09 Doctor's Discharge - Discharge Referrals: EVELYN MI MD [Primary Care Provider] - Follow up as needed
[2019-08-16 15:22] LABS: APPEARANCE,URINE SLIGHTLY-CLOUDY; BILIRUBIN,URINE NEGATIVE (NEGATIVE); COLOR,URINE YELLOW; GLUCOSE, URINE NEGATIVE (NEGATIVE); KETONES,URINE 20 mg/dL (NEGATIVE); LEUKOCYTE ESTERASE,URINE NEGATIVE (NEGATIVE); NITRITE,URINE NEGATIVE (NEGATIVE); PROTEIN,URINE NEGATIVE (NEGATIVE); URINE SPECIFIC GRAVITY 1.015
[2019-08-16] MEDS ORDERED: NORMAL SALINE 1000 ML 1,000 ML IV ONE (15:24)
[2019-08-16] MEDS ORDERED: HYDROCODONE/ACETAMINOPHEN 5-325 MG (6 TAB/ER DISP) PO PRN (15:41)
--- NOTE | 2019-08-16 15:41 | ER Document Report ---
ED General - General Chief Complaint: Abdominal Pain Stated Complaint: ABDOMINAL PAIN Time Seen by Provider: 08/16/19 13:50 Primary Care Provider: EVELYN MI MD [Primary Care Provider] - 08/20/19 Notes: 34-year-old female with history of pancreatitis presents with continued abdominal pain. Patient was admitted and discharged from [facility] this morning. Patient states she was not sent home with any pain medication. Patient is requesting Gibson to go pack and refusing all lab work. Patient is refusing Toradol, Bentyl, IV fluids. Patient states she has Bentyl at home. Patient has a follow-up with her primary care doctor on Tuesday is going to refer her to GI. TRAVEL OUTSIDE OF THE [place] IN LAST 30 DAYS: No - Related Data Allergies/Adverse Reactions: cephalexin monohydrate [From Keflex] Allergy (Severe, Verified 08/06/19 18:30) Anaphylaxis codeine [Codeine] Allergy (Severe, Verified 08/06/19 18:30) Anaphylaxis Penicillins Allergy (Severe, Verified 08/06/19 18:30) Anaphylaxis metoclopramide [From Reglan] Allergy (Verified 08/06/19 18:30) diphenhydramine HCl [From Benadryl] Adverse Reaction (Verified 08/06/19 18:30) morphine Adverse Reaction (Verified 08/06/19 18:30) prochlorperazine maleate [From Compazine] Adverse Reaction (Verified 08/06/19 18:30) Past Medical History - Social History Smoking Status: Never Smoker Frequency of alcohol use: None Drug Abuse: None Family History: DM, Hypertension Patient has suicidal ideation: No Patient has homicidal ideation: No Renal/ Medical History: Reports: Hx Kidney Stones, Hx Ovarian Cysts. Denies: Hx Peritoneal Dialysis GI Medical History: Reports: Hx Irritable Bowel, Hx Pancreatitis Musculoskeletal Medical History: Reports Hx Musculoskeletal Deformity Psychiatric Medical History: Reports: Hx Anxiety, Hx Bipolar Disorder, Hx Depression - ANXIETY, Hx Post Traumatic Stress Disorder Past Surgical History: Reports: Hx Appendectomy, Hx Section, Hx Cholecystectomy, Hx Kidney (Renal Surgery) - kidney stent, Hx Myringotomy - Immunizations Immunizations up to date: Yes Hx Diphtheria, Pertussis, Tetanus Vaccination: Yes Review of Systems - Review of Systems Notes: Constitutional: Negative for fever. HENT: Negative for sore throat. Eyes: Negative for visual changes. Cardiovascular: Negative for chest pain. Respiratory: Negative for shortness of breath. Gastrointestinal: Positive for abdominal pain, nausea, vomiting. Negative for diarrhea. Genitourinary: Negative for dysuria. Musculoskeletal: Negative for back pain. Skin: Negative for rash. Neurological: Negative for headaches, weakness or numbness. 10 point ROS negative except as marked above and in HPI. Physical Exam - Vital signs Vitals: Temp Pulse Resp BP Pulse Ox 97.9 F 97 16 132/80 H 97 08/16/19 13:08/16/19 13:08/16/19 13:08/16/19 13:08/16/19 13:09 - Notes Notes: GENERAL: Well-appearing, well-nourished and in no acute distress. HEAD: Atraumatic, normocephalic. EYES: Extraocular movements intact, sclera anicteric, conjunctiva are normal. NECK: Normal range of motion, supple without lymphadenopathy or JVD. ABDOMEN: Soft, mild tenderness diffusely. No guarding, no rebound. No masses appreciated. EXTREMITIES: Normal range of motion, no pitting or edema. No clubbing or cyanosis. NEUROLOGICAL: Cranial nerves II through XII grossly intact. Normal speech, normal gait. PSYCH: Normal mood, normal affect. SKIN: Warm, Dry, normal turgor, no rashes or lesions noted. Course - Re-evaluation Re-evalutation: 08/16/19 34-year-old nontoxic, well-appearing female presents for continued abdominal pain. Patient has a history of pancreatitis. Patient was discharged from [facility] today and has her results with her. Patient is refusing lab work since it was done earlier today. Patient's lipase was normal. Patient had full work-up including MRCP, CT abdomen/pelvis. Patient states she just wants a Gibson pack to go like to go. Abdomen soft diffusely tender. No guarding no rebound to suggest surgical abdomen. Patient given strict return precautions and has follow-up with her PCP on Tuesday. Patient voices understanding and agrees with plan of care. - Vital Signs Vital signs: Temp Pulse Resp BP Pulse Ox 97.9 F 97 16 132/80 H 97 08/16/19 13:08/16/19 13:08/16/19 13:08/16/19 13:09 08/16/19 13:09 - Laboratory Laboratory results interpreted by me: 08/16/19 14:56 Urine Ketones 20 H Urine Urobilinogen 4.0 H Discharge - Discharge Clinical Impression: Abdominal pain Qualifiers: Abdominal location: generalized Qualified Code(s): R10.84 - Generalized abdominal pain Condition: Stable Disposition: HOME, SELF-CARE Additional Instructions: You refused all labwork and x-ray today. Take norco as directed. Follow up with your primary care doctor as scheduled on Tuesday. Return to ER for any worsening symptoms, including worsening abdominal pain, vomiting not controlled by medication, fever, chest pain, shortness of breath, diarrhea/constipation, or any other symptoms that are concerning to you. Referrals: EVELYN MI MD [Primary Care Provider] - 08/20/19
== END 2019-08-16 16:00 | disposition home or self-care (01) ==
LOC: ER 13:05
DX: R10.84 Generalized abdominal pain (principal); R10.817 Generalized abdominal tenderness; R11.2 Nausea with vomiting, unspecified; Z87.892 Personal history of anaphylaxis; Z88.1 Allergy status to other antibiotic agents; Z88.6 Allergy status to analgesic agent; Z88.5 Allergy status to narcotic agent; Z88.0 Allergy status to penicillin; Z88.8 Allergy status to other drugs, medicaments and biological substances
CPT/HCPCS: 81001; 99284

== ENCOUNTER 2019-08-19 00:21 | Emergency (ER) | payer MEDICAID ==
[2019-08-19 01:22] LABS: ABSOLUTE MONOCYTES (AUTO) 0.6 10^3/uL (0.1-1.4); ABSOLUTE NEUT (AUTO) 2.1 10^3/uL (1.7-8.2); BASOPHILS % (AUTO) 1.2 % (0-2); EOSINOPHILS % (AUTO) 0.3 % (0-6); HEMATOCRIT 37.9 % (36.0-47.0); HEMOGLOBIN 13.1 g/dL (12.0-15.5); LYMPHOCYTES % (AUTO) 27.1 % (13-45); MEAN CORPUSCULAR HEMOGLOBIN 30.6 pg (27.0-33.4); MEAN CORPUSCULAR HGB CONC 34.6 g/dL (32.0-36.0); MEAN CORPUSCULAR VOLUME 89 fl (80-97); MONOCYTES % (AUTO) 16.6 % (3-13); PLATELET COUNT 354 10^3/uL (150-450); RED BLOOD COUNT 4.28 10^6/uL (3.72-5.28); RED CELL DISTRIBUTION WIDTH 14.3 % (11.5-14.0); SEGMENTED NEUTROPHILS % (AUTO) 54.8 % (42-78); TOTAL CELLS COUNTED % (AUTO) 100 %; WHITE BLOOD COUNT 3.8 10^3/uL (4.0-10.5)
[2019-08-19 01:31] LABS: ALBUMIN 4.3 g/dL (3.5-5.0); ALKALINE PHOSPHATASE 89 U/L (38-126); ANION GAP 15 (5-19); ASPARTATE AMINO TRANSFERASE 43 U/L (14-36); BILIRUBIN,DIRECT 0.3 mg/dL (0.0-0.4); BILIRUBIN,TOTAL 0.4 mg/dL (0.2-1.3); BLOOD UREA NITROGEN 7 mg/dL (7-20); CALCIUM 9.9 mg/dL (8.4-10.2); CARBON DIOXIDE 23 mmol/L (22-30); CHLORIDE 102 mmol/L (98-107); GLUCOSE 117 mg/dL (75-110); POTASSIUM 3.7 mmol/L (3.6-5.0); TOTAL PROTEIN 8.3 g/dL (6.3-8.2)
[2019-08-19] MEDS ORDERED: NORMAL SALINE 1000 ML 1,000 ML IV ONE (04:28)
[2019-08-19] MEDS ORDERED: KETAMINE HCL INJ 500 MG/10 ML VIAL IV ONE (04:30)
[2019-08-19] MEDS ORDERED: PROCHLORPERAZINE EDISYLATE INJ 10 MG/2 ML VIAL IV ONE (04:31)
--- NOTE | 2019-08-19 04:36 | ER Document Report ---
ED General - General Chief Complaint: Abdominal Pain Stated Complaint: SICK Time Seen by Provider: 08/19/19 03:10 Primary Care Provider: EVELYN MI MD [Primary Care Provider] - Follow up as needed Mode of Arrival: Ambulatory Information source: Patient TRAVEL OUTSIDE OF THE U.S. IN LAST 30 DAYS: No - HPI Onset: Yesterday Onset/Duration: Sudden Severity: Moderate Pain Level: 2 - Patient reports she was just in [place] and had a antibiotic through her right arm PICC line and had oral thrush. She was given Diflucan and this was through her IV as well. Patient reports she has had a 6 pound weight loss over the last week. She reports she has nausea today with diffuse upper abdominal pain. She was recently seen by Doron MEHTA here at this hospital ER. - Related Data Allergies/Adverse Reactions: cephalexin monohydrate [From Keflex] Allergy (Severe, Verified 08/19/19 04:58) Anaphylaxis codeine [Codeine] Allergy (Severe, Verified 08/19/19 04:58) Anaphylaxis Penicillins Allergy (Severe, Verified 08/19/19 04:58) Anaphylaxis metoclopramide [From Reglan] Allergy (Verified 08/19/19 04:58) diphenhydramine HCl [From Benadryl] Adverse Reaction (Verified 08/19/19 04:58) morphine Adverse Reaction (Verified 08/19/19 04:58) prochlorperazine maleate [From Compazine] Adverse Reaction (Verified 08/19/19 04:58) Home Medications: klonipin Past Medical History - General Information source: Patient - Social History Smoking Status: Former Smoker Cigarette use (# per day): No Chew tobacco use (# tins/day): No Smoking Education Provided: No Frequency of alcohol use: None Family History: DM, Hypertension Patient has suicidal ideation: No Patient has homicidal ideation: No Renal/ Medical History: Reports: Hx Kidney Stones, Hx Ovarian Cysts. Denies: Hx Peritoneal Dialysis GI Medical History: Reports: Hx Irritable Bowel, Hx Pancreatitis Musculoskeletal Medical History: Reports Hx Musculoskeletal Deformity Psychiatric Medical History: Reports: Hx Anxiety, Hx Bipolar Disorder, Hx Depr ession - ANXIETY, Hx Post Traumatic Stress Disorder Past Surgical History: Reports: Hx Appendectomy, Hx Section, Hx Cholecystectomy, Hx Kidney (Renal Surgery) - kidney stent, Hx Myringotomy - Immunizations Immunizations up to date: Yes Hx Diphtheria, Pertussis, Tetanus Vaccination: Yes Review of Systems - Review of Systems Constitutional: Weakness, Weight loss, Recent illness EENT: Nose congestion - She thinks she may have the flu and has a rhinorrhea Cardiovascular: No symptoms reported Gastrointestinal: Abdominal pain, Nausea, Vomiting Genitourinary: No symptoms reported Musculoskeletal: No symptoms reported Skin: No symptoms reported Hematologic/Lymphatic: No symptoms reported Neurological/Psychological: No symptoms reported Physical Exam - Vital signs Vitals: Temp Pulse Resp BP Pulse Ox 98.5 F 108 H 20 118/82 98 08/19/19 00:30 08/19/19 00:30 08/19/19 00:30 08/19/19 00:30 08/19/19 00:30 Interpretation: Tachycardic - 108 heart rate upon arrival - HEENT Head: Normocephalic Eyes: Normal Conjunctiva: Normal Cornea: Normal Extraocular movements intact: Yes Eyelashes: Normal Pupils: PERRL Nasal: Normal Mouth/Lips: Normal Mucous membranes: Moist - There is no dryness to her mucous membranes nor to tongue which is moist as well. - Respiratory Respiratory status: No respiratory distress Chest status: Nontender Breath sounds: Normal Chest palpation: Normal - Cardiovascular Rhythm: Tachycardia Murmur: No Friction rub: No Cierra's crunch: No - Abdominal Inspection: Obese Distension: Other - Very endomorphic obese abdomen Bowel sounds: Hyperactive Tenderness: Tender - Gastric area - Extremities General upper extremity: Tender, Other - Patient with multiple ecchymotic areas to her forearms some from IVs and right medial arm from status post PICC line. No obvious edema with superficial thrombophlebitis General lower extremity: Normal inspection - Psychological Associated symptoms: Anxious Course - Re-evaluation Re-evalutation: 08/19/19 05:36 Patient in no distress laying in her gurney using her cellular phone for inf ormation nursing staff.. but was quite aggravated that I wrote for ketamine Compazine and hydroxyzine for her symptoms. Patient says she wants Dilaudid for her abdominal pain. I advised her she was not getting any Dilaudid tonight. She did not appear to be in that much distress. She did want to get a flu test however. 08/19/19 05:54 Flu test was negative - Vital Signs Vital signs: Temp Pulse Resp BP Pulse Ox 97.3 F 94 22 H 114/71 94 08/19/19 03:40 08/19/19 03:40 08/19/19 03:40 08/19/19 03:40 08/19/19 03:40 - Laboratory Result Diagrams: 08/19/19 01:05 08/19/19 01:05 Laboratory results interpreted by me: 08/19/19 08/19/19 01:05 01:05 WBC 3.8 L RDW 14.3 H [place] % (Auto) 16.6 H Glucose 117 H AST 43 H Total Protein 8.3 H Lipase 999.0 H Critical Care Note - Critical Care Note Total time excluding time spent on procedures (mins): 30 Comments: I informed patient that the flu test was negative but I will write her for some Bactroban nasal. And also some abdominal pain medicine Discharge - Discharge Clinical Impression: Abdominal pain, Elevated lipase, URI (upper respiratory infection) Condition: Good Disposition: HOME, SELF-CARE Instructions: Abdominal Pain ([facility]) Additional Instructions: follow up with with personal doctor and return to ER if symptoms persist take medicines as directed; medicines as directed Prescriptions: Hydrocodone Bit/Homatropine [Hycodan Syrup 5-1.5 mg/5 ml Ud Cup] 5 ml PO Q4HP PRN #120 ml PRN Reason: Mupirocin [Bactroban 2% Ointment 22 gm] 1 applic NASL HSP PRN #1 tube PRN Reason: Referrals: EVELYN MI MD [Primary Care Provider] - Follow up as needed
[2019-08-19] MEDS ORDERED: HYDROXYZINE HCL INJ 50 MG/1 ML VIAL IM ONE (04:37)
[2019-08-19] MEDS ORDERED: ONDANSETRON HCL INJ/PF 4 MG/2 ML SDV IV ONE (05:14)
[2019-08-19 05:44] LABS: A TYPE INFLUENZA AG NEGATIVE (NEGATIVE); B INFLUENZA AG NEGATIVE (NEGATIVE)
[2019-08-19 06:36] VITALS: BP 122/80
== END 2019-08-19 06:35 | disposition home or self-care (01) ==
LOC: ER 00:21
DX: R10.12 Left upper quadrant pain (principal); R10.11 Right upper quadrant pain; R10.13 Epigastric pain; J06.9 Acute upper respiratory infection, unspecified; R09.81 Nasal congestion; J34.89 Other specified disorders of nose and nasal sinuses; R11.2 Nausea with vomiting, unspecified; R79.89 Other specified abnormal findings of blood chemistry; R63.4 Abnormal weight loss; R53.1 Weakness; R00.0 Tachycardia, unspecified; R58 Hemorrhage, not elsewhere classified; Z87.891 Personal history of nicotine dependence; Z87.442 Personal history of urinary calculi; Z87.19 Personal history of other diseases of the digestive system; Z90.49 Acquired absence of other specified parts of digestive tract; Z87.892 Personal history of anaphylaxis; Z88.1 Allergy status to other antibiotic agents; Z88.6 Allergy status to analgesic agent; Z88.5 Allergy status to narcotic agent; Z88.0 Allergy status to penicillin; Z88.8 Allergy status to other drugs, medicaments and biological substances
CPT/HCPCS: 99284; 96361; 96374; 36415; 83690; 85025; 80053; 87804; J2405; J7030

== ENCOUNTER 2019-08-25 09:14 | Emergency (ER) | payer MEDICAID ==
[2019-08-25 10:47] LABS: A TYPE INFLUENZA AG NEGATIVE (NEGATIVE); B INFLUENZA AG NEGATIVE (NEGATIVE)
[2019-08-25] MEDS ORDERED: DEXAMETHASONE 4 MG TABLET PO ONE (11:49)
[2019-08-25] MEDS ORDERED: LEVALBUTEROL HCL NEB 1.25 MG/3 ML AMPUL NEB ONE (11:49)
--- NOTE | 2019-08-25 12:29 | RADIOLOGY REPORT (SQ) ---
EXAM DESCRIPTION: CHEST 2 VIEWS COMPLETED DATE/TIME: 08/25/2019 11:09 am REASON FOR STUDY: wheezing, flu COMPARISON: 05/02/2014 EXAM PARAMETERS: NUMBER OF VIEWS: two views TECHNIQUE: Digital Frontal and Lateral radiographic views of the chest acquired. RADIATION DOSE: NA LIMITATIONS: none FINDINGS: LUNGS AND PLEURA: No opacities, masses or pneumothorax. No pleural effusion. MEDIASTINUM AND HILAR STRUCTURES: No masses or contour abnormalities. HEART AND VASCULAR STRUCTURES: Heart normal size. No evidence for failure. BONES: No acute findings. HARDWARE: None in the chest. OTHER: No other significant finding. IMPRESSION: NO ACUTE RADIOGRAPHIC FINDING IN THE CHEST. TECHNICAL DOCUMENTATION: JOB ID: [id number] [employer]- All Rights Reserved Reading location - IP/workstation name: [email or web address]
--- NOTE | 2019-08-25 12:36 | ER Document Report ---
ED General - General Chief Complaint: Cough Stated Complaint: COUGH/FLU SYMPTOMS Time Seen by Provider: 08/25/19 11:12 Primary Care Provider: EVELYN MI MD [Primary Care Provider] - Follow up in 3-5 days TRAVEL OUTSIDE OF THE [place]. IN LAST 30 DAYS: No - HPI Notes: 34-year-old female to the emergency department with complaints of persistent cough, body aches that began over 1 week ago. She was diagnosed with the flu. She states that she was seen here about 3 days ago and given cough medicine which really helped her. However she is completed the cough medicine. She states that now the cough is keeping her up all night long. She states that she feels like she needs little bit more cough medicine to help her rest. She also admits to some wheezing. She states that she does not like albuterol or prednisone because it makes her heart race and makes her anxiety worse. Patient denies any other symptoms. - Related Data Allergies/Adverse Reactions: cephalexin monohydrate [From Keflex] Allergy (Severe, Verified 08/25/19 10:40) Anaphylaxis codeine [Codeine] Allergy (Severe, Verified 08/25/19 10:40) Anaphylaxis Penicillins Allergy (Severe, Verified 08/25/19 10:40) Anaphylaxis metoclopramide [From Reglan] Allergy (Verified 08/25/19 10:40) diphenhydramine HCl [From Benadryl] Adverse Reaction (Verified 08/25/19 10:40) morphine Adverse Reaction (Verified 08/25/19 10:40) prochlorperazine maleate [From Compazine] Adverse Reaction (Verified 08/25/19 10:40) Past Medical History - General Information source: Patient - Social History Smoking Status: Current Every Day Smoker Frequency of alcohol use: None Drug Abuse: None Lives with: Family Family History: DM, Hypertension Patient has suicidal ideation: No Patient has homicidal ideation: No Renal/ Medical History: Reports: Hx Kidney Stones, Hx Ovarian Cysts. Denies: Hx Peritoneal Dialysis GI Medical History: Reports: Hx Irritable Bowel, Hx Pancreatitis Musculoskeletal Medical History: Reports Hx Musculoskeletal Deformity Psychiatric Medical History: Reports: Hx Anxiety, Hx Bipolar Disorder, Hx Depression - ANXIETY, Hx Post Traumatic Stress Disorder Past Surgical History: Reports: Hx Appendectomy, Hx Section, Hx Cholecystectomy, Hx Kidney (Renal Surgery) - kidney stent, Hx Myringotomy - Immunizations Immunizations up to date: Yes Hx Diphtheria, Pertussis, Tetanus Vaccination: Yes Review of Systems - Review of Systems Constitutional: Chills, Fever EENT: Nose congestion. denies: Ear pain Cardiovascular: Chest pain - Chest pain with coughing, Dizziness, Lightheaded, E grace. denies: Palpitations, Heart racing Respiratory: Cough, Short of breath, Wheezing Gastrointestinal: denies: Abdominal pain, Diarrhea, Nausea, Vomiting Genitourinary: No symptoms reported Musculoskeletal: No symptoms reported Skin: No symptoms reported Hematologic/Lymphatic: No symptoms reported Neurological/Psychological: No symptoms reported -: Yes All other systems reviewed and negative Physical Exam - Vital signs Vitals: Temp Pulse Resp BP Pulse Ox 98 F 79 18 127/74 H 100 08/25/19 09:26 08/25/19 09:26 08/25/19 09:26 08/25/19 09:26 08/25/19 09:26 Interpretation: Normal - General General appearance: Appears well, Alert In distress: None - HEENT Head: Normocephalic, Atraumatic Eyes: Normal Pupils: PERRL Ears: Normal External canal: Normal Tympanic membrane: Normal Sinus: Normal Nasal: Normal Mouth/Lips: Normal Pharynx: Erythema. No: Blood in hypopharynx, Exudate, Peritonsillar abscess, Post nasal drainage, Retropharyngeal abscess, Tonsillar hypertrophy, Uvular edema, Potential airway comprom. Neck: Normal, Supple. No: Lymphadenopathy, Meningismus - Respiratory Respiratory status: No respiratory distress. No: Retractions, Tachypnea Chest status: Nontender. No: Accessory muscle use Breath sounds: Productive cough, Wheezing - Diffuse expiratory wheezes throughout. No accessory muscle use. Patient is able to speak in full sentences. No: Rales, Rhonchi, Stridor Chest palpation: Normal - Cardiovascular Rhythm: Regular Heart sounds: Normal auscultation Murmur: No - Abdominal Inspection: Obese Distension: No distension Bowel sounds: Normal Tenderness: Nontender Organomegaly: No organomegaly - Back Back: Normal, Nontender - Extremities General upper extremity: Normal inspection, Nontender, Normal color, Normal ROM, Normal temperature General lower extremity: Normal inspection, Nontender, Normal color, Normal ROM, Normal temperature, Normal weight bearing - Neurological Neuro grossly intact: Yes Cognition: Normal Orientation: AAOx4 Alec Coma Scale Eye Opening: Spontaneous Alec Coma Scale Verbal: Oriented [place] Coma Scale Motor: Obeys Commands Alec Coma Scale Total: 15 Speech: Normal Cranial nerves: Normal Cerebellar coordination: Normal. No: Gait ataxia Motor strength normal: LUE, RUE, LLE, RLE Additional motor exam normals: Equal police guard. No: Pronator drift Sensory: Normal - Psychological Associated symptoms: Normal affect, Normal mood - Skin Skin Temperature: Warm Skin Moisture: Dry Skin Color: Normal Course - Re-evaluation Re-evalutation: 08/25/19 patient refused albuterol and prednisone. So we attempted Xopenex and Decadron for her wheezing. Patient stated that mcfp through the Xopenex she was feeling anxious. So we stopped a breathing treatment. She is non-hypoxic when she states that she feels pretty good otherwise. Obtained a chest x-ray which did not show pneumonia. Will discharge home. Likely this is the flu. Encouraged her to return if she is worse. Will send home with small amount of cough medicine. Patient agrees with the plan. - Vital Signs Vital signs: Temp Pulse Resp BP Pulse Ox 97.7 F 78 18 121/80 98 08/25/19 12:44 08/25/19 12:44 08/25/19 12:44 08/25/19 12:44 08/25/19 12:44 - Diagnostic Test Radiology reviewed: Image reviewed, Reports reviewed Discharge - Discharge Clinical Impression: Flu-like symptoms, Cough, Wheezing Condition: Stable Disposition: HOME, SELF-CARE Instructions: Influenza ([facility]) Additional Instructions: PUSH FLUIDS. RETURN IF WORSENING SYMPTOMS. FOLLOW UP WITH PRIMARY CARE AT THE BEGINNING OF NEXT WEEK. Prescriptions: Hydrocodone Bit/Homatropine [Hycodan Syrup 5-1.5 mg/5 ml Ud Cup] 5 ml PO Q4HP PRN #120 ml PRN Reason: Referrals: EVELYN MI MD [Primary Care Provider] - Follow up in 3-5 days
[2019-08-25 12:46] VITALS: BP 121/80
== END 2019-08-25 12:52 | disposition home or self-care (01) ==
LOC: ER 09:14
DX: R05 Cough (principal); R06.2 Wheezing; R09.81 Nasal congestion; M79.10 Myalgia, unspecified site; F17.200 Nicotine dependence, unspecified, uncomplicated; Z88.6 Allergy status to analgesic agent; Z88.0 Allergy status to penicillin; Z87.442 Personal history of urinary calculi; Z90.49 Acquired absence of other specified parts of digestive tract
CPT/HCPCS: 94640; 99283; 87804; 71046; J3490 ×2; J8540

== ENCOUNTER 2019-10-02 12:12 | Emergency (ER) | payer SELFPAY ==
[2019-10-02] MEDS ORDERED: HYDROCODONE/ACETAMINOPHEN 5-325 MG (6 TAB/ER DISP) PO PRN (12:36)
--- NOTE | 2019-10-02 12:36 | ER Document Report ---
HPI - HPI Time Seen by Provider: 10/02/19 12:33 Context: 34 y/o female presents with broken tooth that happened yesterday. Pt states it started off as a "small hole" and then got bigger yesterday. Pt states she called her dentist and she has an appointment on Tuesday. Denies fever. - REPRODUCTIVE Reproductive: DENIES: : Past Medical History - Social History Smoking Status: Unknown if Ever Smoked Family History: DM, Hypertension Renal/ Medical History: Reports: Hx Kidney Stones, Hx Ovarian Cysts. Denies: Hx Peritoneal Dialysis GI Medical History: Reports: Hx Irritable Bowel, Hx Pancreatitis Musculoskeletal Medical History: Reports Hx Musculoskeletal Deformity Psychiatric Medical History: Reports: Hx Anxiety, Hx Bipolar Disorder, Hx Depression - ANXIETY, Hx Post Traumatic Stress Disorder Past Surgical History: Reports: Hx Appendectomy, Hx Section, Hx Cholecystectomy, Hx Kidney (Renal Surgery) - kidney stent, Hx Myringotomy - Immunizations Immunizations up to date: Yes Hx Diphtheria, Pertussis, Tetanus Vaccination: Yes Vertical Provider Document - CONSTITUTIONAL Agree With Documented VS: Yes Notes: GENERAL: Well-appearing, well-nourished and uncomfortable. HEAD: Atraumatic, normocephalic. EYES: Pupils equal round and reactive to light, extraocular movements intact, sclera anicteric, conjunctiva are normal. ENT: Caries noted to tooth #1 with possible fracture. Nares patent, oropharynx clear without exudates. Moist mucous membranes. No facial swelling. NECK: Normal range of motion, supple without lymphadenopathy or JVD. EXTREMITIES: Normal range of motion, no pitting or edema. No clubbing or cyanosis. NEUROLOGICAL: Cranial nerves II through XII grossly intact. Normal speech, normal gait. PSYCH: Normal mood, normal affect. SKIN: Warm, Dry, normal turgor, no rashes or lesions noted. - INFECTION CONTROL TRAVEL OUTSIDE OF THE [place] IN LAST 30 DAYS: No Course - Re-evaluation Re-evalutation: 10/02/19 NOntoxic, well appearing 34 y/o female presents for "broken tooth." Caries noted with mild gum swelling. No obvious abscess. Pt has appointment with dentist on Tuesday. Clindamycin prescribed with ibuprofen and norco to go pack for breakthrough pain. Sedation warning given. Pt encouraged to keep appointment with dentist on Tuesday. Return precautions given. Pt voices understanding and agrees with plan of care. Discharge - Discharge Clinical Impression: Pain, dental Fractured tooth Qualifiers: Encounter type: initial encounter Fracture type: closed Qualified Code(s): S02.5XXA - Fracture of tooth (traumatic), initial encounter for closed fracture Condition: Stable Disposition: HOME, SELF-CARE Instructions: Clindamycin ([facility]), Toothache ([facility]) Additional Instructions: Please take antibiotic as prescribed and finish all doses. Take ibuprofen as prescribed and take [place] for breakthrough pain. Do not drink/drive while taking as it may make you drowsy. Follow up with your dentist on Tuesday as scheduled. Return to ER for any worsening symptoms including pus drainage, facial swelling, inability to swallow, fever, or any other symptoms that are concerning to you. Prescriptions: Clindamycin HCl 300 mg PO TID #30 capsule Ibuprofen [Motrin 800 mg Tablet] 800 mg PO Q8H PRN #30 tab PRN Reason: Forms: Return to Work Referrals: EVELYN MI MD [Primary Care Provider] - Follow up in 3-5 days
[2019-10-02 12:39] VITALS: BP 119/78
== END 2019-10-02 12:43 | disposition home or self-care (01) ==
LOC: ER 12:12
DX: S02.5XXA Fracture of tooth (traumatic), initial encounter for closed fracture (principal); X58.XXXA Exposure to other specified factors, initial encounter; K02.9 Dental caries, unspecified; K08.89 Other specified disorders of teeth and supporting structures
CPT/HCPCS: 99282

== ENCOUNTER 2019-10-10 05:03 | Emergency (ER) | payer BC ==
[2019-10-10 05:19] VITALS: BP 136/75
[2019-10-10] MEDS ORDERED: AMOXICILLIN TRIHYDRATE 500 MG CAPSULE PO ONE (05:34)
[2019-10-10] MEDS ORDERED: HYDROCODONE/ACETAMINOPHEN 5-325 MG (6 TAB/ER DISP) PO PRN (05:34)
--- NOTE | 2019-10-10 05:37 | ER Document Report ---
HPI - HPI Time Seen by Provider: 10/10/19 05:26 Pain Level: 5 Context: Patient is a 34-year-old female that comes to the emergency department for chief complaint of dental pain. She states she was recently treated for dental infection with clindamycin, she states this cleared up, she states she stopped this but over the past day she felt an additional piece of her right back molar break off, after this it started getting red, swollen, and now she has pain shooting into her face with slight swelling of the face. She states that she went to her dentist and they are no longer accepting her insurance, she is asking for a referral to a free dentist. She denies any other complaints including sore throat, neck pain, fever. - REPRODUCTIVE Reproductive: DENIES: : Past Medical History - General Information source: Patient - Social History Smoking Status: Former Smoker Chew tobacco use (# tins/day): No Frequency of alcohol use: None Drug Abuse: None Lives with: Family Family History: DM, Hypertension Patient has suicidal ideation: No Patient has homicidal ideation: No Renal/ Medical History: Reports: Hx Kidney Stones, Hx Ovarian Cysts. Denies: Hx Peritoneal Dialysis GI Medical History: Reports: Hx Irritable Bowel, Hx Pancreatitis Musculoskeletal Medical History: Reports Hx Musculoskeletal Deformity Psychiatric Medical History: Reports: Hx Anxiety, Hx Bipolar Disorder, Hx Depression - ANXIETY, Hx Post Traumatic Stress Disorder Past Surgical History: Reports: Hx Appendectomy, Hx Section, Hx Cholecystectomy, Hx Kidney (Renal Surgery) - kidney stent, Hx Myringotomy - Immunizations Immunizations up to date: Yes Hx Diphtheria, Pertussis, Tetanus Vaccination: Yes Vertical Provider Document - CONSTITUTIONAL General Appearance: WD/WN. negative: No Apparent Distress - Patient appears uncomfortable, holding her right jaw - INFECTION CONTROL TRAVEL OUTSIDE OF THE [place] IN LAST 30 DAYS: Yes - HEENT HEENT: Atraumatic, Normal ENT Exam - Normal ENT exam including normal oropharyngeal exam except for dental exam, see mouth diagram below. No significant swelling of the face, no evidence of Sal's angina, Normocephalic Mouth Diagram: 1 - Dental caries with tenderness and surrounding erythema but no induration, fluctuance, or abscess noted. - NECK Neck: Normal Inspection - RESPIRATORY Respiratory: Breath Sounds Normal, No Respiratory Distress - CARDIOVASCULAR Cardiovascular: Regular Rate, Regular Rhythm - GI/ABDOMEN Gastrointestinal: Abdomen Soft, Abdomen Non-Tender. negative: Abdomen Tender - BACK Back: Normal Inspection - MUSCULOSKELETAL/EXTREMETIES Musculoskeletal/Extremeties: MAEW, FROM, Non-Tender - NEURO Level of Consciousness: Awake, Alert, Appropriate Motor/Sensory: No Motor Deficit, No Sensory Deficit - DERM Integumentary: Warm, Dry, No Rash Course - Re-evaluation Re-evalutation: Patient does appear to have an early developing dental infection but there is no sign of abscess, no concerning findings otherwise. Patient was recently on clindamycin. Discussed possibility of C. difficile, patient will be placed on amoxicillin but she will be taking probiotics as well, provided with alternate dental follow-up because she lost her insurance, discussed follow-up and return precautions. Patient states appreciation and agreement. Stable and well- appearing at time of discharge. - Vital Signs Vital signs: Temp Pulse Resp BP Pulse Ox 97.9 F 96 17 136/75 H 98 10/10/19 05:18 10/10/19 05:18 10/10/19 05:18 10/10/19 05:18 10/10/19 05:18 Discharge - Discharge Clinical Impression: Pain, dental, Dental infection Condition: Stable Disposition: HOME, SELF-CARE Instructions: Oral Narcotic Medication ([facility]) Additional Instructions: We are again placing you on antibiotics for a dental infection, take the amoxi cillin as prescribed, however it is important that you also take [id number] probiotics to avoid a secondary bowel infection because of the additional antibiotics. Call the listed dental clinic referral for follow-up and management to prevent this from reoccurring. Return if you worsen including swelling of the face, or any other concerning or worsening symptoms. [facility] [address] [facility], [address] Prescriptions: Amoxicillin Trihydrate [Amoxil 500 mg Capsule] 500 mg PO BID 10 Days #20 capsule Forms: Return to Work
== END 2019-10-10 05:43 | disposition home or self-care (01) ==
LOC: ER 05:03
DX: K04.7 Periapical abscess without sinus (principal); K08.89 Other specified disorders of teeth and supporting structures; K02.9 Dental caries, unspecified; Z87.891 Personal history of nicotine dependence
CPT/HCPCS: 99282

== ENCOUNTER 2019-10-19 22:46 | Emergency (ER) | payer BC ==
[2019-10-19] MEDS ORDERED: ONDANSETRON HCL INJ/PF 4 MG/2 ML SDV IV ONE (23:31)
[2019-10-19] MEDS ORDERED: NORMAL SALINE 500 ML IV ONE (23:31)
--- NOTE | 2019-10-19 23:33 | ER Document Report ---
ED Medical Screen (RME) - General Chief Complaint: Abdominal Pain Stated Complaint: ABDOMINAL PAIN,BACK PAIN,VOMITING Time Seen by Provider: 10/19/19 23:31 Primary Care Provider: EVELYN MI MD [Primary Care Provider] - Follow up as needed Notes: HPI: 34-year-old female with history of pancreatitis presenting for mid abdominal pain with vomiting over the last 2 days without fever. States this feels similar to her episode of pancreatitis in August. I have greeted and performed a rapid initial assessment of this patient. A comprehensive ED assessment and evaluation of the patient, analysis of test res ults and completion of the medical decision making process will be conducted by additional ED providers PHYSICAL EXAMINATION: Mildly uncomfortable appearing. Mild tenderness through the mid abdomen and epigastric region on palpation. Lung sounds are clear to auscultation. Mild tachycardia TRAVEL OUTSIDE OF THE [place] IN LAST 30 DAYS: Yes - Related Data Allergies/Adverse Reactions: cephalexin monohydrate [From Keflex] Allergy (Severe, Verified 08/25/19 10:40) Anaphylaxis codeine [Codeine] Allergy (Severe, Verified 08/25/19 10:40) Anaphylaxis Penicillins Allergy (Severe, Verified 08/25/19 10:40) Anaphylaxis metoclopramide [From Reglan] Allergy (Verified 08/25/19 10:40) diphenhydramine HCl [From Benadryl] Adverse Reaction (Verified 08/25/19 10:40) morphine Adverse Reaction (Verified 08/25/19 10:40) prochlorperazine maleate [From Compazine] Adverse Reaction (Verified 08/25/19 10:40) Home Medications: [place] Past Medical History Renal/ Medical History: Reports: Hx Kidney Stones, Hx Ovarian Cysts. Denies: Hx Peritoneal Dialysis GI Medical History: Reports: Hx Irritable Bowel, Hx Pancreatitis Musculoskeltal Medical History: Reports Hx Musculoskeletal Deformity Psychiatric Medical History: Reports: Hx Anxiety, Hx Bipolar Disorder, Hx Depression - ANXIETY, Hx Post Traumatic Stress Disorder Past Surgical History: Reports: Hx Appendectomy, Hx Section, Hx Cholecystectomy, Hx Kidney (Renal Surgery) - kidney stent, Hx Myringotomy - Immunizations Immunizations up to date: Yes Hx Diphtheria, Pertussis, Tetanus Vaccination: Yes Physical Exam - Vital signs Vitals: Temp Pulse Resp BP Pulse Ox 98.4 F 100 20 133/76 H 97 10/19/19 22:55 10/19/19 22:55 10/19/19 22:55 10/19/19 22:55 10/19/19 22:55 Course - Vital Signs Vital signs: Temp Pulse Resp BP Pulse Ox 98.4 F 100 20 133/76 H 97 10/19/19 22:55 10/19/19 22:55 10/19/19 22:55 10/19/19 22:55 10/19/19 22:55 Doctor's Discharge - Discharge Referrals: EVELYN MI MD [Primary Care Provider] - Follow up as needed
[2019-10-20 00:09] LABS: APPEARANCE,URINE SLIGHTLY-CLOUDY; BASOPHILS % (AUTO) 0.7 % (0-2); BILIRUBIN,URINE NEGATIVE (NEGATIVE); COLOR,URINE YELLOW; EOSINOPHILS % (AUTO) 2.1 % (0-6); GLUCOSE, URINE NEGATIVE (NEGATIVE); HEMOGLOBIN 13.6 g/dL (12.0-15.5); KETONES,URINE NEGATIVE (NEGATIVE); LEUKOCYTE ESTERASE,URINE NEGATIVE (NEGATIVE); LYMPHOCYTES % (AUTO) 39.9 % (13-45); MEAN CORPUSCULAR HEMOGLOBIN 31.8 pg (27.0-33.4); MEAN CORPUSCULAR HGB CONC 35.8 g/dL (32.0-36.0); MEAN CORPUSCULAR VOLUME 89 fl (80-97); NITRITE,URINE NEGATIVE (NEGATIVE); PLATELET COUNT 247 10^3/uL (150-450); PROTEIN,URINE NEGATIVE (NEGATIVE); RED BLOOD COUNT 4.27 10^6/uL (3.72-5.28); RED CELL DISTRIBUTION WIDTH 14.7 % (11.5-14.0); SEGMENTED NEUTROPHILS % (AUTO) 51.3 % (42-78); UROBILINOGEN,URINE NEGATIVE mg/dL (<2.0); WHITE BLOOD COUNT 7.5 10^3/uL (4.0-10.5)
[2019-10-20 00:10] LABS: ABSOLUTE BASOPHILS # (AUTO) 0.1 10^3/uL (0.0-0.2); ABSOLUTE EOSINOPHILS # (AUTO) 0.2 10^3/uL (0.0-0.6); ABSOLUTE MONOCYTES (AUTO) 0.5 10^3/uL (0.1-1.4); ABSOLUTE NEUT (AUTO) 3.9 10^3/uL (1.7-8.2); TOTAL CELLS COUNTED % (AUTO) 100 %
[2019-10-20 00:11] LABS: ALBUMIN 4.1 g/dL (3.5-5.0); ALKALINE PHOSPHATASE 83 U/L (38-126); ANION GAP 11 (5-19); ASPARTATE AMINO TRANSFERASE 18 U/L (14-36); BILIRUBIN,DIRECT 0.3 mg/dL (0.0-0.4); BILIRUBIN,TOTAL 0.4 mg/dL (0.2-1.3); BLOOD UREA NITROGEN 10 mg/dL (7-20); CALCIUM 9.5 mg/dL (8.4-10.2); CARBON DIOXIDE 23 mmol/L (22-30); CHLORIDE 104 mmol/L (98-107); GLUCOSE 105 mg/dL (75-110); TOTAL PROTEIN 7.6 g/dL (6.3-8.2)
[2019-10-20] MEDS ORDERED: FAMOTIDINE 20 MG TABLET PO ONE (00:59)
--- NOTE | 2019-10-20 01:05 | ER Document Report ---
Entered by HOWARD ORTEGA SCRIBE 10/20/19 0024 Acting as scribe for:ISIDRO HSIEH IV, MD ED GI/ - General Chief Complaint: Abdominal Pain Stated Complaint: ABDOMINAL PAIN,BACK PAIN,VOMITING Time Seen by Provider: 10/19/19 23:31 Primary Care Provider: EVELYN MI MD [Primary Care Provider] - Follow up as needed Mode of Arrival: Ambulatory Information source: Patient Notes: This 34 year old female patient with a history of pancreatitis and IBS presents to the ED today with complaints of upper abdominal pain with associated nausea, vomiting, and poor appetite for the past x2 days. Patient states that the pain comes and goes and radiates to her back. Patient reports that her symptoms initially started with the feeling of a "pill stuck in my throat, like an indigestion feeling". Patient states that the pain is worse when she is lying flat and improved when she sits up. Patient notes that her symptoms feel similar to when she had pancreatitis x2 months ago. Patient reports that she was seen by her PCP x2 weeks ago who stated that her lipase level was in the 700s, so she is concerned that her symptoms are related to her pancreatitis. Patient denies fever. - Related Data Allergies/Adverse Reactions: cephalexin monohydrate [From Keflex] Allergy (Severe, Verified 08/25/19 10:40) Anaphylaxis codeine [Codeine] Allergy (Severe, Verified 08/25/19 10:40) Anaphylaxis Penicillins Allergy (Severe, Verified 08/25/19 10:40) Anaphylaxis metoclopramide [From Reglan] Allergy (Verified 08/25/19 10:40) diphenhydramine HCl [From Benadryl] Adverse Reaction (Verified 08/25/19 10:40) morphine Adverse Reaction (Verified 08/25/19 10:40) prochlorperazine maleate [From Compazine] Adverse Reaction (Verified 08/25/19 10:40) Home Medications: KLONAPIN Past Medical History - General Information source: Patient - Social History Smoking Status: Current Every Day Smoker Cigarette use (# per day): Yes Chew tobacco use (# tins/day): No Smoking Education Provided: No Family History: Reviewed & Not Pertinent, DM, Hypertension Patient has suicidal ideation: No Patient has homicidal ideation: No Renal/ Medical History: Reports: Hx Kidney Stones, Hx Ovarian Cysts GI Medical History: Reports: Hx Irritable Bowel, Hx Pancreatitis Musculoskeletal Medical History: Reports Hx Musculoskeletal Deformity Psychiatric Medical History: Reports: Hx Anxiety, Hx Bipolar Disorder, Hx Depression, Hx Post Traumatic Stress Disorder Past Surgical History: Reports: Hx Appendectomy, Hx Section, Hx Cholecystectomy, Hx Kidney (Renal Surgery) - kidney stent, Hx Myringotomy - Immunizations Immunizations up to date: Yes Hx Diphtheria, Pertussis, Tetanus Vaccination: Yes Review of Systems - Review of Systems Constitutional: See HPI. denies: Fever EENT: No symptoms reported Cardiovascular: No symptoms reported Respiratory: No symptoms reported Gastrointestinal: See HPI, Abdominal pain, Nausea, Vomiting, Poor appetite Genitourinary: No symptoms reported Female Genitourinary: No symptoms reported Musculoskeletal: See HPI, Back pain Skin: No symptoms reported Hematologic/Lymphatic: No symptoms reported Neurological/Psychological: No symptoms reported -: Yes All other systems reviewed and negative Physical Exam - Vital signs Vitals: Temp Pulse Resp BP Pulse Ox 98.4 F 100 20 133/76 H 97 10/19/19 22:55 10/19/19 22:55 10/19/19 22:55 10/19/19 22:55 10/19/19 22:55 - General General appearance: Alert - HEENT Head: Normocephalic, Atraumatic Eyes: Normal Pupils: PERRL - Respiratory Respiratory status: No respiratory distress Chest status: Nontender Breath sounds: Normal Chest palpation: Normal - Cardiovascular Rhythm: Regular Heart sounds: Normal auscultation Murmur: No - Abdominal Inspection: Normal Distension: No distension Bowel sounds: Normal Tenderness: Nontender Organomegaly: No organomegaly - Back Back: Normal, Nontender - Extremities General upper extremity: Normal inspection General lower extremity: Normal inspection - Neurological Neuro grossly intact: Yes - Psychological Associated symptoms: Normal affect, Normal mood - Skin Skin Temperature: Warm Skin Moisture: Dry Skin Color: Normal Course - Re-evaluation Re-evalutation: 10/20/19 00:59 Results of ED MSE discussed with patient. All questions were answered prior to discharge. Emergency signs and symptoms, reasons to return to the emergency room discussed with patient. - Vital Signs Vital signs: Temp Pulse Resp BP Pulse Ox 98.2 F 82 18 131/76 H 99 10/20/19 01:00 10/20/19 01:00 10/20/19 01:00 10/20/19 01:00 10/20/19 01:00 - Laboratory Result Diagrams: 10/19/19 23:41 10/19/19 23:41 Laboratory results interpreted by me: 10/19/19 10/19/19 23:41 23:41 RDW 14.7 H Creatinine 0.47 L Discharge - Discharge Clinical Impression: GERD (gastroesophageal reflux disease) Qualifiers: Esophagitis presence: esophagitis presence not specified Qualified Code(s): K21.9 - Gastro-esophageal reflux disease without esophagitis Condition: Good Disposition: HOME, SELF-CARE Additional Instructions: Return to the Emergency Department without delay if any worse. Buy some ZEGERID at your local drug store and use as directed. HOME CARE INSTRUCTIONS & INFORMATION: Thank you for choosing us for your medical needs. We hope you're satisfied with the care you received. After you leave, you must properly care for your problem and, at the same time, observe its progress. Any condition can change. Some illnesses can change rapidly over hours or days. If your condition worsens, return to the Emergency Department or see your physician promptly. ABOUT YOUR X-RAYS AND EKG'S: If you had an EKG or X-rays taken, they have been read by the Emergency Physician. The X-rays and EKG's will also be read by a Radiologist or Crust Sorter within 24 hours. If discrepancies are noted, you will be notified by telephone. Please be certain the ED has a correct telephone number & address where you can be reached. Also, realize that some fractures or abnormalities do not show up on initial X-rays. If your symptoms continue, see your physician. ABOUT YOUR LABORATORY TEST: If you had laboratory tests, the results have been reviewed by the Emergency Physician. Some test results (for example cultures) may not be available for several days. You will be contacted if any test result shows you need additional treatment. Please be certain the ED has a correct telephone number and address where you can be reached. ABOUT YOUR MEDICATIONS: You will receive instructions on how to take your medicine on the prescription label you receive. Additional information may be provided by the Pharmacy. If you have questions afterwards, call the ED for clarification or further instructions. Some prescribed medications may cause drowsiness. Do not perform tasks such as driving a car or operating machinery without consulting your Pharmacist. If you feel you need a refill of pain medication, your condition will need re-evaluation. Please do not call for a refill of any medication. ABOUT YOUR SIGNATURE: Signature of this document acknowledges to followin. Understanding that you received emergency treatment and that you may be released before al medical problems are known or treated. Please be certain the ED has a correct phone number & address where you can be reached. 2. Acknowledgement that you will arrange for follow-up care as recommended. 3. Authorization for the Emergency Physician to provide information to your follow-up Physician in order to maximize your care. AT ANY TIME, IF YOUR SYMPTOMS CHANGE SIGNIFICANTLY OR WORSEN OR YOU DEVELOP NEW SYMPTOMS, RETURN TO THE EMERGENCY DEPARTMENT IMMEDIATELY FOR RE-EVALUATION. OUR GOAL IS TO PROVIDE EXCELLENT MEDICAL CARE! WE HOPE THAT WE HAVE MET YOUR EXPECTATIONS DURING YOUR EMERGENCY DEPARTMENT VISIT AND THAT YOU FEEL YOU HAVE RECEIVED EXCELLENT CARE! Reflux Disease (GERD) Gastro-Esophageal Reflux Disease (GERD) is caused by stomach acid refluxing back up into the esophagus. The valve at the end of the esophagus may be weak. This is common in persons with a hiatal hernia. GERD symptoms can include indigestion, chest pain, heartburn, or food "sticking." Certain foods, alcohol, and aspirin can make GERD worse. Treatment depends on the severity. Usually, antacids or acid-suppressing medicines are used. When the esophagus is acutely inflamed, the physician will often prescribe membrane-protective drugs such as Carafate. Some patients benefit from medication such as Reglan that tightens the valve at the top of the stomach. Avoid those foods that bring on your symptoms. For many people, these foods are coffee, chocolate, onions, garlic, and carbonated drinks. Don't use alcohol, aspirin, caffeine, or tobacco. Don't eat late at night -- within 4 hours of bedtime. Don't over-eat. If necessary, elevate the head of your bed about 4 inches so that stomach acid will not roll up into your esophagus. Call the doctor if you develop severe chest pain, inability to swallow flui ds, fever, or worsening symptoms. Referrals: EVELYN MI MD [Primary Care Provider] - Follow up as needed I personally performed the services described in the documentation, reviewed and edited the documentation which was dictated to the scribe in my presence, and it accurately records my words and actions.
[2019-10-20 01:19] VITALS: BP 131/76
== END 2019-10-20 01:18 | disposition home or self-care (01) ==
LOC: ER 22:46
DX: K21.9 Gastro-esophageal reflux disease without esophagitis (principal); R10.9 Unspecified abdominal pain; R11.10 Vomiting, unspecified; M54.9 Dorsalgia, unspecified; F17.210 Nicotine dependence, cigarettes, uncomplicated; Z88.6 Allergy status to analgesic agent; Z88.0 Allergy status to penicillin; Z87.442 Personal history of urinary calculi; Z90.49 Acquired absence of other specified parts of digestive tract
CPT/HCPCS: 36415; 80053; 81001; 81025; 83690; 85025; 99284

== ENCOUNTER 2019-11-15 11:04 | Emergency (ER) | payer BC ==
[2019-11-15] MEDS ORDERED: CLINDAMYCIN HCL 150 MG CAPSULE PO ONE (12:04)
[2019-11-15 13:00] VITALS: BP 118/72
--- NOTE | 2019-11-15 13:30 | ER Document Report ---
Entered by TELMA TONG SCRIBE 11/15/19 1141 Acting as scribe for:BECKI DENNIS MD ED General - General Chief Complaint: Facial Swelling Stated Complaint: FACIAL RASH Time Seen by Provider: 11/15/19 11:16 Primary Care Provider: EVELYN MI MD [Primary Care Provider] - Follow up as needed Mode of Arrival: Ambulatory Information source: Patient Notes: This 34 year old female patient presents to the emergency department today with complaints of right 2nd molar dental pain. Patient states that she has had continued pain in this tooth for months but she is having trouble finding a dentist that will extract it during the COVID pandemic. Patient states that this pain began suddenly yesterday and her face now feels swollen and hot. Patient was seen here on 10/01 and she was given a 10 day prescription for clinda and when she was seen here again on 10/09 she told them she had finished her prescription already. TRAVEL OUTSIDE OF THE [place] IN LAST 30 DAYS: Yes - Related Data Allergies/Adverse Reactions: cephalexin monohydrate [From Keflex] Allergy (Severe, Verified 08/25/19 10:40) Anaphylaxis codeine [Codeine] Allergy (Severe, Verified 08/25/19 10:40) Anaphylaxis Penicillins Allergy (Severe, Verified 08/25/19 10:40) Anaphylaxis metoclopramide [From Reglan] Allergy (Verified 08/25/19 10:40) diphenhydramine HCl [From Benadryl] Adverse Reaction (Verified 08/25/19 10:40) morphine Adverse Reaction (Verified 08/25/19 10:40) prochlorperazine maleate [From Compazine] Adverse Reaction (Verified 08/25/19 10:40) Home Medications: dentine. zyrtec Past Medical History - General Information source: Patient - Social History Smoking Status: Current Every Day Smoker Cigarette use (# per day): Yes - 1/2 ppd Frequency of alcohol use: None Drug Abuse: None Lives with: Family Family History: Reviewed & Not Pertinent, DM, Hypertension Patient has suicidal ideation: No Patient has homicidal ideation: No Renal/ Medical History: Reports: Hx Kidney Stones, Hx Ovarian Cysts GI Medical History: Reports: Hx Irritable Bowel, Hx Pancreatitis Musculoskeletal Medical History: Reports Hx Musculoskeletal Deformity Psychiatric Medical History: Reports: Hx Anxiety, Hx Bipolar Disorder, Hx Depression, Hx Post Traumatic Stress Disorder Past Surgical History: Reports: Hx Appendectomy, Hx Section, Hx Cholecystectomy, Hx Kidney (Renal Surgery) - kidney stent, Hx Myringotomy - Immunizations Immunizations up to date: Yes Hx Diphtheria, Pertussis, Tetanus Vaccination: Yes Review of Systems - Review of Systems Constitutional: No symptoms reported EENT: See HPI, Mouth pain, Mouth swelling, Dental problem Cardiovascular: No symptoms reported Respiratory: No symptoms reported Gastrointestinal: No symptoms reported Genitourinary: No symptoms reported Female Genitourinary: No symptoms reported Musculoskeletal: No symptoms reported Skin: No symptoms reported Hematologic/Lymphatic: No symptoms reported Neurological/Psychological: No symptoms reported -: Yes All other systems reviewed and negative Physical Exam - Vital signs Vitals: Temp Pulse Resp BP Pulse Ox 97.5 F 96 18 120/74 99 11/15/19 11:11 11/15/19 11:11 11/15/19 11:11 11/15/19 11:11 11/15/19 11:11 - Notes Notes: Physical Exam: General: Alert, appears well. HEENT: Normocephalic. Atraumatic. PERRLA. Extraocular movements intact. Oropharynx clear. Right lower 2nd molar is fractured with dental caries and previous filling, this tooth and surrounding gums are tender with palpation without abscess. There is surrounding erythema and gum swelling. The right jaw is somewhat swollen. Bilateral facial erythema > right. The right side of the face is also quite hot to touch. Neck: Supple. Respiratory: No respiratory distress. Abdominal: Morbidly obese. Extremities: Moves all four extremities. Neurological: Normal cognition. AAOx4. Normal speech. Psychological: Normal affect. Normal Mood. Skin: Warm. Dry. Normal color. Course - Vital Signs Vital signs: Temp Pulse Resp BP Pulse Ox 97.5 F 96 18 120/74 99 11/15/19 11:11 11/15/19 11:11 11/15/19 11:11 11/15/19 11:11 11/15/19 11:11 Discharge - Discharge Clinical Impression: Dental decay, Toothache, Malar rash Allergic reaction Qualifiers: Encounter type: initial encounter Qualified Code(s): T78.40XA - Allergy, unspecified, initial encounter Condition: Stable Disposition: HOME, SELF-CARE Additional Instructions: Toothache Your pain is due to dental decay. The tooth must be repaired in order for you to feel better. You will, therefore, be referred to a dentist. Severe swelling or drainage around a tooth usually means a deep dental abscess. This also requires evaluation and treatment by the dentist, but antibiotics may be prescribed while awaiting dental treatment. You should be rechecked immediately if you develop major swelling of the face, increasing pain, a lump in the jaw or gums, headache, or fever. Acute Allergic Reaction Your facial rash and swelling may be due to an allergic reaction. Allergy can cause hives, swelling of the hands, feet, and face, hoarseness, and difficulty swallowing or breathing. It may be due to exposure to medication, animal dander, foods, infection, or insect bites. Medication is a common cause, even when prior use of this same medication caused no problems. Acute treatment may include adrenalin and antihistamines. Usually, the specific allergic agent can't be identified unless repeated episodes occur. Home treatment includes the following: (1) Stop any suspicious medications. This will be discussed with you. (2) You may also use cimetidine (Tagamet) or famotidine (Pepcid) every four hours to help control the itching and swelling. (3) Avoid aspirin until the hives completely disappear. Take the medications as prescribed. Take Pepcid every 4 hours for the face rash and swelling. Use warm soaks to the right jaw. If you notice the face rash getting worse the next time you take your Klonopin, then stop the medication and follow-up with your primary care provider for a different generic version of the medication. Take ibuprofen every 6-8 hours for pain. Take Tylenol every 4 hours for pain. Follow-up with a local dentist or oral surgeon to treat your decayed tooth. RETURN TO THE EMERGENCY ROOM IF ANY NEW OR WORSENING SYMPTOMS. Prescriptions: Clindamycin HCl 300 mg PO QID #28 capsule Forms: Return to Work Referrals: EVELYN MI MD [Primary Care Provider] - Follow up as needed I personally performed the services described in the documentation, reviewed and edited the documentation which was dictated to the scribe in my presence, and it accurately records my words and actions.
== END 2019-11-15 13:01 | disposition home or self-care (01) ==
LOC: ER 11:04
DX: K02.9 Dental caries, unspecified (principal); T78.40XA Allergy, unspecified, initial encounter; X58.XXXA Exposure to other specified factors, initial encounter; R21 Rash and other nonspecific skin eruption; R22.0 Localized swelling, mass and lump, head; K08.89 Other specified disorders of teeth and supporting structures; F17.210 Nicotine dependence, cigarettes, uncomplicated; Z79.899 Other long term (current) drug therapy; Z87.892 Personal history of anaphylaxis; Z88.1 Allergy status to other antibiotic agents; Z88.6 Allergy status to analgesic agent; Z88.5 Allergy status to narcotic agent; Z88.0 Allergy status to penicillin; Z88.8 Allergy status to other drugs, medicaments and biological substances
CPT/HCPCS: 99282

== ENCOUNTER 2019-12-30 05:37 | Emergency (ER) | payer BC ==
[2019-12-30 05:49] VITALS: BP 134/81
--- NOTE | 2019-12-30 06:11 | ER Document Report ---
ED General - General Chief Complaint: Toothache Stated Complaint: TOOTHPAIN Time Seen by Provider: 12/30/19 06:05 Primary Care Provider: EVELYN MI MD [Primary Care Provider] - Follow up as needed Notes: 34-year-old female with a history of narcotic misuse presents with right-sided dental pain radiates to the front of her jaw for 3 months. She been unable to see primary care dentistry lost her insurance and is taking "6000 mg of ibuprofen a day" she also says that Tylenol does not work for her and she can the dental gel from the pharmacy as well. No trouble swallowing no fevers. Recently completed antibiotics "if I get any more antibiotics I will get C. difficile." TRAVEL OUTSIDE OF THE [place] IN LAST 30 DAYS: Yes - Related Data Allergies/Adverse Reactions: cephalexin monohydrate [From Keflex] Allergy (Severe, Verified 08/25/19 10:40) Anaphylaxis codeine [Codeine] Allergy (Severe, Verified 08/25/19 10:40) Anaphylaxis Penicillins Allergy (Severe, Verified 08/25/19 10:40) Anaphylaxis metoclopramide [From Reglan] Allergy (Verified 08/25/19 10:40) diphenhydramine HCl [From Benadryl] Adverse Reaction (Verified 08/25/19 10:40) morphine Adverse Reaction (Verified 08/25/19 10:40) prochlorperazine maleate [From Compazine] Adverse Reaction (Verified 08/25/19 10:40) Home Medications: [place] Past Medical History - Social History Smoking Status: Current Every Day Smoker Family History: Reviewed & Not Pertinent, DM, Hypertension Patient has homicidal ideation: No Renal/ Medical History: Reports: Hx Kidney Stones, Hx Ovarian Cysts. Denies: Hx Peritoneal Dialysis GI Medical History: Reports: Hx Irritable Bowel, Hx Pancreatitis Musculoskeletal Medical History: Reports Hx Musculoskeletal Deformity Psychiatric Medical History: Reports: Hx Anxiety, Hx Bipolar Disorder, Hx Depression, Hx Post Traumatic Stress Disorder Past Surgical History: Reports: Hx Appendectomy, Hx Section, Hx Cholecystectomy, Hx Kidney (Renal Surgery) - kidney stent, Hx Myringotomy - Immunizations Immunizations up to date: Yes Hx Diphtheria, Pertussis, Tetanus Vaccination: Yes Review of Systems - Review of Systems Notes: REVIEW OF SYSTEMS GEN: Denies fever, chills, weight loss ENT: D dental pain EYES: Denies blurry vision, eye pain, discharge CV: Denies chest pain, palpitations, edema RESP: Denies cough, shortness of breath, wheezing GI: Denies abdominal pain, nausea, vomiting, diarrhea MSK: Denies joint pain/swelling, edema, SKIN: Denies rash, skin lesions LYMPH: Denies swollen glands/lymph nodes NEURO: Denies headache, focal weakness or numbness, dizziness PSYCH: Denies depression, suicidal or homicidal ideation PHYSICAL EXAMINATION General: No acute distress, well-nourished Head: Atraumatic, normocephalic ENT: Decay of the right second and third molars, lower with mild tenderness to percussion but no swelling. Ement Eyes: Conjunctiva normal, pupils equal, lids normal Neck: No JVD, supple, no guarding CVS: Normal rate, regular rhythm, no murmurs Resp: No resp distress, equal and normal breath sounds bilaterally GI: Nondistended, soft, no tenderness to palpation, no rebound or guarding Ext: No deformities, no edema, normal range of motion in upper and lower ext Back: No CVA or midline TTP Skin: No rash, warm Lymphatic: No lymphadeopathy noted Neuro: Awake, alert. Face symmetric. GCS 15. Physical Exam - Vital signs Vitals: Temp Pulse Resp BP Pulse Ox 98.5 F 98 18 134/81 H 97 12/30/19 05:42 12/30/19 05:42 12/30/19 05:42 12/30/19 05:42 12/30/19 05:42 Course - Vital Signs Vital signs: Temp Pulse Resp BP Pulse Ox 98.5 F 98 18 134/81 H 97 12/30/19 06:01 12/30/19 05:42 12/30/19 05:42 12/30/19 05:42 12/30/19 05:42 Discharge - Discharge Clinical Impression: Pain, dental Condition: Good Disposition: HOME, SELF-CARE Additional Instructions: It is essential to follow-up with a dentist. Please do not take the Toradol as prescribed if you are taking any ibuprofen as this may result in serious complications. Prescriptions: Ketorolac Tromethamine [Toradol 10 mg Tablet] 10 mg PO Q6HP PRN #20 tablet PRN Reason: Referrals: EVELYN MI MD [Primary Care Provider] - Follow up as needed
== END 2019-12-30 06:19 | disposition home or self-care (01) ==
LOC: ER 05:37
DX: K08.89 Other specified disorders of teeth and supporting structures (principal); R68.84 Jaw pain; Z88.8 Allergy status to other drugs, medicaments and biological substances; Z88.0 Allergy status to penicillin; Z88.1 Allergy status to other antibiotic agents; Z79.899 Other long term (current) drug therapy; F17.200 Nicotine dependence, unspecified, uncomplicated
CPT/HCPCS: 99282

== ENCOUNTER 2019-12-31 23:46 | Emergency (ER) | payer BC ==
[2020-01-01] VITALS: BP 144/105
[2020-01-01] MEDS ORDERED: BUPIVACAINE HCL 0.75% INJ/PF (7.5 MG/1 ML) 10 ML SDV INJ ONE (01:00)
[2020-01-01] MEDS ORDERED: HYDROCODONE/ACETAMINOPHEN 5-325 MG TABLET PO ONE (01:20)
--- NOTE | 2020-01-01 01:20 | ER Document Report ---
HPI - HPI Time Seen by Provider: 12/31/19 23:56 Pain Level: 5 Context: Patient is a 34-year-old female that comes to the emergency department for chief complaint of pain. She states pain is in the right lower posterior aspect. She states that she knows she needs a dental extraction but this has been delayed because of the pandemic. She states she is not able to get in a new clinic in the clinic she is waiting for is not open yet. She was seen here this morning a nd prescribed Toradol. Denies swelling of the face, sore throat, fever, or any other complaints. She states she was recently on amoxicillin, before that she was on clindamycin. - REPRODUCTIVE Reproductive: DENIES: : Past Medical History - General Information source: Patient - Social History Smoking Status: Current Every Day Smoker Frequency of alcohol use: None Drug Abuse: None Lives with: Family Family History: Reviewed & Not Pertinent, DM, Hypertension Patient has homicidal ideation: No Renal/ Medical History: Reports: Hx Kidney Stones, Hx Ovarian Cysts. Denies: Hx Peritoneal Dialysis GI Medical History: Reports: Hx Irritable Bowel, Hx Pancreatitis Musculoskeletal Medical History: Reports Hx Musculoskeletal Deformity Psychiatric Medical History: Reports: Hx Anxiety, Hx Bipolar Disorder, Hx Depression, Hx Post Traumatic Stress Disorder Past Surgical History: Reports: Hx Appendectomy, Hx Section, Hx Cholecystectomy, Hx Kidney (Renal Surgery) - kidney stent, Hx Myringotomy - Immunizations Immunizations up to date: Yes Hx Diphtheria, Pertussis, Tetanus Vaccination: Yes Vertical Provider Document - CONSTITUTIONAL General Appearance: Other - Patient appears very anxious, holding the right side of her face, rocking - INFECTION CONTROL TRAVEL OUTSIDE OF THE [place] IN LAST 30 DAYS: Yes - HEENT HEENT: Atraumatic, Normal ENT Exam, Normocephalic, PERRLA. negative: Conjuctival Injection, Pharyngeal Tenderness, Pharyngeal Erythema Mouth Diagram: 1 - Dental caries but no significant erythema surrounding this, no induration or fluctuance, no other concerning findings noted. - NECK Neck: Normal Inspection. negative: Lymphadenopathy-Left, Lymphadenopathy-Right - RESPIRATORY Respiratory: Breath Sounds Normal, No Respiratory Distress - CARDIOVASCULAR Cardiovascular: Regular Rate, Regular Rhythm, No Murmur. negative: Tachycardia, Bradycardia Course - Re-evaluation Re-evalutation: Patient intermittently extremely anxious and then calm. Patient does have a his tory of anxiety. Initially patient was very tearful, holding her face, complaining of dental pain. She does have dental caries with fractured molar in the right inferior posterior aspect. However there is no significant erythema, swelling, or noted abscess. Patient has been here earlier today for the same. Patient has no trismus, neck pain, sore throat, or any other concerning findings noted. I did discuss options and patient elected for dental block. This was performed, initially patient reported full anesthesia, however shortly after this patient reported that her pain was back and she would need something else for the pain. Patient also added on reevaluation that she is having some painful urination. Urine was checked and does indicate a urinary tract infection, she was placed on Macrobid along with the amoxicillin for her dental pain. Culture was placed, negative, patient has no abdominal pain, flank pain, nausea, vomiting, or fever. I did discuss importance of following up with a dentist, provided with lidocaine because symptoms return, discussed return precautions. Patient did state understanding and agreement. - Vital Signs Vital signs: Temp Pulse Resp BP Pulse Ox 97.7 F 120 H 26 H 144/105 H 98 12/31/19 23:59 12/31/19 23:59 12/31/19 23:59 12/31/19 23:59 12/31/19 23:59 Procedures - Additional Procedures Dental block Additional Procedures: Other - Inferior alveolar dental block performed on the right lower jawline. After aspirating 3 cc of 0.75 bupivacaine were placed in the inferior alveolar location. Small amount of bleeding afterwards. No complications. Good anesthesia provided. Discharge - Discharge Clinical Impression: Pain, dental, Dysuria Condition: Stable Disposition: HOME, SELF-CARE Additional Instructions: Recommend that you take the Toradol prescribed earlier for pain if needed, you can also take Tylenol along with this, take the antibiotic as prescribed for your teeth, also take [id number] probiotics. Follow-up with the dentist as we discussed your this will continue to occur. You also have a urinary tract infection. Take the Macrobid for this as prescribed to completion. Return if you worsen including swelling of the face, vomiting, fever, or any other concerning symptoms. Prescriptions: Amoxicillin Trihydrate [Amoxil 500 mg Capsule] 500 mg PO BID 10 Days #20 capsule Nitrofurantoin Monohyd/M-Cryst [Macrobid 100 mg Capsule] 100 mg PO BID 5 Days #10 cap Referrals: EVELYN MI MD [Primary Care Provider] - Follow up as needed
[2020-01-01 02:19] LABS: APPEARANCE,URINE SLIGHTLY-CLOUDY; BILIRUBIN,URINE NEGATIVE (NEGATIVE); COLOR,URINE YELLOW; GLUCOSE, URINE NEGATIVE (NEGATIVE); KETONES,URINE NEGATIVE (NEGATIVE); LEUKOCYTE ESTERASE,URINE SMALL (NEGATIVE); NITRITE,URINE POSITIVE (NEGATIVE); PROTEIN,URINE 30 mg/dL (NEGATIVE); URINE SPECIFIC GRAVITY 1.026; UROBILINOGEN,URINE NEGATIVE mg/dL (<2.0)
[2020-01-01] MEDS ORDERED: NITROFURANTOIN MONOHYD/M-CRYST 100 MG CAPSULE PO ONE (02:30)
[2020-01-01] MEDS ORDERED: LIDOCAINE 2% JELLY 30 ML TUBE TOP ONE (02:48)
[2020-01-01] MEDS ORDERED: LIDOCAINE 2% VISCOUS SOLN 15 ML UDCUP PO ONE (02:51)
== END 2020-01-01 03:08 | disposition home or self-care (01) ==
LOC: ER 23:46
DX: K08.9 Disorder of teeth and supporting structures, unspecified (principal); R30.0 Dysuria; F17.200 Nicotine dependence, unspecified, uncomplicated; Z90.49 Acquired absence of other specified parts of digestive tract
CPT/HCPCS: 99283; 81025; 81001; 64400; J3490 ×2; J8499; 87086; 87088

== ENCOUNTER 2020-01-10 01:57 | Emergency (ER) | payer BC ==
[2020-01-10 03:32] LABS: ABSOLUTE BASOPHILS # (AUTO) 0.1 10^3/uL (0.0-0.2); ABSOLUTE EOSINOPHILS # (AUTO) 0.2 10^3/uL (0.0-0.6); ABSOLUTE LYMPHOCYTES (AUTO) 3.2 10^3/uL (0.5-4.7); ABSOLUTE MONOCYTES (AUTO) 0.8 10^3/uL (0.1-1.4); ABSOLUTE NEUT (AUTO) 5.5 10^3/uL (1.7-8.2); BASOPHILS % (AUTO) 0.7 % (0-2); HEMATOCRIT 41.4 % (36.0-47.0); HEMOGLOBIN 14.2 g/dL (12.0-15.5); LYMPHOCYTES % (AUTO) 33.1 % (13-45); MEAN CORPUSCULAR HEMOGLOBIN 31.9 pg (27.0-33.4); MEAN CORPUSCULAR HGB CONC 34.3 g/dL (32.0-36.0); MEAN CORPUSCULAR VOLUME 93 fl (80-97); MONOCYTES % (AUTO) 7.8 % (3-13); PLATELET COUNT 258 10^3/uL (150-450); RED BLOOD COUNT 4.45 10^6/uL (3.72-5.28); SEGMENTED NEUTROPHILS % (AUTO) 56.4 % (42-78); TOTAL CELLS COUNTED % (AUTO) 100 %; WHITE BLOOD COUNT 9.7 10^3/uL (4.0-10.5)
[2020-01-10 03:49] LABS: ALBUMIN 4.6 g/dL (3.5-5.0); ALKALINE PHOSPHATASE 79 U/L (38-126); ANION GAP 10 (5-19); ASPARTATE AMINO TRANSFERASE 58 U/L (14-36); BILIRUBIN,TOTAL 0.9 mg/dL (0.2-1.3); BLOOD UREA NITROGEN 14 mg/dL (7-20); CALCIUM 9.9 mg/dL (8.4-10.2); CARBON DIOXIDE 25 mmol/L (22-30); CHLORIDE 103 mmol/L (98-107); GLUCOSE 108 mg/dL (75-110); POTASSIUM 4.3 mmol/L (3.6-5.0); TOTAL PROTEIN 7.8 g/dL (6.3-8.2)
[2020-01-10 04:45] VITALS: BP 128/75
[2020-01-10] MEDS ORDERED: HALOPERIDOL LACTATE INJ 5 MG/1 ML VIAL IV ONE (06:02)
[2020-01-10] MEDS ORDERED: DIPHENHYDRAMINE HCL 50 MG/ML VIAL IV ONE (06:02)
[2020-01-10] MEDS ORDERED: BENZTROPINE MESYLATE INJ 2 MG/2 ML AMPULE IM ONE (06:03)
--- NOTE | 2020-01-10 06:27 | ER Document Report ---
ED General - General Chief Complaint: Abdominal Pain Stated Complaint: RIB PAIN,LEG PAIN,VOMITING Time Seen by Provider: 01/10/20 05:55 Primary Care Provider: EVELYN MI MD [Primary Care Provider] - Follow up as needed Notes: 34-year-old female with recurrent flank and abdominal pain, B ED visits, chronic narcotic dependence and allergies to multi-medications presents with the same pain epigastric bilateral upper quadrant nonradiating and severe for several days with nausea vomiting and p.o. intolerance. No diarrhea. No fever. Pain is identical to past episodes. Patient smokes "1 blunts" every day but denies a history of cannabinoid hyperemesis. She is aware of the diagnosis but says that in the last couple time she is been diagnosed with "pancreatitis." TRAVEL OUTSIDE OF THE [place] IN LAST 30 DAYS: Yes - Related Data Allergies/Adverse Reactions: cephalexin monohydrate [From Keflex] Allergy (Severe, Verified 01/10/20 03:02) Anaphylaxis codeine [Codeine] Allergy (Severe, Verified 01/10/20 03:02) Anaphylaxis Penicillins Allergy (Severe, Verified 01/10/20 03:02) Anaphylaxis metoclopramide [From Reglan] Allergy (Verified 01/10/20 03:02) diphenhydramine HCl [From Benadryl] Adverse Reaction (Verified 01/10/20 03:02) morphine Adverse Reaction (Verified 01/10/20 03:02) prochlorperazine maleate [From Compazine] Adverse Reaction (Verified 01/10/20 03:02) Home Medications: HYDROCODONE. CLONOPINE Past Medical History - General Information source: Patient - Social History Smoking Status: Current Every Day Smoker Smoking Education Provided: Yes - The patient ED visit today was directly related to their abuse of tobacco. Frequency of alcohol use: None Drug Abuse: None Family History: Reviewed & Not Pertinent, DM, Hypertension Patient has homicidal ideation: No Renal/ Medical History: Reports: Hx Kidney Stones, Hx Ovarian Cysts. Denies: Hx Peritoneal Dialysis GI Medical History: Reports: Hx Irritable Bowel, Hx Pancreatitis Musculoskeletal Medical History: Reports Hx Musculoskeletal Deformity Psychiatric Medical History: Reports: Hx Anxiety, Hx Bipolar Disorder, Hx Depression, Hx Post Traumatic Stress Disorder Past Surgical History: Reports: Hx Appendectomy, Hx Section, Hx Cholecystectomy, Hx Kidney (Renal Surgery) - kidney stent, Hx Myringotomy - Immunizations Immunizations up to date: Yes Hx Diphtheria, Pertussis, Tetanus Vaccination: Yes Review of Systems - Review of Systems Notes: REVIEW OF SYSTEMS GEN: Denies fever, chills, weight loss ENT: Denies sore throat, nasal discharge, ear pain EYES: Denies blurry vision, eye pain, discharge CV: Denies chest pain, palpitations, edema RESP: Denies cough, shortness of breath, wheezing GI: See HPI MSK: Denies joint pain/swelling, edema, SKIN: Denies rash, skin lesions LYMPH: Denies swollen glands/lymph nodes NEURO: Denies headache, focal weakness or numbness, dizziness PSYCH: Denies depression, suicidal or homicidal ideation PHYSICAL EXAMINATION General: No acute distress, well-nourished Head: Atraumatic, normocephalic ENT: Mouth normal, oropharynx moist, no exudates or tonsillar enlargement Eyes: Conjunctiva normal, pupils equal, lids normal Neck: No JVD, supple, no guarding CVS: Normal rate, regular rhythm, no murmurs Resp: No resp distress, equal and normal breath sounds bilaterally GI: Diffuse mild tenderness without rebound guarding, soft normal bowel sounds Ext: No deformities, no edema, normal range of motion in upper and lower ext Back: No CVA or midline TTP Skin: No rash, warm Lymphatic: No lymphadeopathy noted Neuro: Awake, alert. Face symmetric. GCS 15. Physical Exam - Vital signs Vitals: Temp Pulse Resp BP Pulse Ox 99.0 F 98 20 123/74 98 01/10/20 02:56 01/10/20 02:56 01/10/20 02:56 01/10/20 02:56 01/10/20 02:56 Course - Re-evaluation Re-evalutation: 01/10/20 06:42 Recurrent abdominal pain History of multiple visits multiple imaging with no clear diagnosis Doubt pancreatitis given normal lipase Remainder of labs normalno renal failure signs of severe dehydration electrolyte abnormalities Suspect cannabinoid hyperemesis I thoughtfully designed a medication cocktail for the patient that I thought would relieve her symptoms yet she refused She is requesting sublingual Zofran We will give this She was counseled on marijuana abuse Stable for discharge doubt needs imaging I have discussed with the patient there likely diagnosis, aftercare plan, follow-up plans and my usual and customary return precautions. They verbalized understanding of this. - Vital Signs Vital signs: Temp Pulse Resp BP Pulse Ox 98.0 F 102 H 20 128/75 H 97 01/10/20 04:31 01/10/20 04:31 01/10/20 02:57 01/10/20 04:31 01/10/20 04:31 - Laboratory Result Diagrams: 01/10/20 03:23 01/10/20 03:23 Laboratory results interpreted by me: 01/10/20 01/10/20 03:23 06:05 AST 58 H ALT 47 H Urine Protein 30 H Urine Ketones TRACE H Urine Blood SMALL H Discharge - Discharge Clinical Impression: Recurrent abdominal pain Condition: Good Disposition: HOME, SELF-CARE Instructions: Abdominal Pain ([facility]) Prescriptions: Promethazine HCl [Phenergan 25 mg Tablet] 1 - 2 tab PO Q6H PRN #15 tablet PRN Reason: Referrals: EVELYN MI MD [Primary Care Provider] - Follow up as needed
[2020-01-10 06:29] LABS: APPEARANCE,URINE SLIGHTLY-CLOUDY; BILIRUBIN,URINE NEGATIVE (NEGATIVE); COLOR,URINE YELLOW; GLUCOSE, URINE NEGATIVE (NEGATIVE); KETONES,URINE TRACE mg/dL (NEGATIVE); LEUKOCYTE ESTERASE,URINE NEGATIVE (NEGATIVE); NITRITE,URINE NEGATIVE (NEGATIVE); PROTEIN,URINE 30 mg/dL (NEGATIVE); URINE SPECIFIC GRAVITY 1.027; UROBILINOGEN,URINE NEGATIVE mg/dL (<2.0)
[2020-01-10] MEDS ORDERED: ONDANSETRON 4 MG TAB.RAPDIS PO ONE (06:38)
== END 2020-01-10 07:17 | disposition home or self-care (01) ==
LOC: ER 01:57
DX: R10.9 Unspecified abdominal pain (principal); R10.13 Epigastric pain; R10.11 Right upper quadrant pain; R10.12 Left upper quadrant pain; R11.2 Nausea with vomiting, unspecified; R10.817 Generalized abdominal tenderness; F11.20 Opioid dependence, uncomplicated; Z79.899 Other long term (current) drug therapy; Z90.49 Acquired absence of other specified parts of digestive tract; Z87.892 Personal history of anaphylaxis; Z88.1 Allergy status to other antibiotic agents; Z88.6 Allergy status to analgesic agent; Z88.5 Allergy status to narcotic agent; Z88.0 Allergy status to penicillin; Z88.8 Allergy status to other drugs, medicaments and biological substances; F17.200 Nicotine dependence, unspecified, uncomplicated
CPT/HCPCS: 36415; 80053; 81001; 83690; 84702; 85025; 99284

== ENCOUNTER 2020-01-21 03:08 | Emergency (ER) | payer BC ==
--- NOTE | 2020-01-21 04:11 | RADIOLOGY REPORT (SQ) ---
EXAM DESCRIPTION: XR RIBS UNILATERAL WITH CHEST COMPLETED DATE/TME: 01/21/2020 00:00 CLINICAL HISTORY: 34 years, Female, Right rib pain, SOB COMPARISON: 08/25/2019 NUMBER OF VIEWS: Three TECHNIQUE: AP view the chest with two views of the left ribs. LIMITATIONS: None. FINDINGS: The lungs are clear. The heart is normal in size. There is no pneumothorax or pleural effusion. No rib fracture is identified. Cholecystectomy clips are noted. IMPRESSION: No acute cardiopulmonary abnormality. No rib fracture. copyright 2010 [employer]- All Rights Reserved
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
[2020-01-21] MEDS ORDERED: KETOROLAC TROMETHAMINE INJ/PF 30 MG/1 ML SDV IM ONE (04:20)
[2020-01-21] MEDS ORDERED: ACETAMINOPHEN 325 MG TABLET PO ONE (04:28)
[2020-01-21] MEDS ORDERED: HYDROCODONE/ACETAMINOPHEN 5-325 MG TABLET PO ONE (05:49)
--- NOTE | 2020-01-21 07:28 | RADIOLOGY REPORT (SQ) ---
EXAM DESCRIPTION: US ABDOMEN LIMITED COMPLETED DATE/TME: 01/21/2020 05:42 CLINICAL HISTORY: 34 years Female, RUQ/epigastric pain Comparison: CT 09/16/17, 01/14/11, 08/02/19 LIMITATIONS: None. FINDINGS: 2.1 x 2.0 x 1.3 cm (prior: 1.6 x 1.5-cm, CT, 08/04/19) hypoechoic well-defined ovoid lesion of the left hepatic lobe. Recommend multiphase contrast MRI or CT of the abdomen, liver protocol. Right ureteral stent at the proximal right ureter consistent with prior CT from August. Cholecystectomy moderate hepatic steatosis, a 0.3-cm diameter common bile duct, no intrahepatic ductal dilation, hepatopetal patent flow of the portal vein, 10.4-cm right kidney, obscured pancreas, visualized vasculature/abdominal aorta, and no significant ascites appear otherwise unremarkable. IMPRESSION: 1. 2.1 x 2.0 x 1.3 cm hypoechoic well-defined ovoid lesion of the left hepatic lobe may indicate a focal fatty sparing, atypical hemangioma, or other neoplasm. Recommend multiphase contrast MRI or CT of the abdomen, liver protocol. If the patient is high risk, consider tissue sampling. 2. Right ureteral stent at the proximal right ureter consistent with prior CT from August 2019. 3. Cholecystectomy 4. Hepatic steatosis. 5. Limitation: Pancreas not visualized.
[2020-01-21 07:41] VITALS: BP 128/88
== END 2020-01-21 07:40 | disposition home or self-care (01) ==
LOC: ER 03:08
DX: R07.81 Pleurodynia (principal); K76.9 Liver disease, unspecified; R10.811 Right upper quadrant abdominal tenderness; F17.200 Nicotine dependence, unspecified, uncomplicated
CPT/HCPCS: 76705; 99284

== ENCOUNTER 2020-01-28 18:11 | Emergency (ER) | payer BC ==
--- NOTE | 2020-01-28 19:54 | ER Document Report ---
ED Medical Screen (RME) - General Chief Complaint: Rib Pain Stated Complaint: RIB/ARM PAIN Primary Care Provider: EVELYN MI MD [Primary Care Provider] - Follow up as needed Notes: 34-year-old female with past medical history of anxiety presenting for continued right upper quadrant pain that radiates around her back. Also reports that she now has left upper quadrant pain and intermittent epigastric pain. Pain is described as constant and sharp. Also reports a 14 pound weight gain. Denies any nausea, vomiting, diarrhea or constipation or change in appetite. No fevers. She was recently seen in the emergency department on January 20. Right upper quadrant ultrasound was performed which showed a 2.02.0 hypoechoic well- defined ovoid lesion of the left hepatic lobe. Patient has had a cholecystectomy. Patient states that the Toradol that was prescribed her did not provide any relief. States she is unable to sleep due to the pain. States she has no shortness of breath due to the pain. Also reports that her right arm falls asleep periodically. I have greeted and performed a rapid initial assessment of this patient. A comprehesive ED assessment and evaluation of this patient, analysis of test results and completion of the medical decision-making process will be conducted by additional ED providers. TRAVEL OUTSIDE OF THE [place] IN LAST 30 DAYS: Yes - Related Data Allergies/Adverse Reactions: cephalexin monohydrate [From Keflex] Allergy (Severe, Verified 01/10/20 03:02) Anaphylaxis codeine [Codeine] Allergy (Severe, Verified 01/10/20 03:02) Anaphylaxis Penicillins Allergy (Severe, Verified 01/10/20 03:02) Anaphylaxis metoclopramide [From Reglan] Allergy (Verified 01/10/20 03:02) diphenhydramine HCl [From Benadryl] Adverse Reaction (Verified 01/10/20 03:02) morphine Adverse Reaction (Verified 01/10/20 03:02) prochlorperazine maleate [From Compazine] Adverse Reaction (Verified 01/10/20 03:02) Home Medications: klonipin Past Medical History Renal/ Medical History: Reports: Hx Kidney Stones, Hx Ovarian Cysts. Denies: Hx Peritoneal Dialysis GI Medical History: Reports: Hx Irritable Bowel, Hx Pancreatitis Musculoskeltal Medical History: Reports Hx Musculoskeletal Deformity Psychiatric Medical History: Reports: Hx Anxiety, Hx Bipolar Disorder, Hx Depression, Hx Post Traumatic Stress Disorder Past Surgical History: Reports: Hx Appendectomy, Hx Section, Hx Cholecystectomy, Hx Kidney (Renal Surgery) - kidney stent, Hx Myringotomy - Immunizations Immunizations up to date: Yes Hx Diphtheria, Pertussis, Tetanus Vaccination: Yes Review of Systems - Review of Systems Constitutional: No symptoms reported EENT: No symptoms reported Cardiovascular: No symptoms reported Respiratory: See HPI Gastrointestinal: See HPI Genitourinary: No symptoms reported Physical Exam - Vital signs Vitals: Temp Pulse Resp BP Pulse Ox 98.9 F 101 H 16 134/77 H 96 01/28/20 18:26 01/28/20 18:26 01/28/20 18:26 01/28/20 18:26 01/28/20 18:26 Interpretation: Tachycardic - Notes Notes: Patient sitting comfortably in chair. Abdomen is soft, tender to palpation right upper quadrant and left upper quadrant. Mild tenderness in epigastric region. Her right thorac is also tender to palpation. Course - Vital Signs Vital signs: Temp Pulse Resp BP Pulse Ox 98.9 F 101 H 16 134/77 H 96 01/28/20 19:24 01/28/20 18:26 01/28/20 18:26 01/28/20 18:26 01/28/20 18:26 Doctor's Discharge - Discharge Referrals: EVELYN MI MD [Primary Care Provider] - Follow up as needed
[2020-01-28 21:12] LABS: APPEARANCE,URINE CLOUDY; BILIRUBIN,URINE NEGATIVE (NEGATIVE); COLOR,URINE YELLOW; GLUCOSE, URINE NEGATIVE (NEGATIVE); KETONES,URINE NEGATIVE (NEGATIVE); LEUKOCYTE ESTERASE,URINE NEGATIVE (NEGATIVE); NITRITE,URINE NEGATIVE (NEGATIVE); PROTEIN,URINE NEGATIVE (NEGATIVE); URINE SPECIFIC GRAVITY 1.021; UROBILINOGEN,URINE NEGATIVE mg/dL (<2.0)
[2020-01-28] MEDS ORDERED: KETOROLAC TROMETHAMINE INJ/PF 30 MG/1 ML SDV IM ONE (22:15)
--- NOTE | 2020-01-28 22:58 | RADIOLOGY REPORT (SQ) ---
EXAM DESCRIPTION: [facility]: CT ABDOMEN PELVIS WITH IV CONTRAST CLINICAL HISTORY: 34 years Female; bilat upper abdominal pain; TECHNIQUE: CT of the abdomen and pelvis using intravenous contrast. All CT scans at this facility use dose modulation, iterative reconstruction, and/or weight based dosing when appropriate to reduce radiation dose to as low as reasonably achievable. COMPARISON: CT 08/04/2019 FINDINGS: Abdomen: Stomach: No significant distention or surrounding edema. Liver: Diffusely hypodense. No ductal distention. Gallbladder: Surgically absent Pancreas:Within normal limits Spleen:Within normal limits Right kidney:No hydronephrosis. No focal lesion. Left kidney:No hydronephrosis. No focal lesion. Adrenal glands:Within normal limits Vascular structures:Within normal limits Pelvis: Small bowel:No significant distention. Appendix: Not identified Colon:No distention or acute pericolonic edema. No free intraperitoneal fluid or air. Bones: No acute bone findings. Bladder: Unremarkable. Right ovary: 2.1 cm lesion containing predominantly fat but also focal calcification and soft tissue density. No left adnexal enlargement. Uterus is unremarkable. IMPRESSION: 1. No acute findings 2. Hepatic steatosis 3. Previous cholecystectomy 4. Right ovarian dermoid, not significantly changed since 09/16/2017.
[2020-01-29 00:18] LABS: ABSOLUTE BASOPHILS # (AUTO) 0.1 10^3/uL (0.0-0.2); ABSOLUTE EOSINOPHILS # (AUTO) 0.2 10^3/uL (0.0-0.6); ABSOLUTE LYMPHOCYTES (AUTO) 2.8 10^3/uL (0.5-4.7); ABSOLUTE MONOCYTES (AUTO) 0.6 10^3/uL (0.1-1.4); ABSOLUTE NEUT (AUTO) 5.1 10^3/uL (1.7-8.2); BASOPHILS % (AUTO) 0.6 % (0-2); EOSINOPHILS % (AUTO) 2.1 % (0-6); HEMOGLOBIN 13.9 g/dL (12.0-15.5); MEAN CORPUSCULAR HEMOGLOBIN 32.7 pg (27.0-33.4); MEAN CORPUSCULAR HGB CONC 34.6 g/dL (32.0-36.0); MEAN CORPUSCULAR VOLUME 94 fl (80-97); MONOCYTES % (AUTO) 6.7 % (3-13); PLATELET COUNT 237 10^3/uL (150-450); RED BLOOD COUNT 4.25 10^6/uL (3.72-5.28); SEGMENTED NEUTROPHILS % (AUTO) 58.6 % (42-78); TOTAL CELLS COUNTED % (AUTO) 100 %; WHITE BLOOD COUNT 8.7 10^3/uL (4.0-10.5)
--- NOTE | 2020-01-29 01:06 | EKG REPORT ---
SEVERITY:- NORMAL ECG - SINUS RHYTHM : Confirmed by: Trina Choi MD 29-Jan-2020 01:04:55
[2020-01-29] MEDS ORDERED: KETOROLAC TROMETHAMINE INJ/PF 30 MG/1 ML SDV IM ONE (04:15)
[2020-01-29 04:21] VITALS: BP 133/79
[2020-01-29] MEDS ORDERED: PANTOPRAZOLE SODIUM 40 MG VIAL IV ONE (04:29)
[2020-01-29] MEDS ORDERED: HALOPERIDOL LACTATE INJ 5 MG/1 ML VIAL IM ONE (04:29)
[2020-01-29 04:53] LABS: ALBUMIN 4.7 g/dL (3.5-5.0); ALKALINE PHOSPHATASE 88 U/L (38-126); ANION GAP 12 (5-19); ASPARTATE AMINO TRANSFERASE 35 U/L (14-36); BILIRUBIN,TOTAL 0.4 mg/dL (0.2-1.3); BLOOD UREA NITROGEN 10 mg/dL (7-20); CALCIUM 10.3 mg/dL (8.4-10.2); CARBON DIOXIDE 20 mmol/L (22-30); CHLORIDE 106 mmol/L (98-107); GLUCOSE 85 mg/dL (75-110); POTASSIUM 4.1 mmol/L (3.6-5.0); TOTAL PROTEIN 8.3 g/dL (6.3-8.2)
--- NOTE | 2020-01-29 04:54 | ER Document Report ---
Entered by HOWARD ORTEGA SCRIBE 01/29/20 0421 Acting as scribe for:MOE PERKINS, ED General - General Chief Complaint: Abdominal Pain Stated Complaint: RIB/ARM PAIN Primary Care Provider: EVELYN MI MD [Primary Care Provider] - Follow up as needed Mode of Arrival: Ambulatory Information source: Patient Notes: This 34 year old female patient presents to the ED today with complaints of bilateral upper quadrant pain since her last visit here x8 days ago. Patient states that the Tramadol she was prescribed did not provide any relief. She is now reporting a "funny feeling" sensation in her chest described as "strings being pulled" that radiates to her right shoulder for the past x2 days. She note associated numbness/tingling to her right fingertips. Denies any urinary symptoms. Reports a past abdominal surgery history of appendectomy, cholecys tecomy, and caesarean section. TRAVEL OUTSIDE OF THE [place] IN LAST 30 DAYS: Yes - Related Data Allergies/Adverse Reactions: cephalexin monohydrate [From Keflex] Allergy (Severe, Verified 01/10/20 03:02) Anaphylaxis codeine [Codeine] Allergy (Severe, Verified 01/10/20 03:02) Anaphylaxis Penicillins Allergy (Severe, Verified 01/10/20 03:02) Anaphylaxis haloperidol [From Haldol] Allergy (Verified 01/29/20 04:51) metoclopramide [From Reglan] Allergy (Verified 01/10/20 03:02) diphenhydramine HCl [From Benadryl] Adverse Reaction (Verified 01/10/20 03:02) morphine Adverse Reaction (Verified 01/10/20 03:02) prochlorperazine maleate [From Compazine] Adverse Reaction (Verified 01/10/20 03:02) Home Medications: klonipin Past Medical History - General Information source: Patient, [facility] Records - Social History Smoking Status: Current Every Day Smoker Cigarette use (# per day): Yes Chew tobacco use (# tins/day): No Smoking Education Provided: No 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 Family History: Reviewed & Not Pertinent, DM, Hypertension Patient has suicidal ideation: No Patient has homicidal ideation: No Renal/ Medical History: Reports: Hx Kidney Stones, Hx Ovarian Cysts GI Medical History: Reports: Hx Irritable Bowel, Hx Pancreatitis Musculoskeletal Medical History: Reports Hx Musculoskeletal Deformity Psychiatric Medical History: Reports: Hx Anxiety, Hx Bipolar Disorder, Hx Depression, Hx Post Traumatic Stress Disorder Past Surgical History: Reports: Hx Appendectomy, Hx Section, Hx Cholecystectomy, Hx Kidney (Renal Surgery) - kidney stent rt, Hx Myringotomy - Immunizations Immunizations up to date: Yes Hx Diphtheria, Pertussis, Tetanus Vaccination: Yes Review of Systems - Review of Systems Constitutional: No symptoms reported EENT: No symptoms reported Cardiovascular: See HPI, Other - "string being pulled in my chest" sensation Respiratory: No symptoms reported Gastrointestinal: See HPI, Abdominal pain Genitourinary: See HPI. denies: Burning, Dysuria, Frequency, Hematuria Female Genitourinary: No symptoms reported Musculoskeletal: No symptoms reported Skin: No symptoms reported Hematologic/Lymphatic: No symptoms reported Neurological/Psychological: See HPI, Numbness, Tingling -: Yes All other systems reviewed and negative Physical Exam - Vital signs Vitals: Temp Pulse Resp BP Pulse Ox 98.9 F 101 H 16 134/77 H 96 01/28/20 18:26 01/28/20 18:26 01/28/20 18:26 01/28/20 18:26 01/28/20 18:26 - General General appearance: Alert In distress: None - HEENT Head: Normocephalic, Atraumatic Eyes: Normal Pupils: PERRL - Respiratory Respiratory status: No respiratory distress Chest status: Nontender Breath sounds: Normal Chest palpation: Normal - Cardiovascular Rhythm: Regular Heart sounds: Normal auscultation Murmur: No Friction rub: No Gallop: None auscultated - Abdominal Inspection: Morbidly Obese Distension: No distension Bowel sounds: Normal Tenderness: Tender - Mild epigastric and bilateral upper quadrant tenderness to palpation Organomegaly: No organomegaly - Back Back: Normal, Nontender - Extremities General upper extremity: Normal inspection General lower extremity: Normal inspection. No: Edema - Neurological Neuro grossly intact: Yes Orientation: AAOx4 [place] Coma Scale Eye Opening: Spontaneous Alec Coma Scale Verbal: Oriented Alec Coma Scale Motor: Obeys Commands [place] Coma Scale Total: 15 - Psychological Associated symptoms: Normal affect, Normal mood - Skin Skin Temperature: Warm Skin Moisture: Dry Skin Color: Normal Course - Re-evaluation Re-evalutation: 01/29/20 05:16 MDM 34 year old female with persistent epigastric and bilateral upper quad pain. Allergic to most antiemetics. Asks for ibuprofen which is not a good idea with her recent ketorolac rx. Attempted to treat with haldol, and then she decided she is allegic to that. Thc hyperemesis may play a role but she does not think so. In any event, she may follow up. - Vital Signs Vital signs: Temp Pulse Resp BP Pulse Ox 98.1 F 98 20 133/79 H 99 01/29/20 04:20 01/29/20 04:20 01/29/20 04:20 01/29/20 04:20 01/29/20 04:20 - Laboratory Result Diagrams: 01/28/20 21:30 01/29/20 04:12 Laboratory results interpreted by me: 01/29/20 04:12 Carbon Dioxide 20 L Creatinine 0.46 L Calcium 10.3 H Total Protein 8.3 H - Diagnostic Test Radiology reviewed: Reports reviewed Discharge - Discharge Clinical Impression: Epigastric pain, Right upper quadrant pain Condition: Stable Disposition: HOME, SELF-CARE Instructions: Abdominal Pain ([facility]), Antispasmodics ([facility]), Clear Liquid Diet ([facility]) Additional Instructions: See your doctor in follow up. Clear liquid diet. Please return here for any p roblems or any concerns including but not limited to fever or abdominal pain. Referrals: EVELYN MI MD [Primary Care Provider] - Follow up as needed I personally performed the services described in the documentation, reviewed and edited the documentation which was dictated to the scribe in my presence, and it accurately records my words and actions.
== END 2020-01-29 06:03 | disposition home or self-care (01) ==
LOC: ER 18:11
DX: R10.13 Epigastric pain (principal); D27.0 Benign neoplasm of right ovary; R10.11 Right upper quadrant pain; R10.12 Left upper quadrant pain; R10.816 Epigastric abdominal tenderness; R10.811 Right upper quadrant abdominal tenderness; R10.812 Left upper quadrant abdominal tenderness; R09.89 Other specified symptoms and signs involving the circulatory and respiratory systems; R20.0 Anesthesia of skin; R20.2 Paresthesia of skin; F17.210 Nicotine dependence, cigarettes, uncomplicated; Z87.442 Personal history of urinary calculi; Z87.19 Personal history of other diseases of the digestive system; Z90.49 Acquired absence of other specified parts of digestive tract; Z87.892 Personal history of anaphylaxis; Z88.1 Allergy status to other antibiotic agents; Z88.6 Allergy status to analgesic agent; Z88.5 Allergy status to narcotic agent; Z88.0 Allergy status to penicillin; Z88.8 Allergy status to other drugs, medicaments and biological substances
CPT/HCPCS: 36415; 74177; 80053; 81001; 81025; 83690; 84484; 85025; 93005; 93010; 99284

== ENCOUNTER 2020-02-17 11:57 | Emergency (ER) | payer BC ==
[2020-02-17 13:02] LABS: ABSOLUTE EOSINOPHILS # (AUTO) 0.1 10^3/uL (0.0-0.6); ABSOLUTE LYMPHOCYTES (AUTO) 2.1 10^3/uL (0.5-4.7); ABSOLUTE MONOCYTES (AUTO) 0.5 10^3/uL (0.1-1.4); ABSOLUTE NEUT (AUTO) 5.1 10^3/uL (1.7-8.2); BASOPHILS % (AUTO) 0.6 % (0-2); EOSINOPHILS % (AUTO) 1.6 % (0-6); HEMATOCRIT 43.8 % (36.0-47.0); HEMOGLOBIN 15.2 g/dL (12.0-15.5); LYMPHOCYTES % (AUTO) 27.1 % (13-45); MEAN CORPUSCULAR HEMOGLOBIN 32.6 pg (27.0-33.4); MEAN CORPUSCULAR HGB CONC 34.8 g/dL (32.0-36.0); MEAN CORPUSCULAR VOLUME 94 fl (80-97); MONOCYTES % (AUTO) 6.3 % (3-13); PLATELET COUNT 236 10^3/uL (150-450); RED BLOOD COUNT 4.68 10^6/uL (3.72-5.28); RED CELL DISTRIBUTION WIDTH 13.5 % (11.5-14.0); SEGMENTED NEUTROPHILS % (AUTO) 64.4 % (42-78); TOTAL CELLS COUNTED % (AUTO) 100 %; WHITE BLOOD COUNT 7.9 10^3/uL (4.0-10.5)
[2020-02-17 13:15] LABS: APPEARANCE,URINE CLOUDY; BILIRUBIN,URINE NEGATIVE (NEGATIVE); COLOR,URINE AMBER; GLUCOSE, URINE NEGATIVE (NEGATIVE); KETONES,URINE 20 mg/dL (NEGATIVE); LEUKOCYTE ESTERASE,URINE NEGATIVE (NEGATIVE); NITRITE,URINE NEGATIVE (NEGATIVE); PROTEIN,URINE 100 mg/dL (NEGATIVE); URINE SPECIFIC GRAVITY 1.029; UROBILINOGEN,URINE NEGATIVE mg/dL (<2.0)
[2020-02-17 13:22] LABS: ALBUMIN 4.8 g/dL (3.5-5.0); ALKALINE PHOSPHATASE 93 U/L (38-126); ANION GAP 11 (5-19); ASPARTATE AMINO TRANSFERASE 180 U/L (14-36); BILIRUBIN,DIRECT 0.1 mg/dL (0.0-0.4); BILIRUBIN,TOTAL 1.4 mg/dL (0.2-1.3); BLOOD UREA NITROGEN 11 mg/dL (7-20); CALCIUM 10.1 mg/dL (8.4-10.2); CARBON DIOXIDE 22 mmol/L (22-30); CHLORIDE 104 mmol/L (98-107); GLUCOSE 118 mg/dL (75-110); POTASSIUM 4.1 mmol/L (3.6-5.0); TOTAL PROTEIN 8.5 g/dL (6.3-8.2)
[2020-02-17] MEDS ORDERED: ONDANSETRON HCL INJ/PF 4 MG/2 ML SDV IV ONE (13:37)
[2020-02-17] MEDS ORDERED: NORMAL SALINE 500 ML IV ONE (13:37)
[2020-02-17] MEDS ORDERED: ACETAMINOPHEN 325 MG TABLET PO ONE (13:38)
--- NOTE | 2020-02-17 13:40 | ER Document Report ---
ED General - General Chief Complaint: Nausea/Vomiting/Diarrhea Stated Complaint: NAUSEA/VOMITING/DIARRHEA Time Seen by Provider: 02/17/20 12:34 Primary Care Provider: EVELYN MI MD [Primary Care Provider] - Follow up as needed Notes: 34-year-old woman presents to the emergency department with a complaint of headache, cough, body aches and pains, with associated nausea and diarrhea. Symptoms began on Tuesday. She denies a known contact with coronavirus positive individual. She also denies any known medical additions. Presently taking Klonopin for chronic anxiety. She complains of chills, nausea and fatigue. TRAVEL OUTSIDE OF THE [place] IN LAST 30 DAYS: Yes - Related Data Allergies/Adverse Reactions: cephalexin monohydrate [From Keflex] Allergy (Severe, Verified 02/17/20 12:34) Anaphylaxis codeine [Codeine] Allergy (Severe, Verified 02/17/20 12:34) Anaphylaxis Penicillins Allergy (Severe, Verified 02/17/20 12:34) Anaphylaxis haloperidol [From Haldol] Allergy (Verified 02/17/20 12:34) Swelling of tongue metoclopramide [From Reglan] Allergy (Verified 02/17/20 12:34) diphenhydramine HCl [From Benadryl] Adverse Reaction (Verified 02/17/20 12:34) prochlorperazine maleate [From Compazine] Adverse Reaction (Verified 02/17/20 12:34) Past Medical History - Social History Smoking Status: Current Every Day Smoker Frequency of alcohol use: None Drug Abuse: Heroin Family History: Reviewed & Not Pertinent, DM, Hypertension Patient has homicidal ideation: No Renal/ Medical History: Reports: Hx Kidney Stones, Hx Ovarian Cysts. Denies: Hx Peritoneal Dialysis GI Medical History: Reports: Hx Irritable Bowel, Hx Pancreatitis Musculoskeletal Medical History: Reports Hx Musculoskeletal Deformity Psychiatric Medical History: Reports: Hx Anxiety, Hx Bipolar Disorder, Hx Depression, Hx Post Traumatic Stress Disorder Past Surgical History: Reports: Hx Appendectomy, Hx Section, Hx Cholecystectomy, Hx Kidney (Renal Surgery) - kidney stent rt, Hx Myringotomy - Immunizations Immunizations up to date: Yes Hx Diphtheria, Pertussis, Tetanus Vaccination: Yes Review of Systems - Review of Systems Notes: Constitutional: Low-grade fever HENT: Negative for sore throat. Eyes: Negative for visual changes. Cardiovascular: Negative for chest pain. Respiratory: + Cough Gastrointestinal: Negative for abdominal pain, vomiting or diarrhea. Genitourinary: Negative for dysuria. Musculoskeletal: + Nausea Skin: Negative for rash. Neurological: +headaches, weakness or numbness. 10 point ROS negative except as marked above and in HPI. Physical Exam - Vital signs Vitals: Temp 99.1 F 02/17/20 12:00 - Notes Notes: PHYSICAL EXAMINATION: Physical Exam: General: Well-nourished well-developed 34-year-old woman in mild distress secondary to headache and feeling poorly. HEENT: NC/AT, pupils equal round and reactive to light, MM moist,nares clear, oropharynx clear, airway patent Neck: supple, no adenopathy, no masses. Good range of motion Lungs: clear, no wheezing, no rales no rhonchi CVS: Regular rate and rhythm no murmur gallop or rub Abdomen: Soft, active, nontender, no masses, no hepatosplenomegaly Ext: No edema, clubbing or cyanosis. Neuro: Alert and responsive, moving all 4 extremities on command, cranial nerves intact, no focal findings Skin: Intact no open lesions, no rash Course - Re-evaluation Re-evalutation: 02/17/20 17:41 Patient presents with low-grade temperature, cough and body aches. The urinalysis was also noted to be negative. Given her presentation, coronavirus screening test is being performed. I have instructed the patient that she will need to self isolate until she received a report of the test results. The patient acknowledges that she has been tested for COVID-19, and will self isolate at home until she receives results. May use Tylenol or ibuprofen for f ever, aches and pains. She is also instructed to return to the hospital if her symptoms are worsening or development of shortness of breath. Patient acknowledges understanding of this plan and is being discharged home. - Vital Signs Vital signs: Temp Pulse Resp BP Pulse Ox 99.1 F 101 H 18 133/96 H 98 02/17/20 12:07 02/17/20 12:07 02/17/20 12:07 02/17/20 12:07 02/17/20 12:07 - Laboratory Result Diagrams: 02/17/20 12:39 02/17/20 12:39 Laboratory results interpreted by me: 02/17/20 02/17/20 12:39 12:39 Glucose 118 H Total Bilirubin 1.4 H AST 180 H ALT 69 H Total Protein 8.5 H Urine Protein 100 H Urine Ketones 20 H Urine Blood SMALL H - Diagnostic Test Radiology reviewed: Image reviewed, Reports reviewed Radiology results interpreted by me: 02/17/20 17:43 Chest x-ray: No acute cardiopulmonary findings. Discharge - Discharge Clinical Impression: Suspected 2019 novel coronavirus infection, Nausea, Diarrhea Condition: Good Disposition: HOME, SELF-CARE Additional Instructions: You were seen with low-grade fever, cough, nausea and diarrhea. chest x-ray is clear. Given the pandemic and coronavirus concerns, your were made a person of interest and a swab was collected and will be sent for COVID-19 evaluation. You will need to self quarantine until you get the results. You may use Tylenol or ibuprofen for fever, aches and pains. You are given a prescription for Zofran for nausea, Bentyl for abdominal discomfort and pain. Please return to the hospital if her symptoms are worsening or development of shortness of breath. HOME CARE INSTRUCTIONS & INFORMATION: Thank you for choosing us for your medical needs. We hope you're satisfied with the care you received. After you leave, you must properly care for your problem and, at the same time, observe its progress. Any condition can change. Some illnesses can change rapidly over hours or days. If your condition worsens, return to the Emergency Department or see your physician promptly. ABOUT YOUR X-RAYS AND EKG'S: If you had an EKG or X-rays taken, they have been read by the Emergency Physician. The X-rays and EKG's will also be read by a Radiologist or Cash Management Clerk within 24 hours. If discrepancies are noted, you will be notified by telephone. Please be certain the ED has a correct telephone number & address where you can be reached. Also, realize that some fractures or abnormalities do not show up on initial X-rays. If your symptoms continue, see your physician. ABOUT YOUR LABORATORY TEST: If you had laboratory tests, the results have been reviewed by the Emergency Physician. Some test results (for example cultures) may not be available for several days. You will be contacted if any test result shows you need additional treatment. Please be certain the ED has a correct telephone number and address where you can be reached. ABOUT YOUR MEDICATIONS: You will receive instructions on how to take your m edicine on the prescription label you receive. Additional information may be provided by the Pharmacy. If you have questions afterwards, call the ED for clarification or further instructions. Some prescribed medications may cause drowsiness. Do not perform tasks such as driving a car or operating machinery without consulting your Pharmacist. If you feel you need a refill of pain medication, your condition will need re-evaluation. Please do not call for a refill of any medication. ABOUT YOUR SIGNATURE: Signature of this document acknowledges to followin. Understanding that you received emergency treatment and that you may be released before al medical problems are known or treated. Please be certain the ED has a correct phone number & address where you can be reached. 2. Acknowledgement that you will arrange for follow-up care as recommended. 3. Authorization for the Emergency Physician to provide information to your follow-up Physician in order to maximize your care. AT ANY TIME, IF YOUR SYMPTOMS CHANGE SIGNIFICANTLY OR WORSEN OR YOU DEVELOP NEW SYMPTOMS, RETURN TO THE EMERGENCY DEPARTMENT IMMEDIATELY FOR RE-EVALUATION. OUR GOAL IS TO PROVIDE EXCELLENT MEDICAL CARE! WE HOPE THAT WE HAVE MET YOUR EXPECTATIONS DURING YOUR EMERGENCY DEPARTMENT VISIT AND THAT YOU FEEL YOU HAVE RECEIVED EXCELLENT CARE! Prescriptions: Dicyclomine HCl [Bentyl 10 mg Capsule] 1 cap PO TID PRN #30 cap PRN Reason: Abdominal Cramping Ondansetron [Zofran Odt 4 mg Tablet] 1 - 2 tab PO Q4H PRN #10 tab.rapdis PRN Reason: For Nausea/Vomiting Referrals: EVELYN MI MD [Primary Care Provider] - Follow up as needed
--- NOTE | 2020-02-17 14:19 | RADIOLOGY REPORT (SQ) ---
EXAM DESCRIPTION: CHEST SINGLE VIEW IMAGES COMPLETED DATE/TIME: 02/17/2020 2:06 pm REASON FOR STUDY: Cough, shortness of breath. COMPARISON: Chest x-ray 08/25/2019, 05/02/2014. EXAM PARAMETERS: NUMBER OF VIEWS: One view. TECHNIQUE: Single frontal radiographic view of the chest acquired. RADIATION DOSE: NA LIMITATIONS: None. FINDINGS: LUNGS AND PLEURA: No consolidation, pneumothorax or pleural effusion. MEDIASTINUM AND HILAR STRUCTURES: No masses. Contour normal. HEART AND VASCULAR STRUCTURES: Heart normal in size. Normal vasculature. BONES: No acute findings. HARDWARE: None in the chest. IMPRESSION: NO ACUTE RADIOGRAPHIC FINDING IN THE CHEST. TECHNICAL DOCUMENTATION: JOB ID: [id number] [employer]- All Rights Reserved Reading location - IP/workstation name: [email or web address]
[2020-02-17] MEDS ORDERED: KETOROLAC TROMETHAMINE INJ/PF 30 MG/1 ML SDV IV ONE (15:54)
[2020-02-17 18:31] VITALS: BP 120/86
== END 2020-02-17 18:08 | disposition home or self-care (01) ==
LOC: ER 11:57
DX: R11.2 Nausea with vomiting, unspecified (principal); R19.7 Diarrhea, unspecified; Z20.828 Contact with and (suspected) exposure to other viral communicable diseases; R50.9 Fever, unspecified; R51 Headache; M79.10 Myalgia, unspecified site; F17.200 Nicotine dependence, unspecified, uncomplicated; Z88.6 Allergy status to analgesic agent; Z88.0 Allergy status to penicillin
CPT/HCPCS: 99284; 96361; 96374; 96375; 36415; 85025; 87635; 81025; 80053; 81001; 71045; J1885; J2405; J7040; C9803

== ENCOUNTER 2020-02-18 12:18 | Emergency (ER) | payer BC ==
[2020-02-18] MEDS ORDERED: NORMAL SALINE 1000 ML 1,000 ML IV ONE ×2 (13:18→13:19)
[2020-02-18] MEDS ORDERED: ONDANSETRON HCL INJ/PF 4 MG/2 ML SDV IV ONE (13:20)
--- NOTE | 2020-02-18 13:23 | ER Document Report ---
ED GI/ <BETTYE KHAN - Last Filed: 02/18/20 16:21> - General TRAVEL OUTSIDE OF THE [place] IN LAST 30 DAYS: Yes <DANDRE ABDALLA - Last Filed: 02/18/20 16:35> - General Chief Complaint: Abdominal Pain Stated Complaint: ABDOMINAL PAIN/NAUSEA/VOMITING Time Seen by Provider: 02/18/20 13:12 Primary Care Provider: [facility] [Outside] - Follow up as needed EVELYN MI MD [Primary Care Provider] - Follow up as needed Notes: 34-year-old woman presents to the emergency department with a complaint of headache, cough, body aches and pains, with associated nausea and diarrhea. Symptoms began on Tuesday. She denies a known contact with coronavirus positive individual. She also denies any known medical additions. Presently taking Klonopin for chronic anxiety. She complains of chills, nausea and fatigue. This patient was seen here yesterday for the very same thing (DANDRE ABDALLA) - Related Data Allergies/Adverse Reactions: cephalexin monohydrate [From Keflex] Allergy (Severe, Verified 02/18/20 14:30) Anaphylaxis codeine [Codeine] Allergy (Severe, Verified 02/18/20 14:30) Anaphylaxis Penicillins Allergy (Severe, Verified 02/18/20 14:30) Anaphylaxis haloperidol [From Haldol] Allergy (Verified 02/18/20 14:30) Swelling of tongue metoclopramide [From Reglan] Allergy (Verified 02/18/20 14:30) diphenhydramine HCl [From Benadryl] Adverse Reaction (Verified 02/18/20 14:30) prochlorperazine maleate [From Compazine] Adverse Reaction (Verified 02/18/20 14:30) Past Medical History - Social History Smoking Status: Never Smoker Cigarette use (# per day): No Chew tobacco use (# tins/day): No Smoking Education Provided: No Family History: Reviewed & Not Pertinent, DM, Hypertension Renal/ Medical History: Reports: Hx Kidney Stones, Hx Ovarian Cysts. Denies: Hx Peritoneal Dialysis GI Medical History: Reports: Hx Irritable Bowel, Hx Pancreatitis Musculoskeletal Medical History: Reports Hx Musculoskeletal Deformity Psychiatric Medical History: Reports: Hx Anxiety, Hx Bipolar Disorder, Hx Depression, Hx Post Traumatic Stress Disorder Past Surgical History: Reports: Hx Appendectomy, Hx Section, Hx Cholecystectomy, Hx Kidney (Renal Surgery) - kidney stent rt, Hx Myringotomy - Immunizations Immunizations up to date: Yes Hx Diphtheria, Pertussis, Tetanus Vaccination: Yes <DANDRE ABDALLA - Last Filed: 02/18/20 16:35> Review of Systems - Review of Systems Constitutional: Other - Anxiety EENT: No symptoms reported Cardiovascular: No symptoms reported Respiratory: No symptoms reported Gastrointestinal: Diarrhea, Nausea Genitourinary: No symptoms reported Female Genitourinary: No symptoms reported Musculoskeletal: No symptoms reported Skin: No symptoms reported Hematologic/Lymphatic: No symptoms reported Neurological/Psychological: No symptoms reported <DANDRE ABDALLA - Last Filed: 02/18/20 16:35> Physical Exam - Vital signs Interpretation: Normal - General General appearance: Appears well, Alert - HEENT Head: Normocephalic, Atraumatic Eyes: Normal Pupils: PERRL - Respiratory Respiratory status: No respiratory distress Chest status: Nontender Breath sounds: Normal Chest palpation: Normal - Cardiovascular Rhythm: Regular Heart sounds: Normal auscultation Murmur: No - Abdominal Inspection: Normal Distension: No distension Bowel sounds: Normal Tenderness: Nontender Organomegaly: No organomegaly - Back Back: Normal, Nontender - Extremities General upper extremity: Normal inspection, Nontender, Normal color, Normal ROM, Normal temperature General lower extremity: Normal inspection, Nontender, Normal color, Normal ROM, Normal temperature, Normal weight bearing. No: Geovanni's sign - Neurological Neuro grossly intact: Yes Cognition: Normal Orientation: AAOx4 [place] Coma Scale Eye Opening: Spontaneous [place] Coma Scale Verbal: Oriented [place] Coma Scale Motor: Obeys Commands [place] Coma Scale Total: 15 Speech: Normal Motor strength normal: LUE, RUE, LLE, RLE Sensory: Normal - Psychological Associated symptoms: Normal affect, Normal mood - Skin Skin Temperature: Warm Skin Moisture: Dry Skin Color: Normal <DANDRE ABDALLA - Last Filed: 02/18/20 16:35> - Vital signs Vitals: Temp 98.3 F 02/18/20 13:10 Course - Laboratory Result Diagrams: 02/18/20 13:45 02/18/20 13:45 <BETYTE KHAN - Last Filed: 02/18/20 16:21> - Laboratory Result Diagrams: 02/18/20 13:45 02/18/20 13:45 <DANDRE ABDALLA - Last Filed: 02/18/20 16:35> - Re-evaluation Re-evalutation: 02/18/20 15:15 34-year-old female presented to the emergency room today for return visit she was here yesterday and had a complete evaluation for anxiety nausea diarrhea she was put under [employer] investigation program. Which has not yet returned. She presented today with anxiety nausea vomiting I did another work-up for her she upon completion of those exams stated that she still had some nausea and several bouts of diarrhea. She had already been provided Zofran here I offered her h ydralazine which she stated she could not take I offered her Phenergan she states that she does not feel that she can take that orally I offered to her [place] she stated that she did not want that because she felt it would just come out with her diarrhea I asked her when the last time she took her Klonopin was she said last night I asked her if she was able to hold that down she said yes she could no problems she was able to eat last night as well. I offered to give her some Ativan IV she said that will only make her anxiety worse I asked her what else I might be able to offer for her since she basically had all her medications at home and she said that she would probably be just fine to go home and take her medications at home I said that was fine and expressed my compassion for situation and that she probably had a viral illness but I could not guarantee that it was covered but that was certainly 1 of the viruses that were considering and she should certainly continue to self quarantine while waiting for her results. Upon departing the room she told the nurse that she wanted to speak with mental health because she was anxious and felt that she might within the next 6 months. I summoned the charge nurse to ask for her input on if she wanted mental health to come evaluate her in the room where she wanted me to move her over to pod 4. Mental health will be coming over to evaluate the patient in the room. 02/18/20 16:33 Mental health evaluation was performed please see José Luis Mata's note for further information in that front. Patient should follow-up with her PMD as well as the outpatient resources provided by mental health team. (DNADRE ABDALLA) - Vital Signs Vital signs: Temp Pulse Resp BP Pulse Ox 98.3 F 107 H 20 134/90 H 96 02/18/20 13:17 02/18/20 13:17 02/18/20 13:17 02/18/20 13:17 02/18/20 13:17 - Laboratory Laboratory results interpreted by me: 02/18/20 02/18/20 13:35 13:45 Glucose 125 H AST 220 H ALT 86 H Total Protein 8.3 H Urine Protein 100 H Urine Ketones 20 H Urine Blood SMALL H Labs- All tests 24 hr 02/18/20 02/18/20 02/18/20 13:35 13:45 13:45 WBC 7.4 RBC 4.51 Hgb 14.6 Hct 42.3 MCV 94 MCH 32.3 MCHC 34.4 RDW 13.6 Plt Count 243 Lymph % (Auto) 26.6 [place] % (Auto) 6.4 Eos % (Auto) 2.3 Baso % (Auto) 1.1 Absolute Neuts (auto) 4.7 Absolute Lymphs (auto) 2.0 Absolute Monos (auto) 0.5 Absolute Eos (auto) 0.2 Absolute Basos (auto) 0.1 Seg Neutrophils % 63.6 Sodium 138.6 Potassium 3.6 Chloride 104 Carbon Dioxide 22 Anion Gap 13 BUN 8 Creatinine 0.55 Est GFR ( Amer) > 60 Est GFR (MDRD) Non-Af > 60 Glucose 125 H Calcium 9.8 Total Bilirubin 1.2 Direct Bilirubin 0.1 Neonat Total Bilirubin Not Reportable Neonat Direct Bilirubin Not Reportable Neonat Indirect Bili Not Reportable AST 220 H ALT 86 H Alkaline Phosphatase 83 Total Protein 8.3 H Albumin 4.6 Lipase 84.5 Beta HCG, Quant < 2.39 Total Beta HCG NEGATIVE Urine Color YELLOW Urine Appearance CLOUDY Urine pH 5.0 Ur Specific [place] 1.023 Urine Protein 100 H Urine Glucose (UA) NEGATIVE Urine Ketones 20 H Urine Blood SMALL H Urine Nitrite NEGATIVE Urine Bilirubin NEGATIVE Urine Urobilinogen NEGATIVE Ur Leukocyte Esterase NEGATIVE Urine WBC (Auto) 16 Urine RBC (Auto) 3 Urine Bacteria (Auto) TRACE Squamous Epi Cells Auto 58 Urine Mucus (Auto) MANY Urine Ascorbic Acid NEGATIVE (DANDRE ABDALLA) - Diagnostic Test Radiology results interpreted by me: 02/18/20 15:15 Acute Abdomen Series 02/18/20 13:18 IMPRESSION: NO RADIOGRAPHIC EVIDENCE FOR ACUTE ABDOMINAL DISEASE. (DANDRE ABDALLA) Discharge <KHANBETTYE - Last Filed: 02/18/20 16:21> <DANDRE ABDALLA - Last Filed: 02/18/20 16:35> - Discharge Clinical Impression: Anxiety, Klonopin use disorder, moderate, dependence Condition: Stable Disposition: HOME, SELF-CARE Additional Instructions: You have been evaluated both medical and behavioral health teams have been deemed appropriate for discharge. You are highly encouraged to engage with outpatient mental health services in the form of therapy and medication manag ement. Therapy should be goal orientated to assist you in addressing individual phobias, interpreting your environment, understanding triggers and building your positive coping skills. NARCOTIC / OPIOD DEPENDENCY AND MISUSE: Narcotics and opiods are pain-relieving drugs that are often abused. They are addicting. Narcotics cause euphoria, but it often takes increasing amounts to "feel good" and avoid withdrawal symptoms. Overdose of narcotics causes small pupils, coma, and decreased breathing. It's a common cause of . Purity of street narcotics is unpredictable. Injection of narcotics is risky for abscesses, endocarditis (heart infection), pneumonia, and AIDS. Withdrawal from narcotics causes goose bumps, watery mouth, sweating, nasal congestion, muscle aches, abdominal cramps, vomiting, and diarrhea. There's often restlessness and confusion. Treatment programs are available, but you must make the decision to quit. Medication (such as clonidine) can be prescribed to control the symptoms of withdrawal. Anxiety The physician feels that some of your health problems are being caused by anxiety. Anxiety affects your health in many ways. Anxiety alone can cause palpitations, sweats, chest pains, abdominal pains, shortness of breath, and headaches. It contributes to ulcer disease, high blood pressure, irritable bowel syndrome, and has been shown to cause flare-ups of many other diseases. Anxiety is not a simple disorder to treat. If the anxiety is due to recent life stresses, you may simply need time to "work through" the changes. If the anxiety is due to an underlying unhappiness with yourself or due to psychiatric disturbance, professional help will be needed. Your physician can refer you for further help if needed. Anti-anxiety medication is occasionally given if the stress is acute or if you are having trouble sleeping. Chronic or frequent use of these medications is not a good idea because the body becomes reliant on it, preventing you from dealing with life's normal stresses. Referrals: EVELYN MI MD [Primary Care Provider] - Follow up as needed [facility] [Outside] - Follow up as needed
[2020-02-18 14:06] LABS: ABSOLUTE BASOPHILS # (AUTO) 0.1 10^3/uL (0.0-0.2); ABSOLUTE EOSINOPHILS # (AUTO) 0.2 10^3/uL (0.0-0.6); ABSOLUTE MONOCYTES (AUTO) 0.5 10^3/uL (0.1-1.4); ABSOLUTE NEUT (AUTO) 4.7 10^3/uL (1.7-8.2); BASOPHILS % (AUTO) 1.1 % (0-2); EOSINOPHILS % (AUTO) 2.3 % (0-6); HEMATOCRIT 42.3 % (36.0-47.0); HEMOGLOBIN 14.6 g/dL (12.0-15.5); LYMPHOCYTES % (AUTO) 26.6 % (13-45); MEAN CORPUSCULAR HEMOGLOBIN 32.3 pg (27.0-33.4); MEAN CORPUSCULAR HGB CONC 34.4 g/dL (32.0-36.0); MEAN CORPUSCULAR VOLUME 94 fl (80-97); MONOCYTES % (AUTO) 6.4 % (3-13); PLATELET COUNT 243 10^3/uL (150-450); RED BLOOD COUNT 4.51 10^6/uL (3.72-5.28); RED CELL DISTRIBUTION WIDTH 13.6 % (11.5-14.0); SEGMENTED NEUTROPHILS % (AUTO) 63.6 % (42-78); TOTAL CELLS COUNTED % (AUTO) 100 %; WHITE BLOOD COUNT 7.4 10^3/uL (4.0-10.5)
[2020-02-18 14:08] LABS: APPEARANCE,URINE CLOUDY; BILIRUBIN,URINE NEGATIVE (NEGATIVE); GLUCOSE, URINE NEGATIVE (NEGATIVE); KETONES,URINE 20 mg/dL (NEGATIVE); LEUKOCYTE ESTERASE,URINE NEGATIVE (NEGATIVE); NITRITE,URINE NEGATIVE (NEGATIVE); PROTEIN,URINE 100 mg/dL (NEGATIVE); URINE SPECIFIC GRAVITY 1.023; UROBILINOGEN,URINE NEGATIVE mg/dL (<2.0)
[2020-02-18 14:09] LABS: COLOR,URINE YELLOW
--- NOTE | 2020-02-18 14:33 | RADIOLOGY REPORT (SQ) ---
EXAM DESCRIPTION: ACUTE ABDOMEN SERIES IMAGES COMPLETED DATE/TIME: 02/18/2020 2:20 pm REASON FOR STUDY: nv COMPARISON: None. NUMBER OF VIEWS: Three views. TECHNIQUE: Frontal chest, supine abdomen and upright/decubitus abdomen radiographic images acquired. LIMITATIONS: None. FINDINGS: CHEST: Lungs clear of infiltrates. FREE AIR: None. No abnormal gas collections. BOWEL GAS PATTERN: Nonobstructive pattern. No dilated loops or air fluid levels. CALCIFICATIONS: No suspicious calcifications. HARDWARE: Cholecystectomy clips. SOFT TISSUES: No gross mass or suggestion of organomegaly. BONES: No acute fracture. No worrisome bone lesions. OTHER: No other significant finding. IMPRESSION: NO RADIOGRAPHIC EVIDENCE FOR ACUTE ABDOMINAL DISEASE. TECHNICAL DOCUMENTATION: JOB ID: [id number] [id number] 2010 [employer]- All Rights Reserved Reading location - IP/workstation name: Advise Only
[2020-02-18 14:44] LABS: ALBUMIN 4.6 g/dL (3.5-5.0); ALKALINE PHOSPHATASE 83 U/L (38-126); ANION GAP 13 (5-19); ASPARTATE AMINO TRANSFERASE 220 U/L (14-36); BILIRUBIN,DIRECT 0.1 mg/dL (0.0-0.4); BILIRUBIN,TOTAL 1.2 mg/dL (0.2-1.3); BLOOD UREA NITROGEN 8 mg/dL (7-20); CALCIUM 9.8 mg/dL (8.4-10.2); CARBON DIOXIDE 22 mmol/L (22-30); CHLORIDE 104 mmol/L (98-107); GLUCOSE 125 mg/dL (75-110); POTASSIUM 3.6 mmol/L (3.6-5.0); TOTAL PROTEIN 8.3 g/dL (6.3-8.2)
[2020-02-18] MEDS ORDERED: HYDROXYZINE PAMOATE 25 MG CAPSULE PO ONE (14:53)
[2020-02-18] MEDS: PROMETHAZINE HCL 25 MG TABLET PO ONE ×2 (14:59→15:01)
--- NOTE | 2020-02-18 16:21 | PSYCHOLOGICAL NOTE ---
Psych Note - Psych Note Date seen by psych provider: 02/18/20 Time seen by psych provider: 15:40 - Verbal request by attending provider Psych Note: Reason for Consult: Anxiety 34-year-old female presented to [facility] ED Patient crying and requests a mental health evaluation because "something is wrong" with her. She originally arrived to [facility] ED for concerns with headache, cough, body aches and pains, with associated nausea and diarrhea. She reports she has anxiety and is unable to leave her home. She continued to disclose it effects all domains of her life and currently works from home because of phobias. Patient reports she does not want any medication; "don't give me Haldol, they always want to give me that...I can't take that I am allergic, my tongue swells up." Patient denies taking to much of her medication. She states her primary writes her prescription and just recently decreased the amount from 1 mg 3 times daily 90 pills monthly to 1 mg 3 times daily 75 pills monthly. She is resistance to discussing the probability of symptoms being connected to her dependency of Klonipin. She is resistance to assistance for outpatient mental health services stating she thinks her anxiety has "effected my nerves (Central nervous system)." Patient was alert and orientated to person, place, time and circumstance. Mood is anxious with congruent affect; patientiws visibly shaking and crying. Patient presents with probable withdrawal of Klonopin. Patient denies suicidal and homicidal ideation. Delusions are absent and behaviour is congruent with an intact reality based presentation ie organized and linear thought processes. Eye contact was well maintained. conversational speech was difficult to understand do to tearful affect. Intellectual abilities appear to be average range. Attention and concentration are poor. Insight, judgment and impulse control are fair. Chart review conducted: Patient has documented history of misuse of her klonpin and provided misinformation. She has a documented history of refusing mental health recomm endations sand not wanting medication or resource assistance. Clinical presentation Probable withdrawal Substance abuse R/O unspecified personality disorder Impression/Plan: Patient is cleared from acute psychiatric services. Patient denies suicidal and homicidal ideation. Patient does not meet IVC criteria per [place] GS 122C. Patient openly engages with clinician discusses her concerns with her anxiety has increased. Patient is [facility] assistance with medication or outpatient mental health services. Patient believes it is medical in nature and wants assistance with her central nervous system being tested. At this time patient's presentation is due to probable withdrawal of Klonopin. Patient reports her primary care provider just decreased her monthly pill count from 90- 75. Patient has a documented history of misuse/overuse of her prescribed Klonopin. Patient is highly encouraged to obtain a substance abuse treatment assessment to determine appropriate treatment. Dr. Shah was consulted and the care management this patient; attending physician is in agreement with recommendations and disposition.
[2020-02-18 16:51] VITALS: BP 137/88
== END 2020-02-18 16:51 | disposition home or self-care (01) ==
LOC: ER 12:18
DX: F41.9 Anxiety disorder, unspecified (principal); F13.20 Sedative, hypnotic or anxiolytic dependence, uncomplicated; R51 Headache; R05 Cough; R11.2 Nausea with vomiting, unspecified; R19.7 Diarrhea, unspecified; R53.83 Other fatigue; Z79.899 Other long term (current) drug therapy; Z87.892 Personal history of anaphylaxis; Z88.1 Allergy status to other antibiotic agents; Z88.6 Allergy status to analgesic agent; Z88.5 Allergy status to narcotic agent; Z88.0 Allergy status to penicillin; Z88.8 Allergy status to other drugs, medicaments and biological substances
CPT/HCPCS: 99285; 96361; 96374; 36415; 84702; 83690; 85025; 80053; 81001; 74022; J2405; J7030

== ENCOUNTER 2020-03-16 16:57 | Emergency (ER) | payer BC ==
--- NOTE | 2020-03-16 19:43 | ER Document Report ---
ED General - General Chief Complaint: Fall Stated Complaint: FALL/LEG INJURY Time Seen by Provider: 03/16/20 19:41 Primary Care Provider: EVELYN MI MD [Primary Care Provider] - Follow up as needed TRAVEL OUTSIDE OF THE [place] IN LAST 30 DAYS: Yes - HPI Notes: 34-year-old female presents following fall. Patient states that around 1430 this afternoon, she slipped on water. She states that she had walked through a checkout child that was close, there was some water on the floor that was leaking from the drink cooler, she states that she slipped on this water and avis ded on her left side. She believes that she hit her head but is on sure of this. She reports pain to the left side of her body. Mostly in her left knee, left elbow and left wrist. She has some lower back pain as well. Patient has been ambulatory since the fall. She was able to drive herself to the emergency department today. She additionally complains of neck pain, states that it feels like a crick is in her neck - Related Data Allergies/Adverse Reactions: cephalexin monohydrate [From Keflex] Allergy (Severe, Verified 02/18/20 14:30) Anaphylaxis codeine [Codeine] Allergy (Severe, Verified 02/18/20 14:30) Anaphylaxis Penicillins Allergy (Severe, Verified 02/18/20 14:30) Anaphylaxis haloperidol [From Haldol] Allergy (Verified 02/18/20 14:30) Swelling of tongue metoclopramide [From Reglan] Allergy (Verified 02/18/20 14:30) diphenhydramine HCl [From Benadryl] Adverse Reaction (Verified 02/18/20 14:30) prochlorperazine maleate [From Compazine] Adverse Reaction (Verified 02/18/20 14:30) Past Medical History - General Information source: Patient - Social History Smoking Status: Current Every Day Smoker Family History: Reviewed & Not Pertinent, DM, Hypertension Renal/ Medical History: Reports: Hx Kidney Stones, Hx Ovarian Cysts. Denies: Hx Peritoneal Dialysis GI Medical History: Reports: Hx Irritable Bowel, Hx Pancreatitis Musculoskeletal Medical History: Reports Hx Musculoskeletal Deformity Psychiatric Medical History: Reports: Hx Anxiety, Hx Bipolar Disorder, Hx Depression, Hx Post Traumatic Stress Disorder Past Surgical History: Reports: Hx Appendectomy, Hx Section, Hx Cholecystectomy, Hx Kidney (Renal Surgery) - kidney stent rt, Hx Myringotomy - Immunizations Immunizations up to date: Yes Hx Diphtheria, Pertussis, Tetanus Vaccination: Yes Review of Systems - Review of Systems Constitutional: No symptoms reported EENT: No symptoms reported Cardiovascular: No symptoms reported Respiratory: No symptoms reported Gastrointestinal: No symptoms reported Genitourinary: No symptoms reported Female Genitourinary: No symptoms reported Musculoskeletal: Joint pain Skin: No symptoms reported Hematologic/Lymphatic: No symptoms reported Neurological/Psychological: No symptoms reported Physical Exam - Vital signs Vitals: Temp Pulse Resp BP Pulse Ox 98.5 F 105 H 18 137/93 H 99 03/16/20 17:05 03/16/20 17:05 03/16/20 17:05 03/16/20 17:05 03/16/20 17:05 Interpretation: Normal - General General appearance: Appears well In distress: None - HEENT Head: Normocephalic, Atraumatic. No: Ecchymosis Extraocular movements intact: Yes Pupils: PERRL Neck: Supple - Respiratory Breath sounds: Normal - Cardiovascular Rhythm: Regular Heart sounds: Normal auscultation - Abdominal Inspection: Obese Tenderness: Nontender - Back Back: No: Vertebra tenderness - Extremities General upper extremity: Normal ROM General lower extremity: Normal ROM Elbow: Tender. No: Abrasion, Deformity Wrist: Tender. No: Deformity, Ecchymosis Knee: Joint effusion. No: Deformity, Dislocation, Ecchymosis, Instability - Neurological Neuro grossly intact: Yes Cognition: Normal Orientation: AAOx4 - Psychological Associated symptoms: Normal affect - Skin Skin Temperature: Warm Course - Re-evaluation Re-evalutation: 34-year-old female presents after a mechanical fall, slipped on water, occurred several hours prior to evaluation. She has been ambulatory and able to drive since the accident. On exam she is well-appearing, she has no gross neuro deficits. She has no midline spinal tenderness. She has some mild tenderness to the left elbow, wrist and knee. She has no limitations in her range of motion. I have a low suspicion for fracture. However will check x-rays of these areas that hurt. Additionally given that she complains of possibly hitting her head, will obtain CT head and C-spine, though again low suspicion for injury. Will treat with ibuprofen and Flexeril. 03/16/20 21:49 Patient is requesting opiate pain medication. I reviewed her chart and I see that there is an anaphylactic allergy to codeine listed. I will address this with her. Patient states she does not have anaphylaxis, she just gets some eye swelling and sometimes a rash only with codeine. She reports all the opiates she has tolerated in past, such as fentanyl and hydrocodone. I have ordered her a dose of [place]. Will monitor closely. 03/16/20 22:[address] is negative for bleed. CT C-spine is negative for fracture. Spine x- rays negative for fracture. Elbow x-rays negative for fracture. Wrist x-ray is negative for fracture. Knee x-ray is negative for fracture. Ankle x-ray is negative for fracture. 03/16/20 22:18 I have updated patient on the results. Patient will be provided with a pair of crutches given her knee pain/mild effusion. I discussed with her RICE. 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 Patient was stable at time of discharge. - Vital Signs Vital signs: Temp Pulse Resp BP Pulse Ox 97.9 F 92 18 131/90 H 99 03/16/20 22:37 03/16/20 22:37 03/16/20 17:05 03/16/20 22:37 03/16/20 22:37 - Diagnostic Test Radiology reviewed: Image reviewed, Reports reviewed Discharge - Discharge Clinical Impression: Left elbow pain, Left wrist pain Accidental fall Qualifiers: Encounter type: initial encounter Qualified Code(s): W19.XXXA - Unspecified fall, initial encounter Left knee pain Qualifiers: Chronicity: acute Qualified Code(s): M25.562 - Pain in left knee Condition: Stable Disposition: HOME, SELF-CARE Additional Instructions: You may use crutches as needed. While at rest patient are to elevate the leg and apply ice. You may continue ibuprofen and Tylenol for pain. Please return to the emergency department for any concerning symptoms. Referrals: EVELYN MI MD [Primary Care Provider] - Follow up as needed
[2020-03-16] MEDS ORDERED: CYCLOBENZAPRINE HCL 10 MG TABLET PO ONE (19:54)
[2020-03-16] MEDS ORDERED: IBUPROFEN 800 MG TABLET PO ONE (19:54)
[2020-03-16] MEDS ORDERED: LIDOCAINE 5% (700 MG) TRANSDERMAL ADH..PATCH TP ONE (19:54)
--- NOTE | 2020-03-16 20:49 | RADIOLOGY REPORT (SQ) ---
CLINICAL INDICATION: fall, trauma. Pain. TECHNIQUE: 2 view(s) were obtained of the left knee. COMPARISON: None. FINDINGS: No acute displaced fracture is identified of the knee. Alignment appears anatomic. Joint spaces are within normal limits for age. No significant joint effusion. Surrounding soft tissues are unremarkable. IMPRESSION: No evidence of acute displaced fracture of the knee.
--- NOTE | 2020-03-16 20:52 | RADIOLOGY REPORT (SQ) ---
INDICATION: Pain. TECHNIQUE: 7 view(s) of the entire spine. COMPARISON: None FINDINGS: No evidence of acute displaced fracture. Shallow dextroconvex curvature of the upper thoracic spine. 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 Vertebral body heights are well-maintained. Surrounding soft tissues are unremarkable. IMPRESSION: No evidence of acute displaced fracture of the spine.
--- NOTE | 2020-03-16 21:02 | RADIOLOGY REPORT (SQ) ---
CLINICAL INDICATION: fall, trauma. Pain. TECHNIQUE: 3 view(s) were obtained of the left wrist. COMPARISON: None. FINDINGS: No acute displaced fracture is identified of the wrist. Alignment appears anatomic. Joint spaces are within normal limits for age. Soft tissue swelling. IMPRESSION: No evidence of acute displaced fracture of the wrist.
--- NOTE | 2020-03-16 21:03 | RADIOLOGY REPORT (SQ) ---
CLINICAL INDICATION: fall, trauma. Pain. TECHNIQUE: 3 view(s) were obtained of the left ankle. COMPARISON: None. FINDINGS: No acute displaced fracture is identified of the ankle. Alignment appears anatomic. Joint spaces are within normal limits for age. Mild soft tissue swelling. IMPRESSION: No evidence of acute displaced fracture of the ankle.
--- NOTE | 2020-03-16 21:03 | RADIOLOGY REPORT (SQ) ---
CLINICAL INDICATION: fall, trauma. Pain. TECHNIQUE: 4 view(s) were obtained of the left elbow. COMPARISON: None. FINDINGS: No acute displaced fracture is identified of the elbow. Alignment appears anatomic. Joint spaces are within normal limits for age. No significant joint effusion. Surrounding soft tissues are unremarkable. IMPRESSION: No evidence of acute displaced fracture of the elbow.
--- NOTE | 2020-03-16 21:23 | RADIOLOGY REPORT (SQ) ---
INDICATION: fall, trauma. Pain COMPARISON: None CORRELATION: None TECHNIQUE: Noncontrast spiral axial CT images were obtained from the skull base to vertex. Noncontrast spiral axial CT imaging through the cervical spine with multiplanar reconstructions. This exam was performed according to our departmental dose-optimization program, which includes automated exposure control, adjustment of the mA and/or kV according to patient size and/or use of iterative reconstruction techniques. FINDINGS: BRAIN: There is no evidence of acute intracranial hemorrhage, midline shift, mass effect or mass lesion. Frausto-white differentiation is normal. There is no evidence of acute large territory infarct. Ventricles and extracerebral spaces are within normal limits, for age. The visualized paranasal sinuses are grossly clear. The orbits and eyeballs are unremarkable. The mastoid air cells are clear. Skull base and calvarium appear intact. CERVICAL SPINE: No acute displaced fracture is identified of the cervical spine. Reversal/crowding of the normal cervical lordosis. No focal alignment abnormality is identified. 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 The uncovertebral joints and facets are within normal limits, for age. Surrounding soft tissues of the neck are unremarkable. IMPRESSION: No acute intracranial process is identified. No acute bony injury is seen to the cervical spine.
[2020-03-16] MEDS ORDERED: HYDROCODONE/ACETAMINOPHEN 5-325 MG TABLET PO ONE (21:49)
[2020-03-16 22:54] VITALS: BP 131/90
== END 2020-03-16 22:55 | disposition home or self-care (01) ==
LOC: ER 16:57
DX: M25.562 Pain in left knee (principal); M25.522 Pain in left elbow; M25.532 Pain in left wrist; M54.5 Low back pain; M54.2 Cervicalgia; W01.0XXA Fall on same level from slipping, tripping and stumbling without subsequent striking against object, initial encounter; Y92.512 Supermarket, store or market as the place of occurrence of the external cause; M25.469 Effusion, unspecified knee; F17.200 Nicotine dependence, unspecified, uncomplicated; Z87.892 Personal history of anaphylaxis; Z88.1 Allergy status to other antibiotic agents; Z88.0 Allergy status to penicillin; Z88.6 Allergy status to analgesic agent; Z88.5 Allergy status to narcotic agent; Z88.8 Allergy status to other drugs, medicaments and biological substances
CPT/HCPCS: 70450; 72082; 72125; 99284

== ENCOUNTER 2020-04-29 07:03 | Emergency (ER) | payer BC ==
[2020-04-29 09:41] LABS: APPEARANCE,URINE CLOUDY; BILIRUBIN,URINE NEGATIVE (NEGATIVE); COLOR,URINE YELLOW; GLUCOSE, URINE NEGATIVE (NEGATIVE); KETONES,URINE TRACE mg/dL (NEGATIVE); LEUKOCYTE ESTERASE,URINE TRACE (NEGATIVE); NITRITE,URINE NEGATIVE (NEGATIVE); PROTEIN,URINE 100 mg/dL (NEGATIVE); URINE SPECIFIC GRAVITY 1.029
[2020-04-29] MEDS ORDERED: NORMAL SALINE 1000 ML 1,000 ML IV ONE (09:49)
[2020-04-29] MEDS ORDERED: ONDANSETRON HCL INJ/PF 4 MG/2 ML SDV IV ONE (09:49)
[2020-04-29] MEDS ORDERED: MORPHINE SULFATE 10 MG/ML INJ IV ONE (09:49)
--- NOTE | 2020-04-29 09:51 | ER Document Report ---
ED General - General Chief Complaint: Pain All Over Stated Complaint: BODY ACHES,NAUSEA,VOMITING,DIARRHEA Time Seen by Provider: 04/29/20 09:19 Primary Care Provider: EVELYN MI MD [Primary Care Provider] - Follow up as needed Mode of Arrival: Ambulatory Information source: Patient Notes: 34-year-old female with no previous medical problems presents to the emergency room complaining of general body aches with a fever of 102 that started yesterday. Complains of multiple episodes of diarrhea and vomiting that started earlier today. States she took Tylenol and ibuprofen just prior to arrival. States she was in [place] this past weekend for a denies any known COVID-19 exposure. States she did have negative cover test 2 months ago due to symptoms at that time. Has had no known ill contacts. No bad food she can think of. No recent antibiotics. TRAVEL OUTSIDE OF THE [place] IN LAST 30 DAYS: Yes - Related Data Allergies/Adverse Reactions: cephalexin monohydrate [From Keflex] Allergy (Severe, Verified 02/18/20 14:30) Anaphylaxis codeine [Codeine] Allergy (Severe, Verified 02/18/20 14:30) Anaphylaxis Penicillins Allergy (Severe, Verified 02/18/20 14:30) Anaphylaxis haloperidol [From Haldol] Allergy (Verified 02/18/20 14:30) Swelling of tongue metoclopramide [From Reglan] Allergy (Verified 02/18/20 14:30) morphine Allergy (Verified 04/29/20 11:06) diphenhydramine HCl [From Benadryl] Adverse Reaction (Verified 02/18/20 14:30) prochlorperazine maleate [From Compazine] Adverse Reaction (Verified 02/18/20 14:30) Past Medical History - General Information source: Patient - Social History Smoking Status: Never Smoker Frequency of alcohol use: None Drug Abuse: None Family History: DM, Hypertension Renal/ Medical History: Reports: Hx Kidney Stones, Hx Ovarian Cysts. Denies: Hx Peritoneal Dialysis GI Medical History: Reports: Hx Irritable Bowel, Hx Pancreatitis Musculoskeletal Medical History: Reports Hx Musculoskeletal Deformity Psychiatric Medical History: Reports: Hx Anxiety, Hx Bipolar Disorder, Hx Depression, Hx Post Traumatic Stress Disorder Past Surgical History: Reports: Hx Appendectomy, Hx Section, Hx Cholecystectomy, Hx Kidney (Renal Surgery) - kidney stent rt, Hx Myringotomy - Immunizations Immunizations up to date: Yes Hx Diphtheria, Pertussis, Tetanus Vaccination: Yes Review of Systems - Review of Systems Constitutional: Fever, Malaise EENT: No symptoms reported Cardiovascular: No symptoms reported Respiratory: Cough Gastrointestinal: Diarrhea, Nausea, Vomiting. denies: Abdominal pain Genitourinary: No symptoms reported Musculoskeletal: Muscle pain Skin: No symptoms reported Neurological/Psychological: No symptoms reported -: Yes All other systems reviewed and negative Physical Exam - Vital signs Vitals: Temp Pulse Resp BP Pulse Ox 99.8 F 116 H 18 132/75 H 98 04/29/20 07:58 04/29/20 07:58 04/29/20 07:58 04/29/20 07:58 04/29/20 07:58 - Notes Notes: GENERAL: Mild acute distress, non-toxic appearance. HEAD: Normal with no signs of head trauma. EYES: PERRLA, EOMI, conjunctiva normal, no discharge. EARS: Hearing grossly intact. NOSE: Normal. THROAT: Oropharynx is normal. NECK: Normal range of motion, no tenderness, supple, no lymphadenopathy, No adenopathy, no JVD. CHEST: Clear breath sounds bilaterally. No wheezes, rales, or rhonchi. CARDIAC: Tachycardic. Normal S1 and S2, without murmurs, gallops, or rubs. VASCULAR: No Edema. Peripheral pulses normal and equal in all extremities. ABDOMEN: Normal and soft with no tenderness, no masses or pulsatile masses. No organomegaly. Positive bowel sounds x4. No CVA tenderness noted bilaterally. GASTROINTESTINAL: Bowel sounds normal GENITOURINARY: Normal, No tenderness LYMPATHTIC: No lymphadenopathy noted. MUSCULOSKELETAL: Good range of motion of all major joints. Extremities without clubbing, cyanosis or edema. NEUROLOGICAL: Alert and oriented x 3. No focal sensory or strength deficits. Speech normal. Follows commands appropriately. PSYCHIATRIC: Normal Affect, judgement and mood. SKIN: Normal appearance with no rashes or lesions. Course - Re-evaluation Re-evalutation: 04/29/20 12:23 Patient is resting comfortably however she continues to complain of general body aches. Reviewed all test results with patient. Will give IV Toradol, p.o. Bactrim for her UTI. IV fluids still infiltrating as patient continues to bend her arm and is not getting the fluids. Patient was counseled to try to keep her arm straight so that she can get all of the IV fluids which should help with some of her discomfort. She is afebrile, she is nontoxic-appearing, will reevaluate after medications given. Patient was evaluated during the global COVID-19 pandemic and that diagnosis was suspected/considered upon their initial presentation. Their evaluation, treatment and testing was consistent with current guidelines for patients who presents with complaints or systems that may be related to COVID-19. 04/29/20 13:29 Patient is resting comfortably she is afebrile. She is nontoxic-appearing, she is able to tolerate p.o. fluids. All test results were reviewed with the patient at length. She was counseled on the importance of pushing fluids. Tylenol and/or Motrin as needed for pain. She was also counseled on the fact that she needs to self quarantine for the next 14 days or until she receives a negative COVID-19 test. Take antibiotics as prescribed. Outpatient follow-up with primary care physician if not improving in 2 to 3 days. Patient was given strict return to the emergency room guidelines. Return for any new or worsening symptoms. All questions were answered. Patient verbalized understanding and agrees with plan of care. - Vital Signs Vital signs: Temp Pulse Resp BP Pulse Ox 98.6 F 100 18 112/55 L 96 04/29/20 13:01 04/29/20 13:01 04/29/20 13:01 04/29/20 13:01 04/29/20 13:01 - Laboratory Result Diagrams: 04/29/20 10:21 04/29/20 10:21 Laboratory results interpreted by me: 04/29/20 04/29/20 04/29/20 09:15 10:21 10:21 Lymph % (Auto) 11.6 L Seg Neutrophils % 81.9 H Sodium 136.0 L Carbon Dioxide 21 L AST 88 H ALT 45 H Urine Protein 100 H Urine Ketones TRACE H Urine Blood SMALL H Urine Urobilinogen 2.0 H Ur Leukocyte Esterase TRACE H - Diagnostic Test Radiology reviewed: Reports reviewed Discharge - Discharge Clinical Impression: Viral illness UTI (urinary tract infection) Qualifiers: Urinary tract infection type: site unspecified Hematuria presence: without hematuria Qualified Code(s): N39.0 - Urinary tract infection, site not specified Condition: Stable Disposition: HOME, SELF-CARE Instructions: COVID-19 Guidance for Persons Under Investigation, Trimethoprim- Sulfa ([facility]), Urinary Tract Infection ([facility]), Viral Syndrome ([facility]) Additional Instructions: You need to drink plenty of fluids, take Tylenol and/or Motrin as needed for pain. Take antibiotics as prescribed. You are required to self quarantine for the next 14 days or until you get a negative COVID test. Follow-up with your primary care physician if not improving in 2 to 3 days. Return to the emergency room for any new or worsening symptoms. Prescriptions: Sulfamethoxazole/Trimethoprim [Bactrim Ds Tablet] 1 tab PO BID #10 tablet Referrals: EVELYN MI MD [Primary Care Provider] - Follow up as needed
[2020-04-29] MEDS ORDERED: OXYCODONE-ACETAMINOPHEN 5-325 MG TABLET PO ONE (10:18)
[2020-04-29 10:51] LABS: ABSOLUTE LYMPHOCYTES (AUTO) 0.7 10^3/uL (0.5-4.7); ABSOLUTE MONOCYTES (AUTO) 0.4 10^3/uL (0.1-1.4); ABSOLUTE NEUT (AUTO) 5.2 10^3/uL (1.7-8.2); BASOPHILS % (AUTO) 0.5 % (0-2); EOSINOPHILS % (AUTO) 0.2 % (0-6); HEMATOCRIT 40.5 % (36.0-47.0); HEMOGLOBIN 14.1 g/dL (12.0-15.5); LYMPHOCYTES % (AUTO) 11.6 % (13-45); MEAN CORPUSCULAR HEMOGLOBIN 31.8 pg (27.0-33.4); MEAN CORPUSCULAR HGB CONC 34.8 g/dL (32.0-36.0); MEAN CORPUSCULAR VOLUME 92 fl (80-97); MONOCYTES % (AUTO) 5.8 % (3-13); PLATELET COUNT 180 10^3/uL (150-450); RED BLOOD COUNT 4.43 10^6/uL (3.72-5.28); RED CELL DISTRIBUTION WIDTH 13.1 % (11.5-14.0); SEGMENTED NEUTROPHILS % (AUTO) 81.9 % (42-78); TOTAL CELLS COUNTED % (AUTO) 100 %; WHITE BLOOD COUNT 6.4 10^3/uL (4.0-10.5)
[2020-04-29 11:13] LABS: A TYPE INFLUENZA AG NEGATIVE (NEGATIVE); B INFLUENZA AG NEGATIVE (NEGATIVE)
[2020-04-29 11:15] LABS: ALBUMIN 4.3 g/dL (3.5-5.0); ALKALINE PHOSPHATASE 87 U/L (38-126); ANION GAP 11 (5-19); ASPARTATE AMINO TRANSFERASE 88 U/L (14-36); BILIRUBIN,DIRECT 0.4 mg/dL (0.0-0.4); BILIRUBIN,TOTAL 0.8 mg/dL (0.2-1.3); BLOOD UREA NITROGEN 8 mg/dL (7-20); CALCIUM 9.4 mg/dL (8.4-10.2); CARBON DIOXIDE 21 mmol/L (22-30); CHLORIDE 104 mmol/L (98-107); GLUCOSE 109 mg/dL (75-110); POTASSIUM 4.8 mmol/L (3.6-5.0); TOTAL PROTEIN 7.5 g/dL (6.3-8.2)
--- NOTE | 2020-04-29 11:56 | RADIOLOGY REPORT (SQ) ---
EXAM DESCRIPTION: CHEST SINGLE VIEW IMAGES COMPLETED DATE/TIME: 04/29/2020 11:39 am REASON FOR STUDY: cough COMPARISON: 02/17/2020 EXAM PARAMETERS: NUMBER OF VIEWS: One view. TECHNIQUE: Single frontal radiographic view of the chest acquired. RADIATION DOSE: NA LIMITATIONS: None. FINDINGS: LUNGS AND PLEURA: No opacities, masses or pneumothorax. No pleural effusion. MEDIASTINUM AND HILAR STRUCTURES: No masses. Contour normal. HEART AND VASCULAR STRUCTURES: Heart normal in size. Normal vasculature. BONES: No acute findings. HARDWARE: None in the chest. OTHER: No other significant finding. IMPRESSION: NO ACUTE RADIOGRAPHIC FINDING IN THE CHEST. TECHNICAL DOCUMENTATION: JOB ID: [id number] 2010 [employer]- All Rights Reserved Reading location - IP/workstation name: [email or web address]
[2020-04-29] MEDS ORDERED: KETOROLAC TROMETHAMINE INJ/PF 30 MG/1 ML SDV IV ONE (12:20)
[2020-04-29] MEDS ORDERED: SULFAMETHOXAZOLE/TRIMETHOPRIM 800-160 MG TABLET PO ONE (12:22)
[2020-04-29 13:06] VITALS: BP 112/55
== END 2020-04-29 13:51 | disposition home or self-care (01) ==
LOC: ER 07:03
DX: N39.0 Urinary tract infection, site not specified (principal); B34.9 Viral infection, unspecified; R19.7 Diarrhea, unspecified; R11.2 Nausea with vomiting, unspecified; R50.9 Fever, unspecified; R53.81 Other malaise; R05 Cough; M79.10 Myalgia, unspecified site; R00.0 Tachycardia, unspecified; Z87.892 Personal history of anaphylaxis; Z88.1 Allergy status to other antibiotic agents; Z88.6 Allergy status to analgesic agent; Z88.5 Allergy status to narcotic agent; Z88.0 Allergy status to penicillin; Z88.8 Allergy status to other drugs, medicaments and biological substances; Z20.828 Contact with and (suspected) exposure to other viral communicable diseases
CPT/HCPCS: 99284; 96361; 96374; 96375; 36415; 87086; 85025; 81025; 80053; 81001; 87804; 71045; U0003; J1885; J2405; J7030; C9803; 87635

== ENCOUNTER 2020-04-30 22:01 | Emergency (ER) | payer BC ==
[2020-04-30 23:05] VITALS: BP 119/75
[2020-05-01] MEDS ORDERED: ONDANSETRON 4 MG TAB.RAPDIS PO ONE (00:26)
[2020-05-01] MEDS ORDERED: NORMAL SALINE 1000 ML 1,000 ML IV ONE (00:27)
--- NOTE | 2020-05-01 00:29 | ER Document Report ---
ED Medical Screen (RME) - General Chief Complaint: Vomiting/Diarrhea Stated Complaint: DIAHRREA/VOMITING Time Seen by Provider: 05/01/20 00:26 Primary Care Provider: EVELYN MI MD [Primary Care Provider] - Follow up as needed Mode of Arrival: Ambulatory Information source: Patient Notes: 34-year-old female presents with body aches, nausea, vomiting, diarrhea. Was seen here on Tuesday and had a full battery of tests including a COVID and flu test which were both negative. General: No acute distress Cardiac regular rate and rhythm Pulmonary clear to auscultation Abdomen no focal tenderness Neuro no focal deficits I have greeted and performed a rapid initial assessment of this patient. A comprehensive ED assessment and evaluation of the patient, analysis of test results and completion of the medical decision making process will be conducted by additional ED providers. TRAVEL OUTSIDE OF THE [place] IN LAST 30 DAYS: Yes - Related Data Allergies/Adverse Reactions: cephalexin monohydrate [From Keflex] Allergy (Severe, Verified 02/18/20 14:30) Anaphylaxis codeine [Codeine] Allergy (Severe, Verified 02/18/20 14:30) Anaphylaxis Penicillins Allergy (Severe, Verified 02/18/20 14:30) Anaphylaxis haloperidol [From Haldol] Allergy (Verified 02/18/20 14:30) Swelling of tongue metoclopramide [From Reglan] Allergy (Verified 02/18/20 14:30) morphine Allergy (Verified 04/29/20 11:06) diphenhydramine HCl [From Benadryl] Adverse Reaction (Verified 02/18/20 14:30) prochlorperazine maleate [From Compazine] Adverse Reaction (Verified 02/18/20 14:30) Past Medical History Renal/ Medical History: Reports: Hx Kidney Stones, Hx Ovarian Cysts. Denies: Hx Peritoneal Dialysis GI Medical History: Reports: Hx Irritable Bowel, Hx Pancreatitis Musculoskeltal Medical History: Reports Hx Musculoskeletal Deformity Psychiatric Medical History: Reports: Hx Anxiety, Hx Bipolar Disorder, Hx Depression, Hx Post Traumatic Stress Disorder Past Surgical History: Reports: Hx Appendectomy, Hx Section, Hx Cholecystectomy, Hx Kidney (Renal Surgery) - kidney stent rt, Hx Myringotomy - Immunizations Immunizations up to date: Yes Hx Diphtheria, Pertussis, Tetanus Vaccination: Yes Physical Exam - Vital signs Vitals: Temp Pulse Resp BP Pulse Ox 97.8 F 104 H 16 119/75 99 04/30/20 23:04 04/30/20 23:04 04/30/20 23:04 04/30/20 23:04 04/30/20 23:04 Course - Vital Signs Vital signs: Temp Pulse Resp BP Pulse Ox 97.8 F 104 H 16 119/75 99 04/30/20 23:04 04/30/20 23:04 04/30/20 23:04 04/30/20 23:04 04/30/20 23:04 Doctor's Discharge - Discharge Referrals: EVELYN MI MD [Primary Care Provider] - Follow up as needed
== END 2020-05-01 03:30 | disposition left against medical advice (07) ==
LOC: ER 22:01
DX: R11.2 Nausea with vomiting, unspecified (principal); R19.7 Diarrhea, unspecified; R52 Pain, unspecified; Z87.19 Personal history of other diseases of the digestive system; Z90.49 Acquired absence of other specified parts of digestive tract; Z87.892 Personal history of anaphylaxis; Z88.1 Allergy status to other antibiotic agents; Z88.6 Allergy status to analgesic agent; Z88.5 Allergy status to narcotic agent; Z88.0 Allergy status to penicillin; Z53.20 Procedure and treatment not carried out because of patient's decision for unspecified reasons; Z88.8 Allergy status to other drugs, medicaments and biological substances
CPT/HCPCS: 99281

== ENCOUNTER 2020-05-01 12:24 | Emergency (ER) | payer BC ==
[2020-05-01] MEDS ORDERED: NORMAL SALINE 1000 ML 1,000 ML IV ONE ×2 (13:32→15:16)
[2020-05-01] MEDS ORDERED: ONDANSETRON HCL INJ/PF 4 MG/2 ML SDV IV ONE (13:32)
--- NOTE | 2020-05-01 13:35 | ER Document Report ---
ED Medical Screen (RME) - General Chief Complaint: Flu Symptoms Stated Complaint: HEADACHE,FEVER, BODYACHES Time Seen by Provider: 05/01/20 12:44 Primary Care Provider: EVELYN MI MD [Primary Care Provider] - Follow up as needed Mode of Arrival: Ambulatory Information source: Patient Notes: 34-year-old female presented to ED for complaint of pain all over. She states she is having diarrhea and that they sent a stool sample yesterday but I looked and there was no stool sample sent or there was none ordered 1 of the other. Patient states she has had cough and sore throat earaches body aches. She did have a covered test done a couple days ago which was negative. She did have a UA done which was negative culture was negative for an acute UTI. Chest x-ray was negative. Patient is alert oriented respirations regular nonlabored speaking in full sentences. She does have what appears to be an upper respiratory infection. Blood urine strep test and chest x-ray have been ordered. I have greeted and performed a rapid initial assessment of this patient. A comprehensive ED assessment and evaluation of the patient, analysis of test results and completion of medical decision making process will be conducted by an additional ED providers. TRAVEL OUTSIDE OF THE [place] IN LAST 30 DAYS: Yes - Related Data Allergies/Adverse Reactions: cephalexin monohydrate [From Keflex] Allergy (Severe, Verified 05/01/20 12:58) Anaphylaxis codeine [Codeine] Allergy (Severe, Verified 05/01/20 12:58) Anaphylaxis Penicillins Allergy (Severe, Verified 05/01/20 12:58) Anaphylaxis haloperidol [From Haldol] Allergy (Verified 05/01/20 12:58) Swelling of tongue metoclopramide [From Reglan] Allergy (Verified 05/01/20 12:58) morphine Allergy (Verified 05/01/20 12:58) diphenhydramine HCl [From Benadryl] Adverse Reaction (Verified 05/01/20 12:58) prochlorperazine maleate [From Compazine] Adverse Reaction (Verified 05/01/20 12:58) Past Medical History Renal/ Medical History: Reports: Hx Kidney Stones, Hx Ovarian Cysts. Denies: Hx Peritoneal Dialysis GI Medical History: Reports: Hx Irritable Bowel, Hx Pancreatitis Musculoskeltal Medical History: Reports Hx Musculoskeletal Deformity Psychiatric Medical History: Reports: Hx Anxiety, Hx Bipolar Disorder, Hx Depression, Hx Post Traumatic Stress Disorder Past Surgical History: Reports: Hx Appendectomy, Hx Section, Hx Cholecystectomy, Hx Kidney (Renal Surgery) - kidney stent rt, Hx Myringotomy - Immunizations Immunizations up to date: Yes Hx Diphtheria, Pertussis, Tetanus Vaccination: Yes Physical Exam - Vital signs Vitals: Temp Pulse Resp BP Pulse Ox 97.8 F 102 H 20 123/82 96 05/01/20 12:28 05/01/20 12:28 05/01/20 12:28 05/01/20 12:28 05/01/20 12:28 Course - Vital Signs Vital signs: Temp Pulse Resp BP Pulse Ox 97.8 F 102 H 20 123/82 96 05/01/20 12:28 05/01/20 12:28 05/01/20 12:28 05/01/20 12:28 05/01/20 12:28 - Laboratory Laboratory results interpreted by me: 05/01/20 01:27 Urine Protein 30 H Urine Blood SMALL H Ur Leukocyte Esterase MODERATE H Doctor's Discharge - Discharge Referrals: EVELYN MI MD [Primary Care Provider] - Follow up as needed
[2020-05-01 13:40] LABS: APPEARANCE,URINE TURBID; BILIRUBIN,URINE NEGATIVE (NEGATIVE); COLOR,URINE YELLOW; GLUCOSE, URINE NEGATIVE (NEGATIVE); KETONES,URINE NEGATIVE (NEGATIVE); LEUKOCYTE ESTERASE,URINE MODERATE (NEGATIVE); NITRITE,URINE NEGATIVE (NEGATIVE); PROTEIN,URINE 30 mg/dL (NEGATIVE); URINE SPECIFIC GRAVITY 1.026; UROBILINOGEN,URINE NEGATIVE mg/dL (<2.0)
[2020-05-01 13:47] LABS: URINE AMPHETAMINES SCREEN NEGATIVE; URINE BARBITURATES SCREEN NEGATIVE; URINE BENZODIAZEPINES SCREEN NEGATIVE; URINE COCAINE SCREEN NEGATIVE; URINE MARIJUANA (THC) SCREEN NEGATIVE; URINE METHADONE SCREEN NEGATIVE; URINE PHENCYCLIDINE SCREEN NEGATIVE
[2020-05-01 13:53] LABS: ABSOLUTE EOSINOPHILS # (AUTO) 0.1 10^3/uL (0.0-0.6); ABSOLUTE LYMPHOCYTES (AUTO) 1.6 10^3/uL (0.5-4.7); ABSOLUTE MONOCYTES (AUTO) 0.4 10^3/uL (0.1-1.4); BASOPHILS % (AUTO) 0.5 % (0-2); EOSINOPHILS % (AUTO) 2.6 % (0-6); HEMATOCRIT 37.5 % (36.0-47.0); HEMOGLOBIN 13.2 g/dL (12.0-15.5); LYMPHOCYTES % (AUTO) 39.1 % (13-45); MEAN CORPUSCULAR HGB CONC 35.3 g/dL (32.0-36.0); MEAN CORPUSCULAR VOLUME 91 fl (80-97); MONOCYTES % (AUTO) 9.5 % (3-13); PLATELET COUNT 193 10^3/uL (150-450); RED BLOOD COUNT 4.14 10^6/uL (3.72-5.28); RED CELL DISTRIBUTION WIDTH 13.1 % (11.5-14.0); SEGMENTED NEUTROPHILS % (AUTO) 48.3 % (42-78); TOTAL CELLS COUNTED % (AUTO) 100 %; WHITE BLOOD COUNT 4.2 10^3/uL (4.0-10.5)
[2020-05-01 14:11] LABS: ALBUMIN 3.8 g/dL (3.5-5.0); ALKALINE PHOSPHATASE 76 U/L (38-126); ANION GAP 9 (5-19); ASPARTATE AMINO TRANSFERASE 73 U/L (14-36); BILIRUBIN,DIRECT 0.2 mg/dL (0.0-0.4); BILIRUBIN,TOTAL 0.6 mg/dL (0.2-1.3); BLOOD UREA NITROGEN 9 mg/dL (7-20); CALCIUM 9.6 mg/dL (8.4-10.2); CARBON DIOXIDE 25 mmol/L (22-30); CHLORIDE 105 mmol/L (98-107); GLUCOSE 115 mg/dL (75-110); POTASSIUM 4.1 mmol/L (3.6-5.0); TOTAL PROTEIN 6.6 g/dL (6.3-8.2)
--- NOTE | 2020-05-01 15:11 | RADIOLOGY REPORT (SQ) ---
EXAM DESCRIPTION: CHEST SINGLE VIEW IMAGES COMPLETED DATE/TIME: 05/01/2020 2:59 pm REASON FOR STUDY: cough COMPARISON: 04/29/2020 EXAM PARAMETERS: NUMBER OF VIEWS: One view. TECHNIQUE: Single frontal radiographic view of the chest acquired. RADIATION DOSE: NA LIMITATIONS: None. FINDINGS: LUNGS AND PLEURA: No opacities, masses or pneumothorax. No pleural effusion. MEDIASTINUM AND HILAR STRUCTURES: No masses. Contour normal. HEART AND VASCULAR STRUCTURES: Heart normal in size. Normal vasculature. BONES: No acute findings. HARDWARE: None in the chest. OTHER: No other significant finding. IMPRESSION: NO ACUTE RADIOGRAPHIC FINDING IN THE CHEST. TECHNICAL DOCUMENTATION: JOB ID: [id number] 2010 [employer]- All Rights Reserved Reading location - IP/workstation name: [email or web address]
[2020-05-01] MEDS ORDERED: OXYCODONE-ACETAMINOPHEN 5-325 MG TABLET PO ONE (15:17)
[2020-05-01] MEDS ORDERED: METHYLPREDNISOLONE INJ 125 MG/2 ML SDV IV ONE (15:17)
[2020-05-01] MEDS ORDERED: KETOROLAC TROMETHAMINE INJ/PF 30 MG/1 ML SDV IV ONE (15:17)
--- NOTE | 2020-05-01 15:39 | ER Document Report ---
Entered by TELMA TONG SCRIBE 05/01/20 1403 Acting as scribe for:BECKI DENNIS MD ED General - General Chief Complaint: Flu Symptoms Stated Complaint: HEADACHE,FEVER, BODYACHES Time Seen by Provider: 05/01/20 12:44 Primary Care Provider: EVELYN MI MD [Primary Care Provider] - Follow up as needed Mode of Arrival: Ambulatory Information source: Patient Notes: This 34 year old female patient presents to the emergency department today with complaints of generalized body aches, nausea, vomiting, and diarrhea for the last three 3-4 days. She reports that initially she was having x3-4 episodes of "black stool" and how she is having about x20 episodes daily now. Patient mentions that eating or drinking seems to cause the diarrhea. She states she has had abdominal cramps, a non-productive cough, and subjective fevers as well. TRAVEL OUTSIDE OF THE [place] IN LAST 30 DAYS: Yes - Related Data Allergies/Adverse Reactions: cephalexin monohydrate [From Keflex] Allergy (Severe, Verified 05/01/20 12:58) Anaphylaxis codeine [Codeine] Allergy (Severe, Verified 05/01/20 12:58) Anaphylaxis Penicillins Allergy (Severe, Verified 05/01/20 12:58) Anaphylaxis haloperidol [From Haldol] Allergy (Verified 05/01/20 12:58) Swelling of tongue metoclopramide [From Reglan] Allergy (Verified 05/01/20 12:58) morphine Allergy (Verified 05/01/20 12:58) diphenhydramine HCl [From Benadryl] Adverse Reaction (Verified 05/01/20 12:58) prochlorperazine maleate [From Compazine] Adverse Reaction (Verified 05/01/20 12:58) Past Medical History - General Information source: Patient - Social History Smoking Status: Former Smoker Cigarette use (# per day): No - quit in 2019 Frequency of alcohol use: None Drug Abuse: None Lives with: Family Family History: DM, Hypertension Renal/ Medical History: Reports: Hx Kidney Stones, Hx Ovarian Cysts GI Medical History: Reports: Hx Irritable Bowel, Hx Pancreatitis Musculoskeletal Medical History: Reports Hx Musculoskeletal Deformity Psychiatric Medical History: Reports: Hx Anxiety, Hx Bipolar Disorder, Hx Depression, Hx Post Traumatic Stress Disorder Past Surgical History: Reports: Hx Appendectomy, Hx Section, Hx Cholecystectomy, Hx Kidney (Renal Surgery) - kidney stent rt, Hx Myringotomy - Immunizations Immunizations up to date: Yes Hx Diphtheria, Pertussis, Tetanus Vaccination: Yes Review of Systems - Review of Systems Constitutional: See HPI, Chills, Fever EENT: No symptoms reported Cardiovascular: No symptoms reported Respiratory: See HPI, Cough Gastrointestinal: See HPI, Abdominal pain Genitourinary: No symptoms reported Female Genitourinary: No symptoms reported Musculoskeletal: See HPI, Joint pain, Muscle pain Skin: No symptoms reported Hematologic/Lymphatic: No symptoms reported Neurological/Psychological: See HPI, Headaches -: Yes All other systems reviewed and negative Physical Exam - Vital signs Vitals: Temp Pulse Resp BP Pulse Ox 97.8 F 102 H 20 123/82 96 05/01/20 12:28 05/01/20 12:28 05/01/20 12:28 05/01/20 12:28 05/01/20 12:28 - Notes Notes: Physical Exam: General: Alert, appears well. HEENT: Normocephalic. Atraumatic. PERRL. Extraocular movements intact. Oropharynx clear. Nasal sinus congestion. Neck: Supple. Non-tender. Respiratory: No respiratory distress. Coarse breath sounds, minimal rhonchi with cough. Anterior chest wall exquisitely tender. Cardiovascular: Regular rate and rhythm. Abdominal: Obese. Non-tender. No distension. Normal Bowel Sounds. Back: No gross abnormalities. Extremities: Moves all four extremities. Upper extremities: Normal inspection. Normal ROM. Lower extremities: Normal inspection. No edema. Normal ROM. Neurological: Normal cognition. AAOx4. Normal speech. Psychological: Normal affect. Normal Mood. Skin: Warm. Dry. Normal color. Course - Re-evaluation Re-evalutation: 05/01/20 17:03 The patient's presentation is most consistent with a viral syndrome. Her white blood cell count is low with no shift. Her Chem-12 is unremarkable other than a slightly elevated LFTs. The stool was examined and there were no WBCs. The urine was concentrated. She has received IV fluids. She will be discharged with a recommendation for symptomatic treatment of her generalized pains cough, and nausea vomiting and diarrhea. - Vital Signs Vital signs: Temp Pulse Resp BP Pulse Ox 98.2 F 82 16 132/60 H 100 05/01/20 17:35 05/01/20 17:35 05/01/20 17:35 05/01/20 17:35 05/01/20 17:35 - Laboratory Result Diagrams: 05/01/20 13:34 05/01/20 13:34 Laboratory results interpreted by me: 05/01/20 05/01/20 12:49 13:34 Glucose 115 H AST 73 H ALT 52 H Urine Protein 30 H Urine Blood SMALL H Ur Leukocyte Esterase MODERATE H - Diagnostic Test Radiology reviewed: Image reviewed, Reports reviewed - Chest x-ray shows no radiographic abnormalities. Discharge - Discharge Clinical Impression: Viral syndrome, Generalized pain, Nausea, vomiting and diarrhea, Viral upper respiratory tract infection with cough Condition: Stable Disposition: HOME, SELF-CARE Additional Instructions: Viral Syndrome: The physician has diagnosed a viral infection. Viruses not only cause "colds," but can cause many different symptoms including generalized aching, fever, headache, cough, diarrhea, nausea, vomiting, and fatigue. The treatment, for the most part, is simply relief of symptoms. This means that antibiotics are usually not given. Rest, fluids, pain medications and, occasionally, medication for the specific symptoms that are most bothersome will be prescribed. Use good handwashing to avoid passing the virus to others. Shared toys should be cleaned with disinfectant. Clean the toilets, sinks, and counter surfaces in bathrooms. Launder clothing in hot water. Contact the physician if you develop any new or unusual symptoms such as severe headache, stiff neck, high fever, chest pain, productive cough, or shortness of breath. You should be rechecked if you don't see marked improvement within seven to 10 days. Your evaluation today shows that you are suffering from viral syndrome with nausea, vomiting, diarrhea, cough and generalized body aches. The management of symptoms such as this is generally symptomatic treatment. You will be prescribed Zofran to help control the nauseousness. You should try Pepto-Bismol or Imodium-AD to help control the diarrhea. You should take Tylenol and ibuprofen for your aches and pains. Narcotic management is not appropriate for treating generalized body aches. You should try to drink plenty of fluids throughout the day in the evening to stay well-hydrated. Get plenty of rest and sleep. Follow-up with your primary care provider if you are not improving over the next several days. Prescriptions: Ondansetron [Zofran Odt 4 mg Tablet] 1 - 2 tab PO Q4H PRN #14 tab.rapdis PRN Reason: Referrals: EVELYN MI MD [Primary Care Provider] - Follow up as needed I personally performed the services described in the documentation, reviewed and edited the documentation which was dictated to the scribe in my presence, and it accurately records my words and actions.
[2020-05-01] MEDS ORDERED: BENZONATATE 100 MG CAPSULE PO ONE (16:16)
[2020-05-01 17:35] VITALS: BP 132/60
== END 2020-05-01 17:44 | disposition home or self-care (01) ==
LOC: ER 12:24
DX: J06.9 Acute upper respiratory infection, unspecified (principal); B97.89 Other viral agents as the cause of diseases classified elsewhere; R51.9 Headache, unspecified; R11.2 Nausea with vomiting, unspecified; R19.7 Diarrhea, unspecified; R19.5 Other fecal abnormalities; R79.89 Other specified abnormal findings of blood chemistry; R10.9 Unspecified abdominal pain; M79.10 Myalgia, unspecified site; M25.50 Pain in unspecified joint; R50.9 Fever, unspecified; R05 Cough; Z87.891 Personal history of nicotine dependence; Z87.442 Personal history of urinary calculi; Z87.42 Personal history of other diseases of the female genital tract; Z90.49 Acquired absence of other specified parts of digestive tract; Z87.892 Personal history of anaphylaxis; Z88.1 Allergy status to other antibiotic agents; Z88.6 Allergy status to analgesic agent; Z88.5 Allergy status to narcotic agent; Z88.0 Allergy status to penicillin; Z88.8 Allergy status to other drugs, medicaments and biological substances
CPT/HCPCS: 99284; 96361; 96374; 96375; 36415; 87045; 87070 ×2; 89055; 87205; 87880; 83690; 87077; 81001; 80307; 71045; J1885; J2405; J7030

== ENCOUNTER 2020-06-19 07:43 | Emergency (ER) | payer BC ==
[2020-06-19] MEDS ORDERED: LEVALBUTEROL HCL NEB 1.25 MG/3 ML AMPUL NEB ONE (08:27)
[2020-06-19] MEDS ORDERED: NORMAL SALINE 1000 ML 1,000 ML IV ONE (08:28)
[2020-06-19] MEDS ORDERED: BENZONATATE 100 MG CAPSULE PO ONE (08:28)
[2020-06-19] MEDS ORDERED: MAG HYDROX/AL HYDROX/SIMETH SUSP 30 ML UDCUP PO ONE (08:29)
[2020-06-19] MEDS ORDERED: LIDOCAINE 2% VISCOUS SOLN 15 ML UDCUP PO ONE (08:29)
[2020-06-19] MEDS ORDERED: ONDANSETRON HCL INJ/PF 4 MG/2 ML SDV IV ONE (08:31)
--- NOTE | 2020-06-19 08:31 | ER Document Report ---
ED General - General Chief Complaint: Epigastric Pain Stated Complaint: COUGH,CONGESTION,ABDOMINAL PAIN Time Seen by Provider: 06/19/20 08:14 Primary Care Provider: EVELYN MI MD [Primary Care Provider] - Follow up tomorrow IGNACIO BOWEN MD [ACTIVE STAFF] - Follow up in 3-5 days CLAYTON CARR MD [ACTIVE STAFF] - Follow up in 3-5 days Notes: Patient is a 35-year-old female presents emergency department with cough, congestion, and upper abdominal pain. Patient states that this feels similar as to when she had pancreatitis in the past. Patient states that she has had a cough for about 5-6 days. TRAVEL OUTSIDE OF THE [place] IN LAST 30 DAYS: Yes - Related Data Allergies/Adverse Reactions: cephalexin monohydrate [From Keflex] Allergy (Severe, Verified 06/19/20 07:51) Anaphylaxis codeine [Codeine] Allergy (Severe, Verified 06/19/20 07:51) Anaphylaxis Penicillins Allergy (Severe, Verified 06/19/20 07:51) Anaphylaxis haloperidol [From Haldol] Allergy (Verified 06/19/20 07:51) Swelling of tongue metoclopramide [From Reglan] Allergy (Verified 06/19/20 07:51) morphine Allergy (Verified 06/19/20 07:51) diphenhydramine HCl [From Benadryl] Adverse Reaction (Verified 06/19/20 07:51) prochlorperazine maleate [From Compazine] Adverse Reaction (Verified 06/19/20 07:51) Past Medical History - Social History Smoking Status: Current Every Day Smoker Chew tobacco use (# tins/day): No Frequency of alcohol use: None Drug Abuse: None Family History: DM, Hypertension Renal/ Medical History: Reports: Hx Kidney Stones, Hx Ovarian Cysts. Denies: Hx Peritoneal Dialysis GI Medical History: Reports: Hx Irritable Bowel, Hx Pancreatitis Musculoskeletal Medical History: Reports Hx Musculoskeletal Deformity Psychiatric Medical History: Reports: Hx Anxiety, Hx Bipolar Disorder, Hx Depression, Hx Post Traumatic Stress Disorder Past Surgical History: Reports: Hx Appendectomy, Hx Section, Hx Cholecystectomy, Hx Kidney (Renal Surgery) - kidney stent rt, Hx Myringotomy - Immunizations Immunizations up to date: Yes Hx Diphtheria, Pertussis, Tetanus Vaccination: Yes Review of Systems - Review of Systems Notes: REVIEW OF SYSTEMS: CONSTITUTIONAL : Denies recent illness. Denies recent unintentional weight loss. Denies fever, chills, or sweats. EENT: Denies eye, ear, throat, or mouth pain, discharge, or symptoms. Denies nasal or sinus congestion. CARDIOVASCULAR: Denies chest pain. RESPIRATORY: See HPI. GASTROINTESTINAL: See HPI. GENITOURINARY: Denies difficulty urinating, burning, blood in urine, urgency or frequency. MUSCULOSKELETAL: Denies neck and back pain. Denies joint pain or swelling. SKIN: Denies rash, itchiness, or lesions HEMATOLOGIC : Denies easy bruising or bleeding. LYMPHATIC: Denies swollen, painful, enlarged glands. NEUROLOGICAL: Denies no numbness or tingling denies weakness. Denies headache. Denies altered mental status. Denies alteration in speech. PSYCHIATRIC: Denies stress, anxiety, alteration in sleep patterns, or depression. All other systems reviewed and negative. Physical Exam - Vital signs Vitals: Temp Pulse Resp BP Pulse Ox 97.9 F 100 16 130/96 H 98 06/19/20 07:48 06/19/20 07:48 06/19/20 07:48 06/19/20 07:48 06/19/20 07:48 - Notes Notes: PHYSICAL EXAMINATION: GENERAL: Appears well, healthy, well-nourished, no acute distress. HEAD: Normocephalic, atraumatic. EYES: PERRL, conjunctiva normal, all extraocular movements intact, sclera nonicteric ENT: Moist mucous membranes. NECK: Supple, no noticeable swelling, redness, rash. Normal range of motion. LUNGS: Mild expiratory wheezes noted throughout all lung smith. CARDIOVASCULAR: S1-S2, regular rate, regular rhythm. Radial pulses 2+, normal. ABDOMEN: Normoactive bowel sounds. Soft, tender epigastric area, no guarding, no rebound tenderness, and no masses palpated. EXTREMITIES: Normal strength and range of motion, no pitting or edema. No cyanosis. NEUROLOGICAL: Moves all extremities upon command. Strength 5/5 in all extre mities. PSYCH: Normal mood, normal affect. SKIN: Warm, dry. No rash, lesions, ulcerations noted. Normal skin turgor. Course - Re-evaluation Re-evalutation: 06/19/20 10:58 Hematology is unremarkable. Chemistry is also normal. Lipase and LFTs are normal. We will give the patient a dose of Pepcid and Carafate. She reports th at the pain went away little bit with the morphine and Maalox. Awaiting urinalysis. Patient is requesting to leave. Will prescribe her Pepcid and Carafate to go home with. She is in agreement with this plan. We will also give her Hydromet to help with her cough. Follow-up precautions were given. Verbal discharge instructions were given to the patient. They verbalized understanding. They are stable for discharge. 06/19/20 12:21 Urinalysis shows trace leukocytes in her urine. Will send urine for culture. - Vital Signs Vital signs: Temp Pulse Resp BP Pulse Ox 98.4 F 100 15 119/79 99 06/19/20 12:19 06/19/20 07:48 06/19/20 11:00 06/19/20 10:02 06/19/20 11:00 - Laboratory Result Diagrams: 06/19/20 08:56 06/19/20 08:56 Laboratory results interpreted by me: 06/19/20 06/19/20 08:56 11:09 Creatinine 0.50 L Glucose 119 H Ur Leukocyte Esterase TRACE H - EKG Interpretation by Me Additional EKG results interpreted by me: 06/19/20 08:37 Sinus tachycardia. Rate 102. WV 156; QRS 82; QT 352; QTc 459. No ST elevations or depressions noted. Discharge - Discharge Clinical Impression: Cough Abdominal pain Qualifiers: Abdominal location: epigastric Qualified Code(s): R10.13 - Epigastric pain Condition: Stable Disposition: HOME, SELF-CARE Additional Instructions: You are seen today in the emergency department for abdominal pain and a cough. Your pain is most likely due to gastritis. Take Pepcid and Carafate as prescribed. Your chest x-ray was normal and did not show any pneumonia. Take the Hydromet for your cough. Your labs are also very reassuring. There is no pancreatitis. 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 Prescriptions: Sucralfate [Carafate 1 gm Tablet] 1 gm PO ACHS #90 tablet Hydrocodone Bit/Homatrop Me-Br [Hydrocodone-Homatropine Syrup] 5 ml PO ASDIR PRN #90 ml PRN Reason: Famotidine [Pepcid 20 mg Tablet] 20 mg PO BID #60 tablet Forms: Return to Work Referrals: EVELYN MI MD [Primary Care Provider] - Follow up tomorrow IGNACIO BOWEN MD [ACTIVE STAFF] - Follow up in 3-5 days CLAYTON CARR MD [ACTIVE STAFF] - Follow up in 3-5 days
--- NOTE | 2020-06-19 08:33 | EKG REPORT ---
SEVERITY:- OTHERWISE NORMAL ECG - SINUS TACHYCARDIA : Confirmed by: Trina Choi MD 19-Jun-2020 08:32:32
[2020-06-19] MEDS ORDERED: MORPHINE SULFATE 10 MG/ML INJ IV ONE (09:10)
[2020-06-19 09:13] LABS: ABSOLUTE BASOPHILS # (AUTO) 0.1 10^3/uL (0.0-0.2); ABSOLUTE EOSINOPHILS # (AUTO) 0.1 10^3/uL (0.0-0.6); ABSOLUTE LYMPHOCYTES (AUTO) 1.9 10^3/uL (0.5-4.7); ABSOLUTE MONOCYTES (AUTO) 0.6 10^3/uL (0.1-1.4); BASOPHILS % (AUTO) 1.2 % (0-2); EOSINOPHILS % (AUTO) 1.9 % (0-6); HEMATOCRIT 38.6 % (36.0-47.0); HEMOGLOBIN 13.2 g/dL (12.0-15.5); LYMPHOCYTES % (AUTO) 24.4 % (13-45); MEAN CORPUSCULAR HGB CONC 34.2 g/dL (32.0-36.0); MEAN CORPUSCULAR VOLUME 91 fl (80-97); MONOCYTES % (AUTO) 7.8 % (3-13); PLATELET COUNT 222 10^3/uL (150-450); RED BLOOD COUNT 4.26 10^6/uL (3.72-5.28); RED CELL DISTRIBUTION WIDTH 13.2 % (11.5-14.0); SEGMENTED NEUTROPHILS % (AUTO) 64.7 % (42-78); TOTAL CELLS COUNTED % (AUTO) 100 %; WHITE BLOOD COUNT 7.8 10^3/uL (4.0-10.5)
[2020-06-19 09:35] LABS: ALBUMIN 4.3 g/dL (3.5-5.0); ALKALINE PHOSPHATASE 92 U/L (38-126); ANION GAP 11 (5-19); ASPARTATE AMINO TRANSFERASE 33 U/L (14-36); BILIRUBIN,DIRECT 0.2 mg/dL (0.0-0.4); BILIRUBIN,TOTAL 0.6 mg/dL (0.2-1.3); BLOOD UREA NITROGEN 11 mg/dL (7-20); CALCIUM 9.7 mg/dL (8.4-10.2); CARBON DIOXIDE 22 mmol/L (22-30); CHLORIDE 105 mmol/L (98-107); GLUCOSE 119 mg/dL (75-110); POTASSIUM 4.5 mmol/L (3.6-5.0); TOTAL PROTEIN 8.1 g/dL (6.3-8.2)
--- NOTE | 2020-06-19 09:52 | RADIOLOGY REPORT (SQ) ---
EXAM DESCRIPTION: CHEST SINGLE VIEW IMAGES COMPLETED DATE/TIME: 06/19/2020 9:34 am REASON FOR STUDY: cough COMPARISON: 05/01/2020 EXAM PARAMETERS: NUMBER OF VIEWS: One view. TECHNIQUE: Single frontal radiographic view of the chest acquired. RADIATION DOSE: NA LIMITATIONS: None. FINDINGS: LUNGS AND PLEURA: No opacities, masses or pneumothorax. No pleural effusion. MEDIASTINUM AND HILAR STRUCTURES: No masses. Contour normal. HEART AND VASCULAR STRUCTURES: Heart normal in size. Normal vasculature. BONES: No acute findings. HARDWARE: None in the chest. OTHER: No other significant finding. IMPRESSION: NO ACUTE RADIOGRAPHIC FINDING IN THE CHEST. TECHNICAL DOCUMENTATION: JOB ID: [id number] 2010 [employer]- All Rights Reserved Reading location - IP/workstation name: [email or web address]
[2020-06-19] MEDS ORDERED: SUCRALFATE 1 GM TABLET PO ONE (10:54)
[2020-06-19] MEDS ORDERED: FAMOTIDINE 20 MG TABLET PO ONE (10:54)
[2020-06-19 11:16] VITALS: BP 119/79
[2020-06-19 11:52] LABS: APPEARANCE,URINE CLEAR; BILIRUBIN,URINE NEGATIVE (NEGATIVE); COLOR,URINE YELLOW; GLUCOSE, URINE NEGATIVE (NEGATIVE); KETONES,URINE NEGATIVE (NEGATIVE); LEUKOCYTE ESTERASE,URINE TRACE (NEGATIVE); NITRITE,URINE NEGATIVE (NEGATIVE); PROTEIN,URINE NEGATIVE (NEGATIVE); URINE SPECIFIC GRAVITY 1.024; UROBILINOGEN,URINE NEGATIVE mg/dL (<2.0)
== END 2020-06-19 12:19 | disposition home or self-care (01) ==
LOC: ER 07:43
DX: R10.13 Epigastric pain (principal); R10.816 Epigastric abdominal tenderness; R05 Cough; R00.0 Tachycardia, unspecified; F17.200 Nicotine dependence, unspecified, uncomplicated; Z88.1 Allergy status to other antibiotic agents; Z88.6 Allergy status to analgesic agent; Z88.5 Allergy status to narcotic agent; Z87.892 Personal history of anaphylaxis; Z88.0 Allergy status to penicillin; Z88.8 Allergy status to other drugs, medicaments and biological substances
CPT/HCPCS: 93005; 94640; 99285; 96361; 96374; 96375; 36415; 87086; 83690; 85025; 80053; 81001; 71045; 93010; J2270; J2405; J7030; J7614

== ENCOUNTER 2020-07-01 17:59 | Emergency (ER) | payer BC ==
[2020-07-01 18:08] VITALS: BP 154/102
--- NOTE | 2020-07-01 18:32 | ER Document Report ---
HPI - HPI Patient complains to provider of: cough Time Seen by Provider: 07/01/20 18:20 Notes: 35-year-old female to the emergency department with history of chronic bronchitis with complaints of a flare of her chronic bronchitis. She states that she saw her primary care, Dr. mi. Dr. Mi placed her on albuterol inhaler, cough medicine, Biaxin. She states that she was doing better over the weekend but then she ran out of her cough medicine. She states now she is coughing all the time and she cannot get a good deep breath. She denies any fevers or chills. She denies any sore throat, she denies any loss of smell or taste. She denies any possible COVID-19 contacts. She states that her primary care physician was not concerned with Covid and so she is therefore also not concerned with Covid. She states that really she is just here to get a refill of the cough medicine. - ROS Systems Reviewed and Negative: Yes All other systems reviewed and negative - CONSTITUTIONAL Constitutional: DENIES: Fever, Chills - EENT EENT: DENIES: Sore Throat, Ear Pain, Congestion - NEURO Neurology: DENIES: Headache - CARDIOVASCULAR Cardiovascular: DENIES: Chest pain - RESPIRATORY Respiratory: REPORTS: Coughing - See HPI - GASTROINTESTINAL Gastrointestinal: DENIES: Abdominal Pain, Nausea, Patient vomiting - REPRODUCTIVE Reproductive: DENIES: : - MUSCULOSKELETAL Musculoskeletal: DENIES: Extremity pain, Back Pain, Neck Pain, Swelling - DERM Skin Color: Normal Skin Problems: None Past Medical History - General Information source: Patient - Social History Smoking Status: Former Smoker Frequency of alcohol use: None Drug Abuse: None Family History: DM, Hypertension Renal/ Medical History: Reports: Hx Kidney Stones, Hx Ovarian Cysts. Denies: Hx Peritoneal Dialysis GI Medical History: Reports: Hx Irritable Bowel, Hx Pancreatitis Musculoskeletal Medical History: Reports Hx Musculoskeletal Deformity Psychiatric Medical History: Reports: Hx Anxiety, Hx Bipolar Disorder, Hx Depression, Hx Post Traumatic Stress Disorder Past Surgical History: Reports: Hx Appendectomy, Hx Section, Hx Cholecystectomy, Hx Kidney (Renal Surgery) - kidney stent rt, Hx Myringotomy - Immunizations Immunizations up to date: Yes Hx Diphtheria, Pertussis, Tetanus Vaccination: Yes Vertical Provider Document - CONSTITUTIONAL Agree With Documented VS: Yes Exam Limitations: No Limitations - INFECTION CONTROL TRAVEL OUTSIDE OF THE [place] IN LAST 30 DAYS: Yes - HEENT HEENT: Atraumatic, Normocephalic, PERRLA. negative: Pharyngeal Exudate, Pharyngeal Erythema Notes: TMs clear bilaterally. Friable nasal mucosa but no active drainage or epistaxis. - NECK Neck: Normal Inspection, Supple - RESPIRATORY Notes: Decreased breath sounds throughout. Hacking dry cough. There is no wheezes or rhonchi's or rales. She is not in any respiratory distress. She is not tripoding or using accessory muscle use. - CARDIOVASCULAR Cardiovascular: Regular Rate, Regular Rhythm, No Murmur - GI/ABDOMEN Gastrointestinal: Abdomen Soft, Abdomen Non-Tender, No Organomegaly - MUSCULOSKELETAL/EXTREMETIES Musculoskeletal/Extremeties: MAEW, FROM, Non-Tender - NEURO Level of Consciousness: Awake, Alert, Appropriate Motor/Sensory: No Motor Deficit, No Sensory Deficit - DERM Integumentary: Warm, Dry, No Rash Course - Re-evaluation Re-evalutation: Impression: Chronic bronchitis. Will refill small amount of cough medicine. Did offer steroids but patient states that it gives her significant mood irritability. I have encouraged her to complete her antibiotics as well as use her inhaler from her PCM. Also encouraged her follow-up with her PCM without fail. Patient agrees with the plan. Offered Chest XR but patient also declin ed. States she will return if she gets worse for XR, but feels like this is her normal flare for her Bronchitis. - Vital Signs Vital signs: Temp Pulse Resp BP Pulse Ox 98.8 F 102 H 20 154/102 H 99 07/01/20 18:05 07/01/20 18:05 07/01/20 18:05 07/01/20 18:05 07/01/20 18:05 Discharge - Discharge Clinical Impression: Bronchitis Condition: Stable Disposition: HOME, SELF-CARE Instructions: Bronchitis ([facility]) Additional Instructions: Follow-up with your primary care without fail at the end of the week. Continue to take your albuterol inhaler as well as finish your antibiotics. Return if you have worsening symptoms. Prescriptions: Hydrocodone Bit/Homatrop Me-Br [Hydrocodone-Homatropine Soln] 5 ml PO BID #120 ml Referrals: EVELYN MI MD [Primary Care Provider] - Follow up in 3-5 days
== END 2020-07-01 18:46 | disposition home or self-care (01) ==
LOC: ER 17:59
DX: J42 Unspecified chronic bronchitis (principal); R05 Cough; Z87.891 Personal history of nicotine dependence
CPT/HCPCS: 99283